=== PATIENT | female | born 1975 | race Caucasian/White ===

== ENCOUNTER 2018-01-10 16:56 | Emergency (ER) | payer OTHER ==
--- NOTE | 2018-01-10 17:38 | ERPHSYRPT ---
- History of Present Illness Time Seen by Provider: 01/10/18 17:31 Historian: patient, family Exam Limitations: no limitations Physician History: The patient is a 43-year-old female planing of right upper quadrant abdominal pain with radiation through to her back and shoulder for 2 days. She also complains of nausea, vomiting, and diarrhea for 2 days. Last night when the pain was severe in her abdomen, it caused her lower central chest to feel like it is being squeezed. When she laid down she would feel short of breath. She drinks alcohol. She drank a beer today to see if it would make the abdominal pain worse. The pain got worse with drinking beer. Her past medical history is significant for anxiety, GERD, cholecystectomy, appendectomy, and tubal ligation. Timing/Duration: day(s) (2), constant, gradual onset, worse Activities at Onset: none Quality: sharpness Abdominal Pain Onset Location: RUQ, epigastric Pain Radiation: shoulder, back Severity of Pain-Max: moderate Severity of Pain-Current: moderate Modifying Factors: Improves With: other (drinking a beer made her pain worse today.) Associated Symptoms: diarrhea, nausea, vomiting Previous symptoms: no prior history Allergies/Adverse Reactions: cyclobenzaprine [From Flexeril] Allergy (Verified 01/10/18 17:23) Home Medications: Clonidine HCl 0.2 mg PO DAILY 01/10/18 [History] Ranitidine HCl [Zantac] 150 mg PO DAILY 01/10/18 [History] - Review of Systems Constitutional: No Fever, No Chills Eyes: No Symptoms Ears, Nose, & Throat: No Symptoms Respiratory: No Cough, No Dyspnea Cardiac: No Chest Pain, No Edema, No Syncope Abdominal/Gastrointestinal: Abdominal Pain, Nausea, Vomiting, Diarrhea Genitourinary Symptoms: No Dysuria Musculoskeletal: No Back Pain, No Neck Pain Skin: No Rash Neurological: No Dizziness, No Focal Weakness, No Sensory Changes Psychological: No Symptoms Endocrine: No Symptoms Hematologic/Lymphatic: No Symptoms Immunological/Allergic: No Symptoms All Other Systems: Reviewed and Negative - Nursing Vital Signs Nursing Vital Signs: Initial Vital Signs Temperature 98.6 F 01/10/18 17:17 Pulse Rate 72 01/10/18 17:17 Respiratory Rate 16 01/10/18 17:17 Blood Pressure 142/95 01/10/18 17:17 O2 Sat by Pulse Oximetry 98 01/10/18 17:17 Pain Scale Pain Intensity 8 - Physical Exam General Appearance: mild distress Eye Exam: PERRL/EOMI, eyes nml inspection Ears, Nose, Throat Exam: normal ENT inspection, pharynx normal, moist mucous membranes Neck Exam: normal inspection, non-tender, supple, full range of motion Respiratory Exam: normal breath sounds, lungs clear, No respiratory distress Cardiovascular Exam: regular rate/rhythm, normal heart sounds Gastrointestinal/Abdomen Exam: normal bowel sounds, tenderness (RUQ, epigastric) Pelvic Exam: not done Rectal Exam: not done Back Exam: normal inspection, normal range of motion, No CVA tenderness, No vertebral tenderness Extremity Exam: normal inspection, normal range of motion, pelvis stable Neurologic Exam: alert, oriented x 3, cooperative, normal mood/affect, nml cerebellar function, sensation nml, No motor deficits Skin Exam: normal color, warm, dry SpO2 Interpretation: normal Oxygen Delivery: Room Air - Course EKG Interpreted by Me: RATE, Sinus Rhythm, NORMAL AXIS, NORMAL INTERVALS, NORMAL QRS, NORMAL ST-T - CT Exams Abdomen/Pelvis CT Interpretation: Negative, Tele-radiologist Report (per Dr Hinkle), No appendicitis (surgically absent), Other (minimal diverticulosis) Ordered Tests: Active Orders 24 hr Category Date Time Status Clean Catch Urine Specimen STAT Care 01/10/18 17:42 Active EKG-ER Only STAT Care 01/10/18 17:42 Active IV Insertion STAT Care 01/10/18 17:42 Active ABDOMEN AND PELVIS W/0 CONTRAS [CT] Stat Exams 01/10/18 17:44 Taken AMYLASE Stat Lab 01/10/18 17:57 Completed CBC W DIFF Stat Lab 01/10/18 17:57 Completed CMP Stat Lab 01/10/18 17:57 Completed HCG QUALITATIVE,SERUM Stat Lab 01/10/18 17:57 Completed LIPASE Stat Lab 01/10/18 17:57 Completed Lactic Acid Stat Lab 01/10/18 17:50 Completed TROPONIN Q3H Lab 01/10/18 17:57 Completed TROPONIN Q3H Lab 01/10/18 20:45 Ordered TROPONIN Q3H Lab 01/10/18 23:45 Ordered TROPONIN Q3H Lab 01/11/18 02:45 Ordered TROPONIN Q3H Lab 01/11/18 05:45 Ordered UA W/RFX UR CULTURE Stat Lab 01/10/18 18:40 Received Urine Triage Profile Stat Lab 01/10/18 18:40 Ordered Medication Summary Discontinued Medications Generic Name Dose Route Start Last Admin Trade Name Norma PRN Reason Stop Dose Admin Sodium Chloride 1,000 mls @ 999 mls/hr 01/10/18 17:42 01/10/18 18:46 Sodium Chloride 0.9% 1000 Ml IV 01/10/18 18:42 999 mls/hr .Q1H1M STA Administration Sodium Chloride Confirm 01/10/18 18:42 Sodium Chloride 0.9% 1000 Ml Administered 01/10/18 18:43 Dose 1,000 mls @ ud .ROUTE .STK-MED ONE Morphine Sulfate 4 mg 01/10/18 17:42 01/10/18 18:46 Morphine Sulfate 4 Mg Inj IV 01/10/18 17:43 4 mg STAT ONE Administration Morphine Sulfate Confirm 01/10/18 18:42 Morphine Sulfate 4 Mg Inj Administered 01/10/18 18:43 Dose 4 mg .ROUTE .STK-MED ONE Ondansetron HCl 4 mg 01/10/18 17:42 01/10/18 18:46 Zofran 4 Mg/2 Ml Vial IV 01/10/18 17:43 4 mg STAT ONE Administration Ondansetron HCl Confirm 01/10/18 18:42 Zofran 4 Mg/2 Ml Vial Administered 01/10/18 18:43 Dose 4 mg .ROUTE .STK-MED ONE Lab/Rad Data: Laboratory Result Diagrams 01/10/18 17:57 01/10/18 17:57 Laboratory Results 01/10/18 01/10/18 01/10/18 Range/Units 17:57 17:57 17:57 WBC (4.0-10.5) K/mm3 RBC (4.1-5.4) M/mm3 Hgb (12.0-16.0) gm/dl Hct (35-47) % MCV (78-100) fl MCH (26-32) pg MCHC (32-36) g/dl RDW (11.5-14.0) % Plt Count (150-450) K/mm3 MPV (6-9.5) fl Gran % (36.0-66.0) % Eos # (Auto) (0-0.5) Absolute Lymphs (auto) (1.0-4.6) Absolute Monos (auto) (0.0-1.3) Lymphocytes % (24.0-44.0) % Monocytes % (0.0-12.0) % Eosinophils % (0.00-5.0) % Basophils % (0.0-0.4) % Absolute Granulocytes (1.4-6.9) Basophils # (0-0.4) Sodium 136 L (137-145) mmol/L Potassium 3.7 (3.5-5.1) mmol/L Chloride 105 (98-107) mmol/L Carbon Dioxide 21 L (22-30) mmol/L Anion Gap 13.5 (5-15) MEQ/L BUN 5 L (7-17) mg/dL Creatinine 0.55 (0.52-1.04) mg/dL Estimated GFR > 60.0 ML/MIN Glucose 102 (74-106) mg/dL Lactic Acid (0.4-2.0) Calcium 9.1 (8.4-10.2) mg/dL Total Bilirubin 0.60 (0.2-1.3) mg/dL AST 19 (14-36) U/L ALT 9 (0-35) U/L Alkaline Phosphatase 85 (38-126) U/L Troponin I < 0.012 (0.000-0.034) ng/mL Serum Total Protein 7.3 (6.3-8.2) g/dL Albumin 4.4 (3.5-5.0) g/dL Amylase 45 (30-110) U/L Lipase 48 (23-300) U/L Serum , Qual NEGATIVE (Negative) 01/10/18 01/10/18 Range/Units 17:57 17:50 WBC 7.9 (4.0-10.5) K/mm3 RBC 4.53 (4.1-5.4) M/mm3 Hgb 15.7 (12.0-16.0) gm/dl Hct 44.2 (35-47) % MCV 97.6 (78-100) fl MCH 34.7 H (26-32) pg MCHC 35.5 (32-36) g/dl RDW 13.5 (11.5-14.0) % Plt Count 265 (150-450) K/mm3 MPV 10.4 H (6-9.5) fl Gran % 63.8 (36.0-66.0) % Eos # (Auto) 0.11 (0-0.5) Absolute Lymphs (auto) 2.14 (1.0-4.6) Absolute Monos (auto) 0.55 (0.0-1.3) Lymphocytes % 27.0 (24.0-44.0) % Monocytes % 6.9 (0.0-12.0) % Eosinophils % 1.4 (0.00-5.0) % Basophils % 0.9 (0.0-0.4) % Absolute Granulocytes 5.06 (1.4-6.9) Basophils # 0.07 (0-0.4) Sodium (137-145) mmol/L Potassium (3.5-5.1) mmol/L Chloride (98-107) mmol/L Carbon Dioxide (22-30) mmol/L Anion Gap (5-15) MEQ/L BUN (7-17) mg/dL Creatinine (0.52-1.04) mg/dL Estimated GFR ML/MIN Glucose (74-106) mg/dL Lactic Acid 1.6 (0.4-2.0) Calcium (8.4-10.2) mg/dL Total Bilirubin (0.2-1.3) mg/dL AST (14-36) U/L ALT (0-35) U/L Alkaline Phosphatase (38-126) U/L Troponin I (0.000-0.034) ng/mL Serum Total Protein (6.3-8.2) g/dL Albumin (3.5-5.0) g/dL Amylase (30-110) U/L Lipase (23-300) U/L Serum , Qual (Negative) - Progress Progress: improved Counseled pt/family regarding: lab results, diagnosis, need for follow-up, rad results - Departure Time of Disposition: 19:07 Departure Disposition: Home Clinical Impression: Gastritis Condition: Stable Critical Care Time: No Referrals: RUMA BUCK PA [Primary Care Provider] - Additional Instructions: All of your laboratory results and her CT scan of the abdomen and pelvis were normal. You do not have pancreatitis. I suspect you have gastritis because when you drink of severe it makes your stomach hurt more. You were given morphine 8 mg, Zofran 4 mg, Protonix 40 mg, and fluids by IV in the ER. Take omeprazole 20 mg daily. Avoid spicy food and alcohol until feeling better. Follow-up with your primary medical doctor later this week. He also may take Tylenol as needed for pain. Avoid ibuprofen until better.
[2018-01-10] MEDS ORDERED: MORPHINE SULFATE 4 MG INJ IV ONE (17:42)
[2018-01-10] MEDS ORDERED: Sodium Chloride 0.9% 1000 ML 1,000 ML IV STA (17:42)
[2018-01-10] MEDS ORDERED: Zofran 4 MG/2 ML VIAL IV ONE (17:42)
[2018-01-10 17:56] LABS: BASOPHIL % 0.9 % (0.0-0.4); Basophil (Absolute #) 0.07 (0-0.4); Eosinophil % 1.4 % (0.00-5.0); Eosinophil (Absolute #) 0.11 (0-0.5); Granulocyte Absolute (ANC) 5.06 (1.4-6.9); Granulocytes % 63.8 % (36.0-66.0); Hematocrit 44.2 % (35-47); Hemoglobin 15.7 gm/dl (12.0-16.0); Lymphocyte (Absolute #) 2.14 (1.0-4.6); Mean Cell Volume 97.6 fl (78-100); Mean Corpuscular Hemoglobin 34.7 pg (26-32); Mean Corpuscular Hgb Concent. 35.5 g/dl (32-36); Mean Platelet Volume 10.4 fl (6-9.5); Monocyte (Absolute #) 0.55 (0.0-1.3); Monocytes % 6.9 % (0.0-12.0); Platelet Count 265 K/mm3 (150-450); Red Blood Count 4.53 M/mm3 (4.1-5.4); Red Cell Distribution Width 13.5 % (11.5-14.0); White Blood Count 7.9 K/mm3 (4.0-10.5)
[2018-01-10 18:12] LABS: ALBUMIN 4.4 g/dL (3.5-5.0); ALKALINE PHOSPHATASE 85 U/L (38-126); AMYLASE 45 U/L (30-110); ANION GAP 13.5 MEQ/L (5-15); BLOOD UREA NITROGEN 5 mg/dL (7-17); CHLORIDE 105 mmol/L (98-107); Calcium 9.1 mg/dL (8.4-10.2); Carbon Dioxide 21 mmol/L (22-30); Creatinine 1 0.55 mg/dL (0.52-1.04); Glucose 102 mg/dL (74-106); LIPASE 48 U/L (23-300); Potassium 3.7 mmol/L (3.5-5.1); SGOT/AST 19 U/L (14-36); SGPT/ALT 9 U/L (0-35); SODIUM 136 mmol/L (137-145); Total Protein 7.3 g/dL (6.3-8.2)
[2018-01-10] MEDS ORDERED: Sodium Chloride 0.9% 1000 ML 1,000 ML ONE (18:42)
[2018-01-10] MEDS ORDERED: Zofran 4 MG/2 ML VIAL ONE (18:42)
[2018-01-10] MEDS ORDERED: MORPHINE SULFATE 4 MG INJ ONE (18:42)
[2018-01-10 19:01] LABS: Appearance CLEAR (CLEAR); Leukocyte Esterase TRACE (NEGATIVE); Nitrite NEGATIVE (NEGATIVE); Protein,Urine Dip NEGATIVE (Negative)
[2018-01-10 19:02] LABS: Bilirubin NEGATIVE (NEGATIVE); Blood TRACE NON-HEM Ery/ul (0-5); Epithelial Cells RARE /HPF (FEW); Glucose NEGATIVE (NEGATIVE); Ketones NEGATIVE (NEGATIVE); RBC 0-2 /HPF (0-2); Urobilinogen NORMAL mg/dL (0-1); WBC 0-2 /HPF (0-5)
[2018-01-10] MEDS ORDERED: PROTONIX 40 MG IV IV ONE ×2 (19:06→19:13)
[2018-01-10 19:12] LABS: Barbiturate,Urine NEGATIVE (NEGATIVE); Benzodiazepine,Urine NEGATIVE (NEGATIVE); Cocaine,Urine NEGATIVE (NEGATIVE); Methadone,Urine NEGATIVE (NEGATIVE); Opiate,Urine NEGATIVE (NEGATIVE); PCP,Urine NEGATIVE (NEGATIVE); THC,Urine NEGATIVE (NEGATIVE)
[2018-01-10 19:20] VITALS: PULSE 60
[2018-01-10 19:27] LABS: Amphetamine,Urine POSITIVE (NEGATIVE)
[2018-01-10 19:52] VITALS: BP 144/80; O2SAT 99
--- NOTE | 2018-01-11 08:43 | XRAY ---
Indication: Abdomen pain. Multiple contiguous axial images obtained through the abdomen and pelvis without contrast as ordered. Comparison: None Lung bases clear. Heart is not enlarged. Noncontrasted stomach and bowel loops appear nonobstructed. Previous appendectomy. Minimal left hemicolon diverticulosis without diverticulitis. No free fluid/air. Previous cholecystectomy. Bilateral tubal ligation rings. Remaining liver, pancreas, spleen, adrenal glands, kidneys, ureters, bladder, uterus, and aorta appear unremarkable for noncontrast exam. Osseous structures intact. No ventral or inguinal hernias. Impression: 1. Colonic diverticulosis without diverticulitis. 2. No acute intra-abdominal/pelvic abnormalities on this noncontrast exam. CT DI 13.76
== END 2018-01-10 19:52 | disposition home or self-care (01) ==
LOC: ED 16:56
DX: K29.70 Gastritis, unspecified, without bleeding (principal); R10.11 Right upper quadrant pain; R11.2 Nausea with vomiting, unspecified; R10.13 Epigastric pain; Z79.899 Other long term (current) drug therapy
CPT/HCPCS: 36000; 36415; 74176; 80053; 80307; 81000; 82150; 83605; 83690; 84484; 84703; 85025; 87086; 93005; 96360; 96374; 96375; 99284; J2270; J2405

== ENCOUNTER 2018-03-16 13:03 | Emergency (ER) | payer OTHER ==
[2018-03-16] MEDS ORDERED: Pepcid 20 MG VIAL IV ONE ×2 (13:25→13:43)
[2018-03-16] MEDS ORDERED: Sodium Chloride 0.9% 1000 ML 1,000 ML IV STA (13:25)
[2018-03-16] MEDS ORDERED: Zofran 4 MG/2 ML VIAL IV ONE (13:25)
[2018-03-16] MEDS ORDERED: MORPHINE SULFATE 4 MG INJ IV ONE (13:25)
--- NOTE | 2018-03-16 13:25 | ERPHSYRPT ---
- History of Present Illness Time Seen by Provider: 03/16/18 13:20 Historian: patient Exam Limitations: no limitations Patient Subjective Stated Complaint: Pt states "I am having chest pain, diarrhea , coughing, vomiting for the past 3 to 4 days. I am always cold, and I am shaking." Triage Nursing Assessment: pt alert and oriented X 3, skin pwd. PT ambulates with an upright steady gait, able to speak in clear full sentences. Pt coughing intermittantly. Pt shaking uncontrollably. Pt in no apparent respiratory distress. Physician History: The patient is a 43-year-old female in planing of nausea, vomiting, and diarrhea for 3 days. She is also lightheaded today while she is walking. She has shakiness and chills. She has some epigastric pain. Every time she eats or drinks for the past 3 days, she vomits. Her last menstrual period was 2 weeks ago. She denies shortness of breath. Her past medical history is significant for anxiety, gerd, appendectomy, cholecystectomy, and tubal ligation. Timing/Duration: day(s) (3), gradual onset, worse Activities at Onset: none Quality: aching Abdominal Pain Onset Location: epigastric Pain Radiation: other (lower mid chest) Severity of Pain-Max: moderate Severity of Pain-Current: moderate Modifying Factors: Improves With: nothing Associated Symptoms: diarrhea, fever/chills, nausea, vomiting Previous symptoms: no prior history Allergies/Adverse Reactions: tramadol Allergy (Severe, Verified 03/16/18 13:15) Hives cyclobenzaprine [From Flexeril] Allergy (Verified 01/10/18 17:23) Home Medications: Clonidine HCl 0.2 mg PO DAILY 01/10/18 [History] Ranitidine HCl [Zantac] 150 mg PO DAILY 01/10/18 [History] Omeprazole 20 mg PO DAILY 03/16/18 [History] Hx Tetanus, Diphtheria Vaccination/Date Given: No Hx Influenza Vaccination/Date Given: No Hx Pneumococcal Vaccination/Date Given: No Immunizations Up to Date: Yes - Review of Systems Constitutional: Chills, Weakness Eyes: No Symptoms Ears, Nose, & Throat: No Symptoms Respiratory: No Cough, No Dyspnea Cardiac: No Chest Pain, No Edema, No Syncope Abdominal/Gastrointestinal: Abdominal Pain, Nausea, Vomiting, Diarrhea Genitourinary Symptoms: No Dysuria Musculoskeletal: No Back Pain, No Neck Pain Skin: No Rash Neurological: No Dizziness, No Focal Weakness, No Sensory Changes Psychological: No Symptoms Endocrine: No Symptoms Hematologic/Lymphatic: No Symptoms Immunological/Allergic: No Symptoms All Other Systems: Reviewed and Negative - Past Medical History Pertinent Past Medical History: Yes GI Medical History: GERD Psycho-Social History: Anxiety - Past Surgical History Past Surgical History: Yes Gastrointestinal: Cholecystectomy Female Surgical History: Tubal Ligation - Social History Smoking Status: Current every day smoker How long have you smoked: 20 years Exposure to second hand smoke: Yes Drug Use: none Patient Lives Alone: No - Female History Hx Last Menstrual Period: 03/03/2018 Hx Now: No - Nursing Vital Signs Nursing Vital Signs: Initial Vital Signs Temperature 98.4 F 03/16/18 13:06 Pulse Rate 110 H 03/16/18 13:06 Respiratory Rate 24 03/16/18 13:06 Blood Pressure 142/114 03/16/18 13:06 O2 Sat by Pulse Oximetry 99 03/16/18 13:06 Pain Scale Pain Intensity 5 - Physical Exam General Appearance: mild distress Eye Exam: PERRL/EOMI, eyes nml inspection Ears, Nose, Throat Exam: normal ENT inspection, pharynx normal, moist mucous membranes Neck Exam: normal inspection, non-tender, supple, full range of motion Respiratory Exam: normal breath sounds, lungs clear, No respiratory distress Cardiovascular Exam: tachycardia Gastrointestinal/Abdomen Exam: tenderness (RLQ, epigastrium) Pelvic Exam: not done Rectal Exam: not done Back Exam: normal inspection, normal range of motion, No CVA tenderness, No vertebral tenderness Extremity Exam: normal inspection, normal range of motion, pelvis stable Neurologic Exam: alert, oriented x 3, cooperative, normal mood/affect, nml cerebellar function, sensation nml, No motor deficits Skin Exam: normal color, warm, dry SpO2 Interpretation: normal SpO2: 99 Oxygen Delivery: Room Air - Course EKG Interpreted by Me: RATE, Sinus Rhythm, NORMAL AXIS, NORMAL INTERVALS, NORMAL QRS, NORMAL ST-T - CT Exams Abdomen/Pelvis CT Interpretation: Tele-radiologist Report (per Dr Hinkle), Other (stable descending colonic diverticulosis without diverticulitis; no new or acute findings.) Ordered Tests: Active Orders 24 hr Category Date Time Status Clean Catch Urine Specimen STAT Care 03/16/18 13:25 Active EKG-ER Only STAT Care 03/16/18 13:25 Active IV Insertion STAT Care 03/16/18 13:25 Active Orthostatic Vital Signs STAT Care 03/16/18 13:27 Active ABDOMEN AND PELVIS W/0 CONTRAS [CT] Stat Exams 03/16/18 13:26 Completed CBC W DIFF Stat Lab 03/16/18 13:25 Completed CMP Stat Lab 03/16/18 13:25 Completed HCG QUALITATIVE,SERUM Stat Lab 03/16/18 13:25 Completed LIPASE Stat Lab 03/16/18 13:25 Completed Lactic Acid Stat Lab 03/16/18 14:00 Completed TROPONIN Q3H Lab 03/16/18 13:25 Completed TROPONIN Q3H Lab 03/16/18 16:30 Ordered TROPONIN Q3H Lab 03/16/18 19:30 Ordered TROPONIN Q3H Lab 03/16/18 22:30 Ordered TROPONIN Q3H Lab 03/17/18 01:30 Ordered UA W/RFX UR CULTURE Stat Lab 03/16/18 Completed Medication Summary Discontinued Medications Generic Name Dose Route Start Last Admin Trade Name Freq PRN Reason Stop Dose Admin Famotidine 20 mg 03/16/18 13:25 03/16/18 13:51 Pepcid 20 Mg Vial IV 03/16/18 13:26 20 mg STAT ONE Administration Famotidine Confirm 03/16/18 13:43 Pepcid 20 Mg Vial Administered 03/16/18 13:44 Dose 20 mg IV .STK-MED ONE Sodium Chloride 1,000 mls @ 999 mls/hr 03/16/18 13:25 03/16/18 13:51 Sodium Chloride 0.9% 1000 Ml IV 03/16/18 14:25 999 mls/hr .Q1H1M STA Administration Sodium Chloride Confirm 03/16/18 13:43 Sodium Chloride 0.9% 1000 Ml Administered 03/16/18 13:44 Dose 1,000 mls @ ud .ROUTE .STK-MED ONE Morphine Sulfate 4 mg 03/16/18 13:25 03/16/18 13:50 Morphine Sulfate 4 Mg Inj IV 03/16/18 13:26 4 mg STAT ONE Administration Morphine Sulfate Confirm 03/16/18 13:43 Morphine Sulfate 4 Mg Inj Administered 03/16/18 13:44 Dose 4 mg .ROUTE .STK-MED ONE Ondansetron HCl 4 mg 03/16/18 13:25 03/16/18 13:51 Zofran 4 Mg/2 Ml Vial IV 03/16/18 13:26 4 mg STAT ONE Administration Ondansetron HCl Confirm 03/16/18 13:43 Zofran 4 Mg/2 Ml Vial Administered 03/16/18 13:44 Dose 4 mg .ROUTE .STK-MED ONE Lab/Rad Data: Laboratory Result Diagrams 03/16/18 13:25 03/16/18 13:25 Laboratory Results 03/16/18 03/16/18 03/16/18 Range/Units Unknown 14:00 13:25 WBC (4.0-10.5) K/mm3 RBC (4.1-5.4) M/mm3 Hgb (12.0-16.0) gm/dl Hct (35-47) % MCV (78-100) fl MCH (26-32) pg MCHC (32-36) g/dl RDW (11.5-14.0) % Plt Count (150-450) K/mm3 MPV (6-9.5) fl Gran % (36.0-66.0) % Eos # (Auto) (0-0.5) Absolute Lymphs (auto) (1.0-4.6) Absolute Monos (auto) (0.0-1.3) Lymphocytes % (24.0-44.0) % Monocytes % (0.0-12.0) % Eosinophils % (0.00-5.0) % Basophils % (0.0-0.4) % Absolute Granulocytes (1.4-6.9) Basophils # (0-0.4) Sodium (137-145) mmol/L Potassium (3.5-5.1) mmol/L Chloride (98-107) mmol/L Carbon Dioxide (22-30) mmol/L Anion Gap (5-15) MEQ/L BUN (7-17) mg/dL Creatinine (0.52-1.04) mg/dL Estimated GFR ML/MIN Glucose (74-106) mg/dL Lactic Acid 1.4 (0.4-2.0) Calcium (8.4-10.2) mg/dL Total Bilirubin (0.2-1.3) mg/dL AST (14-36) U/L ALT (0-35) U/L Alkaline Phosphatase (38-126) U/L Troponin I (0.000-0.034) ng/mL Serum Total Protein (6.3-8.2) g/dL Albumin (3.5-5.0) g/dL Lipase (23-300) U/L Serum , Qual NEGATIVE (Negative) Urine Color YELLOW (YELLOW) Urine Appearance CLEAR (CLEAR) Urine pH 7.0 (5-6) Ur Specific [place] 1.009 (1.005-1.025) Urine Protein NEGATIVE (Negative) Urine Ketones SMALL (NEGATIVE) Urine Blood NEGATIVE (0-5) [place]/ul Urine Nitrite NEGATIVE (NEGATIVE) Urine Bilirubin NEGATIVE (NEGATIVE) Urine Urobilinogen 2 (0-1) mg/dL Ur Leukocyte Esterase NEGATIVE (NEGATIVE) Urine WBC (Auto) 0-2 (0-5) /HPF Urine RBC (Auto) NONE (0-2) /HPF U Hyaline Cast (Auto) 0-2 (0-2) /LPF U Epithel Cells (Auto) NONE (FEW) /HPF Urine Bacteria (Auto) NONE (NEGATIVE) /HPF Urine Culture Reflexed NO (NO) Urine Glucose NEGATIVE (NEGATIVE) mg/dL 03/16/18 03/16/18 03/16/18 Range/Units 13:25 13:25 13:25 WBC 7.2 (4.0-10.5) K/mm3 RBC 5.04 (4.1-5.4) M/mm3 Hgb 17.6 H (12.0-16.0) gm/dl Hct 49.7 H (35-47) % MCV 98.6 (78-100) fl MCH 34.9 H (26-32) pg MCHC 35.4 (32-36) g/dl RDW 14.3 H (11.5-14.0) % Plt Count 148 L (150-450) K/mm3 MPV 10.6 H (6-9.5) fl Gran % 71.3 H (36.0-66.0) % Eos # (Auto) 0.02 (0-0.5) Absolute Lymphs (auto) 1.48 (1.0-4.6) Absolute Monos (auto) 0.53 (0.0-1.3) Lymphocytes % 20.7 L (24.0-44.0) % Monocytes % 7.4 (0.0-12.0) % Eosinophils % 0.3 (0.00-5.0) % Basophils % 0.3 (0.0-0.4) % Absolute Granulocytes 5.11 (1.4-6.9) Basophils # 0.02 (0-0.4) Sodium 135 L (137-145) mmol/L Potassium 3.9 (3.5-5.1) mmol/L Chloride 99 (98-107) mmol/L Carbon Dioxide 20 L (22-30) mmol/L Anion Gap 19.9 H (5-15) MEQ/L BUN 6 L (7-17) mg/dL Creatinine 0.60 (0.52-1.04) mg/dL Estimated GFR > 60.0 ML/MIN Glucose 97 (74-106) mg/dL Lactic Acid (0.4-2.0) Calcium 10.0 (8.4-10.2) mg/dL Total Bilirubin 0.70 (0.2-1.3) mg/dL AST 24 (14-36) U/L ALT 17 (0-35) U/L Alkaline Phosphatase 109 (38-126) U/L Troponin I < 0.012 (0.000-0.034) ng/mL Serum Total Protein 8.2 (6.3-8.2) g/dL Albumin 4.9 (3.5-5.0) g/dL Lipase 128 (23-300) U/L Serum , Qual (Negative) Urine Color (YELLOW) Urine Appearance (CLEAR) Urine pH (5-6) Ur Specific [place] (1.005-1.025) Urine Protein (Negative) Urine Ketones (NEGATIVE) Urine Blood (0-5) Haroldo/ul Urine Nitrite (NEGATIVE) Urine Bilirubin (NEGATIVE) Urine Urobilinogen (0-1) mg/dL Ur Leukocyte Esterase (NEGATIVE) Urine WBC (Auto) (0-5) /HPF Urine RBC (Auto) (0-2) /HPF U Hyaline Cast (Auto) (0-2) /LPF U Epithel Cells (Auto) (FEW) /HPF Urine Bacteria (Auto) (NEGATIVE) /HPF Urine Culture Reflexed (NO) Urine Glucose (NEGATIVE) mg/dL - Progress Progress: improved Progress Note: 03/16/18 14:59 Pt given MSO4 4 mg, zofran 4 mg, pepcid 20 mg, and fluids by IV with mild improvement. 03/16/18 15:02 Counseled pt/family regarding: lab results, diagnosis, need for follow-up, rad results - Departure Time of Disposition: 15:00 Departure Disposition: Home Clinical Impression: Gastroenteritis Condition: Stable Critical Care Time: No Referrals: RUMA BUCK PA [Primary Care Provider] - Additional Instructions: You have gastroenteritis. You were given morphine 4 mg, Zofran 4 mg, famotidine 20 mg, and fluids by IV in the ER. Take Zofran 4 mg ODT every 6 hours as needed. Begin with a all liquid diet and advance slowly as tolerated. Follow-up with your primary medical doctor as needed. Prescriptions: Ondansetron ODT 4 MG [Zofran Odt 4 mg] 1 tab PO Q6H PRN PRN #10 tab.rapdis PRN Reason: Nausea/Vomiting
[2018-03-16] MEDS ORDERED: Zofran 4 MG/2 ML VIAL ONE (13:43)
[2018-03-16] MEDS ORDERED: MORPHINE SULFATE 4 MG INJ ONE (13:43)
[2018-03-16] MEDS ORDERED: Sodium Chloride 0.9% 1000 ML 1,000 ML ONE (13:43)
[2018-03-16 13:44] LABS: BASOPHIL % 0.3 % (0.0-0.4); Basophil (Absolute #) 0.02 (0-0.4); Eosinophil % 0.3 % (0.00-5.0); Eosinophil (Absolute #) 0.02 (0-0.5); Granulocyte Absolute (ANC) 5.11 (1.4-6.9); Granulocytes % 71.3 % (36.0-66.0); Hematocrit 49.7 % (35-47); Hemoglobin 17.6 gm/dl (12.0-16.0); Lymphocyte (Absolute #) 1.48 (1.0-4.6); Lymphocytes % 20.7 % (24.0-44.0); Mean Cell Volume 98.6 fl (78-100); Mean Corpuscular Hemoglobin 34.9 pg (26-32); Mean Corpuscular Hgb Concent. 35.4 g/dl (32-36); Mean Platelet Volume 10.6 fl (6-9.5); Monocyte (Absolute #) 0.53 (0.0-1.3); Monocytes % 7.4 % (0.0-12.0); Platelet Count 148 K/mm3 (150-450); Red Blood Count 5.04 M/mm3 (4.1-5.4); Red Cell Distribution Width 14.3 % (11.5-14.0); White Blood Count 7.2 K/mm3 (4.0-10.5)
[2018-03-16 14:09] LABS: ALBUMIN 4.9 g/dL (3.5-5.0); ALKALINE PHOSPHATASE 109 U/L (38-126); ANION GAP 19.9 MEQ/L (5-15); BLOOD UREA NITROGEN 6 mg/dL (7-17); CHLORIDE 99 mmol/L (98-107); Carbon Dioxide 20 mmol/L (22-30); Glucose 97 mg/dL (74-106); LIPASE 128 U/L (23-300); Potassium 3.9 mmol/L (3.5-5.1); SGOT/AST 24 U/L (14-36); SGPT/ALT 17 U/L (0-35); SODIUM 135 mmol/L (137-145); Total Protein 8.2 g/dL (6.3-8.2)
[2018-03-16 14:32] LABS: Appearance CLEAR (CLEAR); Bilirubin NEGATIVE (NEGATIVE); Blood NEGATIVE Ery/ul (0-5); Glucose NEGATIVE (NEGATIVE); Ketones SMALL (NEGATIVE); Leukocyte Esterase NEGATIVE (NEGATIVE); Nitrite NEGATIVE (NEGATIVE); Protein,Urine Dip NEGATIVE (Negative); Specific Gravity 1.009 (1.005-1.025); Urobilinogen 2 mg/dL (0-1)
--- NOTE | 2018-03-16 14:46 | XRAY ---
Indication: Abdomen/chest pain. Nausea, vomiting, diarrhea. Multiple contiguous axial images obtained through the abdomen and pelvis without contrast as ordered. Comparison: January 10, 2018. Lung bases again clear. Heart is not enlarged. Noncontrasted stomach and bowel loops remain nonobstructed. Again appendectomy, cholecystectomy, and bilateral tubal ligation rings. Stable minimal descending colonic diverticulosis without diverticulitis. No free fluid/air. Stable 4-5 mm posterior right lobe hepatic cyst. Remaining liver, pancreas, spleen, adrenal glands, kidneys, ureters, bladder, and uterus appear unremarkable for noncontrast exam. Again minimal aortic calcifications without AAA. Osseous structures intact. Impression: 1. Stable descending colonic diverticulosis without diverticulitis and tiny hepatic cyst. 2. No new or acute intra-abdominal/pelvic abnormalities on this noncontrast exam. CTDI 11.21
[2018-03-16 15:27] VITALS: BP 156/83; PULSE 70; O2SAT 98
== END 2018-03-16 15:23 | disposition home or self-care (01) ==
LOC: ED 13:03
DX: K52.9 Noninfective gastroenteritis and colitis, unspecified (principal); R11.2 Nausea with vomiting, unspecified; R42 Dizziness and giddiness; R10.13 Epigastric pain; Z79.899 Other long term (current) drug therapy
CPT/HCPCS: 36000; 36415; 74176; 80053; 81001; 81025; 83605; 83690; 84484; 85025; 93005; 96360; 96365; 96374; 96375; 99284; J2270; J2405

== ENCOUNTER 2018-04-01 08:29 | Observation (INO) | payer OTHER ==
[2018-04-01] MEDS ORDERED: Sodium Chloride 0.9% 1000 ML 1,000 ML IV STA (08:51)
[2018-04-01] MEDS ORDERED: Vitamins For Infusion 10 ML INJECTION*** 10 ML, THIAMINE 200 MG/2 ML*** 100 MG, FOLNATE... IV SCH ×4 (09:00)
--- NOTE | 2018-04-01 09:10 | ERPHSYRPT ---
- History of Present Illness Time Seen by Provider: 04/01/18 08:45 Historian: patient Exam Limitations: clinical condition Patient Subjective Stated Complaint: n/v x 2 days.. hx alcohol abuse.. last drink yesterday. Shaky numbness to hands and face. Triage Nursing Assessment: Alert and oriented.. c/o shakiness with n/v x 2 days. states last drink was yesterday of beer. slight abdominal pain but has CP with a 10. pain. Physician History: PATIENT WITH A HISTORY OF ANXIETY, GERD, CHRONIC ALCOHOL ABUSE, WHO INGEST ALCOHOL DAILY FOR 2 YEARS, HAS ONSET OF FREQUENT EMESIS 4-5 TIMES DAILY OVER 3 DAYS AFTER DISCONTINUING ALCOHOL 4 DAYS AGO. HAS ASSOCIATED CRAMPY ABDOMINAL PAIN, INTERMITTENT CHEST TIGHTNESS. DENIES TREMORS, HALLUCINATIONS, FEVER, COUGH OR DIARRHEA. Timing/Duration: day(s) Activities at Onset: none Quality: cramping Abdominal Pain Onset Location: generalized abdomen Pain Radiation: no radiation Severity of Pain-Max: mild Severity of Pain-Current: mild Modifying Factors: Improves With: eating, other (DRINKING ALCOHOL DIALY) Previous symptoms: same symptoms as today Allergies/Adverse Reactions: tramadol Allergy (Severe, Verified 04/01/18 09:03) Hives cyclobenzaprine [From Flexeril] Allergy (Verified 04/01/18 09:03) Home Medications: Clonidine HCl 0.2 mg PO DAILY 01/10/18 [History] Ranitidine HCl [Zantac] 150 mg PO DAILY 01/10/18 [History] Omeprazole 20 mg PO DAILY 03/16/18 [History] Hx Tetanus, Diphtheria Vaccination/Date Given: No Hx Influenza Vaccination/Date Given: No Hx Pneumococcal Vaccination/Date Given: No - Review of Systems Constitutional: No Fever, No Chills Eyes: No Symptoms Ears, Nose, & Throat: No Symptoms Respiratory: No Symptoms, No Cough, No Dyspnea Cardiac: No Symptoms, No Chest Pain, No Edema, No Syncope Abdominal/Gastrointestinal: Abdominal Pain, Nausea, Vomiting, Diarrhea Genitourinary Symptoms: No Symptoms, No Dysuria Musculoskeletal: No Symptoms, No Back Pain, No Neck Pain Skin: No Rash Neurological: No Dizziness, No Focal Weakness, No Sensory Changes Psychological: No Symptoms Endocrine: No Symptoms All Other Systems: Reviewed and Negative - Past Medical History Pertinent Past Medical History: Yes GI Medical History: GERD Psycho-Social History: Anxiety - Past Surgical History Past Surgical History: Yes Gastrointestinal: Cholecystectomy Female Surgical History: Tubal Ligation - Social History Smoking Status: Current every day smoker How long have you smoked: 20 years Exposure to second hand smoke: No Drug Use: none Patient Lives Alone: No - Female History Hx Now: No - Nursing Vital Signs Nursing Vital Signs: Initial Vital Signs Temperature 97.5 F 04/01/18 08:35 Pulse Rate 110 H 04/01/18 08:35 Respiratory Rate 18 04/01/18 08:35 Blood Pressure 153/112 04/01/18 08:35 O2 Sat by Pulse Oximetry 100 04/01/18 08:35 Pain Scale Pain Intensity 8 - Physical Exam General Appearance: no apparent distress, alert Eye Exam: PERRL/EOMI, eyes nml inspection Ears, Nose, Throat Exam: normal ENT inspection, pharynx normal, moist mucous membranes Neck Exam: normal inspection, non-tender, supple, full range of motion Respiratory Exam: normal breath sounds, lungs clear, No respiratory distress Cardiovascular Exam: regular rate/rhythm, normal heart sounds, tachycardia Gastrointestinal/Abdomen Exam: soft, normal bowel sounds, tenderness (MINIMAL PERIUMBILICAL TENDERNESS), No mass Back Exam: normal inspection, normal range of motion, No CVA tenderness, No vertebral tenderness Extremity Exam: normal inspection, normal range of motion, pelvis stable Neurologic Exam: alert, oriented x 3, cooperative, normal mood/affect, nml cerebellar function, sensation nml, other ( GENERALIZED FINE TREMORS NOTED), No motor deficits Skin Exam: normal color, warm, dry SpO2 Interpretation: normal SpO2: 100 Oxygen Delivery: Room Air - Course Nursing assessment & vital signs reviewed: No EKG Interpreted by Me: RATE, Sinus Tach (RATE 90) - Radiology Exams Abdomen X-ray Interpretation: Discussed w/ radiologist (NO BOWEL OBSTRUCTION, FREE AIR OR CHEST INFILTRATES) Ordered Tests: Active Orders 24 hr Category Date Time Status Up Ad Kim ROUTINE Activity 04/01/18 10:52 Ordered Call Admit Doctor for Orders ON ADMISSION Care 04/01/18 10:51 Ordered Code Status Order ROUTINE Care 04/01/18 10:50 Ordered IV Care Q6H Care 04/01/18 10:50 Ordered IV Insertion STAT Care 04/01/18 08:51 Active Neuro Checks Q6H Care 04/01/18 10:[address] in Observation ROUTINE Care 04/01/18 10:50 Ordered Vital Signs Q4H Care 04/01/18 10:50 Ordered Clear Liquid Diet 04/01/18 Dinner Ordered OBSTR/ACUTE ABDOMEN SERIES Stat Exams 04/01/18 08:52 Completed AMYLASE Stat Lab 04/01/18 10:00 Completed CBC W DIFF Stat Lab 04/01/18 10:00 Completed CMP Stat Lab 04/01/18 10:00 Completed CULTURE,URINE Stat Lab 04/01/18 08:52 Received LIPASE Stat Lab 04/01/18 10:00 Completed MAGNESIUM Stat Lab 04/01/18 10:00 Completed TROPONIN Q3H Lab 04/01/18 10:00 Completed TROPONIN Q3H Lab 04/01/18 12:00 Ordered TROPONIN Q3H Lab 04/01/18 15:00 Ordered TROPONIN Q3H Lab 04/01/18 18:00 Ordered TROPONIN Q3H Lab 04/01/18 21:00 Ordered UA W/RFX UR CULTURE Stat Lab 04/01/18 08:52 Completed Urine Triage Profile Stat Lab 04/01/18 09:33 Completed Transfer Order Routine Transfer 04/01/18 Ordered Medication Summary Generic Name Dose Route Start Last Admin Trade Name Freq PRN Reason Stop Dose Admin Multivitamins/Minerals 10 ml/ 1,000 mls @ 100 mls/hr 04/01/18 09:00 04/01/18 09:26 Thiamine HCl 100 mg/ Folic IV 04/01/18 18:59 100 mls/hr Acid 1 mg/ Sodium Chloride .Q10H LENKA Administration Discontinued Medications Generic Name Dose Route Start Last Admin Trade Name Freq PRN Reason Stop Dose Admin Famotidine 20 mg 04/01/18 09:34 04/01/18 09:38 Pepcid 20 Mg Vial IV 04/01/18 09:35 20 mg STAT ONE Administration Famotidine Confirm 04/01/18 09:36 Pepcid 20 Mg Vial Administered 04/01/18 09:37 Dose 20 mg IV .STK-MED ONE Sodium Chloride 1,000 mls @ 999 mls/hr 04/01/18 08:51 04/01/18 09:48 Sodium Chloride 0.9% 1000 Ml IV 04/01/18 09:51 999 mls/hr .Q1H1M STA Administration Sodium Chloride Confirm 04/01/18 09:46 Sodium Chloride 0.9% 1000 Ml Administered 04/01/18 09:47 Dose 1,000 mls @ ud .ROUTE .STK-MED ONE Ketorolac Tromethamine 30 mg 04/01/18 10:06 04/01/18 10:12 Toradol 30 Mg Injection IV 04/01/18 10:07 30 mg STAT ONE Administration Ketorolac Tromethamine Confirm 04/01/18 10:07 Toradol 30 Mg Injection Administered 04/01/18 10:08 Dose 30 mg .ROUTE .STK-MED ONE Lorazepam Confirm 04/01/18 09:34 Ativan 2 Mg/1 Ml Vial Administered 04/01/18 09:35 Dose 2 mg .ROUTE .STK-MED ONE Lorazepam 2 mg 04/01/18 09:37 04/01/18 09:38 Ativan 2 Mg/1 Ml Vial IV 04/01/18 09:38 2 mg STAT ONE Administration Ondansetron HCl 4 mg 04/01/18 10:05 04/01/18 10:12 Zofran 4 Mg/2 Ml Vial IV 04/01/18 10:06 4 mg STAT ONE Administration Ondansetron HCl Confirm 04/01/18 10:07 Zofran 4 Mg/2 Ml Vial Administered 04/01/18 10:08 Dose 4 mg .ROUTE .STK-MED ONE Potassium Bicarbonate Confirm 04/01/18 10:28 K-Lyte 25 Meq Administered 04/01/18 10:29 Dose 50 meq .ROUTE .STK-MED ONE Potassium Bicarbonate 50 meq 04/01/18 10:39 04/01/18 10:40 K-Lyte 25 Meq PO 04/01/18 10:40 50 meq STAT ONE Administration Lab/Rad Data: Laboratory Result Diagrams 04/01/18 10:00 04/01/18 10:00 Laboratory Results 04/01/18 04/01/18 04/01/18 Range/Units 10:00 10:00 10:00 WBC 9.3 (4.0-10.5) K/mm3 RBC 4.58 (4.1-5.4) M/mm3 Hgb 16.0 (12.0-16.0) gm/dl Hct 45.3 (35-47) % MCV 98.9 (78-100) fl MCH 34.9 H (26-32) pg MCHC 35.3 (32-36) g/dl RDW 14.2 H (11.5-14.0) % Plt Count 145 L (150-450) K/mm3 MPV 10.6 H (6-9.5) fl Gran % 90.7 H (36.0-66.0) % Eos # (Auto) 0.01 (0-0.5) Absolute Lymphs (auto) 0.47 L (1.0-4.6) Absolute Monos (auto) 0.35 (0.0-1.3) Lymphocytes % 5.1 L (24.0-44.0) % Monocytes % 3.8 (0.0-12.0) % Eosinophils % 0.1 (0.00-5.0) % Basophils % 0.3 (0.0-0.4) % Absolute Granulocytes 8.41 H (1.4-6.9) Basophils # 0.03 (0-0.4) Sodium 136 L (137-145) mmol/L Potassium 3.0 L (3.5-5.1) mmol/L Chloride 104 (98-107) mmol/L Carbon Dioxide 23 (22-30) mmol/L Anion Gap 11.6 (5-15) MEQ/L BUN 3 L (7-17) mg/dL Creatinine 0.50 L (0.52-1.04) mg/dL Estimated GFR > 60.0 ML/MIN Glucose 106 (74-106) mg/dL Calcium 8.3 L (8.4-10.2) mg/dL Magnesium 1.6 (1.6-2.3) mg/dL Total Bilirubin 0.90 (0.2-1.3) mg/dL AST 32 (14-36) U/L ALT 22 (0-35) U/L Alkaline Phosphatase 124 (38-126) U/L Troponin I 0.017 (0.000-0.034) ng/mL Serum Total Protein 6.6 (6.3-8.2) g/dL Albumin 3.9 (3.5-5.0) g/dL Amylase 73 (30-110) U/L Lipase 125 (23-300) U/L Urine Color (YELLOW) Urine Appearance (CLEAR) Urine pH (5-6) Ur Specific [place] (1.005-1.025) Urine Protein (Negative) Urine Ketones (NEGATIVE) Urine Blood (0-5) Haroldo/ul Urine Nitrite (NEGATIVE) Urine Bilirubin (NEGATIVE) Urine Urobilinogen (0-1) mg/dL Ur Leukocyte Esterase (NEGATIVE) Urine WBC (Auto) (0-5) /HPF Urine RBC (Auto) (0-2) /HPF U Epithel Cells (Auto) (FEW) /HPF Urine Bacteria (Auto) (NEGATIVE) /HPF Amorphous Crystals (NEGATIVE) /HPF Urine Mucus (Auto) (NEGATIVE) /HPF Urine Culture Reflexed (NO) Urine Glucose (NEGATIVE) mg/dL Urine Opiates Level (NEGATIVE) Ur Methadone (NEGATIVE) Urine Barbiturates (NEGATIVE) Ur Phencyclidine (PCP) (NEGATIVE) Urine Amphetamine (NEGATIVE) U Benzodiazepine Level (NEGATIVE) Urine Cocaine (NEGATIVE) Urine Marijuana (THC) (NEGATIVE) Slides for Path Review 04/01/18 04/01/18 Range/Units 09:33 08:52 WBC (4.0-10.5) K/mm3 RBC (4.1-5.4) M/mm3 Hgb (12.0-16.0) gm/dl Hct (35-47) % MCV (78-100) fl MCH (26-32) pg MCHC (32-36) g/dl RDW (11.5-14.0) % Plt Count (150-450) K/mm3 MPV (6-9.5) fl Gran % (36.0-66.0) % Eos # (Auto) (0-0.5) Absolute Lymphs (auto) (1.0-4.6) Absolute Monos (auto) (0.0-1.3) Lymphocytes % (24.0-44.0) % Monocytes % (0.0-12.0) % Eosinophils % (0.00-5.0) % Basophils % (0.0-0.4) % Absolute Granulocytes (1.4-6.9) Basophils # (0-0.4) Sodium (137-145) mmol/L Potassium (3.5-5.1) mmol/L Chloride (98-107) mmol/L Carbon Dioxide (22-30) mmol/L Anion Gap (5-15) MEQ/L BUN (7-17) mg/dL Creatinine (0.52-1.04) mg/dL Estimated GFR ML/MIN Glucose (74-106) mg/dL Calcium (8.4-10.2) mg/dL Magnesium (1.6-2.3) mg/dL Total Bilirubin (0.2-1.3) mg/dL AST (14-36) U/L ALT (0-35) U/L Alkaline Phosphatase (38-126) U/L Troponin I (0.000-0.034) ng/mL Serum Total Protein (6.3-8.2) g/dL Albumin (3.5-5.0) g/dL Amylase (30-110) U/L Lipase (23-300) U/L Urine Color YELLOW (YELLOW) Urine Appearance CLEAR (CLEAR) Urine pH 6.0 (5-6) Ur Specific [place] 1.005 (1.005-1.025) Urine Protein NEGATIVE (Negative) Urine Ketones TRACE (NEGATIVE) Urine Blood SMALL (0-5) [place]/ul Urine Nitrite POSITIVE (NEGATIVE) Urine Bilirubin NEGATIVE (NEGATIVE) Urine Urobilinogen NEGATIVE (0-1) mg/dL Ur Leukocyte Esterase NEGATIVE (NEGATIVE) Urine WBC (Auto) 3-5 (0-5) /HPF Urine RBC (Auto) 0-2 (0-2) /HPF U Epithel Cells (Auto) NONE (FEW) /HPF Urine Bacteria (Auto) MODERATE (NEGATIVE) /HPF Amorphous Crystals FEW (NEGATIVE) /HPF Urine Mucus (Auto) SLIGHT (NEGATIVE) /HPF Urine Culture Reflexed YES (NO) Urine Glucose NEGATIVE (NEGATIVE) mg/dL Urine Opiates Level NEGATIVE (NEGATIVE) Ur Methadone NEGATIVE (NEGATIVE) Urine Barbiturates NEGATIVE (NEGATIVE) Ur Phencyclidine (PCP) NEGATIVE (NEGATIVE) Urine Amphetamine NEGATIVE (NEGATIVE) U Benzodiazepine Level NEGATIVE (NEGATIVE) Urine Cocaine NEGATIVE (NEGATIVE) Urine Marijuana (THC) NEGATIVE (NEGATIVE) Slides for Path Review - Progress Progress Note: 04/01/18 09:12 IV HYDRATION NORMAL SALINE 1 LITER OVER 1 HOUR. VITAMINE INFUSION, MVI, THIAMINE , FOLIC ACID 1 LITER AT 500ML/HR, 04/01/18 09:15 04/01/18 09:43, PATIENT EXHIBITED FINE TREMORS ON EXAM. PATIENT ADMINISTERED ATIVAN 2 MG IV, FOLLOWED BY LIBRIUM 50MG ORALLY 04/01/18 10:[address] Other (DISCUSSED WITH DR MARTIN AT 1045 FOR OBSERVATION) - Departure Time of Disposition: 11:00 Departure Disposition: Observation Clinical Impression: INTRACTABLE EMESIS, ALCOHOL WITHDRAWAL, HYPOKALEMIA Condition: Stable Critical Care Time: No Referrals: RUMA BUCK PA [Primary Care Provider] -
--- NOTE | 2018-04-01 09:22 | XRAY ---
Indication: Pain and vomiting. Comparison: None 2 views of the abdomen demonstrates nonspecific nonobstructed bowel gas pattern with cholecystectomy clips and pelvic phleboliths. Remaining solid organs and osseous structures unremarkable. Single PA chest demonstrates normal heart, lungs, and bony thorax. Impression: Nonacute nonobstructed abdomen. Normal 1 view chest.
[2018-04-01] MEDS ORDERED: Pepcid 20 MG VIAL IV ONE ×2 (09:34→09:36)
[2018-04-01] MEDS ORDERED: Ativan 2 MG/1 ML VIAL ONE (09:34)
[2018-04-01] MEDS ORDERED: Ativan 2 MG/1 ML VIAL IV ONE ×2 (09:37→11:28)
[2018-04-01] MEDS ORDERED: Sodium Chloride 0.9% 1000 ML 1,000 ML ONE (09:46)
[2018-04-01] MEDS ORDERED: Zofran 4 MG/2 ML VIAL IV ONE (10:05)
[2018-04-01] MEDS ORDERED: TORAdol 30 mg Injection IV ONE (10:06)
[2018-04-01] MEDS ORDERED: TORAdol 30 mg Injection ONE (10:07)
[2018-04-01] MEDS ORDERED: Zofran 4 MG/2 ML VIAL ONE (10:07)
[2018-04-01 10:15] LABS: Appearance CLEAR (CLEAR); Bilirubin NEGATIVE (NEGATIVE); Blood SMALL Ery/ul (0-5); Glucose NEGATIVE (NEGATIVE); Ketones TRACE (NEGATIVE); Leukocyte Esterase NEGATIVE (NEGATIVE); Nitrite POSITIVE (NEGATIVE); Protein,Urine Dip NEGATIVE (Negative); Specific Gravity 1.005 (1.005-1.025); Urobilinogen NEGATIVE mg/dL (0-1)
[2018-04-01 10:18] LABS: BASOPHIL % 0.3 % (0.0-0.4); Basophil (Absolute #) 0.03 (0-0.4); Eosinophil % 0.1 % (0.00-5.0); Eosinophil (Absolute #) 0.01 (0-0.5); Granulocyte Absolute (ANC) 8.41 (1.4-6.9); Granulocytes % 90.7 % (36.0-66.0); Hematocrit 45.3 % (35-47); Lymphocyte (Absolute #) 0.47 (1.0-4.6); Lymphocytes % 5.1 % (24.0-44.0); Mean Cell Volume 98.9 fl (78-100); Mean Corpuscular Hemoglobin 34.9 pg (26-32); Mean Corpuscular Hgb Concent. 35.3 g/dl (32-36); Mean Platelet Volume 10.6 fl (6-9.5); Monocyte (Absolute #) 0.35 (0.0-1.3); Monocytes % 3.8 % (0.0-12.0); Platelet Count 145 K/mm3 (150-450); Red Blood Count 4.58 M/mm3 (4.1-5.4); Red Cell Distribution Width 14.2 % (11.5-14.0); White Blood Count 9.3 K/mm3 (4.0-10.5)
[2018-04-01 10:25] LABS: ALBUMIN 3.9 g/dL (3.5-5.0); ALKALINE PHOSPHATASE 124 U/L (38-126); AMYLASE 73 U/L (30-110); ANION GAP 11.6 MEQ/L (5-15); BLOOD UREA NITROGEN 3 mg/dL (7-17); CHLORIDE 104 mmol/L (98-107); Calcium 8.3 mg/dL (8.4-10.2); Carbon Dioxide 23 mmol/L (22-30); Glucose 106 mg/dL (74-106); LIPASE 125 U/L (23-300); SGOT/AST 32 U/L (14-36); SGPT/ALT 22 U/L (0-35); SODIUM 136 mmol/L (137-145); Total Protein 6.6 g/dL (6.3-8.2)
[2018-04-01 10:26] LABS: Barbiturate,Urine NEGATIVE (NEGATIVE); Benzodiazepine,Urine NEGATIVE (NEGATIVE); Cocaine,Urine NEGATIVE (NEGATIVE); Methadone,Urine NEGATIVE (NEGATIVE); PCP,Urine NEGATIVE (NEGATIVE); THC,Urine NEGATIVE (NEGATIVE)
[2018-04-01 10:28] LABS: Amphetamine,Urine NEGATIVE (NEGATIVE); Opiate,Urine NEGATIVE (NEGATIVE)
[2018-04-01] MEDS ORDERED: K-LYTE 25 MEQ ONE (10:28)
[2018-04-01] MEDS ORDERED: K-LYTE 25 MEQ PO ONE (10:39)
[2018-04-01] MEDS ORDERED: TORAdol 30 mg Injection IV PRN (10:50)
[2018-04-01] MEDS ORDERED: TYLENOL 325 MG PO PRN (10:50)
[2018-04-01] MEDS ORDERED: Zofran 4 MG/2 ML VIAL IV PRN (10:50)
[2018-04-01] MEDS ORDERED: Ativan 2 MG/1 ML VIAL IV PRN (10:53)
[2018-04-01] MEDS ORDERED: LIBRIUM 25 MG PO ONE (11:00)
--- NOTE | 2018-04-01 12:51 | HP ---
HISTORY OF PRESENT ILLNESS: This 43 year-old patient of Dr. Zhao Bonilla who presented to the emergency department by ambulance complaining of withdrawing from alcohol and stomach pain. She reports that she drank heavily for the past 12 years and in the past two to three days had been drinking three to four beers and a "fireball". She reports she got sick and decided to stop drinking and then felt like she was going through withdrawal. She reports has history of tremors with alcohol withdrawal. She denies any hallucinations. She states that she was seeing some red dots and blurry vision but that is gone now. She reports headache and reports headache all the time but a little bit worse and some dizziness. She reports numbness to her hands, face and feet for three days. She reports abdominal pain and not eating much and vomiting. REVIEW OF SYSTEMS: No fever. No diarrhea. No constipation. She reports she was urinating okay. She had a cough. No rhinorrhea. No dysuria. No rashes. No lower extremity edema. PAST MEDICAL HISTORY: She reports no known problems but H&P from her primary care physician reports seizure disorder, anxiety, insomnia, depression, abdominal pain, gastroesophageal reflux disease. PAST SURGICAL HISTORY: Cholecystectomy. Tubal ligation. Appendectomy. Tonsillectomy. MEDICATIONS: She reports taking clonidine 0.2 mg p.o. b.i.d. that belonged to her . ALLERGIES: TRAMADOL, CYCLOBENZAPRINE. SOCIAL HISTORY: She denies illicit drug use. She smokes one pack per day. She declined nicotine patch. She lives with her , a friend and two dogs. She reports heavy alcohol abuse. FAMILY HISTORY: Her mother is living and has gastroesophageal reflux disease, diabetes mellitus, coronary artery disease and hyperlipidemia. Her father is and was an alcoholic. PHYSICAL EXAMINATION: VITAL SIGNS: Temperature current 98.3F, temperature max 98.3F, heart rate 94 to 110 currently 94, respiratory rate 14 to 20, blood pressure 141 to 174 over 83 to 112 currently 141/83, weight 55 kg. Oxygen saturation 95 to 100% on room air. GENERAL: The patient is lying in bed in no acute distress. She answers questions appropriately. CVS: She has a regular rate and rhythm. No murmurs, gallops or rubs. CHEST: Clear to auscultation bilaterally. No crackles or wheezes. ABDOMEN: Diffusely tender. No guarding. No rigidity. Normal bowel sounds. EXTREMITIES: No clubbing, cyanosis or edema. SKIN: Warm, dry and intact. NEURO: No tremors are noted at this time but she has had Ativan in the emergency room. LABORATORY DATA AND TESTS: Her PLT count was 145,000, sodium 136, potassium 3.3, magnesium 1.6. UA was positive for nitrites, 2-5 white blood cells and moderate bacteria. Urine culture in lab. Urine tox was negative. Acute abdominal series was negative. ASSESSMENT AND PLAN: 1) ALCOHOL WITHDRAWAL: She was placed on alcohol withdrawal protocol, will restart the clonidine, will ask [facility] to see her. She reports she wants to quit drinking. 2) THROMBOCYTOPENIA: Will recheck CBC in the morning. 3) HYPOKALEMIA: Her potassium was replaced in the emergency room, will recheck her potassium this afternoon. 4) HYPONATREMIA: Most likely due to alcohol use. 5) BACTERIURIA: Will check a urine culture. 6) ABDOMINAL PAIN: She is on IV famotidine as well as IV Protonix, continue with close monitoring. The emergency room doctor has also ordered serial troponins. She had an EKG in the emergency room that was sinus tachycardia with no ST-T wave changes. Abdominal series had normal portable chest one view. 7) HEADACHE: Will continue to rehydrate and use Tylenol as needed. 8) NUMBNESS: Will check a vitamin B12 level and thyroid.
[2018-04-01] MEDS: SODIUM CHLORIDE 0.45% W/ 20 mEq KCL 1,000 ML IV SCH (13:03)
[2018-04-01] MEDS: PROTONIX 40 MG IV IV SCH (13:04)
[2018-04-01] MEDS: LIBRIUM 25 MG PO SCH ×4 (13:05→21:48)
[2018-04-01 15:26] LABS: Folate (Folic Acid) 5.23 ng/mL (2.76 - >20)
[2018-04-01] MEDS: Catapres 0.1 MG PO SCH ×2 (15:34→21:48)
[2018-04-01] MEDS: Nicoderm CQ 21 MG TOP SCH (15:46)
[2018-04-01] MEDS ORDERED: Klor Con 10 MEQ PO ONE (16:05)
[2018-04-01] MEDS: Pepcid 20 MG VIAL IV SCH (21:49)
[2018-04-02 06:15] LABS: BASOPHIL % 0.7 % (0.0-0.4); Basophil (Absolute #) 0.03 (0-0.4); Eosinophil % 4.8 % (0.00-5.0); Eosinophil (Absolute #) 0.21 (0-0.5); Granulocyte Absolute (ANC) 2.27 (1.4-6.9); Granulocytes % 51.8 % (36.0-66.0); Hematocrit 40.3 % (35-47); Hemoglobin 13.4 gm/dl (12.0-16.0); Lymphocyte (Absolute #) 1.67 (1.0-4.6); Lymphocytes % 38.1 % (24.0-44.0); Mean Cell Volume 103.9 fl (78-100); Mean Corpuscular Hemoglobin 34.5 pg (26-32); Mean Corpuscular Hgb Concent. 33.3 g/dl (32-36); Mean Platelet Volume 10.7 fl (6-9.5); Monocytes % 4.6 % (0.0-12.0); Platelet Count 114 K/mm3 (150-450); Red Blood Count 3.88 M/mm3 (4.1-5.4); Red Cell Distribution Width 14.4 % (11.5-14.0); White Blood Count 4.4 K/mm3 (4.0-10.5)
[2018-04-02 06:43] LABS: ANION GAP 6.4 MEQ/L (5-15); BLOOD UREA NITROGEN 6 mg/dL (7-17); CHLORIDE 108 mmol/L (98-107); Calcium 8.3 mg/dL (8.4-10.2); Carbon Dioxide 24 mmol/L (22-30); Glucose 104 mg/dL (74-106); Potassium 3.7 mmol/L (3.5-5.1); SODIUM 135 mmol/L (137-145)
[2018-04-02] MEDS: SODIUM CHLORIDE 0.45% W/ 20 mEq KCL 1,000 ML IV SCH (08:04)
[2018-04-02] MEDS ORDERED: FOLATE 1 MG PO SCH (10:00)
[2018-04-02] MEDS ORDERED: VITAMIN B-1 100 MG PO SCH (10:00)
[2018-04-02] MEDS: Nicoderm CQ 21 MG TOP SCH (10:29)
[2018-04-02] MEDS: LIBRIUM 25 MG PO SCH ×2 (10:29→13:22)
[2018-04-02] MEDS: PROTONIX 40 MG IV IV SCH (10:29)
[2018-04-02] MEDS: Pepcid 20 MG VIAL IV SCH (10:29)
[2018-04-02] MEDS: Catapres 0.1 MG PO SCH (10:29)
[2018-04-02 11:13] VITALS: BP 135/80; PULSE 62; O2SAT 99
--- NOTE | 2018-04-02 12:05 | PCM.DCORD ---
- Discharge Discharge Date: 04/02/18 Disposition: Home, Self-Care Condition: Good Prescriptions: New Chlordiazepoxide HCl 25 mg [Librium 25 mg] 50 mg PO QID #40 capsule Multivitamin [Multiple Vitamins] 1 each PO DAILY #30 tablet Omeprazole 40 mg PO DAILY #30 capsule.dr Continue Clonidine HCl [Catapres] 0.2 mg PO TID PRN #30 tablet PRN Reason: Anxiety Discontinued Ranitidine HCl [Zantac] 150 mg PO DAILY Omeprazole 20 mg PO DAILY Ondansetron ODT 4 MG [Zofran Odt 4 mg] 1 tab PO Q6H PRN PRN #10 tab.rapdis PRN Reason: Nausea/Vomiting Escitalopram Oxalate 10 mg [Lexapro 10 MG] 10 mg PO DAILY Trazodone HCl 100 mg PO HS Phenytoin Sod Extended 100 mg* [Dilantin 100 MG] 100 mg PO TID Follow up with: RODRIGUEZ MARTIN [ACTIVE STAFF] - 1 Week
--- NOTE | 2018-04-04 13:25 | DS ---
DISCHARGE DIAGNOSES: 1) ALCOHOL WITHDRAWAL. 2) ABDOMINAL PAIN. 3) THROMBOCYTOPENIA. 4) HYPOKALEMIA. 5) HYPONATREMIA. 6) BACTERIURIA. DISCHARGE PHYSICAL EXAMINATION: VITALS: Temperature current 97.6F, temperature max 98.4F, heart rate 62 to 84, respiratory rate 14 to 20, blood pressure 92 to 135 over 60 to 80. Oxygen saturation 97 to 99% on room air. GENERAL: The patient is sitting up a pleasant talkative lady in no acute distress. She states she is feeling much better. CVS: She has a regular rate and rhythm. No murmurs, gallops or rubs are appreciated. CHEST: Clear to auscultation bilaterally. ABDOMEN: Soft, nontender, nondistended with normal bowel sounds. EXTREMITIES: No clubbing, cyanosis or edema. SKIN: Warm, dry and intact. HOSPITAL COURSE: 1) ALCOHOL WITHDRAWAL: She was placed alcohol withdrawal protocol. She was doing well this morning and states she would like to go home. She is agreeable to having Librium at home. She was given 50 mg every four hours here. She has seen [facility] and they have recommended outpatient follow up. The patient reports she does not like going to AA meetings and does not plan to do this. The patient reports that she plans not to have any whiskey around as she seems to have trouble when she drinks whiskey. She reports she still plans to continue to drink two beers a day though. 2) ABDOMINALK PAIN: This was significantly improved during her hospital stay. It may be due to underlying gastritis. She will be discharged with omeprazole 40 mg p.o. daily. She had a portable chest x-ray and abdominal series that was normal here in the hospital. She has been eating very well. 3) THROMBOCYTOPENIA: This was stable during her hospitalization. No signs of bleeding. 4) HYPOKALEMIA: This resolved during the hospitalization with potassium replacement. 5) HYPONATREMIA: Most likely due to her alcohol use and asymptomatic. 6) BACTERIURIA: She has a urine culture pending in lab. DISCHARGE MEDICATIONS: Please see the discharge order. FOLLOW UP: She will follow up with myself in approximately a week at [facility] later this month. DISPOSITION: The patient was discharged to home in fair condition.
== END 2018-04-02 13:40 | disposition home or self-care (01) ==
LOC: ED 08:29 → MED SURG 11:20
PROVIDERS: ADMIT Internal Medicine; ATTEND Internal Medicine
DX: F10.239 Alcohol dependence with withdrawal, unspecified (principal); R10.9 Unspecified abdominal pain; D69.6 Thrombocytopenia, unspecified; P74.32 Hypokalemia of newborn; E87.1 Hypo-osmolality and hyponatremia; R82.71 Bacteriuria; R51 Headache; R20.0 Anesthesia of skin; Z72.0 Tobacco use
CPT/HCPCS: 36415; 74022; 80048; 80053; 80307; 81001; 82150; 82607; 82746; 83690; 83735; 84132; 84443; 84484; 85025; 87077; 87086; 90791; 93005; 96374; 96375; 99285; G0378; Q3014; J1885; J2060; J2405; A9270-GY

== ENCOUNTER 2018-04-14 19:25 | Observation (INO) | payer OTHER ==
[2018-04-14] MEDS ORDERED: Zofran 4 MG/2 ML VIAL IV ONE (20:34)
[2018-04-14] MEDS ORDERED: Sodium Chloride 0.9% 1000 ML 1,000 ML IV STA (20:34)
[2018-04-14] MEDS ORDERED: Ativan 2 MG/1 ML VIAL IV ONE (20:34)
--- NOTE | 2018-04-14 20:34 | ERPHSYRPT ---
- History of Present Illness Time Seen by Provider: 04/14/18 20:29 Source: patient, EMS Exam Limitations: intoxication Patient Subjective Stated Complaint: per ems, pts called ems because pt had 3 seizures today. last seizure per was just prior to calling ems. ems reports pt has been awake and alert, asnwers questions approp. no postictal state. pt states she has been drinking for the last 5 days and has had a lot to drink today. pt also c/o abd pain. states she was supposed to have and ultrasound of the liver today for pain Triage Nursing Assessment: pt awake and alert, tearful at times. pt arrive per ambulance and transfers self to stretcher. respirations nonlabored with lungs cta. pupils equal and reactive. bilat upper and lower ext strength equal and wnl. abd soft and nontender to light palpation Physician History: The patient is a 43-year-old female brought in by ambulance from home where her had called for the ambulance because she had "3 seizures" today. She has a known seizure disorder and has not been taking Dilantin. She also is a known alcoholic and has been abusing alcohol extensively for the last 5 days. She has had a lot of "fireball" to drink today. She is tearful and wants to quit drinking. Last week his local doctor placed her on Librium but she has not been taking it. Her past medical history is significant for seizure disorder and alcohol abuse. Timing/Duration: today Severity: severe Character of Deficits: other (seizure) Deficits: no difficulties Current Cognition: alert oriented x 3 Baseline Gait: walks w/o assistance Allergies/Adverse Reactions: tramadol Allergy (Severe, Verified 04/14/18 19:46) Hives cyclobenzaprine [From Flexeril] Allergy (Verified 04/14/18 19:46) Hx Tetanus, Diphtheria Vaccination/Date Given: No Hx Influenza Vaccination/Date Given: No Hx Pneumococcal Vaccination/Date Given: No Immunizations Up to Date: No - Review of Systems Constitutional: No Fever, No Chills Eyes: No Symptoms Ears, Nose, & Throat: No Symptoms Respiratory: No Cough, No Dyspnea Cardiac: No Chest Pain, No Edema, No Syncope Abdominal/Gastrointestinal: No Abdominal Pain, No Nausea, No Vomiting, No Diarrhea Genitourinary Symptoms: No Dysuria Musculoskeletal: No Back Pain, No Neck Pain Skin: No Rash Neurological: Seizure, No Dizziness, No Focal Weakness, No Sensory Changes Psychological: Alcohol Abuse Endocrine: No Symptoms Hematologic/Lymphatic: No Symptoms Immunological/Allergic: No Symptoms All Other Systems: Reviewed and Negative - Past Medical History Pertinent Past Medical History: Yes GI Medical History: GERD Psycho-Social History: Anxiety, Depression - Past Surgical History Past Surgical History: Yes Gastrointestinal: Cholecystectomy Female Surgical History: Tubal Ligation - Social History Smoking Status: Current some day smoker How long have you smoked: 20 Exposure to second hand smoke: Yes Drug Use: none Patient Lives Alone: No - Female History Hx Last Menstrual Period: 2 weeks Hx Now: No - Nursing Vital Signs Nursing Vital Signs: Initial Vital Signs Temperature 98.0 F 04/14/18 19:34 Pulse Rate 106 H 04/14/18 19:34 Respiratory Rate 16 04/14/18 19:34 Blood Pressure 133/86 04/14/18 19:34 O2 Sat by Pulse Oximetry 98 04/14/18 19:34 Pain Scale Pain Intensity 7 - Reuben Coma Scale Best Eye Response (Reuben): (4) open spontaneously Best Verbal Response ([place]): (5) oriented Best Motor Response (Reuben): (6) obeys commands Reuben Total: 15 - Physical Exam General Appearance: mild distress, other (intoxicated) Eye Exam: bilateral eye: PERRL, EOMI Ears, Nose, Throat Exam: normal ENT inspection, moist mucous membranes Neck Exam: normal inspection, non-tender, supple Respiratory: normal breath sounds, lungs clear, airway intact, No respiratory distress Cardiovascular: normal heart sounds, tachycardia, No edema Gastrointestinal: soft, No tenderness, No distention Pelvic Exam: not done Rectal Exam: not done Back Exam: normal inspection Extremity Exam: normal inspection, No pedal edema Mental Status: alert, oriented x 3, 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: 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 Motor/Sensory: no motor deficit Skin Exam: normal color, warm, dry, No rash SpO2 Interpretation: normal SpO2: 98 Oxygen Delivery: Room Air - Course EKG Interpreted by Me: RATE, Sinus Rhythm, NORMAL AXIS, NORMAL INTERVALS, NORMAL QRS, NORMAL ST-T, Other (no change in EKG from 04/01/18.) - CT Exams Head CT Interpretation: Negative, Tele-radiologist Report (per Dr Hinkle), No/ Intracranial Hemorrhag ( ) Ordered Tests: Active Orders 24 hr Category Date Time Status Accucheck STAT Care 12/20/18 20:34 Active Corn Grower STAT Care 04/14/18 20:35 Active Clean Catch Urine Specimen STAT Care 04/14/18 20:34 Active EKG-ER Only STAT Care 04/14/18 20:34 Active IV Insertion STAT Care 04/14/18 20:34 Active HEAD WITHOUT CONTRAST [CT] Stat Exams 04/14/18 21:01 Taken ACETAMINOPHEN Stat Lab 04/14/18 20:55 Completed AMYLASE Stat Lab 04/14/18 20:55 Completed CBC W DIFF Stat Lab 04/14/18 20:55 Completed CMP Stat Lab 04/14/18 20:55 Completed ETHYL ALCOHOL Stat Lab 04/14/18 20:55 Completed LIPASE Stat Lab 04/14/18 20:55 Completed Lactic Acid Stat Lab 04/14/18 21:00 Completed Lactic Acid Stat Lab 04/14/18 23:09 Ordered SALICYLATE Stat Lab 04/14/18 20:55 Completed UA W/RFX UR CULTURE Stat Lab 04/14/18 22:22 Completed Urine Triage Profile Stat Lab 04/14/18 22:22 Completed Medication Summary Discontinued Medications Generic Name Dose Route Start Last Admin Trade Name Freq PRN Reason Stop Dose Admin Sodium Chloride 1,000 mls @ 999 mls/hr 04/14/18 20:34 04/14/18 21:39 Sodium Chloride 0.9% 1000 Ml IV 04/14/18 21:34 999 mls/hr .Q1H1M STA Administration Sodium Chloride Confirm 04/14/18 21:32 Sodium Chloride 0.9% 1000 Ml Administered 04/14/18 21:33 Dose 1,000 mls @ ud .ROUTE .STK-[facility] ONE Lorazepam 2 mg 04/14/18 20:34 04/14/18 21:39 Ativan 2 Mg/1 Ml Vial IV 04/14/18 20:35 2 mg STAT ONE Administration Lorazepam Confirm 04/14/18 21:32 Ativan 2 Mg/1 Ml Vial Administered 04/14/18 21:33 Dose 2 mg .ROUTE .STK-MED ONE Ondansetron HCl 4 mg 04/14/18 20:34 04/14/18 21:39 Zofran 4 Mg/2 Ml Vial IV 04/14/18 20:35 4 mg STAT ONE Administration Ondansetron HCl Confirm 04/14/18 21:32 Zofran 4 Mg/2 Ml Vial Administered 04/14/18 21:33 Dose 4 mg .ROUTE .[facility] Phenytoin Sodium 100 mg 04/14/18 20:36 04/14/18 21:39 Dilantin 100 Mg/2 Ml IV 04/14/18 20:37 100 mg ONCE STA Administration Phenytoin Sodium Confirm 04/14/18 21:32 Dilantin Iv 250 Mg/5 Ml Administered 04/14/18 21:33 Dose 250 mg .ROUTE .[facility] Lab/Rad Data: Laboratory Result Diagrams 04/14/18 20:55 04/14/18 20:55 Laboratory Results 04/14/18 04/14/18 04/14/18 Range/Units 22:22 22:22 21:00 WBC (4.0-10.5) K/mm3 RBC (4.1-5.4) M/mm3 Hgb (12.0-16.0) gm/dl Hct (35-47) % MCV (78-100) fl MCH (26-32) pg MCHC (32-36) g/dl RDW (11.5-14.0) % Plt Count (150-450) K/mm3 MPV (6-9.5) fl Gran % (36.0-66.0) % Eos # (Auto) (0-0.5) Absolute Lymphs (auto) (1.0-4.6) Absolute Monos (auto) (0.0-1.3) Lymphocytes % (24.0-44.0) % Monocytes % (0.0-12.0) % Eosinophils % (0.00-5.0) % Basophils % (0.0-0.4) % Absolute Granulocytes (1.4-6.9) Basophils # (0-0.4) Sodium (137-145) mmol/L Potassium (3.5-5.1) mmol/L Chloride (98-107) mmol/L Carbon Dioxide (22-30) mmol/L Anion Gap (5-15) MEQ/L BUN (7-17) mg/dL Creatinine (0.52-1.04) mg/dL Estimated GFR ML/MIN Glucose (74-106) mg/dL Lactic Acid 1.9 (0.4-2.0) Calcium (8.4-10.2) mg/dL Total Bilirubin (0.2-1.3) mg/dL AST (14-36) U/L ALT (0-35) U/L Alkaline Phosphatase (38-126) U/L Serum Total Protein (6.3-8.2) g/dL Albumin (3.5-5.0) g/dL Amylase (30-110) U/L Lipase (23-300) U/L Urine Color YELLOW (YELLOW) Urine Appearance CLEAR (CLEAR) Urine pH 5.0 (5-6) Ur Specific [place] 1.014 (1.005-1.025) Urine Protein NEGATIVE (Negative) Urine Ketones NEGATIVE (NEGATIVE) Urine Blood NEGATIVE (0-5) Haroldo/ul Urine Nitrite NEGATIVE (NEGATIVE) Urine Bilirubin NEGATIVE (NEGATIVE) Urine Urobilinogen 2 (0-1) mg/dL Ur Leukocyte Esterase NEGATIVE (NEGATIVE) Urine WBC (Auto) 0-2 (0-5) /HPF Urine RBC (Auto) NONE (0-2) /HPF U Epithel Cells (Auto) RARE (FEW) /HPF Urine Bacteria (Auto) RARE (NEGATIVE) /HPF Urine Mucus (Auto) SLIGHT (NEGATIVE) /HPF Urine Culture Reflexed NO (NO) Urine Glucose NEGATIVE (NEGATIVE) mg/dL Salicylates (2-20) mg/dL Urine Opiates Level NEGATIVE (NEGATIVE) Ur Methadone NEGATIVE (NEGATIVE) Acetaminophen (10-30) ug/ml Urine Barbiturates NEGATIVE (NEGATIVE) Ur Phencyclidine (PCP) NEGATIVE (NEGATIVE) Urine Amphetamine NEGATIVE (NEGATIVE) U Benzodiazepine Level POSITIVE (NEGATIVE) Urine Cocaine NEGATIVE (NEGATIVE) Urine Marijuana (THC) NEGATIVE (NEGATIVE) Ethyl Alcohol (0-10) mg/dL 04/14/18 04/14/18 04/14/18 Range/Units 20:55 20:55 20:55 WBC 4.6 (4.0-10.5) K/mm3 RBC 4.40 (4.1-5.4) M/mm3 Hgb 15.5 (12.0-16.0) gm/dl Hct 45.7 (35-47) % MCV 103.9 H (78-100) fl MCH 35.2 H (26-32) pg MCHC 33.9 (32-36) g/dl RDW 15.3 H (11.5-14.0) % Plt Count 237 (150-450) K/mm3 MPV 10.0 H (6-9.5) fl Gran % 36.9 (36.0-66.0) % Eos # (Auto) 0.24 (0-0.5) Absolute Lymphs (auto) 2.29 (1.0-4.6) Absolute Monos (auto) 0.32 (0.0-1.3) Lymphocytes % 49.8 H (24.0-44.0) % Monocytes % 7.0 (0.0-12.0) % Eosinophils % 5.2 H (0.00-5.0) % Basophils % 1.1 (0.0-0.4) % Absolute Granulocytes 1.70 (1.4-6.9) Basophils # 0.05 (0-0.4) Sodium 145 (137-145) mmol/L Potassium 4.1 (3.5-5.1) mmol/L Chloride 113 H (98-107) mmol/L Carbon Dioxide 27 (22-30) mmol/L Anion Gap 9.5 (5-15) MEQ/L BUN 5 L (7-17) mg/dL Creatinine 0.52 (0.52-1.04) mg/dL Estimated GFR > 60.0 ML/MIN Glucose 88 (74-106) mg/dL Lactic Acid (0.4-2.0) Calcium 8.2 L (8.4-10.2) mg/dL Total Bilirubin 0.40 (0.2-1.3) mg/dL AST 34 (14-36) U/L ALT 37 H (0-35) U/L Alkaline Phosphatase 76 (38-126) U/L Serum Total Protein 6.4 (6.3-8.2) g/dL Albumin 3.5 (3.5-5.0) g/dL Amylase 48 (30-110) U/L Lipase 277 (23-300) U/L Urine Color (YELLOW) Urine Appearance (CLEAR) Urine pH (5-6) Ur Specific [place] (1.005-1.025) Urine Protein (Negative) Urine Ketones (NEGATIVE) Urine Blood (0-5) Haroldo/ul Urine Nitrite (NEGATIVE) Urine Bilirubin (NEGATIVE) Urine Urobilinogen (0-1) mg/dL Ur Leukocyte Esterase (NEGATIVE) Urine WBC (Auto) (0-5) /HPF Urine RBC (Auto) (0-2) /HPF U Epithel Cells (Auto) (FEW) /HPF Urine Bacteria (Auto) (NEGATIVE) /HPF Urine Mucus (Auto) (NEGATIVE) /HPF Urine Culture Reflexed (NO) Urine Glucose (NEGATIVE) mg/dL Salicylates < 1.0 L (2-20) mg/dL Urine Opiates Level (NEGATIVE) Ur Methadone (NEGATIVE) Acetaminophen < 10 L (10-30) ug/ml Urine Barbiturates (NEGATIVE) Ur Phencyclidine (PCP) (NEGATIVE) Urine Amphetamine (NEGATIVE) U Benzodiazepine Level (NEGATIVE) Urine Cocaine (NEGATIVE) Urine Marijuana (THC) (NEGATIVE) Ethyl Alcohol 266 H (0-10) mg/dL - Progress Progress: improved Discussed with : Wilfredo Will see patient in: hospital (observation) Counseled pt/family regarding: lab results, diagnosis, rad results - Departure Time of Disposition: 23:13 Departure Disposition: Observation (per Dr Villalobos) Clinical Impression: Alcohol abuse Condition: Stable Critical Care Time: No Referrals: RUMA BUCK PA [Primary Care Provider] -
[2018-04-14] MEDS ORDERED: Dilantin 100 MG/2 ML IV STA (20:36)
[2018-04-14 21:01] LABS: BASOPHIL % 1.1 % (0.0-0.4); Basophil (Absolute #) 0.05 (0-0.4); Eosinophil % 5.2 % (0.00-5.0); Eosinophil (Absolute #) 0.24 (0-0.5); Granulocytes % 36.9 % (36.0-66.0); Hematocrit 45.7 % (35-47); Hemoglobin 15.5 gm/dl (12.0-16.0); Lymphocyte (Absolute #) 2.29 (1.0-4.6); Lymphocytes % 49.8 % (24.0-44.0); Mean Cell Volume 103.9 fl (78-100); Mean Corpuscular Hemoglobin 35.2 pg (26-32); Mean Corpuscular Hgb Concent. 33.9 g/dl (32-36); Monocyte (Absolute #) 0.32 (0.0-1.3); Platelet Count 237 K/mm3 (150-450); Red Cell Distribution Width 15.3 % (11.5-14.0); White Blood Count 4.6 K/mm3 (4.0-10.5)
[2018-04-14 21:09] LABS: Lactic Acid 1.9 (0.4-2.0)
[2018-04-14 21:19] LABS: AMYLASE 48 U/L (30-110); LIPASE 277 U/L (23-300)
[2018-04-14 21:25] LABS: ALBUMIN 3.5 g/dL (3.5-5.0); ALKALINE PHOSPHATASE 76 U/L (38-126); ANION GAP 9.5 MEQ/L (5-15); BLOOD UREA NITROGEN 5 mg/dL (7-17); CHLORIDE 113 mmol/L (98-107); Calcium 8.2 mg/dL (8.4-10.2); Carbon Dioxide 27 mmol/L (22-30); Creatinine 1 0.52 mg/dL (0.52-1.04); ETHYL ALCOHOL 266 mg/dL (0-10); Glucose 88 mg/dL (74-106); Potassium 4.1 mmol/L (3.5-5.1); SGOT/AST 34 U/L (14-36); SGPT/ALT 37 U/L (0-35); SODIUM 145 mmol/L (137-145); Total Protein 6.4 g/dL (6.3-8.2)
[2018-04-14 21:27] LABS: ACETAMINOPHEN < 10 ug/ml (10-30); SALICYLATE < 1.0 mg/dL (2-20)
[2018-04-14] MEDS ORDERED: Zofran 4 MG/2 ML VIAL ONE (21:32)
[2018-04-14] MEDS ORDERED: DILANTIN IV 250 MG/5 ML ONE (21:32)
[2018-04-14] MEDS ORDERED: Sodium Chloride 0.9% 1000 ML 1,000 ML ONE (21:32)
[2018-04-14] MEDS ORDERED: Ativan 2 MG/1 ML VIAL ONE (21:32)
[2018-04-14 22:32] LABS: Appearance CLEAR (CLEAR); Bilirubin NEGATIVE (NEGATIVE); Blood NEGATIVE Ery/ul (0-5); Glucose NEGATIVE (NEGATIVE); Ketones NEGATIVE (NEGATIVE); Leukocyte Esterase NEGATIVE (NEGATIVE); Nitrite NEGATIVE (NEGATIVE); Protein,Urine Dip NEGATIVE (Negative); Specific Gravity 1.014 (1.005-1.025); Urobilinogen 2 mg/dL (0-1)
[2018-04-14 22:43] LABS: Amphetamine,Urine NEGATIVE (NEGATIVE); Barbiturate,Urine NEGATIVE (NEGATIVE); Benzodiazepine,Urine POSITIVE (NEGATIVE); Cocaine,Urine NEGATIVE (NEGATIVE); Methadone,Urine NEGATIVE (NEGATIVE); Opiate,Urine NEGATIVE (NEGATIVE); PCP,Urine NEGATIVE (NEGATIVE); THC,Urine NEGATIVE (NEGATIVE)
[2018-04-14] MEDS ORDERED: TORAdol 30 mg Injection IV PRN (23:55)
[2018-04-15] MEDS: Sodium Chloride 0.9% 1000 ML 1,000 ML IV SCH ×3 (00:17→20:36)
[2018-04-15 04:49] LABS: BASOPHIL % 1.5 % (0.0-0.4); Basophil (Absolute #) 0.07 (0-0.4); Eosinophil % 5.6 % (0.00-5.0); Eosinophil (Absolute #) 0.26 (0-0.5); Granulocyte Absolute (ANC) 1.97 (1.4-6.9); Granulocytes % 42.7 % (36.0-66.0); Hematocrit 41.3 % (35-47); Hemoglobin 13.6 gm/dl (12.0-16.0); Lymphocyte (Absolute #) 2.02 (1.0-4.6); Lymphocytes % 43.7 % (24.0-44.0); Mean Cell Volume 105.6 fl (78-100); Mean Corpuscular Hgb Concent. 32.9 g/dl (32-36); Mean Platelet Volume 11.7 fl (6-9.5); Monocytes % 6.5 % (0.0-12.0); Platelet Count 160 K/mm3 (150-450); Red Blood Count 3.91 M/mm3 (4.1-5.4); Red Cell Distribution Width 15.3 % (11.5-14.0); White Blood Count 4.6 K/mm3 (4.0-10.5)
[2018-04-15 04:59] LABS: Mean Corpuscular Hemoglobin 34.7 pg (26-32)
[2018-04-15 05:07] LABS: ANION GAP 9.1 MEQ/L (5-15); BLOOD UREA NITROGEN 4 mg/dL (7-17); CHLORIDE 110 mmol/L (98-107); Calcium 7.6 mg/dL (8.4-10.2); Carbon Dioxide 23 mmol/L (22-30); Creatinine 1 0.58 mg/dL (0.52-1.04); Glucose 81 mg/dL (74-106); Potassium 3.1 mmol/L (3.5-5.1); SODIUM 139 mmol/L (137-145)
[2018-04-15] MEDS: Zofran 4 MG/2 ML VIAL IV PRN ×2 (08:17→20:37)
--- NOTE | 2018-04-15 08:56 | PCM.HP ---
History of Present Illness - Chief Complaint Chief Complaint: alcohol abuse History of Present Illness: is a 43 year old female pt of Dr. Bonilla in [place], known alcoholic wiht seizure disorder, who came to ER last night with complaint of intoxication and seizures x 3. She states her first seizure happened 8d after she stopped drinking. She does not have a neurologist. She has been on dilantin but has not taken it for about 6 months, "I hate taking pills." She generally drinks about 3 beers and a "good amount" of whisky daily. she drank much more than usual last night because of the upcoming holidays, but denies suicidal ideation. She would like to stop drinking. - Review of Systems Ears, Nose, & Throat: Throat Pain (and tenderness; states she has a new tumor but hasn't been to ENT yet) Cardiac: Chest Pain (gets chest pressure at times due to her reflux, 12/03, not related to activity) Psychological: Anxiety, Depression, No Suicidal Ideations All Other Systems: Reviewed and Negative Medications & Allergies Home Medications: Home Medication List Multivitamin [Multiple Vitamins] 1 each PO DAILY #30 tablet 04/02/18 [Rx Confirmed 04/15/18] Clonidine HCl [Catapres] 0.2 mg PO BID 04/15/18 [History Confirmed 04/15/18] Diphenhydramine HCl 25 mg [Benadryl 25 mg Capsule] 25 mg PO QHS 04/15/18 [ History Confirmed 04/15/18] Omeprazole 40 mg PO BID 04/15/18 [History Confirmed 04/15/18] Sulfamethoxazole/Trimethoprim [Sulfamethoxazole-Tmp Ds Tablet] 1 each PO BID [History Confirmed 04/15/18] Allergies/Adverse Reactions: Allergies Allergy/AdvReac Type Severity Reaction Status Date / Time tramadol Allergy Severe Hives Verified 04/14/18 19:46 cyclobenzaprine Allergy Verified 04/14/18 19:46 [From Flexeril] - Past Medical History Past Medical History: Yes Neurological History: No Pertinent History ENT History: No Pertinent History Cardiac History: No Pertinent History Respiratory History: No Pertinent History Endocrine Medical History: No Pertinent History Musculoskelatal History: No Pertinent History GI Medical History: GERD History: No Pertinent History Pyscho-Social History: Anxiety, Depression Reproductive Disorders: No Pertinent History - Female History Hx Last Menstrual Period: 2 weeks Are you now?: No - Past Surgical History Past Surgical History: Yes Neuro Surgical History: No Pertinent History Cardiac History: No Pertinent History Respiratory Surgery: No Pertinent History GI Surgical History: Appendectomy, Cholecystectomy Genitourinary Surgical Hx: No Pertinent History Musculskeletal Surgical Hx: No Pertinent History Female Surgical History: Tubal Ligation - Social History Smoking Status: Current every day smoker How long have you smoked: 20+ years Exposure to second hand smoke: Yes Alcohol: Heavy Drug Use: none - Physical Exam Vital Signs: Vital Signs - 24 hr Temp Pulse Resp BP Pulse Ox 04/15/18 07:40 99.5 F 112 H 26 H 117/77 93 L 04/15/18 04:52 98.6 F 126 H 20 115/74 93 L 04/15/18 02:20 98.1 F 120 H 18 109/71 97 04/15/18 01:15 97.9 F 97 H 16 128/81 97 04/15/18 00:45 98.1 F 98 H 18 119/68 96 04/15/18 00:15 98.0 F 95 H 16 121/70 97 04/15/18 00:00 98.0 F 95 H 16 112/70 97 04/14/18 23:17 98 04/14/18 22:50 101 H 23 119/83 98 04/14/18 22:40 104 H 27 H 123/93 100 04/14/18 21:50 99 H 20 138/103 96 04/14/18 19:34 98.0 F 106 H 16 133/86 98 General Appearance: no apparent distress, alert Neurologic Exam: oriented x 3, cooperative, other (movements are somewhat sluggish) Eye Exam: eyes nml inspection Ears, Nose, Throat Exam: moist mucous membranes Neck Exam: normal inspection, No non-tender (mild ttp anterior cervical area bilat), No lymphadenopathy Respiratory Exam: normal breath sounds, lungs clear, No crackles/rales, No rhonchi, No wheezing Cardiovascular Exam: regular rate/rhythm, normal heart sounds, No murmur Gastrointestinal/Abdomen Exam: soft, normal bowel sounds, No tenderness, No distention, No mass, No guarding, No rebound Back Exam: normal inspection, No rash Extremity Exam: normal inspection, No pedal edema, No swelling Skin Exam: normal color, warm, dry, No rash Results - Labs Lab/Micro Results: Lab Results-Last 24 Hours 04/14/18 04/14/18 04/14/18 Range/Units 20:55 20:55 20:55 WBC 4.6 (4.0-10.5) K/mm3 RBC 4.40 (4.1-5.4) M/mm3 Hgb 15.5 (12.0-16.0) gm/dl Hct 45.7 (35-47) % MCV 103.9 H (78-100) fl MCH 35.2 H (26-32) pg MCHC 33.9 (32-36) g/dl RDW 15.3 H (11.5-14.0) % Plt Count 237 (150-450) K/mm3 MPV 10.0 H (6-9.5) fl Gran % 36.9 (36.0-66.0) % Eos # (Auto) 0.24 (0-0.5) Absolute Lymphs (auto) 2.29 (1.0-4.6) Absolute Monos (auto) 0.32 (0.0-1.3) Lymphocytes % 49.8 H (24.0-44.0) % Monocytes % 7.0 (0.0-12.0) % Eosinophils % 5.2 H (0.00-5.0) % Basophils % 1.1 (0.0-0.4) % Absolute Granulocytes 1.70 (1.4-6.9) Basophils # 0.05 (0-0.4) Sodium 145 (137-145) mmol/L Potassium 4.1 (3.5-5.1) mmol/L Chloride 113 H (98-107) mmol/L Carbon Dioxide 27 (22-30) mmol/L Anion Gap 9.5 (5-15) MEQ/L BUN 5 L (7-17) mg/dL Creatinine 0.52 (0.52-1.04) mg/dL Estimated GFR > 60.0 ML/MIN Glucose 88 (74-106) mg/dL Lactic Acid (0.4-2.0) Calcium 8.2 L (8.4-10.2) mg/dL Total Bilirubin 0.40 (0.2-1.3) mg/dL AST 34 (14-36) U/L ALT 37 H (0-35) U/L Alkaline Phosphatase 76 (38-126) U/L Serum Total Protein 6.4 (6.3-8.2) g/dL Albumin 3.5 (3.5-5.0) g/dL Amylase 48 (30-110) U/L Lipase 277 (23-300) U/L Urine Color (YELLOW) Urine Appearance (CLEAR) Urine pH (5-6) Ur Specific [place] (1.005-1.025) Urine Protein (Negative) Urine Ketones (NEGATIVE) Urine Blood (0-5) Haroldo/ul Urine Nitrite (NEGATIVE) Urine Bilirubin (NEGATIVE) Urine Urobilinogen (0-1) mg/dL Ur Leukocyte Esterase (NEGATIVE) Urine WBC (Auto) (0-5) /HPF Urine RBC (Auto) (0-2) /HPF U Epithel Cells (Auto) (FEW) /HPF Urine Bacteria (Auto) (NEGATIVE) /HPF Urine Mucus (Auto) (NEGATIVE) /HPF Urine Culture Reflexed (NO) Urine Glucose (NEGATIVE) mg/dL Salicylates < 1.0 L (2-20) mg/dL Urine Opiates Level (NEGATIVE) Ur Methadone (NEGATIVE) Acetaminophen < 10 L (10-30) ug/ml Urine Barbiturates (NEGATIVE) Ur Phencyclidine (PCP) (NEGATIVE) Urine Amphetamine (NEGATIVE) U Benzodiazepine Level (NEGATIVE) Urine Cocaine (NEGATIVE) Urine Marijuana (THC) (NEGATIVE) Ethyl Alcohol 266 H (0-10) mg/dL 04/14/18 04/14/18 04/14/18 Range/Units 21:00 22:22 22:22 WBC (4.0-10.5) K/mm3 RBC (4.1-5.4) M/mm3 Hgb (12.0-16.0) gm/dl Hct (35-47) % MCV (78-100) fl MCH (26-32) pg MCHC (32-36) g/dl RDW (11.5-14.0) % Plt Count (150-450) K/mm3 MPV (6-9.5) fl Gran % (36.0-66.0) % Eos # (Auto) (0-0.5) Absolute Lymphs (auto) (1.0-4.6) Absolute Monos (auto) (0.0-1.3) Lymphocytes % (24.0-44.0) % Monocytes % (0.0-12.0) % Eosinophils % (0.00-5.0) % Basophils % (0.0-0.4) % Absolute Granulocytes (1.4-6.9) Basophils # (0-0.4) Sodium (137-145) mmol/L Potassium (3.5-5.1) mmol/L Chloride (98-107) mmol/L Carbon Dioxide (22-30) mmol/L Anion Gap (5-15) MEQ/L BUN (7-17) mg/dL Creatinine (0.52-1.04) mg/dL Estimated GFR ML/MIN Glucose (74-106) mg/dL Lactic Acid 1.9 (0.4-2.0) Calcium (8.4-10.2) mg/dL Total Bilirubin (0.2-1.3) mg/dL AST (14-36) U/L ALT (0-35) U/L Alkaline Phosphatase (38-126) U/L Serum Total Protein (6.3-8.2) g/dL Albumin (3.5-5.0) g/dL Amylase (30-110) U/L Lipase (23-300) U/L Urine Color YELLOW (YELLOW) Urine Appearance CLEAR (CLEAR) Urine pH 5.0 (5-6) Ur Specific [place] 1.014 (1.005-1.025) Urine Protein NEGATIVE (Negative) Urine Ketones NEGATIVE (NEGATIVE) Urine Blood NEGATIVE (0-5) Haroldo/ul Urine Nitrite NEGATIVE (NEGATIVE) Urine Bilirubin NEGATIVE (NEGATIVE) Urine Urobilinogen 2 (0-1) mg/dL Ur Leukocyte Esterase NEGATIVE (NEGATIVE) Urine WBC (Auto) 0-2 (0-5) /HPF Urine RBC (Auto) NONE (0-2) /HPF U Epithel Cells (Auto) RARE (FEW) /HPF Urine Bacteria (Auto) RARE (NEGATIVE) /HPF Urine Mucus (Auto) SLIGHT (NEGATIVE) /HPF Urine Culture Reflexed NO (NO) Urine Glucose NEGATIVE (NEGATIVE) mg/dL Salicylates (2-20) mg/dL Urine Opiates Level NEGATIVE (NEGATIVE) Ur Methadone NEGATIVE (NEGATIVE) Acetaminophen (10-30) ug/ml Urine Barbiturates NEGATIVE (NEGATIVE) Ur Phencyclidine (PCP) NEGATIVE (NEGATIVE) Urine Amphetamine NEGATIVE (NEGATIVE) U Benzodiazepine Level POSITIVE (NEGATIVE) Urine Cocaine NEGATIVE (NEGATIVE) Urine Marijuana (THC) NEGATIVE (NEGATIVE) Ethyl Alcohol (0-10) mg/dL 04/15/18 04/15/18 Range/Units 04:43 04:43 WBC 4.6 (4.0-10.5) K/mm3 RBC 3.91 L (4.1-5.4) M/mm3 Hgb 13.6 (12.0-16.0) gm/dl Hct 41.3 (35-47) % MCV 105.6 H (78-100) fl MCH 34.7 H (26-32) pg MCHC 32.9 (32-36) g/dl RDW 15.3 H (11.5-14.0) % Plt Count 160 (150-450) K/mm3 MPV 11.7 H (6-9.5) fl Gran % 42.7 (36.0-66.0) % Eos # (Auto) 0.26 (0-0.5) Absolute Lymphs (auto) 2.02 (1.0-4.6) Absolute Monos (auto) 0.30 (0.0-1.3) Lymphocytes % 43.7 (24.0-44.0) % Monocytes % 6.5 (0.0-12.0) % Eosinophils % 5.6 H (0.00-5.0) % Basophils % 1.5 (0.0-0.4) % Absolute Granulocytes 1.97 (1.4-6.9) Basophils # 0.07 (0-0.4) Sodium 139 (137-145) mmol/L Potassium 3.1 L D (3.5-5.1) mmol/L Chloride 110 H (98-107) mmol/L Carbon Dioxide 23 (22-30) mmol/L Anion Gap 9.1 (5-15) MEQ/L BUN 4 L (7-17) mg/dL Creatinine 0.58 (0.52-1.04) mg/dL Estimated GFR > 60.0 ML/MIN Glucose 81 (74-106) mg/dL Lactic Acid (0.4-2.0) Calcium 7.6 L (8.4-10.2) mg/dL Total Bilirubin (0.2-1.3) mg/dL AST (14-36) U/L ALT (0-35) U/L Alkaline Phosphatase (38-126) U/L Serum Total Protein (6.3-8.2) g/dL Albumin (3.5-5.0) g/dL Amylase (30-110) U/L Lipase (23-300) U/L Urine Color (YELLOW) Urine Appearance (CLEAR) Urine pH (5-6) Ur Specific [place] (1.005-1.025) Urine Protein (Negative) Urine Ketones (NEGATIVE) Urine Blood (0-5) Haroldo/ul Urine Nitrite (NEGATIVE) Urine Bilirubin (NEGATIVE) Urine Urobilinogen (0-1) mg/dL Ur Leukocyte Esterase (NEGATIVE) Urine WBC (Auto) (0-5) /HPF Urine RBC (Auto) (0-2) /HPF U Epithel Cells (Auto) (FEW) /HPF Urine Bacteria (Auto) (NEGATIVE) /HPF Urine Mucus (Auto) (NEGATIVE) /HPF Urine Culture Reflexed (NO) Urine Glucose (NEGATIVE) mg/dL Salicylates (2-20) mg/dL Urine Opiates Level (NEGATIVE) Ur Methadone (NEGATIVE) Acetaminophen (10-30) ug/ml Urine Barbiturates (NEGATIVE) Ur Phencyclidine (PCP) (NEGATIVE) Urine Amphetamine (NEGATIVE) U Benzodiazepine Level (NEGATIVE) Urine Cocaine (NEGATIVE) Urine Marijuana (THC) (NEGATIVE) Ethyl Alcohol (0-10) mg/dL - Radiology Impressions Radiology Exams & Impressions: Radiology Procedures Category Date Time Status HEAD WITHOUT CONTRAST [CT] Stat Exams 04/14/18 21:01 Taken - Other Procedures and Tests Respiratory Therapy 04/15/18 08:00 Smoking Cessation Education ONCE Assessment/Plan (1) Seizure disorder Current Visit: Yes Status: Acute Assessment & Plan: Restart dilantin at home dose - will have nurse check with pharmacy. Code(s): G40.909 - EPILEPSY, UNSP, NOT INTRACTABLE, WITHOUT STATUS EPILEPTICUS (2) Alcohol abuse Current Visit: Yes Status: Acute Onset Date: ~04/14/18 Assessment & Plan: She would like to detox, so she will probably need to stay until she is stable. On ativan prn. Last alcohol within 24 hours. [facility] consult. 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 Code(s): D49.89 - NEOPLASM OF UNSPECIFIED BEHAVIOR OF OTHER SPECIFIED SITES
--- NOTE | 2018-04-15 09:21 | XRAY ---
Indication: Seizure. Multiple contiguous axial images obtained through the head without contrast. Comparison: None Normal appearing brain parenchyma, ventricles, and bony calvarium. Visualized paranasal sinuses and mastoid air cells are clear. Impression: Normal CT head without contrast exam. CT DI 68.98
[2018-04-15] MEDS: Dilantin 100 MG PO SCH ×3 (10:11→22:32)
[2018-04-15] MEDS: TYLENOL 325 MG PO PRN ×2 (11:19→20:36)
[2018-04-15] MEDS ORDERED: Catapres 0.1 MG PO PRN (13:40)
[2018-04-15] MEDS ORDERED: Protonix 40MG Tablet PO SCH (13:45)
[2018-04-15] MEDS: Ativan 2 MG/1 ML VIAL IV PRN ×3 (14:09→22:32)
[2018-04-15] MEDS: THERAGRAN MULTIVITAMIN PO SCH (14:29)
[2018-04-15] MEDS: Protonix 40MG Tablet PO SCH (14:29)
[2018-04-15] MEDS ORDERED: CLONIDINE HCL 0.2 MG PO SCH (22:00)
[2018-04-15] MEDS ORDERED: NON-FORMULARY ITEM (Omeprazole [Omeprazole] 40 MG) PO SCH (22:00)
[2018-04-16] MEDS: Ativan 2 MG/1 ML VIAL IV PRN (02:37)
[2018-04-16 06:17] LABS: BASOPHIL % 0.6 % (0.0-0.4); Basophil (Absolute #) 0.03 (0-0.4); Eosinophil % 7.2 % (0.00-5.0); Eosinophil (Absolute #) 0.37 (0-0.5); Granulocyte Absolute (ANC) 2.71 (1.4-6.9); Granulocytes % 52.7 % (36.0-66.0); Hemoglobin 14.6 gm/dl (12.0-16.0); Lymphocyte (Absolute #) 1.77 (1.0-4.6); Lymphocytes % 34.4 % (24.0-44.0); Mean Cell Volume 102.1 fl (78-100); Mean Corpuscular Hemoglobin 34.7 pg (26-32); Monocyte (Absolute #) 0.26 (0.0-1.3); Monocytes % 5.1 % (0.0-12.0); Platelet Count 197 K/mm3 (150-450); Red Blood Count 4.21 M/mm3 (4.1-5.4); Red Cell Distribution Width 14.4 % (11.5-14.0); White Blood Count 5.1 K/mm3 (4.0-10.5)
[2018-04-16] MEDS: Sodium Chloride 0.9% 1000 ML 1,000 ML IV SCH (06:22)
[2018-04-16 06:38] LABS: ALBUMIN 3.3 g/dL (3.5-5.0); ALKALINE PHOSPHATASE 73 U/L (38-126); ANION GAP 11.1 MEQ/L (5-15); CHLORIDE 106 mmol/L (98-107); Calcium 8.2 mg/dL (8.4-10.2); Carbon Dioxide 22 mmol/L (22-30); Creatinine 1 0.45 mg/dL (0.52-1.04); Glucose 88 mg/dL (74-106); Potassium 3.2 mmol/L (3.5-5.1); SGOT/AST 27 U/L (14-36); SGPT/ALT 30 U/L (0-35); SODIUM 136 mmol/L (137-145)
[2018-04-16 06:44] LABS: BLOOD UREA NITROGEN 2 mg/dL (7-17); ETHYL ALCOHOL < 10 mg/dL (0-10)
--- NOTE | 2018-04-16 09:54 | PCM.DS ---
Discharge Summary Date of Admission: 04/14/18 23:40 Date of Discharge: 04/16/18 Admitting Physician: ZACKARY VAZ Consults: Consults on Case 04/15/18 08:57 Consult Tele-Health [Tele-Health Consult] ROUTINE Primary Care Provider: BERNARDINO LOUISE Allergies Allergies tramadol Allergy (Severe, Verified 04/14/18 19:46) Hives cyclobenzaprine [From Flexeril] Allergy (Verified 04/14/18 19:46) Hospital Summary - Hospital Course Hospital Course: she was being treated outpatient for alcohol with [facility] history of seizures and had seizure at home. She came to ed and was treated with ativan. no futher seizure activity. She used ativan 2 times overnight and this am was requesting to discharge she has had alcohol withdrawal several times since she was 24 y/o and started drinking heavily. She says she feels well right now and has librium, clonidine at home to continue the treatment for the withdrawal. She wasn't taking her dilantin when she had the seizure and will take it now. She understands the risk of continued withdrawal and seizure and would like to discharge home anyway. She agrees to not continue drinking. Her however does drink and plans to continue sand she understands this is a very difficulty environment to get sober in. She does hav scheduled outpatient follow up with the [facility] next week and agrees to go to this. - Vitals & Intake/Output Vital Signs: Vital Signs Temperature 97.3 F 04/16/18 07:42 Pulse Rate 68 04/16/18 07:42 Respiratory Rate 16 04/16/18 07:42 Blood Pressure 138/86 04/16/18 07:42 O2 Sat by Pulse Oximetry 98 04/16/18 07:42 Intake & Output: Intake & Output 04/13/18 04/14/18 04/15/18 04/16/18 11:59 11:59 11:59 11:59 Intake Total 774 4431 Output Total 4300 Balance 774 131 Weight 54.431 kg - Lab Result Diagrams: 04/16/18 05:30 04/16/18 05:30 Lab Results-Last 24 Hrs: Lab Results-Last 24 Hours 04/16/18 04/16/18 Range/Units 05:30 05:30 WBC 5.1 (4.0-10.5) K/mm3 RBC 4.21 (4.1-5.4) M/mm3 Hgb 14.6 (12.0-16.0) gm/dl Hct 43.0 (35-47) % MCV 102.1 H (78-100) fl MCH 34.7 H (26-32) pg MCHC 34.0 (32-36) g/dl RDW 14.4 H (11.5-14.0) % Plt Count 197 (150-450) K/mm3 MPV 10.0 H (6-9.5) fl Gran % 52.7 (36.0-66.0) % Eos # (Auto) 0.37 (0-0.5) Absolute Lymphs (auto) 1.77 (1.0-4.6) Absolute Monos (auto) 0.26 (0.0-1.3) Lymphocytes % 34.4 (24.0-44.0) % Monocytes % 5.1 (0.0-12.0) % Eosinophils % 7.2 H (0.00-5.0) % Basophils % 0.6 (0.0-0.4) % Absolute Granulocytes 2.71 (1.4-6.9) Basophils # 0.03 (0-0.4) Sodium 136 L (137-145) mmol/L Potassium 3.2 L (3.5-5.1) mmol/L Chloride 106 (98-107) mmol/L Carbon Dioxide 22 (22-30) mmol/L Anion Gap 11.1 (5-15) MEQ/L BUN 2 L (7-17) mg/dL Creatinine 0.45 L (0.52-1.04) mg/dL Estimated GFR > 60.0 ML/MIN Glucose 88 (74-106) mg/dL Calcium 8.2 L (8.4-10.2) mg/dL Total Bilirubin 0.90 (0.2-1.3) mg/dL AST 27 (14-36) U/L ALT 30 (0-35) U/L Alkaline Phosphatase 73 (38-126) U/L Serum Total Protein 6.0 L (6.3-8.2) g/dL Albumin 3.3 L (3.5-5.0) g/dL Ethyl Alcohol < 10 (0-10) mg/dL - Radiology Exams Ordered Rad Exams-Entire Visit: Radiology Procedures Category Date Time Status HEAD WITHOUT CONTRAST [CT] Stat Exams 04/14/18 21:01 Completed - Procedures and Test Procedures and Tests throughout Hospitalization: Therapy Orders & Screens 04/15/18 08:00 Smoking Cessation Education ONCE Comment: Diagnosis: alcohol abuse Smoking Status: Current every day smoker How long have you smoked: 20+ years Have you smoked in the past 12 months: Yes Approximately how many cigarettes per day: 1 PPD Do you dip or chew tobacco: No Discharge Exam General Appearance: no apparent distress, alert Neurologic Exam: alert, oriented x 3, cooperative, normal mood/affect, nml cerebellar function, sensation nml, No motor deficits Skin Exam: normal color, warm, dry Eye Exam: PERRL, EOMI, eyes nml inspection Ears, Nose, Throat Exam: normal ENT inspection, pharynx normal, moist mucous membranes Neck Exam: normal inspection, non-tender, supple, full range of motion Respiratory Exam: normal breath sounds, lungs clear, No respiratory distress Cardiovascular Exam: regular rate/rhythm, normal heart sounds Gastrointestinal/Abdomen Exam: soft, No tenderness, No mass Extremity Exam: normal inspection, normal range of motion Back Exam: normal inspection, normal range of motion, No CVA tenderness, No vertebral tenderness Pelvic Exam: deferred Rectal Exam: deferred Final Diagnosis/Problem List - Final Discharge Diagnosis/Problem (1) Alcohol withdrawal Status: Acute (2) Alcohol abuse Status: Acute Onset Date: ~04/14/18 (3) Seizure disorder Status: Acute - Discharge Disposition: Home, Self-Care Condition: Stable Prescriptions: New Phenytoin Sod Extended 100 mg* [Dilantin 100 MG] 100 mg PO TID #90 capsule Continue Multivitamin [Multiple Vitamins] 1 each PO DAILY #30 tablet Sulfamethoxazole/Trimethoprim [Sulfamethoxazole-Tmp Ds Tablet] 1 each PO BID Diphenhydramine HCl 25 mg [Benadryl 25 mg Capsule] 25 mg PO QHS Omeprazole 40 mg PO BID Clonidine HCl [Catapres] 0.2 mg PO BID Chlordiazepoxide HCl 25 mg [Librium 25 mg] 50 mg PO QID Instructions: Alcohol Abuse and Alcoholism (DC) Follow up with: RUMA BUCK PA [Primary Care Provider] - Call for Appointment
[2018-04-16] MEDS ORDERED: NON-FORMULARY ITEM (Multivitamin [Multiple Vitamins] 1 EACH) PO SCH (10:00)
[2018-04-16] MEDS: THERAGRAN MULTIVITAMIN PO SCH (11:16)
[2018-04-16] MEDS: Dilantin 100 MG PO SCH (11:16)
[2018-04-16] MEDS: Protonix 40MG Tablet PO SCH (11:16)
[2018-04-16 11:45] VITALS: BP 143/81; PULSE 78; O2SAT 99
== END 2018-04-16 11:45 | disposition home or self-care (01) ==
LOC: ED 19:25 → MED SURG 23:40
PROVIDERS: ADMIT Family Medicine; ATTEND Family Medicine
DX: F10.239 Alcohol dependence with withdrawal, unspecified (principal); G40.909 Epilepsy, unspecified, not intractable, without status epilepticus; D49.89 Neoplasm of unspecified behavior of other specified sites; Z79.899 Other long term (current) drug therapy; F41.9 Anxiety disorder, unspecified; F32.9 Major depressive disorder, single episode, unspecified; K21.9 Gastro-esophageal reflux disease without esophagitis; Z72.0 Tobacco use
CPT/HCPCS: 36000; 36415; 70450; 80048; 80053; 80307; 81001; 82150; 83605; 83690; 85025; 93005; 93041; 93268; 94760; 96360; 96374; 96375; 99285; G0378; G0480; G0481; J1165; J1885; J2060; J2405; A9270-GY

== ENCOUNTER 2018-04-28 21:26 | Observation (INO) | payer MEDICAID, OTHER ==
[2018-04-28] MEDS ORDERED: Sodium Chloride 0.9% 1000 ML 1,000 ML IV STA (21:56)
[2018-04-28] MEDS ORDERED: THIAMINE 200 MG/2 ML IV ONE (21:56)
[2018-04-28 22:15] LABS: BASOPHIL % 1.6 % (0.0-0.4); Basophil (Absolute #) 0.09 (0-0.4); Eosinophil % 8.1 % (0.00-5.0); Eosinophil (Absolute #) 0.46 (0-0.5); Granulocytes % 40.1 % (36.0-66.0); Hematocrit 45.4 % (35-47); Hemoglobin 15.4 gm/dl (12.0-16.0); Lymphocyte (Absolute #) 2.59 (1.0-4.6); Lymphocytes % 45.6 % (24.0-44.0); Mean Cell Volume 102.7 fl (78-100); Mean Corpuscular Hemoglobin 34.8 pg (26-32); Mean Corpuscular Hgb Concent. 33.9 g/dl (32-36); Mean Platelet Volume 10.1 fl (6-9.5); Monocyte (Absolute #) 0.26 (0.0-1.3); Monocytes % 4.6 % (0.0-12.0); Platelet Count 240 K/mm3 (150-450); Red Blood Count 4.42 M/mm3 (4.1-5.4); Red Cell Distribution Width 15.5 % (11.5-14.0); White Blood Count 5.7 K/mm3 (4.0-10.5)
[2018-04-28 22:27] LABS: ALBUMIN 4.1 g/dL (3.5-5.0); ALKALINE PHOSPHATASE 86 U/L (38-126); AMYLASE 65 U/L (30-110); ANION GAP 17.2 MEQ/L (5-15); BLOOD UREA NITROGEN 4 mg/dL (7-17); CHLORIDE 106 mmol/L (98-107); Calcium 8.5 mg/dL (8.4-10.2); Carbon Dioxide 23 mmol/L (22-30); Creatinine 1 0.47 mg/dL (0.52-1.04); Glucose 96 mg/dL (74-106); Potassium 3.8 mmol/L (3.5-5.1); SGOT/AST 89 U/L (14-36); SGPT/ALT 49 U/L (0-35); SODIUM 142 mmol/L (137-145); Total Protein 7.1 g/dL (6.3-8.2)
[2018-04-28 22:32] LABS: ACETAMINOPHEN < 10 ug/ml (10-30); SALICYLATE < 1.0 mg/dL (2-20)
[2018-04-28 23:01] LABS: Appearance CLEAR (CLEAR); Bacteria RARE /HPF (NEGATIVE); Bilirubin NEGATIVE (NEGATIVE); Blood NEGATIVE Ery/ul (0-5); Glucose NEGATIVE (NEGATIVE); Ketones NEGATIVE (NEGATIVE); Leukocyte Esterase NEGATIVE (NEGATIVE); Nitrite NEGATIVE (NEGATIVE); Protein,Urine Dip NEGATIVE (Negative); Specific Gravity 1.002 (1.005-1.025); Urobilinogen NEGATIVE mg/dL (0-1)
[2018-04-28 23:03] LABS: Amphetamine,Urine NEGATIVE (NEGATIVE); Barbiturate,Urine NEGATIVE (NEGATIVE); Benzodiazepine,Urine POSITIVE (NEGATIVE); Cocaine,Urine NEGATIVE (NEGATIVE); Methadone,Urine NEGATIVE (NEGATIVE); Opiate,Urine NEGATIVE (NEGATIVE); PCP,Urine NEGATIVE (NEGATIVE); THC,Urine NEGATIVE (NEGATIVE)
[2018-04-28] MEDS ORDERED: THIAMINE 200 MG/2 ML ONE ×2 (23:12→23:24)
[2018-04-28] MEDS ORDERED: Sodium Chloride 0.9% 1000 ML 1,000 ML ONE ×2 (23:12→23:24)
--- NOTE | 2018-04-28 23:38 | ERPHSYRPT ---
- History of Present Illness Time Seen by Provider: 04/28/18 21:58 Source: patient, EMS Exam Limitations: no limitations Patient Subjective Stated Complaint: pt states she had 3 seizures yesterday and 4 today. pt states she has been perscribed dilantin for this but cant afford to Triage Nursing Assessment: slurred speech, nsr. pt states she took her sleeping medication before coming in and that she is an alcoholic and has been drinking today. pupils equal and reactive. 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 no seizure activity noted at this time Physician History: 43-year-old white female with history of GERD, anxiety, depression, chronic alcohol use. Patient arrives with complaint that she hasn't had 3 seizures yesterday 2 seizures today. She states that she is unable to afford her Dilantin. Patient does state that she had 2 alcoholic beverages today. Patient describes her seizures as absence seizures Past medical history includes GERD, anxiety, depression, seizures Past surgical history includes tonsillectomy and adenoidectomy, tubal ligation Social history includes chronic heavy alcohol use, tobacco use, patient denies illicit drug use. Timing/Duration: yesterday Severity: moderate Modifying Factors: Improves With: other (patient not taking her Dilantin, patient drinking alcohol) Associated Symptoms: No nausea, No vomiting, No abdominal pain Allergies/Adverse Reactions: tramadol Allergy (Severe, Verified 04/14/18 19:46) Hives cyclobenzaprine [From Flexeril] Allergy (Verified 04/14/18 19:46) latex Allergy (Verified 04/28/18 21:47) Home Medications: Clonidine HCl [Catapres] 0.2 mg PO BID 04/15/18 [History] Diphenhydramine HCl 25 mg [Benadryl 25 mg Capsule] 25 mg PO QHS 04/15/18 [ History] Omeprazole 40 mg PO BID 04/15/18 [History] Sulfamethoxazole/Trimethoprim [Sulfamethoxazole-Tmp Ds Tablet] 1 each PO BID [History] Chlordiazepoxide HCl 25 mg [Librium 25 mg] 50 mg PO QID 04/16/18 [History] Hx Tetanus, Diphtheria Vaccination/Date Given: No Hx Influenza Vaccination/Date Given: No Hx Pneumococcal Vaccination/Date Given: No Immunizations Up to Date: No - Review of Systems Constitutional: No Fever, No Chills Eyes: No Symptoms Ears, Nose, & Throat: No Symptoms Respiratory: No Cough, No Dyspnea Cardiac: No Chest Pain, No Edema, No Syncope Abdominal/Gastrointestinal: No Abdominal Pain, No Nausea, No Vomiting, No Diarrhea Genitourinary Symptoms: No Dysuria Musculoskeletal: No Back Pain, No Neck Pain Skin: No Rash Neurological: Seizure Psychological: Alcohol Abuse Endocrine: No Symptoms All Other Systems: Reviewed and Negative - Past Medical History Pertinent Past Medical History: Yes Neurological History: No Pertinent History ENT History: No Pertinent History Cardiac History: No Pertinent History Respiratory History: No Pertinent History Endocrine Medical History: No Pertinent History Musculoskeletal History: No Pertinent History GI Medical History: GERD History: No Pertinent History Psycho-Social History: Anxiety, Depression Female Reproductive Disorders: No Pertinent History - Past Surgical History Past Surgical History: Yes Neuro Surgical History: No Pertinent History Cardiac: No Pertinent History Respiratory: No Pertinent History Gastrointestinal: Appendectomy, Cholecystectomy Genitourinary: No Pertinent History Musculoskeletal: No Pertinent History Female Surgical History: Tubal Ligation - Social History Smoking Status: Heavy tobacco smoker How long have you smoked: 25 Exposure to second hand smoke: Yes Drug Use: none Patient Lives Alone: No - Female History Hx Last Menstrual Period: 3 weeks ago Hx Now: No - Nursing Vital Signs Nursing Vital Signs: Initial Vital Signs Temperature 97.6 F 04/28/18 21:28 Pulse Rate 87 04/28/18 21:28 Respiratory Rate 18 04/28/18 21:28 Blood Pressure 109/70 04/28/18 21:28 O2 Sat by Pulse Oximetry 99 04/28/18 21:28 Pain Scale Pain Intensity 8 - Physical Exam General Appearance: no apparent distress, alert Eye Exam: PERRL/EOMI, eyes nml inspection Ears, Nose, Throat Exam: normal ENT inspection, TMs normal, pharynx normal, moist mucous membranes Neck Exam: normal inspection, non-tender, supple, full range of motion Respiratory Exam: normal breath sounds, lungs clear, No respiratory distress Cardiovascular Exam: regular rate/rhythm, normal heart sounds, normal peripheral pulses, capillary refill <2 sec Gastrointestinal/Abdomen Exam: soft, normal bowel sounds, No tenderness, No mass Back Exam: normal inspection, normal range of motion, No CVA tenderness, No vertebral tenderness Extremity Exam: normal inspection, normal range of motion, pelvis stable Neurologic Exam: alert, oriented x 3, 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 Normal EKG) Ordered Tests: Active Orders 24 hr Category Date Time Status Accucheck STAT Care 04/28/18 21:56 Active EKG-ER Only STAT Care 04/28/18 21:56 Active IV Insertion STAT Care 04/28/18 21:56 Active ACETAMINOPHEN Stat Lab 04/28/18 21:45 Completed AMYLASE Stat Lab 04/28/18 21:45 Completed CBC W DIFF Stat Lab 04/28/18 21:45 Completed CMP Stat Lab 04/28/18 21:45 Completed ETHYL ALCOHOL Stat Lab 04/28/18 21:45 Completed SALICYLATE Stat Lab 04/28/18 21:45 Completed UA W/RFX UR CULTURE Stat Lab 04/28/18 22:30 Completed Urine Triage Profile Stat Lab 04/28/18 22:30 Completed Medication Summary Discontinued Medications Generic Name Dose Route Start Last Admin Trade Name Freq PRN Reason Stop Dose Admin Sodium Chloride 1,000 mls @ 999 mls/hr 04/28/18 21:56 04/28/18 23:26 Sodium Chloride 0.9% 1000 Ml IV 04/28/18 22:56 999 mls/hr .Q1H1M STA Administration Sodium Chloride Confirm 04/28/18 23:12 Sodium Chloride 0.9% 1000 Ml Administered 04/28/18 23:13 Dose 1,000 mls @ ud .ROUTE .STK-MED ONE Sodium Chloride Confirm 04/28/18 23:24 Sodium Chloride 0.9% 1000 Ml Administered 04/28/18 23:25 Dose 1,000 mls @ ud .ROUTE .STK-MED ONE Thiamine HCl 100 mg 04/28/18 21:56 04/28/18 23:27 Thiamine 200 Mg/2 Ml IV 04/28/18 21:57 100 mg STAT ONE Administration Thiamine HCl Confirm 04/28/18 23:12 Thiamine 200 Mg/2 Ml Administered 04/28/18 23:13 Dose 200 mg .ROUTE .STK-MED ONE Thiamine HCl Confirm 04/28/18 23:24 Thiamine 200 Mg/2 Ml Administered 04/28/18 23:25 Dose 200 mg .ROUTE .STK-MED ONE Lab/Rad Data: Laboratory Result Diagrams 04/28/18 21:45 04/28/18 21:45 Laboratory Results 04/28/18 04/28/18 04/28/18 Range/Units 22:30 22:30 21:45 WBC (4.0-10.5) K/mm3 RBC (4.1-5.4) M/mm3 Hgb (12.0-16.0) gm/dl Hct (35-47) % MCV (78-100) fl MCH (26-32) pg MCHC (32-36) g/dl RDW (11.5-14.0) % Plt Count (150-450) K/mm3 MPV (6-9.5) fl Gran % (36.0-66.0) % Eos # (Auto) (0-0.5) Absolute Lymphs (auto) (1.0-4.6) Absolute Monos (auto) (0.0-1.3) Lymphocytes % (24.0-44.0) % Monocytes % (0.0-12.0) % Eosinophils % (0.00-5.0) % Basophils % (0.0-0.4) % Absolute Granulocytes (1.4-6.9) Basophils # (0-0.4) Sodium (137-145) mmol/L Potassium (3.5-5.1) mmol/L Chloride (98-107) mmol/L Carbon Dioxide (22-30) mmol/L Anion Gap (5-15) MEQ/L BUN (7-17) mg/dL Creatinine (0.52-1.04) mg/dL Estimated GFR ML/MIN Glucose (74-106) mg/dL Calcium (8.4-10.2) mg/dL Total Bilirubin (0.2-1.3) mg/dL AST (14-36) U/L ALT (0-35) U/L Alkaline Phosphatase (38-126) U/L Serum Total Protein (6.3-8.2) g/dL Albumin (3.5-5.0) g/dL Amylase (30-110) U/L Urine Color STRAW (YELLOW) Urine Appearance CLEAR (CLEAR) Urine pH 6.0 (5-6) Ur Specific [place] 1.002 (1.005-1.025) Urine Protein NEGATIVE (Negative) Urine Ketones NEGATIVE (NEGATIVE) Urine Blood NEGATIVE (0-5) Haroldo/ul Urine Nitrite NEGATIVE (NEGATIVE) Urine Bilirubin NEGATIVE (NEGATIVE) Urine Urobilinogen NEGATIVE (0-1) mg/dL Ur Leukocyte Esterase NEGATIVE (NEGATIVE) Urine WBC (Auto) NONE (0-5) /HPF Urine RBC (Auto) NONE (0-2) /HPF U Epithel Cells (Auto) NONE (FEW) /HPF Urine Bacteria (Auto) RARE (NEGATIVE) /HPF Urine Culture Reflexed NO (NO) Urine Glucose NEGATIVE (NEGATIVE) mg/dL Salicylates (2-20) mg/dL Urine Opiates Level NEGATIVE (NEGATIVE) Ur Methadone NEGATIVE (NEGATIVE) Acetaminophen (10-30) ug/ml Urine Barbiturates NEGATIVE (NEGATIVE) Phenytoin < 3.0 L (10-20) ug/mL Ur Phencyclidine (PCP) NEGATIVE (NEGATIVE) Urine Amphetamine NEGATIVE (NEGATIVE) U Benzodiazepine Level POSITIVE (NEGATIVE) Urine Cocaine NEGATIVE (NEGATIVE) Urine Marijuana (THC) NEGATIVE (NEGATIVE) Ethyl Alcohol (0-10) mg/dL 04/28/18 04/28/18 04/28/18 Range/Units 21:45 21:45 21:45 WBC 5.7 (4.0-10.5) K/mm3 RBC 4.42 (4.1-5.4) M/mm3 Hgb 15.4 (12.0-16.0) gm/dl Hct 45.4 (35-47) % MCV 102.7 H (78-100) fl MCH 34.8 H (26-32) pg MCHC 33.9 (32-36) g/dl RDW 15.5 H (11.5-14.0) % Plt Count 240 (150-450) K/mm3 MPV 10.1 H (6-9.5) fl Gran % 40.1 (36.0-66.0) % Eos # (Auto) 0.46 (0-0.5) Absolute Lymphs (auto) 2.59 (1.0-4.6) Absolute Monos (auto) 0.26 (0.0-1.3) Lymphocytes % 45.6 H (24.0-44.0) % Monocytes % 4.6 (0.0-12.0) % Eosinophils % 8.1 H (0.00-5.0) % Basophils % 1.6 (0.0-0.4) % Absolute Granulocytes 2.28 (1.4-6.9) Basophils # 0.09 (0-0.4) Sodium 142 (137-145) mmol/L Potassium 3.8 (3.5-5.1) mmol/L Chloride 106 (98-107) mmol/L Carbon Dioxide 23 (22-30) mmol/L Anion Gap 17.2 H (5-15) MEQ/L BUN 4 L (7-17) mg/dL Creatinine 0.47 L (0.52-1.04) mg/dL Estimated GFR > 60.0 ML/MIN Glucose 96 (74-106) mg/dL Calcium 8.5 (8.4-10.2) mg/dL Total Bilirubin 0.20 (0.2-1.3) mg/dL AST 89 H (14-36) U/L ALT 49 H (0-35) U/L Alkaline Phosphatase 86 (38-126) U/L Serum Total Protein 7.1 (6.3-8.2) g/dL Albumin 4.1 (3.5-5.0) g/dL Amylase 65 (30-110) U/L Urine Color (YELLOW) Urine Appearance (CLEAR) Urine pH (5-6) Ur Specific [place] (1.005-1.025) Urine Protein (Negative) Urine Ketones (NEGATIVE) Urine Blood (0-5) Haroldo/ul Urine Nitrite (NEGATIVE) Urine Bilirubin (NEGATIVE) Urine Urobilinogen (0-1) mg/dL Ur Leukocyte Esterase (NEGATIVE) Urine WBC (Auto) (0-5) /HPF Urine RBC (Auto) (0-2) /HPF U Epithel Cells (Auto) (FEW) /HPF Urine Bacteria (Auto) (NEGATIVE) /HPF Urine Culture Reflexed (NO) Urine Glucose (NEGATIVE) mg/dL Salicylates < 1.0 L (2-20) mg/dL Urine Opiates Level (NEGATIVE) Ur Methadone (NEGATIVE) Acetaminophen < 10 L (10-30) ug/ml Urine Barbiturates (NEGATIVE) Phenytoin (10-20) ug/mL Ur Phencyclidine (PCP) (NEGATIVE) Urine Amphetamine (NEGATIVE) U Benzodiazepine Level (NEGATIVE) Urine Cocaine (NEGATIVE) Urine Marijuana (THC) (NEGATIVE) Ethyl Alcohol 272 H (0-10) mg/dL - Progress Progress: improved Progress Note: 04/28/18 23:35 43-year-old white female who states she has a history of seizures states she is she has had seizures 3 yesterday 2 times today states these are abscence seizures, states that she is supposed to be on Dilantin but has not been filling this. She apparently has admits to drinking 2 alcoholic beverages today. On physical examination patient is alert oriented 3 vitals are stable Cranial nerves II through XII are intact. Patient with normal EKG 81 bpm sinus rhythm no acute ST or T wave changes. Patient's chemistry remarkable for CBC white blood cell 5.7 hemoglobin 15.4 hematocrit 45.4 platelets 240 sodium 142 potassium 3.8 chloride 106 bicarbonate 23 BUN 4 creatinine 0.47 glucose 96 urinalysis is unremarkable Salicylate less than 1.0 acetaminophen level less than 10 Dilantin level less than 3 Blood alcohol level 272 I've discussed the patient's case with Dr. Bray. Will go ahead and place patient on observation. Patient was given thiamine 100 mg IV as well as look well as normal saline 1 L. Will provide Ativan as needed for withdrawal symptoms. Reluctant to give patient Dilantin at this time secondary to high alcohol level. - Departure Time of Disposition: 23:38 Departure Disposition: Observation Clinical Impression: Seizure disorder, history of chronic alcohol use Alcohol intoxication Qualifiers: Complication of substance-induced condition: with unspecified complication Qualified Code(s): F10.929 - Alcohol use, unspecified with intoxication, unspecified Condition: Fair Critical Care Time: No Referrals: RUMA BUCK PA [Primary Care Provider] -
[2018-04-29] MEDS ORDERED: Sodium Chloride 0.9% 1000 ML 1,000 ML IV SCH (00:33)
[2018-04-29] MEDS: Ativan 2 MG/1 ML VIAL IV PRN ×2 (01:43→10:37)
[2018-04-29 06:21] LABS: ALBUMIN 3.1 g/dL (3.5-5.0); ALKALINE PHOSPHATASE 67 U/L (38-126); BLOOD UREA NITROGEN 5 mg/dL (7-17); CHLORIDE 109 mmol/L (98-107); Calcium 7.6 mg/dL (8.4-10.2); Carbon Dioxide 21 mmol/L (22-30); Creatinine 1 0.49 mg/dL (0.52-1.04); ETHYL ALCOHOL 37 mg/dL (0-10); Glucose 76 mg/dL (74-106); Potassium 3.4 mmol/L (3.5-5.1); SGOT/AST 46 U/L (14-36); SGPT/ALT 35 U/L (0-35); SODIUM 138 mmol/L (137-145); Total Protein 5.8 g/dL (6.3-8.2)
[2018-04-29 06:22] LABS: BASOPHIL % 1.6 % (0.0-0.4); Basophil (Absolute #) 0.07 (0-0.4); Eosinophil % 8.2 % (0.00-5.0); Eosinophil (Absolute #) 0.36 (0-0.5); Granulocytes % 28.1 % (36.0-66.0); Hematocrit 39.5 % (35-47); Hemoglobin 13.4 gm/dl (12.0-16.0); Lymphocyte (Absolute #) 2.38 (1.0-4.6); Lymphocytes % 54.5 % (24.0-44.0); Mean Cell Volume 103.4 fl (78-100); Mean Corpuscular Hgb Concent. 33.9 g/dl (32-36); Mean Platelet Volume 10.2 fl (6-9.5); Monocyte (Absolute #) 0.33 (0.0-1.3); Monocytes % 7.6 % (0.0-12.0); Platelet Count 198 K/mm3 (150-450); Red Blood Count 3.82 M/mm3 (4.1-5.4); Red Cell Distribution Width 15.4 % (11.5-14.0); White Blood Count 4.4 K/mm3 (4.0-10.5)
[2018-04-29] MEDS ORDERED: MOTRIN 400 MG PO PRN (08:51)
--- NOTE | 2018-04-29 09:45 | SSS ---
DISCHARGE DIAGNOSES: 1) ALCOHOL INTOXICATION. 2) SEIZURE DISORDER. 3) DEPRESSION. HISTORY: The patient is a 43 year-old white female who had been drinking heavily and wishes to stop. She reports she had three seizures yesterday. She presented to the emergency room inebriated. The patient was held on observation for seizures and to detoxify from alcohol. The patient reports that she has Librium at home from her most recent admission two weeks ago. Apparently this is her third admission in a month for the same problem. HOME MEDICATIONS: Clonidine 0.2 mg b.i.d., Benadryl 25 mg at night, omeprazole 40 mg b.i.d. She is apparently also taking Bactrim DS b.i.d. and Librium 25 mg four times a day on PRN basis. ALLERGIES: TRAMADOL, CYCLOBENZAPRINE, LATEX. PHYSICAL EXAMINATION: The patient's vital signs in the emergency room showed temperature 97.6F, pulse 87, respiratory rate 18 and blood pressure 109/70. O2 saturation 99% on room air. HEENT: Normocephalic, atraumatic. Pupils equal round reactive to light. Extraocular movements intact. Oropharynx is pink and moist. NECK: Supple without lymphadenopathy, thyromegaly or JVD. CHEST: Clear to auscultation with good air movement bilaterally. HEART: Regular rate and rhythm without murmurs, rubs or gallops. ABDOMEN: Soft with no palpable masses. EXTREMITIES: Without clubbing, cyanosis or edema. NEUROLOGIC: The patient is alert and oriented x3 with no focal deficits noted. LAB DATA AND TESTS: In the emergency room showed CBC with white blood cell count of 5,700, hemoglobin 15.4, PLT count 240,000. Her ETOH level was 272 on admission to the emergency room. Her metabolic panel showed a glucose of 96, BUN 4, creatinine 0.47. Her AST was elevated at 89, ALT 49. Acetaminophen and salicylates were essentially negative. Amylase was 17.2. Urine drug screen was positive for benzodiazepines. UA was otherwise normal. HOSPITAL COURSE: The [facility] was [facility]. The patient had no further episodes of seizure. She was awake, alert and oriented x3 when I saw her the next morning. We arranged for an EEG to be done. If the patient is still having seizure I will load her up with Cerebyx before discharging her home. 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 She does have a physician in [place] that she sees. She has an appointment pending to see [facility] as an outpatient for her alcohol and depression problems. If the patient continues to be stable throughout the morning and afternoon after the EEG, we will discharge her home with instructions to follow up with her regular family doctor within the next week or two.
[2018-04-29] MEDS ORDERED: NON-FORMULARY ITEM (Omeprazole [Omeprazole] 40 MG) PO SCH (10:00)
[2018-04-29] MEDS ORDERED: THERAGRAN MULTIVITAMIN PO SCH (10:00)
[2018-04-29] MEDS ORDERED: CLONIDINE HCL 0.2 MG PO SCH (10:00)
[2018-04-29] MEDS ORDERED: VITAMIN B-1 100 MG PO SCH (10:00)
[2018-04-29] MEDS ORDERED: Dilantin 100 MG PO SCH (10:00)
[2018-04-29] MEDS ORDERED: NON-FORMULARY ITEM (Multivitamin [Multiple Vitamins] 1 EACH) PO SCH (10:00)
[2018-04-29] MEDS ORDERED: Catapres 0.1 MG PO SCH (10:00)
[2018-04-29] MEDS ORDERED: BACTRIM DS TABLET PO SCH (10:00)
[2018-04-29] MEDS ORDERED: Protonix 40MG Tablet PO SCH (10:00)
[2018-04-29 12:29] VITALS: BP 125/72; PULSE 83; O2SAT 97
[2018-04-29] MEDS ORDERED: BENADRYL 25 MG CAPSULE PO SCH (22:00)
== END 2018-04-29 14:25 | disposition home or self-care (01) ==
LOC: ED 21:26 → MED SURG 04-29 00:25
PROVIDERS: ADMIT Family Medicine; ATTEND Family Medicine
DX: F10.129 Alcohol abuse with intoxication, unspecified (principal); G40.909 Epilepsy, unspecified, not intractable, without status epilepticus; F32.9 Major depressive disorder, single episode, unspecified; Z79.899 Other long term (current) drug therapy
CPT/HCPCS: 36000; 36415; 80053; 80185; 80307; 81001; 82150; 82962; 85025; 93005; 93268; 94762; 95812; 96360; 96374; 99285; G0378; G0481; J2060; A9270-GY; G0480

== ENCOUNTER 2018-09-19 13:14 | Emergency (ER) | payer OTHER, SELFPAY ==
[2018-09-19 13:28] VITALS: BP 127/78; PULSE 95; O2SAT 97
--- NOTE | 2018-09-19 14:04 | ERPHSYRPT ---
- History of Present Illness Source: patient Exam Limitations: no limitations Patient Subjective Stated Complaint: abscess on left side of outer vagina Triage Nursing Assessment: Pt c/o of a hard lump on the outer part of her left side of her vagina for the past 5 days, rates pain as a 9/10, vitals wnl, denies any other issues at this time Physician History: Pt is a 43 y/o female with a h/o a couple of days of pain and swelling on the L labia majora. Pt denies F/C/S. No vaginal discharge. The pain is extremely severe and pt had to come today, secondary to it. Timing/Duration: day(s) Activites at Onset: none Quality: aching, throbbing Onset Location: vaginal (L labia majora) Severity of Pain-Max: moderate Severity of Pain-Current: moderate Prior abdominal problems: none Modifying Factors: Improves With: nothing Associated Symptoms: denies symptoms Allergies/Adverse Reactions: tramadol Allergy (Severe, Verified 09/19/18 13:28) Hives cyclobenzaprine [From Flexeril] Allergy (Verified 09/19/18 13:28) latex Allergy (Verified 09/19/18 13:28) Home Medications: Diphenhydramine HCl 25 mg [Benadryl 25 mg Capsule] 25 mg PO QHS 04/15/18 [ History] Omeprazole 40 mg PO DAILY 04/15/18 [History] Hx Tetanus, Diphtheria Vaccination/Date Given: No Hx Influenza Vaccination/Date Given: No Hx Pneumococcal Vaccination/Date Given: No - Review of Systems Constitutional: No Fever, No Chills Abdominal/Gastrointestinal: No Abdominal Pain, No Nausea, No Vomiting, No Diarrhea Genitourinary Symptoms: Other (Pain and swelling around the L labia majora.) - Past Medical History Pertinent Past Medical History: Yes Neurological History: Seizures ENT History: No Pertinent History Cardiac History: No Pertinent History Respiratory History: No Pertinent History Endocrine Medical History: No Pertinent History Musculoskeletal History: No Pertinent History GI Medical History: GERD History: No Pertinent History Psycho-Social History: Anxiety, Depression Female Reproductive Disorders: No Pertinent History - Past Surgical History Past Surgical History: Yes Neuro Surgical History: No Pertinent History Cardiac: No Pertinent History Respiratory: No Pertinent History Gastrointestinal: Appendectomy, Cholecystectomy Genitourinary: No Pertinent History Musculoskeletal: No Pertinent History Female Surgical History: Tubal Ligation Other Surgical History: Tumor removed from left side "years ago" - Social History Smoking Status: Current some day smoker How long have you smoked: 25 yrs Exposure to second hand smoke: Yes Drug Use: none Patient Lives Alone: No - Female History Hx Now: No (tubal) - Nursing Vital Signs Nursing Vital Signs: Initial Vital Signs Temperature 98.4 F 09/19/18 13:18 Pulse Rate 95 H 09/19/18 13:18 Blood Pressure 127/78 09/19/18 13:18 O2 Sat by Pulse Oximetry 97 09/19/18 13:18 Pain Scale Pain Intensity 9 - Physical Exam General Appearance: no apparent distress, alert Gastrointestinal/Abdomen Exam: soft, No tenderness, No mass Pelvic Exam: other (extensive hardening and pain of the L labia majora) SpO2: 97 - Course Nursing assessment & vital signs reviewed: Yes Ordered Tests: Active Orders 24 hr Category Date Time Status CBC W DIFF Stat Lab 09/19/18 13:38 Ordered CMP Stat Lab 09/19/18 13:38 Ordered UA W/RFX UR CULTURE Stat Lab 09/19/18 13:38 Uncollected - Progress Progress: unchanged Air Movement: good Progress Note: 09/19/18 14:01 Pt was seen and examined. Extreme tenderness with palpation of the L labia majora, with swelling and hardness. Dr Yanes for surgery was contacted, and he advised to [facility] Dr Cormier was contacted and pt was accepted. Pt will drive herself to the ER to avoid ambulance cost. Blood Culture(s) Obtained: No Antibiotics given: No Discussed with : Marizol Will see patient in: other (Pt to be transfered to [facility] ER.) - Departure Departure Disposition: Transfer Clinical Impression: Bartholinitis Condition: Stable Critical Care Time: No Referrals: RUMA BUCK PA [Primary Care Provider] - Additional Instructions: Pt [facility] be [facility]fered [facility]. Dr Cormier is accepting.
[2018-09-19 14:18] LABS: Appearance CLEAR (CLEAR); Bilirubin NEGATIVE (NEGATIVE); Blood NEGATIVE Ery/ul (0-5); Glucose NEGATIVE (NEGATIVE); Ketones NEGATIVE (NEGATIVE); Leukocyte Esterase NEGATIVE (NEGATIVE); Nitrite NEGATIVE (NEGATIVE); Protein,Urine Dip NEGATIVE (Negative); Specific Gravity 1.004 (1.005-1.025); Urobilinogen NEGATIVE mg/dL (0-1)
== END 2018-09-19 14:15 | disposition short-term general hospital (02) ==
LOC: ED 13:14
DX: N75.8 Other diseases of Bartholin's gland (principal); G40.909 Epilepsy, unspecified, not intractable, without status epilepticus; K21.9 Gastro-esophageal reflux disease without esophagitis; F41.8 Other specified anxiety disorders
CPT/HCPCS: 81001; 99284

== ENCOUNTER 2018-10-22 10:15 | Emergency (ER) | payer OTHER ==
[2018-10-22] MEDS ORDERED: Sodium Chloride 0.9% 1000 ML 1,000 ML IV STA (10:39)
[2018-10-22] MEDS ORDERED: TORAdol 30 mg Injection IV ONE (10:39)
--- NOTE | 2018-10-22 10:44 | ERPHSYRPT ---
- History of Present Illness Time Seen by Provider: 10/22/18 10:34 Historian: patient Exam Limitations: no limitations Patient Subjective Stated Complaint: Abdominal pain Triage Nursing Assessment: Patient ambulated back to ED and transferred self to bed. Patient A+O X 3. Patient's skin pink, warm and dry. Patient complains of right sided abdominal pain that radiates to her right shoulder and right side of back 8/10 sharp stabbing pain. Patient states pain started a few weeks ago and has gotten worse the past few days. Patient denies vomiting and diarrhea. Patient has been nausea. Patient's abdomen soft and round with BS X 4. Physician History: 43-year-old white female with history of seizures, GERD, anxiety, depression Patient arrives with complaints of pain in her left upper quadrant radiating to her right flank and radiating to her right shoulder symptoms described as sharp going on for several weeks. Patient denies nausea vomiting diarrhea shortness of breath fevers. Past medical history includes GERD, anxiety, depression. Past surgical history includes tubal ligation, appendectomy, cholecystectomy, tumor removed from her right side Social history positive tobacco use denies alcohol or illicit drug use. Timing/Duration: week(s) (patient states for sever) Activities at Onset: none Quality: sharpness Abdominal Pain Onset Location: RUQ, flank (right flank) Pain Radiation: shoulder (right shoulder) Severity of Pain-Max: moderate Severity of Pain-Current: mild Associated Symptoms: back, No chest pain, No diaphoresis, No diarrhea, No fever/ chills, No fatigue, No headache, No heartburn, No loss of appetite, No nausea, No neck pain, No rash, No shortness of breath, No syncope, No vomiting, No weakness Previous symptoms: no prior history Allergies/Adverse Reactions: tramadol Allergy (Severe, Verified 10/22/18 10:22) Hives cyclobenzaprine [From Flexeril] Allergy (Verified 10/22/18 10:22) latex Allergy (Verified 10/22/18 10:22) Home Medications: Omeprazole 40 mg PO BID 04/15/18 [History] Phenytoin Sod Extended 100 mg* [Dilantin 100 MG] 100 mg PO BID 10/22/18 [ History] Hx Tetanus, Diphtheria Vaccination/Date Given: No Hx Influenza Vaccination/Date Given: No Hx Pneumococcal Vaccination/Date Given: No Immunizations Up to Date: Yes - Review of Systems Constitutional: No Fever, No Chills Eyes: No Symptoms Ears, Nose, & Throat: No Symptoms Respiratory: No Cough, No Dyspnea Cardiac: No Chest Pain, No Edema, No Syncope Abdominal/Gastrointestinal: Abdominal Pain (rright upper quadrant pain radiating to right flank and right shoulder) Genitourinary Symptoms: No Dysuria, No Hematuria Musculoskeletal: Back Pain (right flank pain), No Neck Pain, No Deformity, No Fall, No Injury, No Joint Redness, No Joint Pain, No Joint Swelling, No Myalgias , No Other Skin: No Rash Neurological: No Dizziness, No Focal Weakness, No Sensory Changes Psychological: No Symptoms Endocrine: No Symptoms All Other Systems: Reviewed and Negative - Past Medical History Pertinent Past Medical History: Yes Neurological History: Seizures ENT History: No Pertinent History Cardiac History: No Pertinent History Respiratory History: No Pertinent History Endocrine Medical History: No Pertinent History Musculoskeletal History: No Pertinent History GI Medical History: GERD History: No Pertinent History Psycho-Social History: Anxiety, Depression Female Reproductive Disorders: No Pertinent History - Past Surgical History Past Surgical History: Yes Neuro Surgical History: No Pertinent History Cardiac: No Pertinent History Respiratory: No Pertinent History Gastrointestinal: Appendectomy, Cholecystectomy Genitourinary: No Pertinent History Musculoskeletal: No Pertinent History Female Surgical History: Tubal Ligation Other Surgical History: Tumor removed from left side "years ago" - Social History Smoking Status: Current every day smoker How long have you smoked: years Exposure to second hand smoke: Yes Drug Use: none Patient Lives Alone: No - Female History Hx Last Menstrual Period: Last month Hx Now: No - Nursing Vital Signs Nursing Vital Signs: Initial Vital Signs Temperature 99.7 F 10/22/18 10:24 Pulse Rate 101 H 10/22/18 10:24 Respiratory Rate 18 10/22/18 10:24 Blood Pressure 146/91 10/22/18 10:24 O2 Sat by Pulse Oximetry 96 10/22/18 10:24 Pain Scale Pain Intensity 3 - Physical Exam General Appearance: no apparent distress, alert Eye Exam: PERRL/EOMI, eyes nml inspection Ears, Nose, Throat Exam: normal ENT inspection, pharynx normal, moist mucous membranes Neck Exam: normal inspection, non-tender, supple, full range of motion Respiratory Exam: normal breath sounds, lungs clear, No respiratory distress Cardiovascular Exam: regular rate/rhythm, normal heart sounds, capillary refill <2 sec Gastrointestinal/Abdomen Exam: soft, No tenderness, No mass Back Exam: normal inspection, normal range of motion, No CVA tenderness, No vertebral tenderness Extremity Exam: normal inspection, normal range of motion, pelvis stable Neurologic Exam: alert, oriented x 3, cooperative, engraver automatic II-XII nml as tested, normal mood/affect, nml cerebellar function, sensation nml, No motor deficits Skin Exam: normal color, warm, dry SpO2 Interpretation: normal (96%) SpO2: 96 - Course Nursing assessment & vital signs reviewed: Yes - Radiology Exams Chest X-ray Interpretation: Interpreted by me (no acute disease process noted) - CT Exams Abdomen/Pelvis CT Interpretation: Tele-radiologist Report (CT and pelvis: Impression: 1. Stable cholecystectomy. 2. Mildly dilated right renal collecting system with no obvious ureteral stone or bladder stone. Suggesting patient may have recently passed a kidney stone) Ordered Tests: Active Orders 24 hr Category Date Time Status IV Insertion STAT Care 10/22/18 10:39 Active ABDOMEN AND PELVIS W/0 CONTRAS [CT] Stat Exams 10/22/18 10:39 Taken CHEST 1 VIEW (PORTABLE) Stat Exams 10/22/18 10:39 Taken AMYLASE Stat Lab 10/22/18 10:53 Completed CBC W DIFF Stat Lab 10/22/18 10:53 Completed CMP Stat Lab 10/22/18 10:53 Completed HCG QUALITATIVE,SERUM Stat Lab 10/22/18 10:53 Completed LIPASE Stat Lab 10/22/18 10:53 Completed UA W/RFX UR CULTURE Stat Lab 10/22/18 10:54 Completed Urine Triage Profile Stat Lab 10/22/18 10:54 Completed Medication Summary Discontinued Medications Generic Name Dose Route Start Last Admin Trade Name Freq PRN Reason Stop Dose Admin Sodium Chloride 1,000 mls @ 999 mls/hr 10/22/18 10:39 10/22/18 12:18 Sodium Chloride 0.9% 1000 Ml IV 10/22/18 11:39 Infused .Q1H1M STA Infusion Sodium Chloride Confirm 10/22/18 11:09 Sodium Chloride 0.9% 1000 Ml Administered 10/22/18 11:10 Dose 1,000 mls @ ud .ROUTE .STK-MED ONE Ketorolac Tromethamine 30 mg 10/22/18 10:39 10/22/18 11:10 Toradol 30 Mg Injection IV 10/22/18 10:40 30 mg STAT ONE Administration Ketorolac Tromethamine Confirm 10/22/18 11:09 Toradol 30 Mg Injection Administered 10/22/18 11:10 Dose 30 mg .ROUTE .STK-MED ONE Lab/Rad Data: Laboratory Result Diagrams 10/22/18 10:53 10/22/18 10:53 Laboratory Results 10/22/18 10/22/18 10/22/18 Range/Units 10:54 10:54 10:53 WBC (4.0-10.5) K/mm3 RBC (4.1-5.4) M/mm3 Hgb (12.0-16.0) gm/dl Hct (35-47) % MCV (78-100) fl MCH (26-32) pg MCHC (32-36) g/dl RDW (11.5-14.0) % Plt Count (150-450) K/mm3 MPV (6-9.5) fl Gran % (36.0-66.0) % Eos # (Auto) (0-0.5) Absolute Lymphs (auto) (1.0-4.6) Absolute Monos (auto) (0.0-1.3) Lymphocytes % (24.0-44.0) % Monocytes % (0.0-12.0) % Eosinophils % (0.00-5.0) % Basophils % (0.0-0.4) % Absolute Granulocytes (1.4-6.9) Basophils # (0-0.4) Sodium (137-145) mmol/L Potassium (3.5-5.1) mmol/L Chloride (98-107) mmol/L Carbon Dioxide (22-30) mmol/L Anion Gap (5-15) MEQ/L BUN (7-17) mg/dL Creatinine (0.52-1.04) mg/dL Estimated GFR ML/MIN Glucose (74-106) mg/dL Calcium (8.4-10.2) mg/dL Total Bilirubin (0.2-1.3) mg/dL AST (14-36) U/L ALT (0-35) U/L Alkaline Phosphatase (38-126) U/L Serum Total Protein (6.3-8.2) g/dL Albumin (3.5-5.0) g/dL Amylase (30-110) U/L Lipase (23-300) U/L Serum , Qual NEGATIVE (Negative) Urine Color YELLOW (YELLOW) Urine Appearance CLEAR (CLEAR) Urine pH 5.0 (5-6) Ur Specific Purdum 1.013 (1.005-1.025) Urine Protein NEGATIVE (Negative) Urine Ketones NEGATIVE (NEGATIVE) Urine Blood NEGATIVE (0-5) Harlodo/ul Urine Nitrite NEGATIVE (NEGATIVE) Urine Bilirubin NEGATIVE (NEGATIVE) Urine Urobilinogen NEGATIVE (0-1) mg/dL Ur Leukocyte Esterase NEGATIVE (NEGATIVE) Urine WBC (Auto) NONE (0-5) /HPF Urine RBC (Auto) 0-2 (0-2) /HPF U Epithel Cells (Auto) NONE (FEW) /HPF Urine Bacteria (Auto) NONE (NEGATIVE) /HPF Urine Culture Reflexed NO (NO) Urine Glucose NEGATIVE (NEGATIVE) mg/dL Urine Opiates Level NEGATIVE (NEGATIVE) Ur Methadone NEGATIVE (NEGATIVE) Urine Barbiturates NEGATIVE (NEGATIVE) Ur Phencyclidine (PCP) NEGATIVE (NEGATIVE) Urine Amphetamine NEGATIVE (NEGATIVE) U Benzodiazepine Level NEGATIVE (NEGATIVE) Urine Cocaine NEGATIVE (NEGATIVE) Urine Marijuana (THC) NEGATIVE (NEGATIVE) 10/22/18 10/22/18 Range/Units 10:53 10:53 WBC 7.7 (4.0-10.5) K/mm3 RBC 4.11 (4.1-5.4) M/mm3 Hgb 14.2 (12.0-16.0) gm/dl Hct 39.7 (35-47) % MCV 96.6 (78-100) fl MCH 34.5 H (26-32) pg MCHC 35.8 (32-36) g/dl RDW 13.4 (11.5-14.0) % Plt Count 208 (150-450) K/mm3 MPV 10.4 H (6-9.5) fl Gran % 56.5 (36.0-66.0) % Eos # (Auto) 0.22 (0-0.5) Absolute Lymphs (auto) 2.65 (1.0-4.6) Absolute Monos (auto) 0.43 (0.0-1.3) Lymphocytes % 34.4 (24.0-44.0) % Monocytes % 5.6 (0.0-12.0) % Eosinophils % 2.9 (0.00-5.0) % Basophils % 0.6 (0.0-0.4) % Absolute Granulocytes 4.35 (1.4-6.9) Basophils # 0.05 (0-0.4) Sodium 137 (137-145) mmol/L Potassium 3.8 (3.5-5.1) mmol/L Chloride 107 (98-107) mmol/L Carbon Dioxide 20 L (22-30) mmol/L Anion Gap 14.1 (5-15) MEQ/L BUN 13 (7-17) mg/dL Creatinine 0.69 (0.52-1.04) mg/dL Estimated GFR > 60.0 ML/MIN Glucose 88 (74-106) mg/dL Calcium 9.1 (8.4-10.2) mg/dL Total Bilirubin 0.30 (0.2-1.3) mg/dL AST 13 L (14-36) U/L ALT 10 (0-35) U/L Alkaline Phosphatase 69 (38-126) U/L Serum Total Protein 7.4 (6.3-8.2) g/dL Albumin 4.2 (3.5-5.0) g/dL Amylase 87 (30-110) U/L Lipase 146 (23-300) U/L Serum , Qual (Negative) Urine Color (YELLOW) Urine Appearance (CLEAR) Urine pH (5-6) Ur Specific Purdum (1.005-1.025) Urine Protein (Negative) Urine Ketones (NEGATIVE) Urine Blood (0-5) Haroldo/ul Urine Nitrite (NEGATIVE) Urine Bilirubin (NEGATIVE) Urine Urobilinogen (0-1) mg/dL Ur Leukocyte Esterase (NEGATIVE) Urine WBC (Auto) (0-5) /HPF Urine RBC (Auto) (0-2) /HPF U Epithel Cells (Auto) (FEW) /HPF Urine Bacteria (Auto) (NEGATIVE) /HPF Urine Culture Reflexed (NO) Urine Glucose (NEGATIVE) mg/dL Urine Opiates Level (NEGATIVE) Ur Methadone (NEGATIVE) Urine Barbiturates (NEGATIVE) Ur Phencyclidine (PCP) (NEGATIVE) Urine Amphetamine (NEGATIVE) U Benzodiazepine Level (NEGATIVE) Urine Cocaine (NEGATIVE) Urine Marijuana (THC) (NEGATIVE) - Progress Progress: improved Progress Note: 10/22/18 12:19 Patient has been complaining of right lateral abdominal pain radiating to her left flank and left shoulder symptoms for 2-3 weeks. Patient with mildly dilated right renal collecting system with no obvious ureteral stone or bladder stone on CT stable cholecystectomy on CT. Chest x-ray unremarkable. CBC CMP amylase lipase UA all normal. Patient given Toradol 30 mg IV 1 L of normal saline improved but still some pain. Will discharge patient diagnoses right abdominal pain right flank pain. Ureteral colic. Will discharge patient patient strain urine plenty of fluids will write for a small amount of Herscher for pain control. - Departure Departure Disposition: Home Clinical Impression: Right flank pain, Ureteral colic Abdominal pain Qualifiers: Abdominal location: right upper quadrant Qualified Code(s): R10.11 - Right upper quadrant pain Condition: Fair Critical Care Time: No Referrals: RUMA BUCK PA [Primary Care Provider] - Additional Instructions: Return home. Plenty of fluids clear fluids only 24-48 hours if abdominal pain. Herscher as prescribed. Followup with your family Strain all urine. Return for acute distress or for severe symptoms. Continue ibuprofen. Prescriptions: Hydrocodone/APAP 5-325 Tab^^^ [Herscher 5-325 Tablet^^^] 1 tab PO Q6HPRN PRN #10 tablet MDD 6 PRN Reason: right flank and abdomen pain
[2018-10-22 10:58] LABS: BASOPHIL % 0.6 % (0.0-0.4); Basophil (Absolute #) 0.05 (0-0.4); Eosinophil % 2.9 % (0.00-5.0); Eosinophil (Absolute #) 0.22 (0-0.5); Granulocyte Absolute (ANC) 4.35 (1.4-6.9); Granulocytes % 56.5 % (36.0-66.0); Hematocrit 39.7 % (35-47); Hemoglobin 14.2 gm/dl (12.0-16.0); Lymphocyte (Absolute #) 2.65 (1.0-4.6); Lymphocytes % 34.4 % (24.0-44.0); Mean Cell Volume 96.6 fl (78-100); Mean Corpuscular Hemoglobin 34.5 pg (26-32); Mean Corpuscular Hgb Concent. 35.8 g/dl (32-36); Mean Platelet Volume 10.4 fl (6-9.5); Monocyte (Absolute #) 0.43 (0.0-1.3); Monocytes % 5.6 % (0.0-12.0); Platelet Count 208 K/mm3 (150-450); Red Blood Count 4.11 M/mm3 (4.1-5.4); Red Cell Distribution Width 13.4 % (11.5-14.0); White Blood Count 7.7 K/mm3 (4.0-10.5)
[2018-10-22 11:01] LABS: Appearance CLEAR (CLEAR); Bilirubin NEGATIVE (NEGATIVE); Blood NEGATIVE Ery/ul (0-5); Glucose NEGATIVE (NEGATIVE); Ketones NEGATIVE (NEGATIVE); Leukocyte Esterase NEGATIVE (NEGATIVE); Nitrite NEGATIVE (NEGATIVE); Protein,Urine Dip NEGATIVE (Negative); RBC 0-2 /HPF (0-2); Specific Gravity 1.013 (1.005-1.025); Urobilinogen NEGATIVE mg/dL (0-1)
[2018-10-22 11:07] LABS: ALBUMIN 4.2 g/dL (3.5-5.0); ALKALINE PHOSPHATASE 69 U/L (38-126); AMYLASE 87 U/L (30-110); ANION GAP 14.1 MEQ/L (5-15); BLOOD UREA NITROGEN 13 mg/dL (7-17); CHLORIDE 107 mmol/L (98-107); Calcium 9.1 mg/dL (8.4-10.2); Carbon Dioxide 20 mmol/L (22-30); Creatinine 1 0.69 mg/dL (0.52-1.04); Glucose 88 mg/dL (74-106); Potassium 3.8 mmol/L (3.5-5.1); SGOT/AST 13 U/L (14-36); SGPT/ALT 10 U/L (0-35); SODIUM 137 mmol/L (137-145); Total Protein 7.4 g/dL (6.3-8.2)
[2018-10-22] MEDS ORDERED: TORAdol 30 mg Injection ONE (11:09)
[2018-10-22] MEDS ORDERED: Sodium Chloride 0.9% 1000 ML 1,000 ML ONE (11:09)
[2018-10-22 11:19] LABS: Amphetamine,Urine NEGATIVE (NEGATIVE); Barbiturate,Urine NEGATIVE (NEGATIVE); Benzodiazepine,Urine NEGATIVE (NEGATIVE); Cocaine,Urine NEGATIVE (NEGATIVE); Methadone,Urine NEGATIVE (NEGATIVE); Opiate,Urine NEGATIVE (NEGATIVE); PCP,Urine NEGATIVE (NEGATIVE); THC,Urine NEGATIVE (NEGATIVE)
[2018-10-22 12:05] VITALS: BP 118/81; PULSE 78
[2018-10-22 12:15] VITALS: O2SAT 96
--- NOTE | 2018-10-22 20:20 | XRAY ---
Indication: Right upper quadrant pain. Multiple contiguous axial images obtained through the abdomen and pelvis without contrast as ordered. Comparison: March 16, 2018. Lung bases are grossly clear. Heart is not enlarged. Noncontrasted stomach and bowel loops appear nonobstructed. Again appendectomy, cholecystectomy, and bilateral tubal ligation rings. There is now mild diffuse scattered colonic fecal debris throughout including rectum. No free fluid/air. Stable tiny hepatic cyst. Remaining liver, pancreas, spleen, adrenal glands, kidneys, ureters, bladder, and uterus appear unremarkable for noncontrast exam. Again minimal aortic calcifications without AAA. Osseous structures intact. Impression: 1. New diffuse fecal stasis without obstruction. 2. Stable tiny hepatic cyst. 3. Remaining CT abdomen/pelvis without contrast exam is negative. Comment: Preliminary interpretation was made by [facility]. No critical discrepancy. CTDI 9.31
--- NOTE | 2018-10-22 20:27 | XRAY ---
Indication: Right upper quadrant pain. Comparison: None Portable chest demonstrates normal heart and lungs. Bony thorax intact with incidental left humeral shaft enchondroma.
== END 2018-10-22 12:35 | disposition home or self-care (01) ==
LOC: ED 10:15
DX: N23 Unspecified renal colic (principal); R10.11 Right upper quadrant pain; G40.909 Epilepsy, unspecified, not intractable, without status epilepticus; F41.9 Anxiety disorder, unspecified; K21.9 Gastro-esophageal reflux disease without esophagitis; F32.9 Major depressive disorder, single episode, unspecified
CPT/HCPCS: 36000; 36415; 71045; 74176; 80053; 80307; 81001; 81025; 82150; 83690; 85025; 96360; 96374; 99284; J1885

== ENCOUNTER 2019-02-02 11:50 | Emergency (ER) | payer OTHER ==
--- NOTE | 2019-02-02 11:53 | ERPHSYRPT ---
- History of Present Illness Time Seen by Provider: 02/02/19 11:52 Source: patient, family, old records Exam Limitations: no limitations Physician History: PT IS A 44 Y/O FEMALE C/O "I DONT KNOW IF ITS MY DISC OR WHAT." PT REPORTS FALL ON BUTTOX 3 WEEKS AGO AND SINCE THEN PROGRESSIVE RLBP THAT RADIATES TO THE RIGHT BUTTOX AND STOPS AT THE RIGHT ANKLE AND IS SHARP IN NATRURE 12/03, WORSE WITH MOVEMENT RELIEVED WITH REST. NO RELIEF WITH MOTRIN 800 MG. NO CP/SOB/N/V/ FEVER/CHILLS/ABD PAIN/INCONTINENCE/PARESTHESIAS/SACRAL ANESTHESIA. NO DYSURIA/ HEMATURIA/VAGINAL BLEEDING OR DC. 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 PMHX SEIZURE DISORDER--LAST 8 MOS AGO ON DILANTIN, ANXIETY [facility] DENIES MEDS REVIEWED ALL LIST REVIEWED +TOB + 4 BEERS DAILY DENIES ILLICITS NO IVDU FHX NEG [employer] EMPLOYED Allergies/Adverse Reactions: tramadol Allergy (Severe, Verified 10/22/18 10:22) Hives cyclobenzaprine [From Flexeril] Allergy (Verified 10/22/18 10:22) latex Allergy (Verified 10/22/18 10:22) Home Medications: Omeprazole 40 mg PO BID 04/15/18 [History] Phenytoin Sod Extended 100 mg* [Dilantin 100 MG] 100 mg PO BID 10/22/18 [ History] Hx Tetanus, Diphtheria Vaccination/Date Given: No Hx Influenza Vaccination/Date Given: No Hx Pneumococcal Vaccination/Date Given: No - Review of Systems Constitutional: No Symptoms, No Fever, No Chills, No Fatigue, No Lethargy, No Malaise, No Night Sweats, No Weakness, No Weight Loss Eyes: No Symptoms, No Discharge, No Eye Pain, No Eye Redness, No Itchy, No Photophobia, No Tearing, No Vision Changes, No Double Vision, No Foreign Body Sensation Ears, Nose, & Throat: No Symptoms, No Ear Pain, No Ear Discharge, No Hearing Changes, No Tinnitus, No Nose Congestion, No Nose Discharge, No Epistaxis, No Mouth Pain, No Mouth Swelling, No Throat Pain, No Throat Swelling, No Hoarse, No Painful Swallowing, No Stridor Respiratory: No Symptoms, No Cough, No Cyanosis, No Dyspnea, No Dyspnea on Exertion (GILBERT), No Stridor, No Wheezing Cardiac: No Symptoms, No Chest Pain, No Edema, No Palpitations, No Syncope, No Orthopnea Abdominal/Gastrointestinal: No Symptoms, No Abdominal Pain, No Nausea, No Vomiting, No Diarrhea, No Constipation, No Hematemesis, No Hematochezia, No Melena, No Dysphagia, No Appetite Changes Genitourinary Symptoms: No Symptoms, No Dysuria, No Frequency, No Hematuria, No Hesitancy, No Incontinence, No Urgency, No Urinary Retention, No Flank Pain, No Menorrhagia, No , No Vaginal Bleeding, No Vaginal Discharge Musculoskeletal: No Symptoms, Back Pain, No Arthralgias, No Neck Pain, No Deformity, No Fall, No Injury, No Joint Redness, No Joint Pain, No Joint Swelling, No Myalgias Skin: No Symptoms, No Cellulitis, No Decubiti, No Induration, No Pruritis, No Rash, No Skin Lesions, No Dryness Neurological: No Symptoms, No Dizziness, No Focal Weakness, No Gait Changes, No Headache, No Irritability, No Lethargy, No Paralysis, No Parasthesia, No Seizure , No Sensory Changes, No Speech Changes, No Tics, No Tremors, No Vertigo Psychological: No Symptoms, No Alcohol Abuse, No Drug Abuse, No Anxiety, No Depression, No Suicidal Ideations, No Homicidal Ideations, No Emotional Lability , No Hallucinations, No Memory Loss, No Mood Changes Endocrine: No Symptoms, No Polyuria, No Polydipsia, No Hair Changes, No Cold Intolerance, No Excessive Sweating, No Goiter Hematologic/Lymphatic: No Symptoms, No Anemia, No Blood Clots, No Easy Bleeding , No Gum Bleeding, No Easy Bruising, No Adenopathy Immunological/Allergic: No Symptoms All Other Systems: Reviewed and Negative - Past Medical History Pertinent Past Medical History: Yes Neurological History: Seizures ENT History: No Pertinent History Cardiac History: No Pertinent History Respiratory History: No Pertinent History Endocrine Medical History: No Pertinent History Musculoskeletal History: No Pertinent History GI Medical History: GERD History: No Pertinent History Psycho-Social History: Anxiety, Depression Female Reproductive Disorders: No Pertinent History - Past Surgical History Past Surgical History: Yes Neuro Surgical History: No Pertinent History Cardiac: No Pertinent History Respiratory: No Pertinent History Gastrointestinal: Appendectomy, Cholecystectomy Genitourinary: No Pertinent History Musculoskeletal: No Pertinent History Female Surgical History: Tubal Ligation Other Surgical History: Tumor removed from left side "years ago" - Social History Smoking Status: Current every day smoker How long have you smoked: years Exposure to second hand smoke: Yes Drug Use: none Patient Lives Alone: No - Nursing Vital Signs Nursing Vital Signs: Initial Vital Signs Pulse Rate 75 02/02/19 11:55 Respiratory Rate 20 02/02/19 11:55 Blood Pressure 154/93 02/02/19 11:55 O2 Sat by Pulse Oximetry 99 02/02/19 11:55 Pain Scale Pain Intensity 10 - Physical Exam General Appearance: no apparent distress, mild distress, alert Eye Exam: PERRL/EOMI, eyes nml inspection, other (fundi normal nichelle), No scleral icterus, No pale conjunctivae, No photophobia, No EOM palsy/anisocoria Ears, Nose, Throat Exam: normal ENT inspection, TMs normal, pharynx normal, TM abnormal (L), other (uvula midline, floor of mouth soft), No moist mucous membranes, No dry mucous membranes, No TM abnormal (R), No pharyngeal erythema, No tonsillar exudate Neck Exam: normal inspection, non-tender, supple, full range of motion, No meningismus, No mass, No Brudzinski, No Kernig's, No carotid bruit, No JVD, No limited range of motion, No lymphadenopathy, No midline tenderness, No thyromegaly Respiratory Exam: normal breath sounds, lungs clear, airway intact, No chest tenderness, No respiratory distress, No diminished breath sounds, No accessory muscle use, No prolonged expirations, No crackles/rales, No rhonchi, No wheezing , No stridor, No pleural rub Cardiovascular Exam: regular rate/rhythm, normal heart sounds, normal peripheral pulses, capillary refill <2 sec, No murmur, No friction rub, No gallop, No tachycardia, No bradycardia, No irregular, No capillary refill 2-3 sec, No capillary refill >3 sec, No edema, No pulse deficit Gastrointestinal/Abdomen Exam: soft, normal bowel sounds, No tenderness, No distention, No mass, No guarding, No ecchymosis, No pulsatile mass, No rebound, No hernia, No hepatomegaly, No organomegaly, No splenomegaly, No bruit Pelvic Exam: normal external exam Rectal Exam: deferred Back Exam: normal inspection, normal range of motion, other (neg slr nichelle, no sacral anesthesia, dtr 2/4 nichelle patella), No CVA tenderness, No vertebral tenderness, No rash, No decreased range of motion, No muscle spasm, No point tenderness Extremity Exam: normal inspection, pelvis stable, limited range of motion, other (DTR 2/4 NICHELLE AT PATELLA, NO SACRAL ANESTHESIA SLR + RIGHT @45), No amputations, No contusions, No calf tenderness, No deformities, No lacerations, No parasthesia, No paralysis, No inflammation, No joint swelling, No pedal edema , No swelling, No tenderness Neurologic Exam: alert, oriented x 3, cooperative, 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, normal mood/affect, nml cerebellar function, nml station & gait, sensation nml, No motor deficits, No sensory deficit, No disoriented, No confusion, No agitation, No uncooperative, No intoxicated appearance, No depressed mood/affect , No motor weakness, No facial droop, No slurred speech, No aphasia, No dysarthria, No abnormal gait, No abnormal cerebellar tests, No abnormal timber packer II- XII, No EOM palsy Skin Exam: normal color, warm, dry, No rash, No petechiae, No jaundice, No abrasion, No cyanosis, No diaphoresis, No decubitus, No embolic lesions, No ecchymosis, No jaundice, No laceration, No mottled, No pale Lymphatic Exam: No adenopathy SpO2 Interpretation: normal O2 Delivery: Room Air - Course Nursing assessment & vital signs reviewed: Yes Ordered Tests: Active Orders 24 hr Category Date Time Status LUMBAR COMPLETE (MIN 4 VIEWS) Stat Exams 02/02/19 12:00 Completed HCG,QUALITATIVE URINE Stat Lab 02/02/19 12:06 Completed UA W/RFX UR CULTURE Stat Lab 02/02/19 12:06 Completed Medication Summary Discontinued Medications Generic Name Dose Route Start Last Admin Trade Name Freq PRN Reason Stop Dose Admin Hydrocodone Bitart/Acetaminophen 1 tab 02/02/19 12:00 02/02/19 12:19 [place] 5/325 Mg PO 02/02/19 12:01 1 tab STAT ONE Administration Hydrocodone Bitart/Acetaminophen Confirm 02/02/19 12:12 [place] 5/325 Mg Administered 02/02/19 12:13 Dose 1 tab .ROUTE .STK-MED ONE Dexamethasone Sodium Phosphate 10 mg 02/02/19 12:00 02/02/19 12:20 Decadron 10mg Inj. IM 02/02/19 12:01 10 mg STAT ONE Administration Dexamethasone Sodium Phosphate Confirm 02/02/19 12:11 Decadron 10mg Inj. Administered 02/02/19 12:12 Dose 10 mg .ROUTE .STK-MED ONE Ketorolac Tromethamine 30 mg 02/02/19 12:00 02/02/19 12:20 Toradol 30 Mg Injection IM 02/02/19 12:01 30 mg STAT ONE Administration Ketorolac Tromethamine Confirm 02/02/19 12:12 Toradol 30 Mg Injection Administered 02/02/19 12:13 Dose 30 mg .ROUTE .STK-MED ONE Lidocaine 1 patch 02/02/19 12:15 02/02/19 12:21 Lidoderm Patch 5% TOP 02/02/19 12:16 1 patch NOW ONE Administration Orphenadrine Citrate 60 mg 02/02/19 12:00 02/02/19 12:20 Norflex 60 Mg/2 Ml IM 02/02/19 12:01 60 mg STAT ONE Administration Orphenadrine Citrate Confirm 02/02/19 12:11 Norflex 60 Mg/2 Ml Administered 02/02/19 12:12 Dose 60 mg .ROUTE .STK-MED ONE Lab/Rad Data: Laboratory Results 02/02/19 02/02/19 Range/Units 12:06 12:06 Urine Color YELLOW (YELLOW) Urine Appearance CLEAR (CLEAR) Urine pH 6.0 (5-6) Ur Specific [place] 1.010 (1.005-1.025) Urine Protein NEGATIVE (Negative) Urine Ketones TRACE (NEGATIVE) Urine Blood SMALL (0-5) Haroldo/ul Urine Nitrite NEGATIVE (NEGATIVE) Urine Bilirubin NEGATIVE (NEGATIVE) Urine Urobilinogen NEGATIVE (0-1) mg/dL Ur Leukocyte Esterase NEGATIVE (NEGATIVE) Urine WBC (Auto) NONE (0-5) /HPF Urine RBC (Auto) 0-2 (0-2) /HPF U Epithel Cells (Auto) RARE (FEW) /HPF Urine Bacteria (Auto) RARE (NEGATIVE) /HPF Urine Mucus (Auto) SLIGHT (NEGATIVE) /HPF Urine Culture Reflexed NO (NO) Urine Glucose NEGATIVE (NEGATIVE) mg/dL Urine HCG, Qual NEGATIVE (Negative) - Progress Progress: improved Progress Note: 02/02/19 13:10 PT FEELS IMPROVED WITH INTERVENTIONS LSP XR PER RAD IS NAD FINDINGS REVIEWED WITH PT. NO RED FLAG SYMTOMS WILL DC WITH FUP TOB CESSATION ALL QUESITONS ANSWERED TO PT SATISFACTION Counseled pt/family regarding: drug and/or alcohol abuse, lab results, diagnosis , need for follow-up, rad results, smoking cessation - Departure Departure Disposition: Home Clinical Impression: Sciatica Condition: Stable Critical Care Time: No Referrals: RUMA BUCK PA [Primary Care Provider] - Instructions: Low Back Pain (DC), Sciatica (DC) Additional Instructions: TO ER IF INCONTINENCE OF BOWEL OR BLADDER, FEVER OVER 102, DRAGGING FOOT BEHIND YOU, CANNOT WALK, ABDOMINAL PAIN TAKE MEDICINES DIRECTED DO NOT DRINK ALCOHOL DRIVE OR OPERATE HEAVY MACHINERY WHILE USING NORFLEX SINCE THIS WILL MAKE YOU TIRED TAKE PLENTY OF FLUIDS ICE BACK NO HEAVY LIFTING OVER 10 LBS FOR 72 HOURS PLEASE FOLLOW UP WITH YOUR DOCTOR IN 2-3 DAYS FOR RE-EVALUATION AND DEFINITIVE CARE Prescriptions: Lidocaine HCl 5% Patch [Lidoderm Patch 5%] 1 patch TOP DAILY #5 patch Methylprednisolone Packet [Medrol Dosepack] 4 mg PO DAILY 21 Days #1 packet Naproxen 500 mg [Naprosyn 500 MG] 500 mg PO BIDPRN PRN #10 tablet PRN Reason: Pain Orphenadrine Citrate 100 mg [Norflex 100 MG Tablet] 100 mg PO BID #10 tab
[2019-02-02] MEDS ORDERED: Norflex 60 MG/2 ML IM ONE (12:00)
[2019-02-02] MEDS ORDERED: TORAdol 30 mg Injection IM ONE (12:00)
[2019-02-02] MEDS ORDERED: DECADRON 10MG INJ. IM ONE (12:00)
[2019-02-02] MEDS ORDERED: NORCO 5/325 MG PO ONE (12:00)
[2019-02-02] MEDS ORDERED: Norflex 60 MG/2 ML ONE (12:11)
[2019-02-02] MEDS ORDERED: DECADRON 10MG INJ. ONE (12:11)
[2019-02-02] MEDS ORDERED: TORAdol 30 mg Injection ONE (12:12)
[2019-02-02] MEDS ORDERED: NORCO 5/325 MG ONE (12:12)
[2019-02-02] MEDS ORDERED: Lidoderm Patch 5% TOP ONE (12:15)
[2019-02-02 12:57] LABS: Appearance CLEAR (CLEAR); Bacteria RARE /HPF (NEGATIVE); Bilirubin NEGATIVE (NEGATIVE); Blood SMALL Ery/ul (0-5); Epithelial Cells RARE /HPF (FEW); Glucose NEGATIVE (NEGATIVE); Ketones TRACE (NEGATIVE); Leukocyte Esterase NEGATIVE (NEGATIVE); Mucus SLIGHT /HPF (NEGATIVE); Nitrite NEGATIVE (NEGATIVE); Protein,Urine Dip NEGATIVE (Negative); RBC 0-2 /HPF (0-2); Urobilinogen NEGATIVE mg/dL (0-1)
--- NOTE | 2019-02-02 13:06 | XRAY ---
Indication: Low back pain 3 weeks. Comparison: None 5 views of the lumbar spine demonstrates 5 lumbar vertebral segments in normal alignment with vertebral body heights/disc spaces maintained, cholecystectomy clips, and bilateral tubal ligation clips. No other bony, articular, or soft tissue abnormalities.
[2019-02-02 13:28] VITALS: BP 148/88; PULSE 80; O2SAT 99
== END 2019-02-02 13:26 | disposition home or self-care (01) ==
LOC: ED 11:50
DX: M54.30 Sciatica, unspecified side (principal); W19.XXXA Unspecified fall, initial encounter; Y93.9 Activity, unspecified; Y92.9 Unspecified place or not applicable
CPT/HCPCS: 72110; 81001; 84703; 96372; 99284; J1100; J1885; J2360; A9270-GY

== ENCOUNTER 2019-02-14 19:19 | Observation (INO) | payer OTHER ==
--- NOTE | 2019-02-14 19:30 | ERPHSYRPT ---
- History of Present Illness Time Seen by Provider: 02/14/19 19:25 Source: patient, EMS Exam Limitations: clinical condition, intoxication Physician History: 44 y/o white female admits to drinking several beers throughout the day today. additionally, she drank a few shots of hard liquor later in the day. pt states she was not attempting suicide, however, she states this is how she deals with frustration and depression. Timing/Duration: today Severity of Symptoms-Max: moderate Severity of Symptoms-Current: moderate Context related to: other (general frustration and depression) Suicidal thoughts: other (denies) Associated Symptoms: depressed, frustrated Previous symptoms: other (unkonwn) Allergies/Adverse Reactions: tramadol Allergy (Severe, Verified 02/14/19 19:44) Hives cyclobenzaprine [From Flexeril] Allergy (Verified 02/14/19 19:44) latex Allergy (Verified 02/14/19 19:44) Home Medications: Omeprazole 40 mg PO BID 04/15/18 [History] Phenytoin Sod Extended 100 mg* [Dilantin 100 MG] 100 mg PO BID 10/22/18 [ History] Hx Tetanus, Diphtheria Vaccination/Date Given: No Hx Influenza Vaccination/Date Given: No Hx Pneumococcal Vaccination/Date Given: No - Past Medical History Pertinent Past Medical History: Yes Neurological History: Seizures ENT History: No Pertinent History Cardiac History: No Pertinent History Respiratory History: No Pertinent History Endocrine Medical History: No Pertinent History Musculoskeletal History: No Pertinent History GI Medical History: GERD History: No Pertinent History Psycho-Social History: Anxiety, Depression Female Reproductive Disorders: No Pertinent History - Past Surgical History Past Surgical History: Yes Neuro Surgical History: No Pertinent History Cardiac: No Pertinent History Respiratory: No Pertinent History Gastrointestinal: Appendectomy, Cholecystectomy Genitourinary: No Pertinent History Musculoskeletal: No Pertinent History Female Surgical History: Tubal Ligation Other Surgical History: Tumor removed from left side "years ago" - Social History Smoking Status: Current every day smoker How long have you smoked: years Exposure to second hand smoke: Yes Drug Use: none Patient Lives Alone: No - Review of Systems Constitutional: No Symptoms Eyes: No Symptoms Ears, Nose, & Throat: No Symptoms Respiratory: No Symptoms Cardiac: No Symptoms Abdominal/Gastrointestinal: Vomiting (en route here) Genitourinary Symptoms: No Symptoms Musculoskeletal: No Symptoms Skin: No Symptoms Psychological: Depression Endocrine: No Symptoms Hematologic/Lymphatic: No Symptoms Immunological/Allergic: No Symptoms All Other Systems: Reviewed and Negative - Nursing Vital Signs Nursing Vital Signs: Initial Vital Signs Pulse Rate 66 02/14/19 19:22 Respiratory Rate 16 02/14/19 19:22 Blood Pressure 92/56 02/14/19 19:22 O2 Sat by Pulse Oximetry 98 02/14/19 19:22 Pain Scale Pain Intensity 0 - Physical Exam General Appearance: lethargy (mild but rousable) Eyes, Ears, Nose, Throat Exam: normal ENT inspection, dry mucous membranes Neck Exam: normal inspection, non-tender, supple, full range of motion Respiratory Exam: normal breath sounds, lungs clear, airway intact, No chest tenderness, No respiratory distress Cardiovascular Exam: regular rate/rhythm, normal heart sounds, normal peripheral pulses Gastrointestinal/Abdominal Exam: soft, normal bowel sounds, No tenderness Extremities Exam: normal inspection, normal range of motion, No evidence of injury Current Suicidality: denies suicide plan Neurological Exam: 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, depressed affect Appearance: impaired insight Behavior/Eye Contact/Speech: cooperative, intoxicated appearance Thoughts/Hallucinations: no apparent hallucination, No auditory hallucinations Skin Exam: normal color, warm, dry SpO2 Interpretation: normal - Course Nursing assessment & vital signs reviewed: Yes EKG Interpreted by Me: RATE (67 changes ), Sinus Rhythm, NORMAL AXIS, NORMAL INTERVALS, NORMAL QRS, Other (no changes comparison ekg dated 04/28/18) Ordered Tests: Active Orders 24 hr Category Date Time Status Ug Designer STAT Care 02/14/19 19:32 Active Clean Catch Urine Specimen STAT Care 02/14/19 19:31 Active EKG-ER Only STAT Care 02/14/19 19:31 Active Pulse Oximetry (ED) STAT Care 02/14/19 19:31 Active Tele-Health Consult ROUTINE Cons 02/14/19 19:31 Active ACETAMINOPHEN Stat Lab 02/14/19 20:00 Completed CBC W DIFF Stat Lab 02/14/19 20:00 Completed CMP Stat Lab 02/14/19 20:00 Completed ETHYL ALCOHOL Stat Lab 02/14/19 20:00 Completed HCG,QUALITATIVE URINE Stat Lab 02/14/19 19:57 Completed SALICYLATE Stat Lab 02/14/19 20:00 Completed UA W/RFX UR CULTURE Stat Lab 02/14/19 19:57 Completed Urine Triage Profile Stat Lab 02/14/19 19:57 Completed Transfer Order Routine Transfer 02/14/19 Ordered Medication Summary Generic Name Dose Route Start Last Admin Trade Name Norma PRN Reason Stop Dose Admin Sodium Chloride 1,000 mls @ 999 mls/hr 02/14/19 20:35 02/14/19 20:39 Sodium Chloride 0.9% 1000 Ml IV 02/14/19 21:35 999 mls/hr .Q1H1M STA Administration Discontinued Medications Generic Name Dose Route Start Last Admin Trade Name Norma PRN Reason Stop Dose Admin Sodium Chloride 1,000 mls @ 999 mls/hr 02/14/19 19:31 02/14/19 19:49 Sodium Chloride 0.9% 1000 Ml IV 02/14/19 20:31 999 mls/hr .Q1H1M STA Administration Ondansetron HCl 4 mg 02/14/19 19:31 02/14/19 19:49 Zofran 4 Mg/2 Ml Vial IV 02/14/19 19:32 4 mg STAT ONE Administration Lab/Rad Data: Laboratory Result Diagrams 02/14/19 20:00 02/14/19 20:00 Laboratory Results 02/14/19 02/14/19 02/14/19 Range/Units 20:00 20:00 19:57 WBC 5.2 (4.0-10.5) K/mm3 RBC 3.76 L (4.1-5.4) M/mm3 Hgb 13.1 (12.0-16.0) gm/dl Hct 38.4 (35-47) % MCV 102.1 H (78-100) fl MCH 34.8 H (26-32) pg MCHC 34.1 (32-36) g/dl RDW 13.2 (11.5-14.0) % Plt Count 142 L (150-450) K/mm3 MPV 9.9 H (6-9.5) fl Gran % 40.4 (36.0-66.0) % Eos # (Auto) 0.24 (0-0.5) Absolute Lymphs (auto) 2.46 (1.0-4.6) Absolute Monos (auto) 0.37 (0.0-1.3) Lymphocytes % 46.9 H (24.0-44.0) % Monocytes % 7.1 (0.0-12.0) % Eosinophils % 4.6 (0.00-5.0) % Basophils % 1.0 (0.0-0.4) % Absolute Granulocytes 2.12 (1.4-6.9) Basophils # 0.05 (0-0.4) Sodium 143 (137-145) mmol/L Potassium 3.2 L (3.5-5.1) mmol/L Chloride 114 H (98-107) mmol/L Carbon Dioxide 21 L (22-30) mmol/L Anion Gap 11.2 (5-15) MEQ/L BUN 5 L (7-17) mg/dL Creatinine 0.35 L (0.52-1.04) mg/dL Estimated GFR > 60.0 ML/MIN Glucose 98 (74-106) mg/dL Calcium 6.8 L (8.4-10.2) mg/dL Total Bilirubin < 0.10 L (0.2-1.3) mg/dL AST 38 H (14-36) U/L ALT 12 (0-35) U/L Alkaline Phosphatase 49 (38-126) U/L Serum Total Protein 5.6 L (6.3-8.2) g/dL Albumin 2.9 L (3.5-5.0) g/dL Urine Color (YELLOW) Urine Appearance (CLEAR) Urine pH (5-6) Ur Specific [place] (1.005-1.025) Urine Protein (Negative) Urine Ketones (NEGATIVE) Urine Blood (0-5) Haroldo/ul Urine Nitrite (NEGATIVE) Urine Bilirubin (NEGATIVE) Urine Urobilinogen (0-1) mg/dL Ur Leukocyte Esterase (NEGATIVE) Urine WBC (Auto) (0-5) /HPF Urine RBC (Auto) (0-2) /HPF U Epithel Cells (Auto) (FEW) /HPF Urine Bacteria (Auto) (NEGATIVE) /HPF Urine Mucus (Auto) (NEGATIVE) /HPF Urine Culture Reflexed (NO) Urine Glucose (NEGATIVE) mg/dL Urine HCG, Qual (Negative) Salicylates < 1.0 L (2-20) mg/dL Urine Opiates Level NEGATIVE (NEGATIVE) Ur Methadone NEGATIVE (NEGATIVE) Acetaminophen < 10 L (10-30) ug/ml Urine Barbiturates NEGATIVE (NEGATIVE) Ur Phencyclidine (PCP) NEGATIVE (NEGATIVE) Urine Amphetamine NEGATIVE (NEGATIVE) U Benzodiazepine Level NEGATIVE (NEGATIVE) Urine Cocaine NEGATIVE (NEGATIVE) Urine Marijuana (THC) NEGATIVE (NEGATIVE) Ethyl Alcohol 242 H (0-10) mg/dL 02/14/19 02/14/19 Range/Units 19:57 19:57 WBC (4.0-10.5) K/mm3 RBC (4.1-5.4) M/mm3 Hgb (12.0-16.0) gm/dl Hct (35-47) % MCV (78-100) fl MCH (26-32) pg MCHC (32-36) g/dl RDW (11.5-14.0) % Plt Count (150-450) K/mm3 MPV (6-9.5) fl Gran % (36.0-66.0) % Eos # (Auto) (0-0.5) Absolute Lymphs (auto) (1.0-4.6) Absolute Monos (auto) (0.0-1.3) Lymphocytes % (24.0-44.0) % Monocytes % (0.0-12.0) % Eosinophils % (0.00-5.0) % Basophils % (0.0-0.4) % Absolute Granulocytes (1.4-6.9) Basophils # (0-0.4) Sodium (137-145) mmol/L Potassium (3.5-5.1) mmol/L Chloride (98-107) mmol/L Carbon Dioxide (22-30) mmol/L Anion Gap (5-15) MEQ/L BUN (7-17) mg/dL Creatinine (0.52-1.04) mg/dL Estimated GFR ML/MIN Glucose (74-106) mg/dL Calcium (8.4-10.2) mg/dL Total Bilirubin (0.2-1.3) mg/dL AST (14-36) U/L ALT (0-35) U/L Alkaline Phosphatase (38-126) U/L Serum Total Protein (6.3-8.2) g/dL Albumin (3.5-5.0) g/dL Urine Color STRAW (YELLOW) Urine Appearance CLEAR (CLEAR) Urine pH 7.0 (5-6) Ur Specific [place] 1.002 (1.005-1.025) Urine Protein NEGATIVE (Negative) Urine Ketones NEGATIVE (NEGATIVE) Urine Blood SMALL (0-5) Haroldo/ul Urine Nitrite NEGATIVE (NEGATIVE) Urine Bilirubin NEGATIVE (NEGATIVE) Urine Urobilinogen NEGATIVE (0-1) mg/dL Ur Leukocyte Esterase NEGATIVE (NEGATIVE) Urine WBC (Auto) NONE (0-5) /HPF Urine RBC (Auto) NONE (0-2) /HPF U Epithel Cells (Auto) NONE (FEW) /HPF Urine Bacteria (Auto) NONE (NEGATIVE) /HPF Urine Mucus (Auto) SLIGHT (NEGATIVE) /HPF Urine Culture Reflexed NO (NO) Urine Glucose NEGATIVE (NEGATIVE) mg/dL Urine HCG, Qual NEGATIVE (Negative) Salicylates (2-20) mg/dL Urine Opiates Level (NEGATIVE) Ur Methadone (NEGATIVE) Acetaminophen (10-30) ug/ml Urine Barbiturates (NEGATIVE) Ur Phencyclidine (PCP) (NEGATIVE) Urine Amphetamine (NEGATIVE) U Benzodiazepine Level (NEGATIVE) Urine Cocaine (NEGATIVE) Urine Marijuana (THC) (NEGATIVE) Ethyl Alcohol (0-10) mg/dL - Progress Progress: unchanged, re-examined Progress Note: 02/14/19 20:28 spoke with poison control center at 1925. symptomatic and supportive care. norepi for bp not responding to ivf, atropine for hr that drops. observe for minimum of 12 hours. 02/14/19 21:[address] arriola. i reviewed pt hx, condition, lab and ekg results. i gave her poison control center recommendations. she accepts for observation telemetry Counseled pt/family regarding: lab results, diagnosis - Departure Departure Disposition: Observation Clinical Impression: Clonidine overdose, Alcohol intoxication Condition: Fair Critical Care Time: Yes Critical Care Time(excluding separately billable procedures): Critical 30-74 mins Referrals: RUMA BUCK PA [Primary Care Provider] -
[2019-02-14] MEDS ORDERED: Zofran 4 MG/2 ML VIAL IV ONE (19:31)
[2019-02-14] MEDS ORDERED: Sodium Chloride 0.9% 1000 ML 1,000 ML IV STA ×2 (19:31→20:35)
[2019-02-14 20:06] LABS: Absolute Neutrophil Ct (ANC) 2.12 (1.4-6.9); Basophil (Absolute #) 0.05 (0-0.4); Eosinophil % 4.6 % (0.00-5.0); Eosinophil (Absolute #) 0.24 (0-0.5); Hematocrit 38.4 % (35-47); Hemoglobin 13.1 gm/dl (12.0-16.0); Lymphocyte (Absolute #) 2.46 (1.0-4.6); Lymphocytes % 46.9 % (24.0-44.0); Mean Cell Volume 102.1 fl (78-100); Mean Corpuscular Hemoglobin 34.8 pg (26-32); Mean Corpuscular Hgb Concent. 34.1 g/dl (32-36); Mean Platelet Volume 9.9 fl (6-9.5); Monocyte (Absolute #) 0.37 (0.0-1.3); Monocytes % 7.1 % (0.0-12.0); Neutrophil % 40.4 % (36.0-66.0); Platelet Count 142 K/mm3 (150-450); Red Blood Count 3.76 M/mm3 (4.1-5.4); Red Cell Distribution Width 13.2 % (11.5-14.0); White Blood Count 5.2 K/mm3 (4.0-10.5)
[2019-02-14 20:15] LABS: Appearance CLEAR (CLEAR); Bilirubin NEGATIVE (NEGATIVE); Blood SMALL Ery/ul (0-5); Glucose NEGATIVE (NEGATIVE); Ketones NEGATIVE (NEGATIVE); Leukocyte Esterase NEGATIVE (NEGATIVE); Mucus SLIGHT /HPF (NEGATIVE); Nitrite NEGATIVE (NEGATIVE); Protein,Urine Dip NEGATIVE (Negative); Specific Gravity 1.002 (1.005-1.025); Urobilinogen NEGATIVE mg/dL (0-1)
[2019-02-14 20:21] LABS: ALBUMIN 2.9 g/dL (3.5-5.0); ALKALINE PHOSPHATASE 49 U/L (38-126); ANION GAP 11.2 MEQ/L (5-15); BILIRUBIN,TOTAL < 0.10 mg/dL (0.2-1.3); BLOOD UREA NITROGEN 5 mg/dL (7-17); CHLORIDE 114 mmol/L (98-107); Calcium 6.8 mg/dL (8.4-10.2); Carbon Dioxide 21 mmol/L (22-30); Creatinine 1 0.35 mg/dL (0.52-1.04); ETHYL ALCOHOL 242 mg/dL (0-10); Glucose 98 mg/dL (74-106); Potassium 3.2 mmol/L (3.5-5.1); SGOT/AST 38 U/L (14-36); SGPT/ALT 12 U/L (0-35); SODIUM 143 mmol/L (137-145); Total Protein 5.6 g/dL (6.3-8.2)
[2019-02-14 20:22] LABS: ACETAMINOPHEN < 10 ug/ml (10-30); SALICYLATE < 1.0 mg/dL (2-20)
[2019-02-14 20:28] LABS: Amphetamine,Urine NEGATIVE (NEGATIVE); Barbiturate,Urine NEGATIVE (NEGATIVE); Benzodiazepine,Urine NEGATIVE (NEGATIVE); Cocaine,Urine NEGATIVE (NEGATIVE); Methadone,Urine NEGATIVE (NEGATIVE); Opiate,Urine NEGATIVE (NEGATIVE); PCP,Urine NEGATIVE (NEGATIVE); THC,Urine NEGATIVE (NEGATIVE)
[2019-02-14] MEDS ORDERED: Klor Con 10 MEQ PO ONE (21:53)
[2019-02-14] MEDS ORDERED: Sodium Chloride 0.9% 1000 ML 1,000 ML IV SCH (22:30)
[2019-02-15] MEDS ORDERED: Zofran 4 MG/2 ML VIAL IV PRN (01:59)
[2019-02-15] MEDS ORDERED: TYLENOL 325 MG PO PRN (01:59)
[2019-02-15 04:37] LABS: Absolute Neutrophil Ct (ANC) 3.11 (1.4-6.9); BASOPHIL % 1.1 % (0.0-0.4); Basophil (Absolute #) 0.07 (0-0.4); Eosinophil % 3.4 % (0.00-5.0); Eosinophil (Absolute #) 0.22 (0-0.5); Hematocrit 39.2 % (35-47); Hemoglobin 13.5 gm/dl (12.0-16.0); Lymphocyte (Absolute #) 2.57 (1.0-4.6); Lymphocytes % 40.3 % (24.0-44.0); Mean Cell Volume 103.4 fl (78-100); Mean Corpuscular Hemoglobin 35.6 pg (26-32); Mean Corpuscular Hgb Concent. 34.4 g/dl (32-36); Mean Platelet Volume 11.4 fl (6-9.5); Monocyte (Absolute #) 0.41 (0.0-1.3); Monocytes % 6.4 % (0.0-12.0); Neutrophil % 48.8 % (36.0-66.0); Platelet Count 109 K/mm3 (150-450); Red Blood Count 3.79 M/mm3 (4.1-5.4); Red Cell Distribution Width 13.6 % (11.5-14.0); White Blood Count 6.4 K/mm3 (4.0-10.5)
[2019-02-15] MEDS: Sodium Chloride 0.9% 1000 ML 1,000 ML IV SCH ×2 (05:03→11:36)
[2019-02-15 05:17] LABS: ANION GAP 10.5 MEQ/L (5-15); BLOOD UREA NITROGEN 4 mg/dL (7-17); CHLORIDE 117 mmol/L (98-107); Carbon Dioxide 17 mmol/L (22-30); Creatinine 1 0.34 mg/dL (0.52-1.04); Glucose 71 mg/dL (74-106); Potassium 4.2 mmol/L (3.5-5.1); SODIUM 141 mmol/L (137-145)
--- NOTE | 2019-02-15 08:57 | PCM.SSS ---
History of Present Illness - Chief Complaint Chief Complaint: clonidine overdose/alcohol intox. History of Present Illness: is a 44 year old female pt of Dr. Bonilla in with PMHx depression and seizure disorder who came to ER after drinking and overdosing on clonidine. She drank several beers, then drank several shots of vodka, then got some bad news and started feeling depressed. She states she was not trying to kill herself, she just wanted to sleep, but she took 21 clonidine tablets. She is feeling fine this morning, just hungry. Her blood pressure was fairly low at baseline, and was in the 80s systolic last night while she was sleeping, but she has remained stable. She will get a [facility] consult today. Pt has been a drinker, daily, for a long time. She had low platelets and a mildly elevated AST so will get a liver ultrasound today. On ROS pt complains of some chest tightness. She has an extensive FHx CAD in her mother, maternal grandmother, and maternal aunt so I instructed her to follow up with her PCP for outpatient stress test. - Review of Systems Respiratory: Cough (x 2 weeks) Cardiac: Other (chest tightness) Abdominal/Gastrointestinal: Diarrhea (after taking steroids for back pain) Musculoskeletal: Back Pain (went to ER for eval) Neurological: Dizziness (occasionally), Seizure (last sz 1 yr ago) Psychological: Anxiety, Depression, No Suicidal Ideations All Other Systems: Reviewed and Negative Medications & Allergies Home Medications: Home Medication List Omeprazole 40 mg PO BID 04/15/18 [History Confirmed 02/15/19] Phenytoin Sod Extended 100 mg* [Dilantin 100 MG] 100 mg PO BID 10/22/18 [ History Confirmed 02/15/19] Clonidine HCl 0.1 mg [Catapres 0.1 MG] 0.1 mg PO TID 02/15/19 [History Confirmed 02/15/19] Diphenhydramine HCl 25 mg [Benadryl 25 mg Capsule] 25 mg PO HS 02/15/19 [ History Confirmed 02/15/19] Allergies/Adverse Reactions: Allergies Allergy/AdvReac Type Severity Reaction Status Date / Time tramadol Allergy Severe Hives Verified 02/14/19 19:44 cyclobenzaprine Allergy Verified 02/14/19 19:44 [From Flexeri] latex Allergy Verified 02/14/19 19:44 - Past Medical History Past Medical History: Yes Neurological History: Seizures ENT History: No Pertinent History Cardiac History: No Pertinent History Respiratory History: No Pertinent History Endocrine Medical History: No Pertinent History Musculoskelatal History: No Pertinent History GI Medical History: GERD History: No Pertinent History Pyscho-Social History: Anxiety, Depression Reproductive Disorders: No Pertinent History - Female History Hx Last Menstrual Period: unknown Are you now?: No - Past Surgical History Past Surgical History: Yes Neuro Surgical History: No Pertinent History Cardiac History: No Pertinent History Respiratory Surgery: No Pertinent History GI Surgical History: Appendectomy, Cholecystectomy Genitourinary Surgical Hx: No Pertinent History Musculskeletal Surgical Hx: No Pertinent History Female Surgical History: Tubal Ligation Other Surgical History: Tumor removed from left side "years ago" - Social History Smoking Status: Current every day smoker How long have you smoked: 20 years Exposure to second hand smoke: Yes Alcohol: Daily Drug Use: none - Physical Exam Vital Signs: Vital Signs - 24 hr Temp Pulse Resp BP Pulse Ox 02/15/19 08:00 72 02/15/19 07:36 97.4 F 72 24 106/57 96 02/15/19 04:00 98.5 F 69 21 104/67 96 02/15/19 02:24 98.0 F 67 17 90/61 94 L 02/15/19 01:22 63 20 99/66 95 02/15/19 00:40 60 20 103/63 95 02/14/19 23:50 62 21 90/64 95 02/14/19 23:24 65 18 103/63 95 02/14/19 22:40 66 96/62 95 02/14/19 21:50 55 L 18 85/55 94 L 02/14/19 21:38 57 L 18 93/63 96 02/14/19 20:52 58 L 16 100/65 95 02/14/19 20:05 62 16 105/68 98 02/14/19 19:31 98 02/14/19 19:22 66 16 92/56 98 General Appearance: no apparent distress, alert Neurologic Exam: oriented x 3, cooperative Eye Exam: eyes nml inspection Ears, Nose, Throat Exam: moist mucous membranes Neck Exam: normal inspection, non-tender, No lymphadenopathy Respiratory Exam: normal breath sounds, lungs clear, No crackles/rales, No rhonchi, No wheezing Cardiovascular Exam: regular rate/rhythm, normal heart sounds, No murmur Gastrointestinal/Abdomen Exam: soft, normal bowel sounds, tenderness (LUQ), No distention, No mass, No guarding, No rebound, No hepatomegaly, No splenomegaly Back Exam: normal inspection, No CVA tenderness, No rash Extremity Exam: normal inspection, No pedal edema, No swelling Skin Exam: normal color, warm, dry, No rash Results - Labs Lab/Micro Results: Lab Results-Last 24 Hours 02/14/19 02/14/19 02/14/19 Range/Units 19:57 19:57 19:57 WBC (4.0-10.5) K/mm3 RBC (4.1-5.4) M/mm3 Hgb (12.0-16.0) gm/dl Hct (35-47) % MCV (78-100) fl MCH (26-32) pg MCHC (32-36) g/dl RDW (11.5-14.0) % Plt Count (150-450) K/mm3 MPV (6-9.5) fl Gran % (36.0-66.0) % Eos # (Auto) (0-0.5) Absolute Lymphs (auto) (1.0-4.6) Absolute Monos (auto) (0.0-1.3) Lymphocytes % (24.0-44.0) % Monocytes % (0.0-12.0) % Eosinophils % (0.00-5.0) % Basophils % (0.0-0.4) % Absolute Granulocytes (1.4-6.9) Basophils # (0-0.4) Sodium (137-145) mmol/L Potassium (3.5-5.1) mmol/L Chloride (98-107) mmol/L Carbon Dioxide (22-30) mmol/L Anion Gap (5-15) MEQ/L BUN (7-17) mg/dL Creatinine (0.52-1.04) mg/dL Estimated GFR ML/MIN Glucose (74-106) mg/dL Calcium (8.4-10.2) mg/dL Total Bilirubin (0.2-1.3) mg/dL AST (14-36) U/L ALT (0-35) U/L Alkaline Phosphatase (38-126) U/L Serum Total Protein (6.3-8.2) g/dL Albumin (3.5-5.0) g/dL Urine Color STRAW (YELLOW) Urine Appearance CLEAR (CLEAR) Urine pH 7.0 (5-6) Ur Specific Irons 1.002 (1.005-1.025) Urine Protein NEGATIVE (Negative) Urine Ketones NEGATIVE (NEGATIVE) Urine Blood SMALL (0-5) Haroldo/ul Urine Nitrite NEGATIVE (NEGATIVE) Urine Bilirubin NEGATIVE (NEGATIVE) Urine Urobilinogen NEGATIVE (0-1) mg/dL Ur Leukocyte Esterase NEGATIVE (NEGATIVE) Urine WBC (Auto) NONE (0-5) /HPF Urine RBC (Auto) NONE (0-2) /HPF U Epithel Cells (Auto) NONE (FEW) /HPF Urine Bacteria (Auto) NONE (NEGATIVE) /HPF Urine Mucus (Auto) SLIGHT (NEGATIVE) /HPF Urine Culture Reflexed NO (NO) Urine Glucose NEGATIVE (NEGATIVE) mg/dL Urine HCG, Qual NEGATIVE (Negative) Salicylates (2-20) mg/dL Urine Opiates Level NEGATIVE (NEGATIVE) Ur Methadone NEGATIVE (NEGATIVE) Acetaminophen (10-30) ug/ml Urine Barbiturates NEGATIVE (NEGATIVE) Phenytoin (10-20) ug/mL Ur Phencyclidine (PCP) NEGATIVE (NEGATIVE) Urine Amphetamine NEGATIVE (NEGATIVE) U Benzodiazepine Level NEGATIVE (NEGATIVE) Urine Cocaine NEGATIVE (NEGATIVE) Urine Marijuana (THC) NEGATIVE (NEGATIVE) Ethyl Alcohol (0-10) mg/dL 02/14/19 02/14/19 02/14/19 Range/Units 20:00 20:00 Unknown WBC 5.2 (4.0-10.5) K/mm3 RBC 3.76 L (4.1-5.4) M/mm3 Hgb 13.1 (12.0-16.0) gm/dl Hct 38.4 (35-47) % MCV 102.1 H (78-100) fl MCH 34.8 H (26-32) pg MCHC 34.1 (32-36) g/dl RDW 13.2 (11.5-14.0) % Plt Count 142 L (150-450) K/mm3 MPV 9.9 H (6-9.5) fl Gran % 40.4 (36.0-66.0) % Eos # (Auto) 0.24 (0-0.5) Absolute Lymphs (auto) 2.46 (1.0-4.6) Absolute Monos (auto) 0.37 (0.0-1.3) Lymphocytes % 46.9 H (24.0-44.0) % Monocytes % 7.1 (0.0-12.0) % Eosinophils % 4.6 (0.00-5.0) % Basophils % 1.0 (0.0-0.4) % Absolute Granulocytes 2.12 (1.4-6.9) Basophils # 0.05 (0-0.4) Sodium 143 (137-145) mmol/L Potassium 3.2 L (3.5-5.1) mmol/L Chloride 114 H (98-107) mmol/L Carbon Dioxide 21 L (22-30) mmol/L Anion Gap 11.2 (5-15) MEQ/L BUN 5 L (7-17) mg/dL Creatinine 0.35 L (0.52-1.04) mg/dL Estimated GFR > 60.0 ML/MIN Glucose 98 (74-106) mg/dL Calcium 6.8 L (8.4-10.2) mg/dL Total Bilirubin < 0.10 L (0.2-1.3) mg/dL AST 38 H (14-36) U/L ALT 12 (0-35) U/L Alkaline Phosphatase 49 (38-126) U/L Serum Total Protein 5.6 L (6.3-8.2) g/dL Albumin 2.9 L (3.5-5.0) g/dL Urine Color (YELLOW) Urine Appearance (CLEAR) Urine pH (5-6) Ur Specific Irons (1.005-1.025) Urine Protein (Negative) Urine Ketones (NEGATIVE) Urine Blood (0-5) Haroldo/ul Urine Nitrite (NEGATIVE) Urine Bilirubin (NEGATIVE) Urine Urobilinogen (0-1) mg/dL Ur Leukocyte Esterase (NEGATIVE) Urine WBC (Auto) (0-5) /HPF Urine RBC (Auto) (0-2) /HPF U Epithel Cells (Auto) (FEW) /HPF Urine Bacteria (Auto) (NEGATIVE) /HPF Urine Mucus (Auto) (NEGATIVE) /HPF Urine Culture Reflexed (NO) Urine Glucose (NEGATIVE) mg/dL Urine HCG, Qual (Negative) Salicylates < 1.0 L (2-20) mg/dL Urine Opiates Level (NEGATIVE) Ur Methadone (NEGATIVE) Acetaminophen < 10 L (10-30) ug/ml Urine Barbiturates (NEGATIVE) Phenytoin 4.0 L (10-20) ug/mL Ur Phencyclidine (PCP) (NEGATIVE) Urine Amphetamine (NEGATIVE) U Benzodiazepine Level (NEGATIVE) Urine Cocaine (NEGATIVE) Urine Marijuana (THC) (NEGATIVE) Ethyl Alcohol 242 H (0-10) mg/dL 02/15/19 02/15/19 Range/Units 04:15 04:15 WBC 6.4 (4.0-10.5) K/mm3 RBC 3.79 L (4.1-5.4) M/mm3 Hgb 13.5 (12.0-16.0) gm/dl Hct 39.2 (35-47) % MCV 103.4 H (78-100) fl MCH 35.6 H (26-32) pg MCHC 34.4 (32-36) g/dl RDW 13.6 (11.5-14.0) % Plt Count 109 L (150-450) K/mm3 MPV 11.4 H (6-9.5) fl Gran % 48.8 (36.0-66.0) % Eos # (Auto) 0.22 (0-0.5) Absolute Lymphs (auto) 2.57 (1.0-4.6) Absolute Monos (auto) 0.41 (0.0-1.3) Lymphocytes % 40.3 (24.0-44.0) % Monocytes % 6.4 (0.0-12.0) % Eosinophils % 3.4 (0.00-5.0) % Basophils % 1.1 (0.0-0.4) % Absolute Granulocytes 3.11 (1.4-6.9) Basophils # 0.07 (0-0.4) Sodium 141 (137-145) mmol/L Potassium 4.2 D (3.5-5.1) mmol/L Chloride 117 H (98-107) mmol/L Carbon Dioxide 17 L (22-30) mmol/L Anion Gap 10.5 (5-15) MEQ/L BUN 4 L (7-17) mg/dL Creatinine 0.34 L (0.52-1.04) mg/dL Estimated GFR > 60.0 ML/MIN Glucose 71 L (74-106) mg/dL Calcium 7.0 L (8.4-10.2) mg/dL Total Bilirubin (0.2-1.3) mg/dL AST (14-36) U/L ALT (0-35) U/L Alkaline Phosphatase (38-126) U/L Serum Total Protein (6.3-8.2) g/dL Albumin (3.5-5.0) g/dL Urine Color (YELLOW) Urine Appearance (CLEAR) Urine pH (5-6) Ur Specific Irons (1.005-1.025) Urine Protein (Negative) Urine Ketones (NEGATIVE) Urine Blood (0-5) Haroldo/ul Urine Nitrite (NEGATIVE) Urine Bilirubin (NEGATIVE) Urine Urobilinogen (0-1) mg/dL Ur Leukocyte Esterase (NEGATIVE) Urine WBC (Auto) (0-5) /HPF Urine RBC (Auto) (0-2) /HPF U Epithel Cells (Auto) (FEW) /HPF Urine Bacteria (Auto) (NEGATIVE) /HPF Urine Mucus (Auto) (NEGATIVE) /HPF Urine Culture Reflexed (NO) Urine Glucose (NEGATIVE) mg/dL Urine HCG, Qual (Negative) Salicylates (2-20) mg/dL Urine Opiates Level (NEGATIVE) Ur Methadone (NEGATIVE) Acetaminophen (10-30) ug/ml Urine Barbiturates (NEGATIVE) Phenytoin (10-20) ug/mL Ur Phencyclidine (PCP) (NEGATIVE) Urine Amphetamine (NEGATIVE) U Benzodiazepine Level (NEGATIVE) Urine Cocaine (NEGATIVE) Urine Marijuana (THC) (NEGATIVE) Ethyl Alcohol (0-10) mg/dL - Other Procedures and Tests Respiratory Therapy 02/15/19 01:59 Oxygen Nasal Cannula 2 lpm Assessment/Plan (1) Alcohol intoxication Current Visit: Yes Status: Resolved Qualifiers: Complication of substance-induced condition: uncomplicated Qualified Code(s ): F10.920 - Alcohol use, unspecified with intoxication, uncomplicated Assessment & Plan: Advised pt with her low platelets as sign of liver dysfunction she must stop drinking alcohol altogether. (2) Clonidine overdose Current Visit: Yes Status: Acute Qualifiers: Encounter type: initial encounter Injury intent: undetermined intent Qualified Code(s): T46.5X4A - Poisoning by other antihypertensive drugs, undetermined, initial encounter Assessment & Plan: states she was NOT suicidal. Per poison control we have watched her over 12h, so she should be out of danger from effects of the overdose. Code(s): T46.5X1A - POISONING BY OTH ANTIHYPERTN DRUGS, ACCIDENTAL, INIT (3) Chest tightness Current Visit: Yes Status: Chronic Assessment & Plan: Needs to f/u outpatient with pcp regarding stress testing. Code(s): R07.89 - OTHER CHEST PAIN (4) Abdominal pain Current Visit: No Status: Chronic Qualifiers: Abdominal location: right upper quadrant Qualified Code(s): R10.11 - Right upper quadrant pain Code(s): R10.9 - UNSPECIFIED ABDOMINAL PAIN (5) Seizure disorder Current Visit: No Status: Acute Assessment & Plan: Her dilantin level is low; she has been taking her dilantin BID instead of TID. Last sz 1 yr ago. We did discuss the low level. Code(s): G40.909 - EPILEPSY, UNSP, NOT INTRACTABLE, WITHOUT STATUS EPILEPTICUS (6) Thrombocytopenia Current Visit: Yes Status: Acute Assessment & Plan: likely chronic but I have no previous labs. (7) Elevated liver enzymes Current Visit: Yes Status: Acute Assessment & Plan: check liver u/s and hepatitis panel. she has been immunized against Hep A as she works at [employer] in [place]. Code(s): R74.8 - ABNORMAL LEVELS OF OTHER SERUM ENZYMES Hospital Summary - Hospital Course Hospital Course: is a 44 year old female pt of Dr. Bonilla in with PMHx depression and seizure disorder who came to ER after drinking and overdosing on clonidine. She drank several beers, then drank several shots of vodka, then got some bad news and started feeling depressed. She states she was not trying to kill herself, she just wanted to sleep, but she took 21 clonidine tablets. She is feeling fine this morning, just hungry. Her blood pressure was fairly low at baseline, and was in the 80s systolic last night while she was sleeping, but she has remained stable. She will get a [facility] consult today. Pt has been a drinker, daily, for a long time. She had low platelets and a mildly elevated AST so will get a liver ultrasound and hepatitis panel today. On ROS pt complains of some chest tightness. She has an extensive FHx CAD in her mother, maternal grandmother, and maternal aunt so I instructed her to follow up with her PCP for outpatient stress test. - Vitals & Intake/Output Vital Signs: Vital Signs Temperature 97.4 F 02/15/19 07:36 Pulse Rate 72 02/15/19 08:00 Respiratory Rate 24 02/15/19 07:36 Blood Pressure 106/57 02/15/19 07:36 O2 Sat by Pulse Oximetry 96 02/15/19 07:36 Intake & Output: Intake & Output 02/12/19 02/13/19 02/14/19 02/15/19 11:59 11:59 11:59 11:59 Intake Total 502 Output Total 1300 Balance -798 Weight 52.7 kg - Lab Result Diagrams: 02/15/19 04:15 02/15/19 04:15 Lab Results-Last 24 Hrs: Lab Results-Last 24 Hours 02/14/19 02/14/19 02/14/19 Range/Units 19:57 19:57 19:57 WBC (4.0-10.5) K/mm3 RBC (4.1-5.4) M/mm3 Hgb (12.0-16.0) gm/dl Hct (35-47) % MCV (78-100) fl MCH (26-32) pg MCHC (32-36) g/dl RDW (11.5-14.0) % Plt Count (150-450) K/mm3 MPV (6-9.5) fl Gran % (36.0-66.0) % Eos # (Auto) (0-0.5) Absolute Lymphs (auto) (1.0-4.6) Absolute Monos (auto) (0.0-1.3) Lymphocytes % (24.0-44.0) % Monocytes % (0.0-12.0) % Eosinophils % (0.00-5.0) % Basophils % (0.0-0.4) % Absolute Granulocytes (1.4-6.9) Basophils # (0-0.4) Sodium (137-145) mmol/L Potassium (3.5-5.1) mmol/L Chloride (98-107) mmol/L Carbon Dioxide (22-30) mmol/L Anion Gap (5-15) MEQ/L BUN (7-17) mg/dL Creatinine (0.52-1.04) mg/dL Estimated GFR ML/MIN Glucose (74-106) mg/dL Calcium (8.4-10.2) mg/dL Total Bilirubin (0.2-1.3) mg/dL AST (14-36) U/L ALT (0-35) U/L Alkaline Phosphatase (38-126) U/L Serum Total Protein (6.3-8.2) g/dL Albumin (3.5-5.0) g/dL Urine Color STRAW (YELLOW) Urine Appearance CLEAR (CLEAR) Urine pH 7.0 (5-6) Ur Specific Irons 1.002 (1.005-1.025) Urine Protein NEGATIVE (Negative) Urine Ketones NEGATIVE (NEGATIVE) Urine Blood SMALL (0-5) Haroldo/ul Urine Nitrite NEGATIVE (NEGATIVE) Urine Bilirubin NEGATIVE (NEGATIVE) Urine Urobilinogen NEGATIVE (0-1) mg/dL Ur Leukocyte Esterase NEGATIVE (NEGATIVE) Urine WBC (Auto) NONE (0-5) /HPF Urine RBC (Auto) NONE (0-2) /HPF U Epithel Cells (Auto) NONE (FEW) /HPF Urine Bacteria (Auto) NONE (NEGATIVE) /HPF Urine Mucus (Auto) SLIGHT (NEGATIVE) /HPF Urine Culture Reflexed NO (NO) Urine Glucose NEGATIVE (NEGATIVE) mg/dL Urine HCG, Qual NEGATIVE (Negative) Salicylates (2-20) mg/dL Urine Opiates Level NEGATIVE (NEGATIVE) Ur Methadone NEGATIVE (NEGATIVE) Acetaminophen (10-30) ug/ml Urine Barbiturates NEGATIVE (NEGATIVE) Phenytoin (10-20) ug/mL Ur Phencyclidine (PCP) NEGATIVE (NEGATIVE) Urine Amphetamine NEGATIVE (NEGATIVE) U Benzodiazepine Level NEGATIVE (NEGATIVE) Urine Cocaine NEGATIVE (NEGATIVE) Urine Marijuana (THC) NEGATIVE (NEGATIVE) Ethyl Alcohol (0-10) mg/dL 02/14/19 02/14/19 02/14/19 Range/Units 20:00 20:00 Unknown WBC 5.2 (4.0-10.5) K/mm3 RBC 3.76 L (4.1-5.4) M/mm3 Hgb 13.1 (12.0-16.0) gm/dl Hct 38.4 (35-47) % MCV 102.1 H (78-100) fl MCH 34.8 H (26-32) pg MCHC 34.1 (32-36) g/dl RDW 13.2 (11.5-14.0) % Plt Count 142 L (150-450) K/mm3 MPV 9.9 H (6-9.5) fl Gran % 40.4 (36.0-66.0) % Eos # (Auto) 0.24 (0-0.5) Absolute Lymphs (auto) 2.46 (1.0-4.6) Absolute Monos (auto) 0.37 (0.0-1.3) Lymphocytes % 46.9 H (24.0-44.0) % Monocytes % 7.1 (0.0-12.0) % Eosinophils % 4.6 (0.00-5.0) % Basophils % 1.0 (0.0-0.4) % Absolute Granulocytes 2.12 (1.4-6.9) Basophils # 0.05 (0-0.4) Sodium 143 (137-145) mmol/L Potassium 3.2 L (3.5-5.1) mmol/L Chloride 114 H (98-107) mmol/L Carbon Dioxide 21 L (22-30) mmol/L Anion Gap 11.2 (5-15) MEQ/L BUN 5 L (7-17) mg/dL Creatinine 0.35 L (0.52-1.04) mg/dL Estimated GFR > 60.0 ML/MIN Glucose 98 (74-106) mg/dL Calcium 6.8 L (8.4-10.2) mg/dL Total Bilirubin < 0.10 L (0.2-1.3) mg/dL AST 38 H (14-36) U/L ALT 12 (0-35) U/L Alkaline Phosphatase 49 (38-126) U/L Serum Total Protein 5.6 L (6.3-8.2) g/dL Albumin 2.9 L (3.5-5.0) g/dL Urine Color (YELLOW) Urine Appearance (CLEAR) Urine pH (5-6) Ur Specific Irons (1.005-1.025) Urine Protein (Negative) Urine Ketones (NEGATIVE) Urine Blood (0-5) Haroldo/ul Urine Nitrite (NEGATIVE) Urine Bilirubin (NEGATIVE) Urine Urobilinogen (0-1) mg/dL Ur Leukocyte Esterase (NEGATIVE) Urine WBC (Auto) (0-5) /HPF Urine RBC (Auto) (0-2) /HPF U Epithel Cells (Auto) (FEW) /HPF Urine Bacteria (Auto) (NEGATIVE) /HPF Urine Mucus (Auto) (NEGATIVE) /HPF Urine Culture Reflexed (NO) Urine Glucose (NEGATIVE) mg/dL Urine HCG, Qual (Negative) Salicylates < 1.0 L (2-20) mg/dL Urine Opiates Level (NEGATIVE) Ur Methadone (NEGATIVE) Acetaminophen < 10 L (10-30) ug/ml Urine Barbiturates (NEGATIVE) Phenytoin 4.0 L (10-20) ug/mL Ur Phencyclidine (PCP) (NEGATIVE) Urine Amphetamine (NEGATIVE) U Benzodiazepine Level (NEGATIVE) Urine Cocaine (NEGATIVE) Urine Marijuana (THC) (NEGATIVE) Ethyl Alcohol 242 H (0-10) mg/dL 02/15/19 02/15/19 Range/Units 04:15 04:15 WBC 6.4 (4.0-10.5) K/mm3 RBC 3.79 L (4.1-5.4) M/mm3 Hgb 13.5 (12.0-16.0) gm/dl Hct 39.2 (35-47) % MCV 103.4 H (78-100) fl MCH 35.6 H (26-32) pg MCHC 34.4 (32-36) g/dl RDW 13.6 (11.5-14.0) % Plt Count 109 L (150-450) K/mm3 MPV 11.4 H (6-9.5) fl Gran % 48.8 (36.0-66.0) % Eos # (Auto) 0.22 (0-0.5) Absolute Lymphs (auto) 2.57 (1.0-4.6) Absolute Monos (auto) 0.41 (0.0-1.3) Lymphocytes % 40.3 (24.0-44.0) % Monocytes % 6.4 (0.0-12.0) % Eosinophils % 3.4 (0.00-5.0) % Basophils % 1.1 (0.0-0.4) % Absolute Granulocytes 3.11 (1.4-6.9) Basophils # 0.07 (0-0.4) Sodium 141 (137-145) mmol/L Potassium 4.2 D (3.5-5.1) mmol/L Chloride 117 H (98-107) mmol/L Carbon Dioxide 17 L (22-30) mmol/L Anion Gap 10.5 (5-15) MEQ/L BUN 4 L (7-17) mg/dL Creatinine 0.34 L (0.52-1.04) mg/dL Estimated GFR > 60.0 ML/MIN Glucose 71 L (74-106) mg/dL Calcium 7.0 L (8.4-10.2) mg/dL Total Bilirubin (0.2-1.3) mg/dL AST (14-36) U/L ALT (0-35) U/L Alkaline Phosphatase (38-126) U/L Serum Total Protein (6.3-8.2) g/dL Albumin (3.5-5.0) g/dL Urine Color (YELLOW) Urine Appearance (CLEAR) Urine pH (5-6) Ur Specific Irons (1.005-1.025) Urine Protein (Negative) Urine Ketones (NEGATIVE) Urine Blood (0-5) Haroldo/ul Urine Nitrite (NEGATIVE) Urine Bilirubin (NEGATIVE) Urine Urobilinogen (0-1) mg/dL Ur Leukocyte Esterase (NEGATIVE) Urine WBC (Auto) (0-5) /HPF Urine RBC (Auto) (0-2) /HPF U Epithel Cells (Auto) (FEW) /HPF Urine Bacteria (Auto) (NEGATIVE) /HPF Urine Mucus (Auto) (NEGATIVE) /HPF Urine Culture Reflexed (NO) Urine Glucose (NEGATIVE) mg/dL Urine HCG, Qual (Negative) Salicylates (2-20) mg/dL Urine Opiates Level (NEGATIVE) Ur Methadone (NEGATIVE) Acetaminophen (10-30) ug/ml Urine Barbiturates (NEGATIVE) Phenytoin (10-20) ug/mL Ur Phencyclidine (PCP) (NEGATIVE) Urine Amphetamine (NEGATIVE) U Benzodiazepine Level (NEGATIVE) Urine Cocaine (NEGATIVE) Urine Marijuana (THC) (NEGATIVE) Ethyl Alcohol (0-10) mg/dL - Procedures and Test Procedures and Tests throughout Hospitalization: Therapy Orders & Screens 02/15/19 01:59 Oxygen Nasal Cannula 2 lpm Comment: - Discharge Disposition: Home, Self-Care Condition: Fair Prescriptions: No Action Omeprazole 40 mg PO BID Phenytoin Sod Extended 100 mg* [Dilantin 100 MG] 100 mg PO BID Clonidine HCl 0.1 mg [Catapres 0.1 MG] 0.1 mg PO TID Diphenhydramine HCl 25 mg [Benadryl 25 mg Capsule] 25 mg PO HS Follow up with: RUMA BONILLA PA [Primary Care Provider] - 1 Week
[2019-02-15] MEDS ORDERED: Pepcid 20 MG VIAL IV SCH (10:00)
[2019-02-15 10:12] LABS: INR 1.03 (0.8-3.0); PROTIME 11.6 SECONDS (9.95-12.35)
[2019-02-15 10:14] LABS: PTT 29.6 SECONDS (25.3-37.0)
[2019-02-15] MEDS: Dilantin 100 MG PO SCH ×2 (11:20→14:54)
[2019-02-15] MEDS ORDERED: Protonix 40MG Tablet PO SCH (12:00)
--- NOTE | 2019-02-15 13:24 | XRAY ---
Indication: Elevated liver function testing. Cholecystectomy. Two-dimensional right upper quadrant abdominal sonogram performed. Comparison: None Gallbladder surgically absent. Common bile duct measures 5.6 mm. No intrahepatic biliary distention. Visualized portions of the liver, pancreas, and right kidney appear sonographically normal. Right kidney measures 9.4 cm in length. No ascites. Impression: Negative right upper quadrant sonogram.
[2019-02-15 16:01] VITALS: BP 152/92; O2SAT 99
[2019-02-15 16:17] VITALS: PULSE 65
[2019-02-16 05:27] LABS: HEPATITIS A IGM Non Reactive (Non Reactive); HEPATITIS B VIRUS CORE TOT AB Non Reactive (Non Reactive); HEPATITIS C VIRUS ANTIBODY Non Reactive (Non Reactive); Hepatitis B Surface Ab.Quant. 94.47 mIU/mL (0.00-8.49); Hepatitis B Surface Antigen Non Reactive (Non Reactive)
== END 2019-02-15 17:25 | disposition home or self-care (01) ==
LOC: ED 19:19 → ICU 02-15 01:45
PROVIDERS: ADMIT Family Medicine; ATTEND Family Medicine
DX: F10.920 Alcohol use, unspecified with intoxication, uncomplicated (principal); T46.5X4A Poisoning by other antihypertensive drugs, undetermined, initial encounter; R07.89 Other chest pain; R10.11 Right upper quadrant pain; G40.909 Epilepsy, unspecified, not intractable, without status epilepticus; D69.6 Thrombocytopenia, unspecified; R74.8 Abnormal levels of other serum enzymes; R42 Dizziness and giddiness; M54.9 Dorsalgia, unspecified; F41.8 Other specified anxiety disorders; R19.7 Diarrhea, unspecified
CPT/HCPCS: 36415; 51702; 76705; 80048; 80053; 80074; 80185; 80307; 81001; 84703; 85025; 85610; 85730; 90791; 93005; 93041; 94760; 96374; 99285; 99291; G0378; G0480; G0481; J2405; A9270-GY

== ENCOUNTER → 2019-03-07 | Emergency (ER) | payer OTHER ==
[2019-03-07 19:41] VITALS: BP 136/95; PULSE 83; O2SAT 96
--- NOTE | 2019-03-07 19:50 | ERPHSYRPT ---
- History of Present Illness Time Seen by Provider: 03/07/19 19:15 Source: patient, EMS Exam Limitations: no limitations Patient Subjective Stated Complaint: states she was drinking and has seizures and now has abdominal pain. rates pain at 10/03 Triage Nursing Assessment: pt alert and oriented now states that she wants to leave ama. bp elevated. 136/95 Timing/Duration: today, resolved prior to arrival, sudden Severity: mild Character of Deficits: none Deficits: no difficulties Baseline/Normal Cognition: alert oriented x 3 Current Cognition: alert oriented x 3 Baseline Gait: walks w/o assistance Associated Symptoms: No confusion, No fatigue, No fever, No chills, No loss of consciousness, No nausea, No vomiting, No weakness, No muscle spasms, No numbness/tingling in legs/feet, No paresthesia, No ringing in ears, No seizures , No slurred speech, No trouble walking, No vision changes, No chest pain, No headache Allergies/Adverse Reactions: tramadol Allergy (Severe, Verified 03/07/19 19:41) Hives cyclobenzaprine [From Flexeril] Allergy (Verified 03/07/19 19:41) latex Allergy (Verified 03/07/19 19:41) Home Medications: Phenytoin Sod Extended 100 mg* [Dilantin 100 MG] 100 mg PO TID 10/22/18 [ History] Clonidine HCl 0.1 mg [Catapres 0.1 MG] 0.1 mg PO TID 02/15/19 [History] Diphenhydramine HCl 25 mg [Benadryl 25 mg Capsule] 25 mg PO HS 02/15/19 [ History] Lansoprazole 30 mg PO DAILY 02/15/19 [History] Hx Tetanus, Diphtheria Vaccination/Date Given: No Hx Influenza Vaccination/Date Given: No Hx Pneumococcal Vaccination/Date Given: No - Review of Systems Constitutional: No Fever, No Chills Eyes: No Symptoms, No Eye Pain, No Vision Changes Ears, Nose, & Throat: No Symptoms, No Mouth Swelling, No Painful Swallowing Respiratory: No Cough, No Dyspnea Cardiac: No Chest Pain, No Edema, No Syncope Abdominal/Gastrointestinal: Abdominal Pain (none currently), No Nausea, No Vomiting, No Diarrhea Genitourinary Symptoms: No Dysuria, No Frequency, No Hematuria, No Flank Pain Musculoskeletal: No Back Pain, No Neck Pain Skin: No Rash Neurological: No Dizziness, No Focal Weakness, No Sensory Changes Psychological: No Symptoms, No Anxiety, No Suicidal Ideations, No Homicidal Ideations Endocrine: No Symptoms, No Excessive Sweating Hematologic/Lymphatic: No Easy Bleeding, No Easy Bruising All Other Systems: Reviewed and Negative - Past Medical History Pertinent Past Medical History: Yes Neurological History: Seizures ENT History: No Pertinent History Cardiac History: No Pertinent History Respiratory History: No Pertinent History Endocrine Medical History: No Pertinent History Musculoskeletal History: No Pertinent History GI Medical History: GERD History: No Pertinent History Psycho-Social History: Anxiety, Depression Female Reproductive Disorders: No Pertinent History - Past Surgical History Past Surgical History: Yes Neuro Surgical History: No Pertinent History Cardiac: No Pertinent History Respiratory: No Pertinent History Gastrointestinal: Appendectomy, Cholecystectomy Genitourinary: No Pertinent History Musculoskeletal: No Pertinent History Female Surgical History: Tubal Ligation Other Surgical History: Tumor removed from left side "years ago" - Social History Smoking Status: Current every day smoker How long have you smoked: 20 years Exposure to second hand smoke: Yes Drug Use: none Patient Lives Alone: No - Female History Hx Now: No - Nursing Vital Signs Nursing Vital Signs: Initial Vital Signs Temperature 97.9 F 03/07/19 19:17 Pulse Rate 83 03/07/19 19:17 Respiratory Rate 18 03/07/19 19:17 Blood Pressure 136/95 03/07/19 19:17 O2 Sat by Pulse Oximetry 96 03/07/19 19:17 Pain Scale Pain Intensity 8 - Reuben Coma Scale Best Eye Response ([place]): (4) open spontaneously Best Verbal Response ([place]): (5) oriented Best Motor Response ([place]): (6) obeys commands Reuben Total: 15 - Physical Exam General Appearance: no apparent distress, alert Eye Exam: bilateral eye: normal inspection, PERRL, EOMI Ears, Nose, Throat Exam: normal ENT inspection, TMs normal, pharynx normal, moist mucous membranes, No TM abnormal (R), No TM abnormal (L), No pharyngeal erythema Neck Exam: normal inspection, non-tender, supple, full range of motion, No meningismus, No mass, No lymphadenopathy Respiratory: normal breath sounds, lungs clear, airway intact, No respiratory distress, No diminished breath sounds, No accessory muscle use, No crackles/ rales Cardiovascular: regular rate/rhythm, normal heart sounds, capillary refill <2 sec, No edema Gastrointestinal: soft, No tenderness, No distention, No guarding Back Exam: normal inspection, normal range of motion, No CVA tenderness, No vertebral tenderness, No rash Extremity Exam: normal inspection, normal range of motion, pelvis stable, No calf tenderness, No dipak's sign, No pedal edema, No swelling Peripheral Pulses: dorsalis-pedis (R): 2+, dorsalis-pedis (L): 2+ Mental Status: alert, 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 Patient was of sound mind when she made the decision. Patient states that she has a known seizure disorder and has chronic abdominal pain, and does not want any further evaluation for her issues. Patient had the opportunity to ask questions and all questions are answered for the patient. Patient was by herself and no one was present to ask questions besides the patient. The patient understands she may return back to the emergency room at any time for further evaluation and management of any condition that she chooses. Patient understands the benefits of further evaluation such as finding a potential other secondary cause of her seizures and her abdominal pain as well the risks such as having continued intractable seizures or worsening abdominal pain that may lead to bad outcome such as . Counseled pt/family regarding: diagnosis, need for follow-up - Departure Departure Disposition: Home Clinical Impression: Breakthrough seizure, Elevated blood pressure reading without diagnosis of hypertension Abdominal pain Qualifiers: Abdominal location: unspecified location Qualified Code(s): R10.9 - Unspecified abdominal pain Condition: Good Critical Care Time: No Referrals: RUMA BUCK PA [Primary Care Provider] - 03/08/19 Instructions: Acute Abdomen (Belly Pain), DASH Diet, Seizures, Adult (DC) Additional Instructions: Discharge/Care Plan ROGE LENZ was seen on 03/07/19 in the Emergency Room. The patient was counseled regarding Diagnosis,Lab results, Imaging studies, need for follow up and when to return to the Emergency Room. Prescriptions given: None Discharge Note I have spoken with the patient. I have explained the patient's condition, diagnosis and treatment plan based on the information available to me at this time. I have answered the patient's questions and addressed any concerns. The patient has a good understanding of the patient's diagnosis, condition and treatment plan as can be expected at this point. The vital signs have been stable. The patient's condition is stable as patient left AMA from the emergency department. The patient will pursue further outpatient evaluation with the primary care physician or other designated or consulting physician as outlined in the discharge instructions. The patient is agreeable to this plan of care and follow -up instructions have been explained in detail. The patient and/or caregivers have received these instruction. The patient is aware that any significant change in condition or worsening of symptoms should prompt an immediate return to this or the closest emergency department or call 911. ABDOMINAL PAIN 1. There are several different causes for abdominal pain, some of which may not be able to be identified on initial examination. 2. The important thing to remember is that bodily functions can change in a short period of time. If you notice any of the following symptoms, return to the emergency department or consult your doctor immediately: A. Worsening pain or no improvement in the next 12 hours. B. Increasing, severe abdominal pain C. Blood in stool D. Black stools E. Persistent vomiting F. Fever or chills or other symptoms
== END | disposition left against medical advice (07) ==
LOC: ED 19:15
DX: G40.909 Epilepsy, unspecified, not intractable, without status epilepticus (principal); R03.0 Elevated blood-pressure reading, without diagnosis of hypertension; F41.9 Anxiety disorder, unspecified; R10.9 Unspecified abdominal pain
CPT/HCPCS: 99283

== ENCOUNTER 2019-05-12 08:22 | Emergency (ER) | payer OTHER ==
[2019-05-12 08:47] VITALS: O2SAT 98
--- NOTE | 2019-05-12 08:54 | ERPHSYRPT ---
- History of Present Illness Time Seen by Provider: 05/12/19 08:40 Source: patient Exam Limitations: no limitations Patient Subjective Stated Complaint: states has had body aches, headache, fever for three days Triage Nursing Assessment: ambulated to room per self. skin w/d, color normal, resp nonlabored. occasional dry cough noted. Physician History: Dry cough, fever, body aches x 16 hrs Timing/Duration: hour(s) (16) Cough Quality/Degree: dry cough Possible Cause: occasional episodes Modifying Factors: Improves With: coughing Associated Symptoms: fever, cough, headache Allergies/Adverse Reactions: tramadol Allergy (Severe, Verified 03/07/19 19:41) Hives cyclobenzaprine [From Flexeril] Allergy (Verified 03/07/19 19:41) latex Allergy (Verified 03/07/19 19:41) Home Medications: Phenytoin Sod Extended 100 mg* [Dilantin 100 MG] 100 mg PO TID 10/22/18 [ History] Clonidine HCl 0.1 mg [Catapres 0.1 MG] 0.1 mg PO TID 02/15/19 [History] Diphenhydramine HCl 25 mg [Benadryl 25 mg Capsule] 25 mg PO HS 02/15/19 [ History] Lansoprazole 30 mg PO DAILY 02/15/19 [History] Hx Tetanus, Diphtheria Vaccination/Date Given: No Hx Influenza Vaccination/Date Given: No Hx Pneumococcal Vaccination/Date Given: No - Review of Systems Constitutional: Fever, Chills, Malaise Eyes: Eye Pain Ears, Nose, & Throat: Nose Congestion Respiratory: Cough Cardiac: No Symptoms Abdominal/Gastrointestinal: No Symptoms Genitourinary Symptoms: No Symptoms Musculoskeletal: Arthralgias, Myalgias Skin: No Symptoms Neurological: No Symptoms Psychological: No Symptoms Endocrine: No Symptoms Hematologic/Lymphatic: No Symptoms Immunological/Allergic: No Symptoms - Past Medical History Pertinent Past Medical History: Yes Neurological History: Seizures ENT History: No Pertinent History Cardiac History: No Pertinent History Respiratory History: No Pertinent History Endocrine Medical History: No Pertinent History Musculoskeletal History: No Pertinent History GI Medical History: GERD History: No Pertinent History Psycho-Social History: Anxiety, Depression Female Reproductive Disorders: No Pertinent History - Past Surgical History Past Surgical History: Yes Neuro Surgical History: No Pertinent History Cardiac: No Pertinent History Respiratory: No Pertinent History Gastrointestinal: Appendectomy, Cholecystectomy Genitourinary: No Pertinent History Musculoskeletal: No Pertinent History Female Surgical History: Tubal Ligation Other Surgical History: Tumor removed from left side "years ago" - Social History Smoking Status: Current every day smoker How long have you smoked: 25 Exposure to second hand smoke: Yes Drug Use: none Patient Lives Alone: No - Female History Hx Last Menstrual Period: two weeks ago Hx Now: No (BTL) - Nursing Vital Signs Nursing Vital Signs: Initial Vital Signs Temperature 97.4 F 05/12/19 08:28 Pulse Rate 79 05/12/19 08:28 Respiratory Rate 18 05/12/19 08:28 Blood Pressure 106/85 05/12/19 08:28 O2 Sat by Pulse Oximetry 98 05/12/19 08:28 Pain Scale Pain Intensity 4 - Physical Exam General Appearance: moderate distress, alert Eye Exam: PERRL/EOMI, eyes nml inspection Ears, Nose, Throat Exam: normal ENT inspection, TMs normal, pharynx normal, moist mucous membranes Neck Exam: normal inspection, non-tender, supple, full range of motion Respiratory Exam: normal breath sounds, lungs clear, No respiratory distress Cardiovascular Exam: regular rate/rhythm, normal heart sounds Gastrointestinal/Abdomen Exam: soft, No tenderness Back Exam: normal inspection, No CVA tenderness, No vertebral tenderness Extremity Exam: normal inspection, normal range of motion Neurologic Exam: alert, oriented x 3, cooperative, normal mood/affect, sensation nml, No motor deficits Skin Exam: normal color, warm, dry, No rash Lymphatic Exam: No adenopathy SpO2: 98 - Course Nursing assessment & vital signs reviewed: Yes - Progress Progress: unchanged Air Movement: good Blood Culture(s) Obtained: No Antibiotics given: No - Departure Departure Disposition: Home Clinical Impression: Influenza A Condition: Stable Critical Care Time: No Referrals: RUMA BUCK PA [Primary Care Provider] - Prescriptions: Oseltamivir 75 mg [Tamiflu 75MG Capsule] 75 mg PO BID #10 cap
[2019-05-12 09:18] VITALS: BP 109/73; PULSE 69
[2019-05-12 09:28] LABS: INFLUENZA B NEGATIVE (NEGATIVE); RESPIRATORY SYNCTIAL VIRUS NEGATIVE (Negative)
[2019-05-12 09:29] LABS: INFLUENZA A POSITIVE (NEGATIVE)
== END 2019-05-12 09:39 | disposition home or self-care (01) ==
LOC: ED 08:22
DX: J09.X2 Influenza due to identified novel influenza A virus with other respiratory manifestations (principal)
CPT/HCPCS: 87631; 99283

== ENCOUNTER 2019-07-22 19:35 | Observation (INO) | payer OTHER ==
--- NOTE | 2019-07-22 20:01 | ERPHSYRPT ---
- History of Present Illness Time Seen by Provider: 07/22/19 19:49 Source: patient Exam Limitations: no limitations Patient Subjective Stated Complaint: pts spouse called ems as she was weak due to drinking today and took more pills than she's supposed to Triage Nursing Assessment: pt brought to ER via EMS, pt's spouse called ambulance as pt had been drinking and also took more medications than she should have. Pt admits to being an alcoholic. Pt denies any intent to commit suicide, states, "I'm stressed and depressed with all the coronavirus that's going on as I'm not able to work much at this time". Pt alert and oreinted x3, cooperative. Lungs clear, heart tones reg/tyler. Physician History: For the past 5 weeks pt has had a non-productive cough; for the past 3 weeks chest tightness; for the past 2 weeks shortness of air and abdominal cramps; for the past 4 days diarrhea without blood and nausea. Pt states she was stressed today and took (5) 0.2mg clonidine and (5) 10mg hydroxyzine as well as drinking alcoholic beverages. Allergies/Adverse Reactions: tramadol Allergy (Severe, Verified 07/22/19 19:49) Hives cyclobenzaprine [From Flexeril] Allergy (Verified 07/22/19 19:49) latex Allergy (Verified 07/22/19 19:49) Home Medications: Phenytoin Sod Extended 100 mg* [Dilantin 100 MG] 100 mg PO TID 10/22/18 [ History] Clonidine HCl 0.1 mg [Catapres 0.1 MG] 0.2 mg PO TIDPRN PRN 02/15/19 [ History] Lansoprazole 30 mg PO DAILY 02/15/19 [History] Chlordiazepoxide HCl [Librium] 5 mg PO TIDPRN PRN 07/22/19 [History] hydrOXYzine HCL [Hydroxyzine HCl] 10 mg PO TID PRN PRN 07/22/19 [History] Hx Tetanus, Diphtheria Vaccination/Date Given: Yes Hx Influenza Vaccination/Date Given: No Hx Pneumococcal Vaccination/Date Given: No Immunizations Up to Date: Yes Travel Risk - International Travel Have you traveled outside of the country in past 3 weeks: No Have you or anyone close to you been diagnosed with or: No Do your reside in a community with a known COVID-19 case?: Yes If Yes where:: [place] - Coronavirus Screening Has patient experienced Coronavirus symptoms: Yes Symptoms experienced: respiratory symptoms (i.e.Cought,shortness of breath) Date of respiratory symptoms onset:: 06/17/19 - Past Medical History Pertinent Past Medical History: Yes Neurological History: Seizures ENT History: No Pertinent History Cardiac History: No Pertinent History Respiratory History: No Pertinent History Endocrine Medical History: No Pertinent History Musculoskeletal History: No Pertinent History GI Medical History: GERD History: No Pertinent History Psycho-Social History: Anxiety, Depression Female Reproductive Disorders: No Pertinent History - Past Surgical History Past Surgical History: Yes Neuro Surgical History: No Pertinent History Cardiac: No Pertinent History Respiratory: No Pertinent History Gastrointestinal: Appendectomy, Cholecystectomy Genitourinary: No Pertinent History Musculoskeletal: No Pertinent History Female Surgical History: Tubal Ligation Other Surgical History: 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" - Social History Smoking Status: Current every day smoker How long have you smoked: 20 yrs Exposure to second hand smoke: Yes Drug Use: none Patient Lives Alone: No - Female History Hx Now: No - Review of Systems Constitutional: No Fever, No Chills Ears, Nose, & Throat: No Throat Pain Respiratory: Cough, Dyspnea Cardiac: Chest Pain (chest tightness) Abdominal/Gastrointestinal: Abdominal Pain (cramps), Nausea, Diarrhea, No Vomiting Skin: No Rash Neurological: No Headache Psychological: Alcohol Abuse All Other Systems: Reviewed and Negative - Nursing Vital Signs Nursing Vital Signs: Initial Vital Signs Temperature 98.2 F 07/22/19 19:37 Pulse Rate 56 L 07/22/19 19:37 Respiratory Rate 13 07/22/19 19:37 Blood Pressure 155/100 07/22/19 19:37 O2 Sat by Pulse Oximetry 100 07/22/19 19:37 Pain Scale Pain Intensity 0 - Physical Exam General Appearance: alert Eyes, Ears, Nose, Throat Exam: TMs normal, pharyngeal erythema (mild) Neck Exam: normal inspection Respiratory Exam: lungs clear Cardiovascular Exam: bradycardia Gastrointestinal/Abdominal Exam: soft, normal bowel sounds Extremities Exam: No edema Peripheral Pulses: dorsalis-pedis (R): 2+, dorsalis-pedis (L): 2+ Current Suicidality: denies suicide plan Neurological Exam: alert, depressed affect Behavior/Eye Contact/Speech: alert & cooperative Thoughts/Hallucinations: No auditory hallucinations, No visual hallucinations Skin Exam: warm, dry SpO2 Interpretation: normal SpO2: 100 O2 Delivery: Room Air - Course Nursing assessment & vital signs reviewed: Yes EKG Interpreted by Me: RATE (46), Sinus Tyler, NORMAL AXIS, Other ([id number]) - Radiology Exams Chest X-ray Interpretation: Interpreted by me (NAD) Ordered Tests: Active Orders 24 hr Category Date Time Status EKG-ER Only STAT Care 07/22/19 21:26 Active EKG-ER Only STAT Care 07/23/19 01:08 Active Oxygen-ED Only Nasal Cannula 2 lpm Care 07/23/19 02:18 Active Psychiatric Consult STAT Cons 07/22/19 20:01 Active CHEST 2 VIEWS (PA AND LAT) Stat Exams 07/22/19 20:03 Taken ACETAMINOPHEN Stat Lab 07/22/19 20:50 Completed AMYLASE Stat Lab 07/22/19 20:50 Completed Alcohol [ETHYL ALCOHOL] Stat Lab 07/22/19 23:57 Completed CBC W DIFF Stat Lab 07/22/19 20:50 Completed CMP Stat Lab 07/22/19 20:50 Completed D-DIMER QUANTITATIVE Stat Lab 07/22/19 20:50 Completed ETHYL ALCOHOL Stat Lab 07/22/19 20:50 Completed HCG QUALITATIVE,SERUM Stat Lab 07/22/19 20:50 Completed LIPASE Stat Lab 07/22/19 20:50 Completed MAGNESIUM Stat Lab 07/22/19 20:50 Completed Wolfe Screen Stat Lab 07/22/19 20:50 Completed NT PRO BNP Stat Lab 07/22/19 20:50 Completed SALICYLATE Stat Lab 07/22/19 20:50 Completed TROPONIN Q3H Lab 07/22/19 20:50 Completed TROPONIN Q3H Lab 07/22/19 23:57 Completed TROPONIN Q3H Lab 07/23/19 02:15 Ordered TROPONIN Q3H Lab 07/23/19 05:15 Ordered TROPONIN Q3H Lab 07/23/19 08:15 Ordered UA W/RFX UR CULTURE Stat Lab 07/22/19 23:00 Completed Urine Triage Profile Stat Lab 07/22/19 23:00 Completed Medication Summary Discontinued Medications Generic Name Dose Route Start Last Admin Trade Name Freq PRN Reason Stop Dose Admin Acetaminophen 650 mg 07/22/19 21:24 07/22/19 21:32 Tylenol 325 Mg PO 07/22/19 21:25 650 mg STAT ONE Administration Acetaminophen Confirm 07/22/19 21:31 Tylenol 325 Mg Administered 07/22/19 21:32 Dose 650 mg .ROUTE .STK-MED ONE Ondansetron HCl 4 mg 07/22/19 21:24 07/22/19 21:32 Zofran Odt 4 Mg PO 07/22/19 21:25 4 mg STAT ONE Administration Ondansetron HCl Confirm 07/22/19 21:31 Zofran Odt 4 Mg Administered 07/22/19 21:32 Dose 4 mg .ROUTE .STK-MED ONE Potassium Bicarbonate 25 meq 07/22/19 21:28 07/22/19 21:34 K-Lyte 25 Meq PO 07/22/19 21:29 25 meq STAT ONE Administration Potassium Bicarbonate Confirm 07/22/19 21:32 K-Lyte 25 Meq Administered 07/22/19 21:33 Dose 25 meq .ROUTE .STK-MED ONE Lab/Rad Data: Laboratory Result Diagrams 07/22/19 20:50 07/22/19 20:50 Laboratory Results 07/22/19 07/22/19 07/22/19 Range/Units 23:57 23:57 23:00 WBC (4.0-10.5) K/mm3 RBC (4.1-5.4) M/mm3 Hgb (12.0-16.0) gm/dl Hct (35-47) % MCV (78-100) fl MCH (26-32) pg MCHC (32-36) g/dl RDW (11.5-14.0) % Plt Count (150-450) K/mm3 MPV (7.5-11.0) fl Gran % (36.0-66.0) % Eos # (Auto) (0-0.5) Absolute Lymphs (auto) (1.0-4.6) Absolute Monos (auto) (0.0-1.3) Lymphocytes % (24.0-44.0) % Monocytes % (0.0-12.0) % Eosinophils % (0.00-5.0) % Basophils % (0.0-0.4) % Absolute Granulocytes (1.4-6.9) Basophils # (0-0.4) D-Dimer (215-500) ng/mL Sodium (137-145) mmol/L Potassium (3.5-5.1) mmol/L Chloride (98-107) mmol/L Carbon Dioxide (22-30) mmol/L Anion Gap (5-15) MEQ/L BUN (7-17) mg/dL Creatinine (0.52-1.04) mg/dL Estimated GFR ML/MIN Glucose (74-106) mg/dL Calcium (8.4-10.2) mg/dL Magnesium (1.6-2.3) mg/dL Total Bilirubin (0.2-1.3) mg/dL AST (14-36) U/L ALT (0-35) U/L Alkaline Phosphatase (38-126) U/L Troponin I 0.031 (0.000-0.034) ng/mL NT-Pro-B Natriuret Pep (0-450) pg/mL Serum Total Protein (6.3-8.2) g/dL Albumin (3.5-5.0) g/dL Amylase (30-110) U/L Lipase (23-300) U/L Serum , Qual (Negative) Urine Color (YELLOW) Urine Appearance (CLEAR) Urine pH (5-6) Ur Specific [place] (1.005-1.025) Urine Protein (Negative) Urine Ketones (NEGATIVE) Urine Blood (0-5) Haroldo/ul Urine Nitrite (NEGATIVE) Urine Bilirubin (NEGATIVE) Urine Urobilinogen (0-1) mg/dL Ur Leukocyte Esterase (NEGATIVE) Urine WBC (Auto) (0-5) /HPF Urine RBC (Auto) (0-2) /HPF U Epithel Cells (Auto) (FEW) /HPF Urine Bacteria (Auto) (NEGATIVE) /HPF Urine Mucus (Auto) (NEGATIVE) /HPF Urine Culture Reflexed (NO) Urine Glucose (NEGATIVE) mg/dL Salicylates (2-20) mg/dL Urine Opiates Level NEGATIVE (NEGATIVE) Ur Methadone NEGATIVE (NEGATIVE) Acetaminophen (10-30) ug/ml Urine Barbiturates NEGATIVE (NEGATIVE) Ur Phencyclidine (PCP) NEGATIVE (NEGATIVE) Urine Amphetamine NEGATIVE (NEGATIVE) U Benzodiazepine Level NEGATIVE (NEGATIVE) Urine Cocaine NEGATIVE (NEGATIVE) Urine Marijuana (THC) NEGATIVE (NEGATIVE) Ethyl Alcohol 87 H (0-10) mg/dL Monoscreen (Negative) Influenza Type A Ag (NEGATIVE) Influenza Type B Ag (NEGATIVE) RSV (PCR) (Negative) Group A Strep Antibody (NEGATIVE) 07/22/19 07/22/19 07/22/19 Range/Units 23:00 20:50 20:50 WBC (4.0-10.5) K/mm3 RBC (4.1-5.4) M/mm3 Hgb (12.0-16.0) gm/dl Hct (35-47) % MCV (78-100) fl MCH (26-32) pg MCHC (32-36) g/dl RDW (11.5-14.0) % Plt Count (150-450) K/mm3 MPV (7.5-11.0) fl Gran % (36.0-66.0) % Eos # (Auto) (0-0.5) Absolute Lymphs (auto) (1.0-4.6) Absolute Monos (auto) (0.0-1.3) Lymphocytes % (24.0-44.0) % Monocytes % (0.0-12.0) % Eosinophils % (0.00-5.0) % Basophils % (0.0-0.4) % Absolute Granulocytes (1.4-6.9) Basophils # (0-0.4) D-Dimer (215-500) ng/mL Sodium (137-145) mmol/L Potassium (3.5-5.1) mmol/L Chloride (98-107) mmol/L Carbon Dioxide (22-30) mmol/L Anion Gap (5-15) MEQ/L BUN (7-17) mg/dL Creatinine (0.52-1.04) mg/dL Estimated GFR ML/MIN Glucose (74-106) mg/dL Calcium (8.4-10.2) mg/dL Magnesium (1.6-2.3) mg/dL Total Bilirubin (0.2-1.3) mg/dL AST (14-36) U/L ALT (0-35) U/L Alkaline Phosphatase (38-126) U/L Troponin I (0.000-0.034) ng/mL NT-Pro-B Natriuret Pep (0-450) pg/mL Serum Total Protein (6.3-8.2) g/dL Albumin (3.5-5.0) g/dL Amylase (30-110) U/L Lipase (23-300) U/L Serum , Qual (Negative) Urine Color YELLOW (YELLOW) Urine Appearance CLOUDY (CLEAR) Urine pH 7.0 (5-6) Ur Specific [place] 1.010 (1.005-1.025) Urine Protein NEGATIVE (Negative) Urine Ketones NEGATIVE (NEGATIVE) Urine Blood SMALL (0-5) Haroldo/ul Urine Nitrite NEGATIVE (NEGATIVE) Urine Bilirubin NEGATIVE (NEGATIVE) Urine Urobilinogen NEGATIVE (0-1) mg/dL Ur Leukocyte Esterase NEGATIVE (NEGATIVE) Urine WBC (Auto) 3-5 (0-5) /HPF Urine RBC (Auto) 6-10 (0-2) /HPF U Epithel Cells (Auto) MANY (FEW) /HPF Urine Bacteria (Auto) FEW (NEGATIVE) /HPF Urine Mucus (Auto) SLIGHT (NEGATIVE) /HPF Urine Culture Reflexed NO (NO) Urine Glucose NEGATIVE (NEGATIVE) mg/dL Salicylates (2-20) mg/dL Urine Opiates Level (NEGATIVE) Ur Methadone (NEGATIVE) Acetaminophen (10-30) ug/ml Urine Barbiturates (NEGATIVE) Ur Phencyclidine (PCP) (NEGATIVE) Urine Amphetamine (NEGATIVE) U Benzodiazepine Level (NEGATIVE) Urine Cocaine (NEGATIVE) Urine Marijuana (THC) (NEGATIVE) Ethyl Alcohol (0-10) mg/dL Monoscreen NEGATIVE (Negative) Influenza Type A Ag NEGATIVE (NEGATIVE) Influenza Type B Ag NEGATIVE (NEGATIVE) RSV (PCR) NEGATIVE (Negative) Group A Strep Antibody NOT DETECTED (NEGATIVE) 07/22/19 07/22/19 07/22/19 Range/Units 20:50 20:50 20:50 WBC (4.0-10.5) K/mm3 RBC (4.1-5.4) M/mm3 Hgb (12.0-16.0) gm/dl Hct (35-47) % MCV (78-100) fl MCH (26-32) pg MCHC (32-36) g/dl RDW (11.5-14.0) % Plt Count (150-450) K/mm3 MPV (7.5-11.0) fl Gran % (36.0-66.0) % Eos # (Auto) (0-0.5) Absolute Lymphs (auto) (1.0-4.6) Absolute Monos (auto) (0.0-1.3) Lymphocytes % (24.0-44.0) % Monocytes % (0.0-12.0) % Eosinophils % (0.00-5.0) % Basophils % (0.0-0.4) % Absolute Granulocytes (1.4-6.9) Basophils # (0-0.4) D-Dimer 236 (215-500) ng/mL Sodium (137-145) mmol/L Potassium (3.5-5.1) mmol/L Chloride (98-107) mmol/L Carbon Dioxide (22-30) mmol/L Anion Gap (5-15) MEQ/L BUN (7-17) mg/dL Creatinine (0.52-1.04) mg/dL Estimated GFR ML/MIN Glucose (74-106) mg/dL Calcium (8.4-10.2) mg/dL Magnesium 2.1 (1.6-2.3) mg/dL Total Bilirubin (0.2-1.3) mg/dL AST (14-36) U/L ALT (0-35) U/L Alkaline Phosphatase (38-126) U/L Troponin I < 0.012 (0.000-0.034) ng/mL NT-Pro-B Natriuret Pep 212 (0-450) pg/mL Serum Total Protein (6.3-8.2) g/dL Albumin (3.5-5.0) g/dL Amylase (30-110) U/L Lipase (23-300) U/L Serum , Qual (Negative) Urine Color (YELLOW) Urine Appearance (CLEAR) Urine pH (5-6) Ur Specific [place] (1.005-1.025) Urine Protein (Negative) Urine Ketones (NEGATIVE) Urine Blood (0-5) Haroldo/ul Urine Nitrite (NEGATIVE) Urine Bilirubin (NEGATIVE) Urine Urobilinogen (0-1) mg/dL Ur Leukocyte Esterase (NEGATIVE) Urine WBC (Auto) (0-5) /HPF Urine RBC (Auto) (0-2) /HPF U Epithel Cells (Auto) (FEW) /HPF Urine Bacteria (Auto) (NEGATIVE) /HPF Urine Mucus (Auto) (NEGATIVE) /HPF Urine Culture Reflexed (NO) Urine Glucose (NEGATIVE) mg/dL Salicylates (2-20) mg/dL Urine Opiates Level (NEGATIVE) Ur Methadone (NEGATIVE) Acetaminophen (10-30) ug/ml Urine Barbiturates (NEGATIVE) Ur Phencyclidine (PCP) (NEGATIVE) Urine Amphetamine (NEGATIVE) U Benzodiazepine Level (NEGATIVE) Urine Cocaine (NEGATIVE) Urine Marijuana (THC) (NEGATIVE) Ethyl Alcohol (0-10) mg/dL Monoscreen (Negative) Influenza Type A Ag (NEGATIVE) Influenza Type B Ag (NEGATIVE) RSV (PCR) (Negative) Group A Strep Antibody (NEGATIVE) 07/22/19 07/22/19 07/22/19 Range/Units 20:50 20:50 20:50 WBC (4.0-10.5) K/mm3 RBC (4.1-5.4) M/mm3 Hgb (12.0-16.0) gm/dl Hct (35-47) % MCV (78-100) fl MCH (26-32) pg MCHC (32-36) g/dl RDW (11.5-14.0) % Plt Count (150-450) K/mm3 MPV (7.5-11.0) fl Gran % (36.0-66.0) % Eos # (Auto) (0-0.5) Absolute Lymphs (auto) (1.0-4.6) Absolute Monos (auto) (0.0-1.3) Lymphocytes % (24.0-44.0) % Monocytes % (0.0-12.0) % Eosinophils % (0.00-5.0) % Basophils % (0.0-0.4) % Absolute Granulocytes (1.4-6.9) Basophils # (0-0.4) D-Dimer (215-500) ng/mL Sodium 142 (137-145) mmol/L Potassium 3.4 L (3.5-5.1) mmol/L Chloride 107 (98-107) mmol/L Carbon Dioxide 25 (22-30) mmol/L Anion Gap 12.8 (5-15) MEQ/L BUN 5 L (7-17) mg/dL Creatinine 0.42 L (0.52-1.04) mg/dL Estimated GFR > 60.0 ML/MIN Glucose 155 H (74-106) mg/dL Calcium 8.5 (8.4-10.2) mg/dL Magnesium (1.6-2.3) mg/dL Total Bilirubin 0.40 (0.2-1.3) mg/dL AST 19 (14-36) U/L ALT 8 (0-35) U/L Alkaline Phosphatase 86 (38-126) U/L Troponin I (0.000-0.034) ng/mL NT-Pro-B Natriuret Pep (0-450) pg/mL Serum Total Protein 7.0 (6.3-8.2) g/dL Albumin 3.9 (3.5-5.0) g/dL Amylase 47 (30-110) U/L Lipase 109 (23-300) U/L Serum , Qual NEGATIVE (Negative) Urine Color (YELLOW) Urine Appearance (CLEAR) Urine pH (5-6) Ur Specific [place] (1.005-1.025) Urine Protein (Negative) Urine Ketones (NEGATIVE) Urine Blood (0-5) Haroldo/ul Urine Nitrite (NEGATIVE) Urine Bilirubin (NEGATIVE) Urine Urobilinogen (0-1) mg/dL Ur Leukocyte Esterase (NEGATIVE) Urine WBC (Auto) (0-5) /HPF Urine RBC (Auto) (0-2) /HPF U Epithel Cells (Auto) (FEW) /HPF Urine Bacteria (Auto) (NEGATIVE) /HPF Urine Mucus (Auto) (NEGATIVE) /HPF Urine Culture Reflexed (NO) Urine Glucose (NEGATIVE) mg/dL Salicylates < 1.0 L (2-20) mg/dL Urine Opiates Level (NEGATIVE) Ur Methadone (NEGATIVE) Acetaminophen < 10 L (10-30) ug/ml Urine Barbiturates (NEGATIVE) Ur Phencyclidine (PCP) (NEGATIVE) Urine Amphetamine (NEGATIVE) U Benzodiazepine Level (NEGATIVE) Urine Cocaine (NEGATIVE) Urine Marijuana (THC) (NEGATIVE) Ethyl Alcohol 133 H (0-10) mg/dL Monoscreen (Negative) Influenza Type A Ag (NEGATIVE) Influenza Type B Ag (NEGATIVE) RSV (PCR) (Negative) Group A Strep Antibody (NEGATIVE) 07/22/19 Range/Units 20:50 WBC 6.6 (4.0-10.5) K/mm3 RBC 4.14 (4.1-5.4) M/mm3 Hgb 14.5 (12.0-16.0) gm/dl Hct 40.7 (35-47) % MCV 98.3 (78-100) fl MCH 35.0 H (26-32) pg MCHC 35.6 (32-36) g/dl RDW 15.1 H (11.5-14.0) % Plt Count 203 (150-450) K/mm3 MPV 9.6 (7.5-11.0) fl Gran % 44.5 (36.0-66.0) % Eos # (Auto) 0.10 (0-0.5) Absolute Lymphs (auto) 2.98 (1.0-4.6) Absolute Monos (auto) 0.53 (0.0-1.3) Lymphocytes % 45.4 H (24.0-44.0) % Monocytes % 8.1 (0.0-12.0) % Eosinophils % 1.5 (0.00-5.0) % Basophils % 0.5 (0.0-0.4) % Absolute Granulocytes 2.92 (1.4-6.9) Basophils # 0.03 (0-0.4) D-Dimer (215-500) ng/mL Sodium (137-145) mmol/L Potassium (3.5-5.1) mmol/L Chloride (98-107) mmol/L Carbon Dioxide (22-30) mmol/L Anion Gap (5-15) MEQ/L BUN (7-17) mg/dL Creatinine (0.52-1.04) mg/dL Estimated GFR ML/MIN Glucose (74-106) mg/dL Calcium (8.4-10.2) mg/dL Magnesium (1.6-2.3) mg/dL Total Bilirubin (0.2-1.3) mg/dL AST (14-36) U/L ALT (0-35) U/L Alkaline Phosphatase (38-126) U/L Troponin I (0.000-0.034) ng/mL NT-Pro-B Natriuret Pep (0-450) pg/mL Serum Total Protein (6.3-8.2) g/dL Albumin (3.5-5.0) g/dL Amylase (30-110) U/L Lipase (23-300) U/L Serum , Qual (Negative) Urine Color (YELLOW) Urine Appearance (CLEAR) Urine pH (5-6) Ur Specific [place] (1.005-1.025) Urine Protein (Negative) Urine Ketones (NEGATIVE) Urine Blood (0-5) Haroldo/ul Urine Nitrite (NEGATIVE) Urine Bilirubin (NEGATIVE) Urine Urobilinogen (0-1) mg/dL Ur Leukocyte Esterase (NEGATIVE) Urine WBC (Auto) (0-5) /HPF Urine RBC (Auto) (0-2) /HPF U Epithel Cells (Auto) (FEW) /HPF Urine Bacteria (Auto) (NEGATIVE) /HPF Urine Mucus (Auto) (NEGATIVE) /HPF Urine Culture Reflexed (NO) Urine Glucose (NEGATIVE) mg/dL Salicylates (2-20) mg/dL Urine Opiates Level (NEGATIVE) Ur Methadone (NEGATIVE) Acetaminophen (10-30) ug/ml Urine Barbiturates (NEGATIVE) Ur Phencyclidine (PCP) (NEGATIVE) Urine Amphetamine (NEGATIVE) U Benzodiazepine Level (NEGATIVE) Urine Cocaine (NEGATIVE) Urine Marijuana (THC) (NEGATIVE) Ethyl Alcohol (0-10) mg/dL Monoscreen (Negative) Influenza Type A Ag (NEGATIVE) Influenza Type B Ag (NEGATIVE) RSV (PCR) (Negative) Group A Strep Antibody (NEGATIVE) - Progress Progress: unchanged Progress Note: 07/23/19 01:54 repeat ekg @ 0147: sinus bradycardia @ 43, unchanged from ekg @ 2204 except rate has decreased. Discussed with : Henry (icu - obs) Will see patient in: hospital (observation) (icu) Counseled pt/family regarding: lab results, rad results - Departure Departure Disposition: Observation (icu) Clinical Impression: Clonidine overdose, Bradycardia, elevating troponin, Alcohol intoxication, GERD (gastroesophageal reflux disease), Anxiety, Depression, Chest tightness, Dyspnea, Diarrhea Condition: Fair Critical Care Time: Yes Critical Care Time(excluding separately billable procedures): Critical 30-74 mins Referrals: RUMA BUCK PA [Primary Care Provider] -
[2019-07-22 21:06] LABS: Absolute Neutrophil Ct (ANC) 2.92 (1.4-6.9); BASOPHIL % 0.5 % (0.0-0.4); Basophil (Absolute #) 0.03 (0-0.4); Eosinophil % 1.5 % (0.00-5.0); Hematocrit 40.7 % (35-47); Hemoglobin 14.5 gm/dl (12.0-16.0); Lymphocyte (Absolute #) 2.98 (1.0-4.6); Lymphocytes % 45.4 % (24.0-44.0); Mean Cell Volume 98.3 fl (78-100); Mean Corpuscular Hgb Concent. 35.6 g/dl (32-36); Mean Platelet Volume 9.6 fl (7.5-11.0); Monocyte (Absolute #) 0.53 (0.0-1.3); Monocytes % 8.1 % (0.0-12.0); Neutrophil % 44.5 % (36.0-66.0); Platelet Count 203 K/mm3 (150-450); Red Blood Count 4.14 M/mm3 (4.1-5.4); Red Cell Distribution Width 15.1 % (11.5-14.0); White Blood Count 6.6 K/mm3 (4.0-10.5)
[2019-07-22 21:20] LABS: AMYLASE 47 U/L (30-110); LIPASE 109 U/L (23-300)
[2019-07-22 21:23] LABS: ALBUMIN 3.9 g/dL (3.5-5.0); ALKALINE PHOSPHATASE 86 U/L (38-126); ANION GAP 12.8 MEQ/L (5-15); BLOOD UREA NITROGEN 5 mg/dL (7-17); CHLORIDE 107 mmol/L (98-107); Calcium 8.5 mg/dL (8.4-10.2); Carbon Dioxide 25 mmol/L (22-30); Creatinine 1 0.42 mg/dL (0.52-1.04); ETHYL ALCOHOL 133 mg/dL (0-10); Glucose 155 mg/dL (74-106); Potassium 3.4 mmol/L (3.5-5.1); SGOT/AST 19 U/L (14-36); SGPT/ALT 8 U/L (0-35); SODIUM 142 mmol/L (137-145)
[2019-07-22 21:24] LABS: ACETAMINOPHEN < 10 ug/ml (10-30); SALICYLATE < 1.0 mg/dL (2-20)
[2019-07-22] MEDS ORDERED: TYLENOL 325 MG PO ONE (21:24)
[2019-07-22] MEDS ORDERED: ZOFRAN ODT 4 MG PO ONE (21:24)
[2019-07-22] MEDS ORDERED: K-LYTE 25 MEQ PO ONE (21:28)
[2019-07-22] MEDS ORDERED: ZOFRAN ODT 4 MG ONE (21:31)
[2019-07-22] MEDS ORDERED: TYLENOL 325 MG ONE (21:31)
[2019-07-22] MEDS ORDERED: K-LYTE 25 MEQ ONE (21:32)
[2019-07-22 21:48] LABS: INFLUENZA A NEGATIVE (NEGATIVE); INFLUENZA B NEGATIVE (NEGATIVE); RESPIRATORY SYNCTIAL VIRUS NEGATIVE (Negative)
[2019-07-22 21:54] LABS: MAGNESIUM 2.1 mg/dL (1.6-2.3)
[2019-07-22 23:48] LABS: Appearance CLOUDY (CLEAR); Bacteria FEW /HPF (NEGATIVE); Bilirubin NEGATIVE (NEGATIVE); Blood SMALL Ery/ul (0-5); Epithelial Cells MANY /HPF (FEW); Glucose NEGATIVE (NEGATIVE); Ketones NEGATIVE (NEGATIVE); Leukocyte Esterase NEGATIVE (NEGATIVE); Mucus SLIGHT /HPF (NEGATIVE); Nitrite NEGATIVE (NEGATIVE); Protein,Urine Dip NEGATIVE (Negative); Urobilinogen NEGATIVE mg/dL (0-1)
[2019-07-23 00:33] LABS: Amphetamine,Urine NEGATIVE (NEGATIVE); Barbiturate,Urine NEGATIVE (NEGATIVE); Benzodiazepine,Urine NEGATIVE (NEGATIVE); Cocaine,Urine NEGATIVE (NEGATIVE); Methadone,Urine NEGATIVE (NEGATIVE); Opiate,Urine NEGATIVE (NEGATIVE); PCP,Urine NEGATIVE (NEGATIVE); THC,Urine NEGATIVE (NEGATIVE)
[2019-07-23] MEDS ORDERED: Zofran 4 MG/2 ML VIAL IV PRN (02:21)
[2019-07-23] MEDS: Sodium Chloride 0.9% 1000 ML 1,000 ML IV SCH ×2 (03:30→12:32)
[2019-07-23 06:23] LABS: Absolute Neutrophil Ct (ANC) 1.77 (1.4-6.9); BASOPHIL % 0.6 % (0.0-0.4); Basophil (Absolute #) 0.03 (0-0.4); Eosinophil % 2.8 % (0.00-5.0); Eosinophil (Absolute #) 0.15 (0-0.5); Hemoglobin 13.9 gm/dl (12.0-16.0); Lymphocyte (Absolute #) 3.02 (1.0-4.6); Lymphocytes % 56.6 % (24.0-44.0); Mean Cell Volume 99.3 fl (78-100); Mean Corpuscular Hemoglobin 34.5 pg (26-32); Mean Corpuscular Hgb Concent. 34.8 g/dl (32-36); Monocyte (Absolute #) 0.37 (0.0-1.3); Monocytes % 6.9 % (0.0-12.0); Neutrophil % 33.1 % (36.0-66.0); Platelet Count 176 K/mm3 (150-450); Red Blood Count 4.03 M/mm3 (4.1-5.4); Red Cell Distribution Width 15.1 % (11.5-14.0); White Blood Count 5.3 K/mm3 (4.0-10.5)
[2019-07-23 06:49] LABS: ALBUMIN 3.4 g/dL (3.5-5.0); ALKALINE PHOSPHATASE 75 U/L (38-126); ANION GAP 11.4 MEQ/L (5-15); BLOOD UREA NITROGEN 7 mg/dL (7-17); CHLORIDE 104 mmol/L (98-107); Calcium 8.3 mg/dL (8.4-10.2); Carbon Dioxide 25 mmol/L (22-30); Creatinine 1 0.36 mg/dL (0.52-1.04); Glucose 112 mg/dL (74-106); Potassium 4.3 mmol/L (3.5-5.1); SGOT/AST 14 U/L (14-36); SGPT/ALT 7 U/L (0-35); SODIUM 136 mmol/L (137-145); Total Protein 6.2 g/dL (6.3-8.2)
--- NOTE | 2019-07-23 07:58 | XRAY ---
Indication: Cough and chest tightness. Comparison: May 17, 2019. PA/lateral chest again demonstrates normal heart and lungs. Bony thorax intact. No new/acute findings.
[2019-07-23] MEDS ORDERED: Protonix 40MG Tablet PO SCH (12:00)
[2019-07-23] MEDS: Dilantin 100 MG PO SCH ×2 (12:29→16:10)
--- NOTE | 2019-07-23 12:52 | PCM.SSS ---
History of Present Illness - Chief Complaint Chief Complaint: Clonidine overdose, Bradycardia, ETOH intox, elevated troponin , Depression. History of Present Illness: is a 44 year old female pt of DR. Walsh (sees BERNARDINO Chew) with PMHx alcoholism, depression with suicide attempts, GERD, anxiety, depression who was admitted through ER with alcohol intoxication and drug overdose. Her spouse apparently called EMS because she was weak due to increased EtOH intake. Per pt she drank 3 shots of vodka and one "4 [place]," took her pills as usual, then took 5 extra clonidine 0.2mg and 5 extra hydroxyzine 10mg. She denies suicidal ideation, says she just wanted to sleep for about two weeks. States there are stresses at home and due to coronavirus outbreak. Pt was bradycardic down to HR of 43 when she was in the ER (EKG showed sinus bradycardia). Flu, mono, and group A strep tests were negative. AST, ALT, and Alk phos were nl. CXR nl. WBC 5.3, hgb 13.9. Plt 176. She has been drinking more over the past 1 mo; prior to that she was sober x 2 mo. She would like to be sober again, and is interested in trying Antabuse. Pt is feeling tired this morning, which she states is chronic for her. She does complain of some LUQ pain, states it is 9/10, but thinks it is gas pain (just started this a.m.). [facility] consult was done; they recommended outpatient followup. Pt is very agreeable to seeing a counselor outpatient. Pt will get a dilantin level and an abd film then be discharged to home. - Review of Systems Respiratory: Cough (since she had flu months ago), Short Of Breath (with lying down - for the past 6 mo) Cardiac: Chest Pain (x 6 mo, with lying down - pt states is supposed to get a sleep study) Abdominal/Gastrointestinal: Diarrhea (recently, 3-4x/d. No BM yet today) Neurological: Seizure (last sz 10d ago, she thinks related to her drinking) Psychological: Anxiety, No Suicidal Ideations All Other Systems: Reviewed and Negative Medications & Allergies Home Medications: Home Medication List Phenytoin Sod Extended 100 mg* [Dilantin 100 MG] 100 mg PO TID 10/22/18 [ History Confirmed 07/22/19] Clonidine HCl 0.1 mg [Catapres 0.1 MG] 0.2 mg PO TIDPRN PRN 02/15/19 [ History Confirmed 07/22/19] Lansoprazole 30 mg PO DAILY 02/15/19 [History Confirmed 07/22/19] hydrOXYzine HCL [Hydroxyzine HCl] 10 mg PO TID PRN PRN 07/22/19 [History Confirmed 07/22/19] Disulfiram [Antabuse] 500 mg PO DAILY #7 tablet 07/23/19 [Rx] Allergies/Adverse Reactions: Allergies Allergy/AdvReac Type Severity Reaction Status Date / Time tramadol Allergy Severe Hives Verified 07/22/19 19:49 cyclobenzaprine Allergy Verified 07/22/19 19:49 [From Flexeril] latex Allergy Verified 07/22/19 19:49 - Past Medical History Past Medical History: Yes Neurological History: Seizures ENT History: No Pertinent History Cardiac History: No Pertinent History Respiratory History: No Pertinent History Endocrine Medical History: No Pertinent History Musculoskelatal History: No Pertinent History GI Medical History: GERD History: No Pertinent History Pyscho-Social History: Anxiety, Depression Reproductive Disorders: No Pertinent History - Female History Are you now?: No - Past Surgical History Past Surgical History: Yes Neuro Surgical History: No Pertinent History Cardiac History: No Pertinent History Respiratory Surgery: No Pertinent History GI Surgical History: Appendectomy, Cholecystectomy Genitourinary Surgical Hx: No Pertinent History Musculskeletal Surgical Hx: No Pertinent History Female Surgical History: Tubal Ligation Other Surgical History: 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" - Social History Smoking Status: Current every day smoker How long have you smoked: 20 yrs Exposure to second hand smoke: Yes Alcohol: Daily Drug Use: none - Physical Exam Vital Signs: Vital Signs - 24 hr Temp Pulse Resp BP Pulse Ox 07/23/19 08:00 97.7 F 58 L 19 102/70 96 07/23/19 04:00 98.1 F 52 L 20 118/72 100 07/23/19 02:56 97.5 F 52 L 24 128/81 07/23/19 02:26 100 07/23/19 02:20 100 07/23/19 02:14 68 14 138/66 98 07/23/19 01:25 58 L 14 125/82 99 07/22/19 23:44 50 L 16 129/83 98 07/22/19 22:40 48 L 15 129/83 98 07/22/19 21:50 51 L 14 149/90 99 07/22/19 21:17 56 L 14 133/95 99 07/22/19 19:37 98.2 F 56 L 13 155/100 100 Oxygen-Last 24 hours Oxygen Flowrate (L/min)-RT 2 General Appearance: no apparent distress, alert Neurologic Exam: oriented x 3, cooperative Eye Exam: eyes nml inspection Ears, Nose, Throat Exam: moist mucous membranes Neck Exam: normal inspection, non-tender, No lymphadenopathy Respiratory Exam: normal breath sounds, lungs clear, No crackles/rales, No rhonchi, No wheezing Cardiovascular Exam: regular rate/rhythm, normal heart sounds, No murmur Gastrointestinal/Abdomen Exam: soft, normal bowel sounds, tenderness (LUQ, mild) , No distention, No mass, No guarding, No rebound Back Exam: normal inspection, CVA tenderness (mild on L) Extremity Exam: normal inspection, No pedal edema, No swelling Skin Exam: normal color, warm, dry, No rash Results - Labs Lab/Micro Results: Lab Results-Last 24 Hours 07/22/19 07/22/19 07/22/19 Range/Units 20:50 20:50 20:50 WBC 6.6 (4.0-10.5) K/mm3 RBC 4.14 (4.1-5.4) M/mm3 Hgb 14.5 (12.0-16.0) gm/dl Hct 40.7 (35-47) % MCV 98.3 (78-100) fl MCH 35.0 H (26-32) pg MCHC 35.6 (32-36) g/dl RDW 15.1 H (11.5-14.0) % Plt Count 203 (150-450) K/mm3 MPV 9.6 (7.5-11.0) fl Gran % 44.5 (36.0-66.0) % Eos # (Auto) 0.10 (0-0.5) Absolute Lymphs (auto) 2.98 (1.0-4.6) Absolute Monos (auto) 0.53 (0.0-1.3) Lymphocytes % 45.4 H (24.0-44.0) % Monocytes % 8.1 (0.0-12.0) % Eosinophils % 1.5 (0.00-5.0) % Basophils % 0.5 (0.0-0.4) % Absolute Granulocytes 2.92 (1.4-6.9) Basophils # 0.03 (0-0.4) D-Dimer (215-500) ng/mL Sodium 142 (137-145) mmol/L Potassium 3.4 L (3.5-5.1) mmol/L Chloride 107 (98-107) mmol/L Carbon Dioxide 25 (22-30) mmol/L Anion Gap 12.8 (5-15) MEQ/L BUN 5 L (7-17) mg/dL Creatinine 0.42 L (0.52-1.04) mg/dL Estimated GFR > 60.0 ML/MIN Glucose 155 H (74-106) mg/dL Calcium 8.5 (8.4-10.2) mg/dL Magnesium (1.6-2.3) mg/dL Total Bilirubin 0.40 (0.2-1.3) mg/dL AST 19 (14-36) U/L ALT 8 (0-35) U/L Alkaline Phosphatase 86 (38-126) U/L Troponin I (0.000-0.034) ng/mL NT-Pro-B Natriuret Pep (0-450) pg/mL Serum Total Protein 7.0 (6.3-8.2) g/dL Albumin 3.9 (3.5-5.0) g/dL Amylase 47 (30-110) U/L Lipase 109 (23-300) U/L Serum , Qual (Negative) Urine Color (YELLOW) Urine Appearance (CLEAR) Urine pH (5-6) Ur Specific [place] (1.005-1.025) Urine Protein (Negative) Urine Ketones (NEGATIVE) Urine Blood (0-5) [place]/ul Urine Nitrite (NEGATIVE) Urine Bilirubin (NEGATIVE) Urine Urobilinogen (0-1) mg/dL Ur Leukocyte Esterase (NEGATIVE) Urine WBC (Auto) (0-5) /HPF Urine RBC (Auto) (0-2) /HPF U Epithel Cells (Auto) (FEW) /HPF Urine Bacteria (Auto) (NEGATIVE) /HPF Urine Mucus (Auto) (NEGATIVE) /HPF Urine Culture Reflexed (NO) Urine Glucose (NEGATIVE) mg/dL Salicylates < 1.0 L (2-20) mg/dL Urine Opiates Level (NEGATIVE) Ur Methadone (NEGATIVE) Acetaminophen < 10 L (10-30) ug/ml Urine Barbiturates (NEGATIVE) Ur Phencyclidine (PCP) (NEGATIVE) Urine Amphetamine (NEGATIVE) U Benzodiazepine Level (NEGATIVE) Urine Cocaine (NEGATIVE) Urine Marijuana (THC) (NEGATIVE) Ethyl Alcohol 133 H (0-10) mg/dL Monoscreen (Negative) Influenza Type A Ag (NEGATIVE) Influenza Type B Ag (NEGATIVE) RSV (PCR) (Negative) Group A Strep Antibody (NEGATIVE) 07/22/19 07/22/19 07/22/19 Range/Units 20:50 20:50 20:50 WBC (4.0-10.5) K/mm3 RBC (4.1-5.4) M/mm3 Hgb (12.0-16.0) gm/dl Hct (35-47) % MCV (78-100) fl MCH (26-32) pg MCHC (32-36) g/dl RDW (11.5-14.0) % Plt Count (150-450) K/mm3 MPV (7.5-11.0) fl Gran % (36.0-66.0) % Eos # (Auto) (0-0.5) Absolute Lymphs (auto) (1.0-4.6) Absolute Monos (auto) (0.0-1.3) Lymphocytes % (24.0-44.0) % Monocytes % (0.0-12.0) % Eosinophils % (0.00-5.0) % Basophils % (0.0-0.4) % Absolute Granulocytes (1.4-6.9) Basophils # (0-0.4) D-Dimer 236 (215-500) ng/mL Sodium (137-145) mmol/L Potassium (3.5-5.1) mmol/L Chloride (98-107) mmol/L Carbon Dioxide (22-30) mmol/L Anion Gap (5-15) MEQ/L BUN (7-17) mg/dL Creatinine (0.52-1.04) mg/dL Estimated GFR ML/MIN Glucose (74-106) mg/dL Calcium (8.4-10.2) mg/dL Magnesium 2.1 (1.6-2.3) mg/dL Total Bilirubin (0.2-1.3) mg/dL AST (14-36) U/L ALT (0-35) U/L Alkaline Phosphatase (38-126) U/L Troponin I (0.000-0.034) ng/mL NT-Pro-B Natriuret Pep 212 (0-450) pg/mL Serum Total Protein (6.3-8.2) g/dL Albumin (3.5-5.0) g/dL Amylase (30-110) U/L Lipase (23-300) U/L Serum , Qual NEGATIVE (Negative) Urine Color (YELLOW) Urine Appearance (CLEAR) Urine pH (5-6) Ur Specific [place] (1.005-1.025) Urine Protein (Negative) Urine Ketones (NEGATIVE) Urine Blood (0-5) [place]/ul Urine Nitrite (NEGATIVE) Urine Bilirubin (NEGATIVE) Urine Urobilinogen (0-1) mg/dL Ur Leukocyte Esterase (NEGATIVE) Urine WBC (Auto) (0-5) /HPF Urine RBC (Auto) (0-2) /HPF U Epithel Cells (Auto) (FEW) /HPF Urine Bacteria (Auto) (NEGATIVE) /HPF Urine Mucus (Auto) (NEGATIVE) /HPF Urine Culture Reflexed (NO) Urine Glucose (NEGATIVE) mg/dL Salicylates (2-20) mg/dL Urine Opiates Level (NEGATIVE) Ur Methadone (NEGATIVE) Acetaminophen (10-30) ug/ml Urine Barbiturates (NEGATIVE) Ur Phencyclidine (PCP) (NEGATIVE) Urine Amphetamine (NEGATIVE) U Benzodiazepine Level (NEGATIVE) Urine Cocaine (NEGATIVE) Urine Marijuana (THC) (NEGATIVE) Ethyl Alcohol (0-10) mg/dL Monoscreen (Negative) Influenza Type A Ag (NEGATIVE) Influenza Type B Ag (NEGATIVE) RSV (PCR) (Negative) Group A Strep Antibody (NEGATIVE) 07/22/19 07/22/19 07/22/19 Range/Units 20:50 20:50 20:50 WBC (4.0-10.5) K/mm3 RBC (4.1-5.4) M/mm3 Hgb (12.0-16.0) gm/dl Hct (35-47) % MCV (78-100) fl MCH (26-32) pg MCHC (32-36) g/dl RDW (11.5-14.0) % Plt Count (150-450) K/mm3 MPV (7.5-11.0) fl Gran % (36.0-66.0) % Eos # (Auto) (0-0.5) Absolute Lymphs (auto) (1.0-4.6) Absolute Monos (auto) (0.0-1.3) Lymphocytes % (24.0-44.0) % Monocytes % (0.0-12.0) % Eosinophils % (0.00-5.0) % Basophils % (0.0-0.4) % Absolute Granulocytes (1.4-6.9) Basophils # (0-0.4) D-Dimer (215-500) ng/mL Sodium (137-145) mmol/L Potassium (3.5-5.1) mmol/L Chloride (98-107) mmol/L Carbon Dioxide (22-30) mmol/L Anion Gap (5-15) MEQ/L BUN (7-17) mg/dL Creatinine (0.52-1.04) mg/dL Estimated GFR ML/MIN Glucose (74-106) mg/dL Calcium (8.4-10.2) mg/dL Magnesium (1.6-2.3) mg/dL Total Bilirubin (0.2-1.3) mg/dL AST (14-36) U/L ALT (0-35) U/L Alkaline Phosphatase (38-126) U/L Troponin I < 0.012 (0.000-0.034) ng/mL NT-Pro-B Natriuret Pep (0-450) pg/mL Serum Total Protein (6.3-8.2) g/dL Albumin (3.5-5.0) g/dL Amylase (30-110) U/L Lipase (23-300) U/L Serum , Qual (Negative) Urine Color (YELLOW) Urine Appearance (CLEAR) Urine pH (5-6) Ur Specific [place] (1.005-1.025) Urine Protein (Negative) Urine Ketones (NEGATIVE) Urine Blood (0-5) [place]/ul Urine Nitrite (NEGATIVE) Urine Bilirubin (NEGATIVE) Urine Urobilinogen (0-1) mg/dL Ur Leukocyte Esterase (NEGATIVE) Urine WBC (Auto) (0-5) /HPF Urine RBC (Auto) (0-2) /HPF U Epithel Cells (Auto) (FEW) /HPF Urine Bacteria (Auto) (NEGATIVE) /HPF Urine Mucus (Auto) (NEGATIVE) /HPF Urine Culture Reflexed (NO) Urine Glucose (NEGATIVE) mg/dL Salicylates (2-20) mg/dL Urine Opiates Level (NEGATIVE) Ur Methadone (NEGATIVE) Acetaminophen (10-30) ug/ml Urine Barbiturates (NEGATIVE) Ur Phencyclidine (PCP) (NEGATIVE) Urine Amphetamine (NEGATIVE) U Benzodiazepine Level (NEGATIVE) Urine Cocaine (NEGATIVE) Urine Marijuana (THC) (NEGATIVE) Ethyl Alcohol (0-10) mg/dL Monoscreen NEGATIVE (Negative) Influenza Type A Ag NEGATIVE (NEGATIVE) Influenza Type B Ag NEGATIVE (NEGATIVE) RSV (PCR) NEGATIVE (Negative) Group A Strep Antibody NOT DETECTED (NEGATIVE) 07/22/19 07/22/19 07/22/19 Range/Units 23:00 23:00 23:57 WBC (4.0-10.5) K/mm3 RBC (4.1-5.4) M/mm3 Hgb (12.0-16.0) gm/dl Hct (35-47) % MCV (78-100) fl MCH (26-32) pg MCHC (32-36) g/dl RDW (11.5-14.0) % Plt Count (150-450) K/mm3 MPV (7.5-11.0) fl Gran % (36.0-66.0) % Eos # (Auto) (0-0.5) Absolute Lymphs (auto) (1.0-4.6) Absolute Monos (auto) (0.0-1.3) Lymphocytes % (24.0-44.0) % Monocytes % (0.0-12.0) % Eosinophils % (0.00-5.0) % Basophils % (0.0-0.4) % Absolute Granulocytes (1.4-6.9) Basophils # (0-0.4) D-Dimer (215-500) ng/mL Sodium (137-145) mmol/L Potassium (3.5-5.1) mmol/L Chloride (98-107) mmol/L Carbon Dioxide (22-30) mmol/L Anion Gap (5-15) MEQ/L BUN (7-17) mg/dL Creatinine (0.52-1.04) mg/dL Estimated GFR ML/MIN Glucose (74-106) mg/dL Calcium (8.4-10.2) mg/dL Magnesium (1.6-2.3) mg/dL Total Bilirubin (0.2-1.3) mg/dL AST (14-36) U/L ALT (0-35) U/L Alkaline Phosphatase (38-126) U/L Troponin I 0.031 (0.000-0.034) ng/mL NT-Pro-B Natriuret Pep (0-450) pg/mL Serum Total Protein (6.3-8.2) g/dL Albumin (3.5-5.0) g/dL Amylase (30-110) U/L Lipase (23-300) U/L Serum , Qual (Negative) Urine Color YELLOW (YELLOW) Urine Appearance CLOUDY (CLEAR) Urine pH 7.0 (5-6) Ur Specific [place] 1.010 (1.005-1.025) Urine Protein NEGATIVE (Negative) Urine Ketones NEGATIVE (NEGATIVE) Urine Blood SMALL (0-5) [place]/ul Urine Nitrite NEGATIVE (NEGATIVE) Urine Bilirubin NEGATIVE (NEGATIVE) Urine Urobilinogen NEGATIVE (0-1) mg/dL Ur Leukocyte Esterase NEGATIVE (NEGATIVE) Urine WBC (Auto) 3-5 (0-5) /HPF Urine RBC (Auto) 6-10 (0-2) /HPF U Epithel Cells (Auto) MANY (FEW) /HPF Urine Bacteria (Auto) FEW (NEGATIVE) /HPF Urine Mucus (Auto) SLIGHT (NEGATIVE) /HPF Urine Culture Reflexed NO (NO) Urine Glucose NEGATIVE (NEGATIVE) mg/dL Salicylates (2-20) mg/dL Urine Opiates Level NEGATIVE (NEGATIVE) Ur Methadone NEGATIVE (NEGATIVE) Acetaminophen (10-30) ug/ml Urine Barbiturates NEGATIVE (NEGATIVE) Ur Phencyclidine (PCP) NEGATIVE (NEGATIVE) Urine Amphetamine NEGATIVE (NEGATIVE) U Benzodiazepine Level NEGATIVE (NEGATIVE) Urine Cocaine NEGATIVE (NEGATIVE) Urine Marijuana (THC) NEGATIVE (NEGATIVE) Ethyl Alcohol (0-10) mg/dL Monoscreen (Negative) Influenza Type A Ag (NEGATIVE) Influenza Type B Ag (NEGATIVE) RSV (PCR) (Negative) Group A Strep Antibody (NEGATIVE) 07/22/19 07/23/19 07/23/19 Range/Units 23:57 03:17 05:15 WBC (4.0-10.5) K/mm3 RBC (4.1-5.4) M/mm3 Hgb (12.0-16.0) gm/dl Hct (35-47) % MCV (78-100) fl MCH (26-32) pg MCHC (32-36) g/dl RDW (11.5-14.0) % Plt Count (150-450) K/mm3 MPV (7.5-11.0) fl Gran % (36.0-66.0) % Eos # (Auto) (0-0.5) Absolute Lymphs (auto) (1.0-4.6) Absolute Monos (auto) (0.0-1.3) Lymphocytes % (24.0-44.0) % Monocytes % (0.0-12.0) % Eosinophils % (0.00-5.0) % Basophils % (0.0-0.4) % Absolute Granulocytes (1.4-6.9) Basophils # (0-0.4) D-Dimer (215-500) ng/mL Sodium (137-145) mmol/L Potassium (3.5-5.1) mmol/L Chloride (98-107) mmol/L Carbon Dioxide (22-30) mmol/L Anion Gap (5-15) MEQ/L BUN (7-17) mg/dL Creatinine (0.52-1.04) mg/dL Estimated GFR ML/MIN Glucose (74-106) mg/dL Calcium (8.4-10.2) mg/dL Magnesium (1.6-2.3) mg/dL Total Bilirubin (0.2-1.3) mg/dL AST (14-36) U/L ALT (0-35) U/L Alkaline Phosphatase (38-126) U/L Troponin I 0.017 < 0.012 (0.000-0.034) ng/mL NT-Pro-B Natriuret Pep (0-450) pg/mL Serum Total Protein (6.3-8.2) g/dL Albumin (3.5-5.0) g/dL Amylase (30-110) U/L Lipase (23-300) U/L Serum , Qual (Negative) Urine Color (YELLOW) Urine Appearance (CLEAR) Urine pH (5-6) Ur Specific [place] (1.005-1.025) Urine Protein (Negative) Urine Ketones (NEGATIVE) Urine Blood (0-5) [place]/ul Urine Nitrite (NEGATIVE) Urine Bilirubin (NEGATIVE) Urine Urobilinogen (0-1) mg/dL Ur Leukocyte Esterase (NEGATIVE) Urine WBC (Auto) (0-5) /HPF Urine RBC (Auto) (0-2) /HPF U Epithel Cells (Auto) (FEW) /HPF Urine Bacteria (Auto) (NEGATIVE) /HPF Urine Mucus (Auto) (NEGATIVE) /HPF Urine Culture Reflexed (NO) Urine Glucose (NEGATIVE) mg/dL Salicylates (2-20) mg/dL Urine Opiates Level (NEGATIVE) Ur Methadone (NEGATIVE) Acetaminophen (10-30) ug/ml Urine Barbiturates (NEGATIVE) Ur Phencyclidine (PCP) (NEGATIVE) Urine Amphetamine (NEGATIVE) U Benzodiazepine Level (NEGATIVE) Urine Cocaine (NEGATIVE) Urine Marijuana (THC) (NEGATIVE) Ethyl Alcohol 87 H (0-10) mg/dL Monoscreen (Negative) Influenza Type A Ag (NEGATIVE) Influenza Type B Ag (NEGATIVE) RSV (PCR) (Negative) Group A Strep Antibody (NEGATIVE) 07/23/19 07/23/19 07/23/19 Range/Units 05:15 05:15 05:15 WBC 5.3 (4.0-10.5) K/mm3 RBC 4.03 L (4.1-5.4) M/mm3 Hgb 13.9 (12.0-16.0) gm/dl Hct 40.0 (35-47) % MCV 99.3 (78-100) fl MCH 34.5 H (26-32) pg MCHC 34.8 (32-36) g/dl RDW 15.1 H (11.5-14.0) % Plt Count 176 (150-450) K/mm3 MPV 10.0 (7.5-11.0) fl Gran % 33.1 L (36.0-66.0) % Eos # (Auto) 0.15 (0-0.5) Absolute Lymphs (auto) 3.02 (1.0-4.6) Absolute Monos (auto) 0.37 (0.0-1.3) Lymphocytes % 56.6 H (24.0-44.0) % Monocytes % 6.9 (0.0-12.0) % Eosinophils % 2.8 (0.00-5.0) % Basophils % 0.6 (0.0-0.4) % Absolute Granulocytes 1.77 (1.4-6.9) Basophils # 0.03 (0-0.4) D-Dimer (215-500) ng/mL Sodium 136 L (137-145) mmol/L Potassium 4.3 D (3.5-5.1) mmol/L Chloride 104 (98-107) mmol/L Carbon Dioxide 25 (22-30) mmol/L Anion Gap 11.4 (5-15) MEQ/L BUN 7 (7-17) mg/dL Creatinine 0.36 L (0.52-1.04) mg/dL Estimated GFR > 60.0 ML/MIN Glucose 112 H (74-106) mg/dL Calcium 8.3 L (8.4-10.2) mg/dL Magnesium (1.6-2.3) mg/dL Total Bilirubin 0.30 (0.2-1.3) mg/dL AST 14 (14-36) U/L ALT 7 (0-35) U/L Alkaline Phosphatase 75 (38-126) U/L Troponin I (0.000-0.034) ng/mL NT-Pro-B Natriuret Pep (0-450) pg/mL Serum Total Protein 6.2 L (6.3-8.2) g/dL Albumin 3.4 L (3.5-5.0) g/dL Amylase (30-110) U/L Lipase (23-300) U/L Serum , Qual (Negative) Urine Color (YELLOW) Urine Appearance (CLEAR) Urine pH (5-6) Ur Specific [place] (1.005-1.025) Urine Protein (Negative) Urine Ketones (NEGATIVE) Urine Blood (0-5) [place]/ul Urine Nitrite (NEGATIVE) Urine Bilirubin (NEGATIVE) Urine Urobilinogen (0-1) mg/dL Ur Leukocyte Esterase (NEGATIVE) Urine WBC (Auto) (0-5) /HPF Urine RBC (Auto) (0-2) /HPF U Epithel Cells (Auto) (FEW) /HPF Urine Bacteria (Auto) (NEGATIVE) /HPF Urine Mucus (Auto) (NEGATIVE) /HPF Urine Culture Reflexed (NO) Urine Glucose (NEGATIVE) mg/dL Salicylates (2-20) mg/dL Urine Opiates Level (NEGATIVE) Ur Methadone (NEGATIVE) Acetaminophen (10-30) ug/ml Urine Barbiturates (NEGATIVE) Ur Phencyclidine (PCP) (NEGATIVE) Urine Amphetamine (NEGATIVE) U Benzodiazepine Level (NEGATIVE) Urine Cocaine (NEGATIVE) Urine Marijuana (THC) (NEGATIVE) Ethyl Alcohol < 10 (0-10) mg/dL Monoscreen (Negative) Influenza Type A Ag (NEGATIVE) Influenza Type B Ag (NEGATIVE) RSV (PCR) (Negative) Group A Strep Antibody (NEGATIVE) 07/23/19 Range/Units 08:35 WBC (4.0-10.5) K/mm3 RBC (4.1-5.4) M/mm3 Hgb (12.0-16.0) gm/dl Hct (35-47) % MCV (78-100) fl MCH (26-32) pg MCHC (32-36) g/dl RDW (11.5-14.0) % Plt Count (150-450) K/mm3 MPV (7.5-11.0) fl Gran % (36.0-66.0) % Eos # (Auto) (0-0.5) Absolute Lymphs (auto) (1.0-4.6) Absolute Monos (auto) (0.0-1.3) Lymphocytes % (24.0-44.0) % Monocytes % (0.0-12.0) % Eosinophils % (0.00-5.0) % Basophils % (0.0-0.4) % Absolute Granulocytes (1.4-6.9) Basophils # (0-0.4) D-Dimer (215-500) ng/mL Sodium (137-145) mmol/L Potassium (3.5-5.1) mmol/L Chloride (98-107) mmol/L Carbon Dioxide (22-30) mmol/L Anion Gap (5-15) MEQ/L BUN (7-17) mg/dL Creatinine (0.52-1.04) mg/dL Estimated GFR ML/MIN Glucose (74-106) mg/dL Calcium (8.4-10.2) mg/dL Magnesium (1.6-2.3) mg/dL Total Bilirubin (0.2-1.3) mg/dL AST (14-36) U/L ALT (0-35) U/L Alkaline Phosphatase (38-126) U/L Troponin I < 0.012 (0.000-0.034) ng/mL NT-Pro-B Natriuret Pep (0-450) pg/mL Serum Total Protein (6.3-8.2) g/dL Albumin (3.5-5.0) g/dL Amylase (30-110) U/L Lipase (23-300) U/L Serum , Qual (Negative) Urine Color (YELLOW) Urine Appearance (CLEAR) Urine pH (5-6) Ur Specific [place] (1.005-1.025) Urine Protein (Negative) Urine Ketones (NEGATIVE) Urine Blood (0-5) [place]/ul Urine Nitrite (NEGATIVE) Urine Bilirubin (NEGATIVE) Urine Urobilinogen (0-1) mg/dL Ur Leukocyte Esterase (NEGATIVE) Urine WBC (Auto) (0-5) /HPF Urine RBC (Auto) (0-2) /HPF U Epithel Cells (Auto) (FEW) /HPF Urine Bacteria (Auto) (NEGATIVE) /HPF Urine Mucus (Auto) (NEGATIVE) /HPF Urine Culture Reflexed (NO) Urine Glucose (NEGATIVE) mg/dL Salicylates (2-20) mg/dL Urine Opiates Level (NEGATIVE) Ur Methadone (NEGATIVE) Acetaminophen (10-30) ug/ml Urine Barbiturates (NEGATIVE) Ur Phencyclidine (PCP) (NEGATIVE) Urine Amphetamine (NEGATIVE) U Benzodiazepine Level (NEGATIVE) Urine Cocaine (NEGATIVE) Urine Marijuana (THC) (NEGATIVE) Ethyl Alcohol (0-10) mg/dL Monoscreen (Negative) Influenza Type A Ag (NEGATIVE) Influenza Type B Ag (NEGATIVE) RSV (PCR) (Negative) Group A Strep Antibody (NEGATIVE) - Radiology Impressions Radiology Exams & Impressions: Radiology Procedures Category Date Time Status ABDOMEN 2 VIEW Routine Exams 07/23/19 Ordered CHEST 2 VIEWS (PA AND LAT) Stat Exams 07/22/19 20:03 Completed - Other Procedures and Tests Respiratory Therapy 07/23/19 02:21 EKG [id number] Oxygen Nasal Cannula 2 lpm Assessment/Plan (1) Alcohol intoxication Current Visit: Yes Status: Resolved Qualifiers: Complication of substance-induced condition: uncomplicated Qualified Code(s ): F10.920 - Alcohol use, unspecified with intoxication, uncomplicated Assessment & Plan: Pt to f/u outpatient with support group and counselor. WIll send home on 1 week 's supply of antabuse; f/u with PCP, or can f/u in our office if needed. (2) Clonidine overdose Current Visit: Yes Status: Acute Qualifiers: Encounter type: initial encounter Injury intent: undetermined intent Qualified Code(s): T46.5X4A - Poisoning by other antihypertensive drugs, undetermined, initial encounter Assessment & Plan: Per poison control, will await return to baseline HR then can d/c to home. Code(s): T46.5X1A - POISONING BY OTH ANTIHYPERTN DRUGS, ACCIDENTAL, INIT (3) Microscopic hematuria Current Visit: Yes Status: Acute Assessment & Plan: May be spurious, but she does have some LUQ pain and some mild L CVA tenderness , so would warn pt it's possible she has an early kidney stone and to be watchful for symptoms. Code(s): R31.29 - OTHER MICROSCOPIC HEMATURIA (4) Bradycardia Current Visit: Yes Status: Acute Assessment & Plan: HR from 59-70s currently. Code(s): R00.1 - BRADYCARDIA, UNSPECIFIED (5) Anxiety Current Visit: Yes Status: Chronic Assessment & Plan: Will need to f/u with PCP about further management. Code(s): F41.9 - ANXIETY DISORDER, UNSPECIFIED (6) Diarrhea Current Visit: Yes Status: Resolved Qualifiers: Diarrhea type: unspecified type Qualified Code(s): R19.7 - Diarrhea, unspecified Code(s): R19.7 - DIARRHEA, UNSPECIFIED (7) Seizure disorder Current Visit: No Status: Chronic Code(s): G40.909 - EPILEPSY, UNSP, NOT INTRACTABLE, WITHOUT STATUS EPILEPTICUS (8) Abdominal pain Current Visit: No Status: Acute Qualifiers: Abdominal location: left upper quadrant Qualified Code(s): R10.12 - Left upper quadrant pain Code(s): R10.9 - UNSPECIFIED ABDOMINAL PAIN Hospital Summary - Hospital Course Hospital Course: is a 44 year old female pt of DR. Walsh (sees BERNARDINO Chew) with PMHx alcoholism, depression with suicide attempts, GERD, anxiety, depression who was admitted through ER with alcohol intoxication and drug overdose. Her spouse apparently called EMS because she was weak due to increased EtOH intake. Per pt she drank 3 shots of vodka and one "4 [place]," took her pills as usual, then took 5 extra clonidine 0.2mg and 5 extra hydroxyzine 10mg. She denies suicidal ideation, says she just wanted to sleep for about two weeks. States there are stresses at home and due to coronavirus outbreak. Pt was bradycardic down to HR of 43 when she was in the ER (EKG showed sinus bradycardia). Flu, mono, and group A strep tests were negative. AST, ALT, and Alk phos were nl. CXR nl. WBC 5.3, hgb 13.9. Plt 176. She has been drinking more over the past 1 mo; prior to that she was sober x 2 mo. She would like to be sober again, and is interested in trying Antabuse. Pt is feeling tired this morning, which she states is chronic for her. She does complain of some LUQ pain, states it is 9/10, but thinks it is gas pain (just started this a.m.). [facility] consult was done; they recommended outpatient followup. Pt is very agreeable to seeing a counselor outpatient. Pt will get a dilantin level and an abd film then when her HR is consistently at baseline (which, per her previous admissions is from 60-80bpm) be discharged to home. - Vitals & Intake/Output Vital Signs: Vital Signs Temperature 97.7 F 07/23/19 08:00 Pulse Rate 58 L 07/23/19 08:00 Respiratory Rate 19 07/23/19 08:00 Blood Pressure 102/70 07/23/19 08:00 O2 Sat by Pulse Oximetry 96 07/23/19 08:00 Intake & Output: Intake & Output 07/21/19 07/22/19 07/23/19 07/24/19 11:59 11:59 11:59 11:59 Intake Total 140 Balance 140 Weight 49.2 kg - Lab Result Diagrams: 07/23/19 05:15 07/23/19 05:15 Lab Results-Last 24 Hrs: Lab Results-Last 24 Hours 07/22/19 07/22/19 07/22/19 Range/Units 20:50 20:50 20:50 WBC 6.6 (4.0-10.5) K/mm3 RBC 4.14 (4.1-5.4) M/mm3 Hgb 14.5 (12.0-16.0) gm/dl Hct 40.7 (35-47) % MCV 98.3 (78-100) fl MCH 35.0 H (26-32) pg MCHC 35.6 (32-36) g/dl RDW 15.1 H (11.5-14.0) % Plt Count 203 (150-450) K/mm3 MPV 9.6 (7.5-11.0) fl Gran % 44.5 (36.0-66.0) % Eos # (Auto) 0.10 (0-0.5) Absolute Lymphs (auto) 2.98 (1.0-4.6) Absolute Monos (auto) 0.53 (0.0-1.3) Lymphocytes % 45.4 H (24.0-44.0) % Monocytes % 8.1 (0.0-12.0) % Eosinophils % 1.5 (0.00-5.0) % Basophils % 0.5 (0.0-0.4) % Absolute Granulocytes 2.92 (1.4-6.9) Basophils # 0.03 (0-0.4) D-Dimer (215-500) ng/mL Sodium 142 (137-145) mmol/L Potassium 3.4 L (3.5-5.1) mmol/L Chloride 107 (98-107) mmol/L Carbon Dioxide 25 (22-30) mmol/L Anion Gap 12.8 (5-15) MEQ/L BUN 5 L (7-17) mg/dL Creatinine 0.42 L (0.52-1.04) mg/dL Estimated GFR > 60.0 ML/MIN Glucose 155 H (74-106) mg/dL Calcium 8.5 (8.4-10.2) mg/dL Magnesium (1.6-2.3) mg/dL Total Bilirubin 0.40 (0.2-1.3) mg/dL AST 19 (14-36) U/L ALT 8 (0-35) U/L Alkaline Phosphatase 86 (38-126) U/L Troponin I (0.000-0.034) ng/mL NT-Pro-B Natriuret Pep (0-450) pg/mL Serum Total Protein 7.0 (6.3-8.2) g/dL Albumin 3.9 (3.5-5.0) g/dL Amylase 47 (30-110) U/L Lipase 109 (23-300) U/L Serum , Qual (Negative) Urine Color (YELLOW) Urine Appearance (CLEAR) Urine pH (5-6) Ur Specific [place] (1.005-1.025) Urine Protein (Negative) Urine Ketones (NEGATIVE) Urine Blood (0-5) Haroldo/ul Urine Nitrite (NEGATIVE) Urine Bilirubin (NEGATIVE) Urine Urobilinogen (0-1) mg/dL Ur Leukocyte Esterase (NEGATIVE) Urine WBC (Auto) (0-5) /HPF Urine RBC (Auto) (0-2) /HPF U Epithel Cells (Auto) (FEW) /HPF Urine Bacteria (Auto) (NEGATIVE) /HPF Urine Mucus (Auto) (NEGATIVE) /HPF Urine Culture Reflexed (NO) Urine Glucose (NEGATIVE) mg/dL Salicylates < 1.0 L (2-20) mg/dL Urine Opiates Level (NEGATIVE) Ur Methadone (NEGATIVE) Acetaminophen < 10 L (10-30) ug/ml Urine Barbiturates (NEGATIVE) Ur Phencyclidine (PCP) (NEGATIVE) Urine Amphetamine (NEGATIVE) U Benzodiazepine Level (NEGATIVE) Urine Cocaine (NEGATIVE) Urine Marijuana (THC) (NEGATIVE) Ethyl Alcohol 133 H (0-10) mg/dL Monoscreen (Negative) Influenza Type A Ag (NEGATIVE) Influenza Type B Ag (NEGATIVE) RSV (PCR) (Negative) Group A Strep Antibody (NEGATIVE) 07/22/19 07/22/19 07/22/19 Range/Units 20:50 20:50 20:50 WBC (4.0-10.5) K/mm3 RBC (4.1-5.4) M/mm3 Hgb (12.0-16.0) gm/dl Hct (35-47) % MCV (78-100) fl MCH (26-32) pg MCHC (32-36) g/dl RDW (11.5-14.0) % Plt Count (150-450) K/mm3 MPV (7.5-11.0) fl Gran % (36.0-66.0) % Eos # (Auto) (0-0.5) Absolute Lymphs (auto) (1.0-4.6) Absolute Monos (auto) (0.0-1.3) Lymphocytes % (24.0-44.0) % Monocytes % (0.0-12.0) % Eosinophils % (0.00-5.0) % Basophils % (0.0-0.4) % Absolute Granulocytes (1.4-6.9) Basophils # (0-0.4) D-Dimer 236 (215-500) ng/mL Sodium (137-145) mmol/L Potassium (3.5-5.1) mmol/L Chloride (98-107) mmol/L Carbon Dioxide (22-30) mmol/L Anion Gap (5-15) MEQ/L BUN (7-17) mg/dL Creatinine (0.52-1.04) mg/dL Estimated GFR ML/MIN Glucose (74-106) mg/dL Calcium (8.4-10.2) mg/dL Magnesium 2.1 (1.6-2.3) mg/dL Total Bilirubin (0.2-1.3) mg/dL AST (14-36) U/L ALT (0-35) U/L Alkaline Phosphatase (38-126) U/L Troponin I (0.000-0.034) ng/mL NT-Pro-B Natriuret Pep 212 (0-450) pg/mL Serum Total Protein (6.3-8.2) g/dL Albumin (3.5-5.0) g/dL Amylase (30-110) U/L Lipase (23-300) U/L Serum , Qual NEGATIVE (Negative) Urine Color (YELLOW) Urine Appearance (CLEAR) Urine pH (5-6) Ur Specific [place] (1.005-1.025) Urine Protein (Negative) Urine Ketones (NEGATIVE) Urine Blood (0-5) Haroldo/ul Urine Nitrite (NEGATIVE) Urine Bilirubin (NEGATIVE) Urine Urobilinogen (0-1) mg/dL Ur Leukocyte Esterase (NEGATIVE) Urine WBC (Auto) (0-5) /HPF Urine RBC (Auto) (0-2) /HPF U Epithel Cells (Auto) (FEW) /HPF Urine Bacteria (Auto) (NEGATIVE) /HPF Urine Mucus (Auto) (NEGATIVE) /HPF Urine Culture Reflexed (NO) Urine Glucose (NEGATIVE) mg/dL Salicylates (2-20) mg/dL Urine Opiates Level (NEGATIVE) Ur Methadone (NEGATIVE) Acetaminophen (10-30) ug/ml Urine Barbiturates (NEGATIVE) Ur Phencyclidine (PCP) (NEGATIVE) Urine Amphetamine (NEGATIVE) U Benzodiazepine Level (NEGATIVE) Urine Cocaine (NEGATIVE) Urine Marijuana (THC) (NEGATIVE) Ethyl Alcohol (0-10) mg/dL Monoscreen (Negative) Influenza Type A Ag (NEGATIVE) Influenza Type B Ag (NEGATIVE) RSV (PCR) (Negative) Group A Strep Antibody (NEGATIVE) 07/22/19 07/22/19 07/22/19 Range/Units 20:50 20:50 20:50 WBC (4.0-10.5) K/mm3 RBC (4.1-5.4) M/mm3 Hgb (12.0-16.0) gm/dl Hct (35-47) % MCV (78-100) fl MCH (26-32) pg MCHC (32-36) g/dl RDW (11.5-14.0) % Plt Count (150-450) K/mm3 MPV (7.5-11.0) fl Gran % (36.0-66.0) % Eos # (Auto) (0-0.5) Absolute Lymphs (auto) (1.0-4.6) Absolute Monos (auto) (0.0-1.3) Lymphocytes % (24.0-44.0) % Monocytes % (0.0-12.0) % Eosinophils % (0.00-5.0) % Basophils % (0.0-0.4) % Absolute Granulocytes (1.4-6.9) Basophils # (0-0.4) D-Dimer (215-500) ng/mL Sodium (137-145) mmol/L Potassium (3.5-5.1) mmol/L Chloride (98-107) mmol/L Carbon Dioxide (22-30) mmol/L Anion Gap (5-15) MEQ/L BUN (7-17) mg/dL Creatinine (0.52-1.04) mg/dL Estimated GFR ML/MIN Glucose (74-106) mg/dL Calcium (8.4-10.2) mg/dL Magnesium (1.6-2.3) mg/dL Total Bilirubin (0.2-1.3) mg/dL AST (14-36) U/L ALT (0-35) U/L Alkaline Phosphatase (38-126) U/L Troponin I < 0.012 (0.000-0.034) ng/mL NT-Pro-B Natriuret Pep (0-450) pg/mL Serum Total Protein (6.3-8.2) g/dL Albumin (3.5-5.0) g/dL Amylase (30-110) U/L Lipase (23-300) U/L Serum , Qual (Negative) Urine Color (YELLOW) Urine Appearance (CLEAR) Urine pH (5-6) Ur Specific [place] (1.005-1.025) Urine Protein (Negative) Urine Ketones (NEGATIVE) Urine Blood (0-5) Haroldo/ul Urine Nitrite (NEGATIVE) Urine Bilirubin (NEGATIVE) Urine Urobilinogen (0-1) mg/dL Ur Leukocyte Esterase (NEGATIVE) Urine WBC (Auto) (0-5) /HPF Urine RBC (Auto) (0-2) /HPF U Epithel Cells (Auto) (FEW) /HPF Urine Bacteria (Auto) (NEGATIVE) /HPF Urine Mucus (Auto) (NEGATIVE) /HPF Urine Culture Reflexed (NO) Urine Glucose (NEGATIVE) mg/dL Salicylates (2-20) mg/dL Urine Opiates Level (NEGATIVE) Ur Methadone (NEGATIVE) Acetaminophen (10-30) ug/ml Urine Barbiturates (NEGATIVE) Ur Phencyclidine (PCP) (NEGATIVE) Urine Amphetamine (NEGATIVE) U Benzodiazepine Level (NEGATIVE) Urine Cocaine (NEGATIVE) Urine Marijuana (THC) (NEGATIVE) Ethyl Alcohol (0-10) mg/dL Monoscreen NEGATIVE (Negative) Influenza Type A Ag NEGATIVE (NEGATIVE) Influenza Type B Ag NEGATIVE (NEGATIVE) RSV (PCR) NEGATIVE (Negative) Group A Strep Antibody NOT DETECTED (NEGATIVE) 07/22/19 07/22/19 07/22/19 Range/Units 23:00 23:00 23:57 WBC (4.0-10.5) K/mm3 RBC (4.1-5.4) M/mm3 Hgb (12.0-16.0) gm/dl Hct (35-47) % MCV (78-100) fl MCH (26-32) pg MCHC (32-36) g/dl RDW (11.5-14.0) % Plt Count (150-450) K/mm3 MPV (7.5-11.0) fl Gran % (36.0-66.0) % Eos # (Auto) (0-0.5) Absolute Lymphs (auto) (1.0-4.6) Absolute Monos (auto) (0.0-1.3) Lymphocytes % (24.0-44.0) % Monocytes % (0.0-12.0) % Eosinophils % (0.00-5.0) % Basophils % (0.0-0.4) % Absolute Granulocytes (1.4-6.9) Basophils # (0-0.4) D-Dimer (215-500) ng/mL Sodium (137-145) mmol/L Potassium (3.5-5.1) mmol/L Chloride (98-107) mmol/L Carbon Dioxide (22-30) mmol/L Anion Gap (5-15) MEQ/L BUN (7-17) mg/dL Creatinine (0.52-1.04) mg/dL Estimated GFR ML/MIN Glucose (74-106) mg/dL Calcium (8.4-10.2) mg/dL Magnesium (1.6-2.3) mg/dL Total Bilirubin (0.2-1.3) mg/dL AST (14-36) U/L ALT (0-35) U/L Alkaline Phosphatase (38-126) U/L Troponin I 0.031 (0.000-0.034) ng/mL NT-Pro-B Natriuret Pep (0-450) pg/mL Serum Total Protein (6.3-8.2) g/dL Albumin (3.5-5.0) g/dL Amylase (30-110) U/L Lipase (23-300) U/L Serum , Qual (Negative) Urine Color YELLOW (YELLOW) Urine Appearance CLOUDY (CLEAR) Urine pH 7.0 (5-6) Ur Specific [place] 1.010 (1.005-1.025) Urine Protein NEGATIVE (Negative) Urine Ketones NEGATIVE (NEGATIVE) Urine Blood SMALL (0-5) [place]/ul Urine Nitrite NEGATIVE (NEGATIVE) Urine Bilirubin NEGATIVE (NEGATIVE) Urine Urobilinogen NEGATIVE (0-1) mg/dL Ur Leukocyte Esterase NEGATIVE (NEGATIVE) Urine WBC (Auto) 3-5 (0-5) /HPF Urine RBC (Auto) 6-10 (0-2) /HPF U Epithel Cells (Auto) MANY (FEW) /HPF Urine Bacteria (Auto) FEW (NEGATIVE) /HPF Urine Mucus (Auto) SLIGHT (NEGATIVE) /HPF Urine Culture Reflexed NO (NO) Urine Glucose NEGATIVE (NEGATIVE) mg/dL Salicylates (2-20) mg/dL Urine Opiates Level NEGATIVE (NEGATIVE) Ur Methadone NEGATIVE (NEGATIVE) Acetaminophen (10-30) ug/ml Urine Barbiturates NEGATIVE (NEGATIVE) Ur Phencyclidine (PCP) NEGATIVE (NEGATIVE) Urine Amphetamine NEGATIVE (NEGATIVE) U Benzodiazepine Level NEGATIVE (NEGATIVE) Urine Cocaine NEGATIVE (NEGATIVE) Urine Marijuana (THC) NEGATIVE (NEGATIVE) Ethyl Alcohol (0-10) mg/dL Monoscreen (Negative) Influenza Type A Ag (NEGATIVE) Influenza Type B Ag (NEGATIVE) RSV (PCR) (Negative) Group A Strep Antibody (NEGATIVE) 07/22/19 07/23/19 07/23/19 Range/Units 23:57 03:17 05:15 WBC (4.0-10.5) K/mm3 RBC (4.1-5.4) M/mm3 Hgb (12.0-16.0) gm/dl Hct (35-47) % MCV (78-100) fl MCH (26-32) pg MCHC (32-36) g/dl RDW (11.5-14.0) % Plt Count (150-450) K/mm3 MPV (7.5-11.0) fl Gran % (36.0-66.0) % Eos # (Auto) (0-0.5) Absolute Lymphs (auto) (1.0-4.6) Absolute Monos (auto) (0.0-1.3) Lymphocytes % (24.0-44.0) % Monocytes % (0.0-12.0) % Eosinophils % (0.00-5.0) % Basophils % (0.0-0.4) % Absolute Granulocytes (1.4-6.9) Basophils # (0-0.4) D-Dimer (215-500) ng/mL Sodium (137-145) mmol/L Potassium (3.5-5.1) mmol/L Chloride (98-107) mmol/L Carbon Dioxide (22-30) mmol/L Anion Gap (5-15) MEQ/L BUN (7-17) mg/dL Creatinine (0.52-1.04) mg/dL Estimated GFR ML/MIN Glucose (74-106) mg/dL Calcium (8.4-10.2) mg/dL Magnesium (1.6-2.3) mg/dL Total Bilirubin (0.2-1.3) mg/dL AST (14-36) U/L ALT (0-35) U/L Alkaline Phosphatase (38-126) U/L Troponin I 0.017 < 0.012 (0.000-0.034) ng/mL NT-Pro-B Natriuret Pep (0-450) pg/mL Serum Total Protein (6.3-8.2) g/dL Albumin (3.5-5.0) g/dL Amylase (30-110) U/L Lipase (23-300) U/L Serum , Qual (Negative) Urine Color (YELLOW) Urine Appearance (CLEAR) Urine pH (5-6) Ur Specific [place] (1.005-1.025) Urine Protein (Negative) Urine Ketones (NEGATIVE) Urine Blood (0-5) Haroldo/ul Urine Nitrite (NEGATIVE) Urine Bilirubin (NEGATIVE) Urine Urobilinogen (0-1) mg/dL Ur Leukocyte Esterase (NEGATIVE) Urine WBC (Auto) (0-5) /HPF Urine RBC (Auto) (0-2) /HPF U Epithel Cells (Auto) (FEW) /HPF Urine Bacteria (Auto) (NEGATIVE) /HPF Urine Mucus (Auto) (NEGATIVE) /HPF Urine Culture Reflexed (NO) Urine Glucose (NEGATIVE) mg/dL Salicylates (2-20) mg/dL Urine Opiates Level (NEGATIVE) Ur Methadone (NEGATIVE) Acetaminophen (10-30) ug/ml Urine Barbiturates (NEGATIVE) Ur Phencyclidine (PCP) (NEGATIVE) Urine Amphetamine (NEGATIVE) U Benzodiazepine Level (NEGATIVE) Urine Cocaine (NEGATIVE) Urine Marijuana (THC) (NEGATIVE) Ethyl Alcohol 87 H (0-10) mg/dL Monoscreen (Negative) Influenza Type A Ag (NEGATIVE) Influenza Type B Ag (NEGATIVE) RSV (PCR) (Negative) Group A Strep Antibody (NEGATIVE) 07/23/19 07/23/19 07/23/19 Range/Units 05:15 05:15 05:15 WBC 5.3 (4.0-10.5) K/mm3 RBC 4.03 L (4.1-5.4) M/mm3 Hgb 13.9 (12.0-16.0) gm/dl Hct 40.0 (35-47) % MCV 99.3 (78-100) fl MCH 34.5 H (26-32) pg MCHC 34.8 (32-36) g/dl RDW 15.1 H (11.5-14.0) % Plt Count 176 (150-450) K/mm3 MPV 10.0 (7.5-11.0) fl Gran % 33.1 L (36.0-66.0) % Eos # (Auto) 0.15 (0-0.5) Absolute Lymphs (auto) 3.02 (1.0-4.6) Absolute Monos (auto) 0.37 (0.0-1.3) Lymphocytes % 56.6 H (24.0-44.0) % Monocytes % 6.9 (0.0-12.0) % Eosinophils % 2.8 (0.00-5.0) % Basophils % 0.6 (0.0-0.4) % Absolute Granulocytes 1.77 (1.4-6.9) Basophils # 0.03 (0-0.4) D-Dimer (215-500) ng/mL Sodium 136 L (137-145) mmol/L Potassium 4.3 D (3.5-5.1) mmol/L Chloride 104 (98-107) mmol/L Carbon Dioxide 25 (22-30) mmol/L Anion Gap 11.4 (5-15) MEQ/L BUN 7 (7-17) mg/dL Creatinine 0.36 L (0.52-1.04) mg/dL Estimated GFR > 60.0 ML/MIN Glucose 112 H (74-106) mg/dL Calcium 8.3 L (8.4-10.2) mg/dL Magnesium (1.6-2.3) mg/dL Total Bilirubin 0.30 (0.2-1.3) mg/dL AST 14 (14-36) U/L ALT 7 (0-35) U/L Alkaline Phosphatase 75 (38-126) U/L Troponin I (0.000-0.034) ng/mL NT-Pro-B Natriuret Pep (0-450) pg/mL Serum Total Protein 6.2 L (6.3-8.2) g/dL Albumin 3.4 L (3.5-5.0) g/dL Amylase (30-110) U/L Lipase (23-300) U/L Serum , Qual (Negative) Urine Color (YELLOW) Urine Appearance (CLEAR) Urine pH (5-6) Ur Specific [place] (1.005-1.025) Urine Protein (Negative) Urine Ketones (NEGATIVE) Urine Blood (0-5) [place]/ul Urine Nitrite (NEGATIVE) Urine Bilirubin (NEGATIVE) Urine Urobilinogen (0-1) mg/dL Ur Leukocyte Esterase (NEGATIVE) Urine WBC (Auto) (0-5) /HPF Urine RBC (Auto) (0-2) /HPF U Epithel Cells (Auto) (FEW) /HPF Urine Bacteria (Auto) (NEGATIVE) /HPF Urine Mucus (Auto) (NEGATIVE) /HPF Urine Culture Reflexed (NO) Urine Glucose (NEGATIVE) mg/dL Salicylates (2-20) mg/dL Urine Opiates Level (NEGATIVE) Ur Methadone (NEGATIVE) Acetaminophen (10-30) ug/ml Urine Barbiturates (NEGATIVE) Ur Phencyclidine (PCP) (NEGATIVE) Urine Amphetamine (NEGATIVE) U Benzodiazepine Level (NEGATIVE) Urine Cocaine (NEGATIVE) Urine Marijuana (THC) (NEGATIVE) Ethyl Alcohol < 10 (0-10) mg/dL Monoscreen (Negative) Influenza Type A Ag (NEGATIVE) Influenza Type B Ag (NEGATIVE) RSV (PCR) (Negative) Group A Strep Antibody (NEGATIVE) 07/23/19 Range/Units 08:35 WBC (4.0-10.5) K/mm3 RBC (4.1-5.4) M/mm3 Hgb (12.0-16.0) gm/dl Hct (35-47) % MCV (78-100) fl MCH (26-32) pg MCHC (32-36) g/dl RDW (11.5-14.0) % Plt Count (150-450) K/mm3 MPV (7.5-11.0) fl Gran % (36.0-66.0) % Eos # (Auto) (0-0.5) Absolute Lymphs (auto) (1.0-4.6) Absolute Monos (auto) (0.0-1.3) Lymphocytes % (24.0-44.0) % Monocytes % (0.0-12.0) % Eosinophils % (0.00-5.0) % Basophils % (0.0-0.4) % Absolute Granulocytes (1.4-6.9) Basophils # (0-0.4) D-Dimer (215-500) ng/mL Sodium (137-145) mmol/L Potassium (3.5-5.1) mmol/L Chloride (98-107) mmol/L Carbon Dioxide (22-30) mmol/L Anion Gap (5-15) MEQ/L BUN (7-17) mg/dL Creatinine (0.52-1.04) mg/dL Estimated GFR ML/MIN Glucose (74-106) mg/dL Calcium (8.4-10.2) mg/dL Magnesium (1.6-2.3) mg/dL Total Bilirubin (0.2-1.3) mg/dL AST (14-36) U/L ALT (0-35) U/L Alkaline Phosphatase (38-126) U/L Troponin I < 0.012 (0.000-0.034) ng/mL NT-Pro-B Natriuret Pep (0-450) pg/mL Serum Total Protein (6.3-8.2) g/dL Albumin (3.5-5.0) g/dL Amylase (30-110) U/L Lipase (23-300) U/L Serum , Qual (Negative) Urine Color (YELLOW) Urine Appearance (CLEAR) Urine pH (5-6) Ur Specific [place] (1.005-1.025) Urine Protein (Negative) Urine Ketones (NEGATIVE) Urine Blood (0-5) Haroldo/ul Urine Nitrite (NEGATIVE) Urine Bilirubin (NEGATIVE) Urine Urobilinogen (0-1) mg/dL Ur Leukocyte Esterase (NEGATIVE) Urine WBC (Auto) (0-5) /HPF Urine RBC (Auto) (0-2) /HPF U Epithel Cells (Auto) (FEW) /HPF Urine Bacteria (Auto) (NEGATIVE) /HPF Urine Mucus (Auto) (NEGATIVE) /HPF Urine Culture Reflexed (NO) Urine Glucose (NEGATIVE) mg/dL Salicylates (2-20) mg/dL Urine Opiates Level (NEGATIVE) Ur Methadone (NEGATIVE) Acetaminophen (10-30) ug/ml Urine Barbiturates (NEGATIVE) Ur Phencyclidine (PCP) (NEGATIVE) Urine Amphetamine (NEGATIVE) U Benzodiazepine Level (NEGATIVE) Urine Cocaine (NEGATIVE) Urine Marijuana (THC) (NEGATIVE) Ethyl Alcohol (0-10) mg/dL Monoscreen (Negative) Influenza Type A Ag (NEGATIVE) Influenza Type B Ag (NEGATIVE) RSV (PCR) (Negative) Group A Strep Antibody (NEGATIVE) - Radiology Exams Ordered Rad Exams-Entire Visit: Radiology Procedures Category Date Time Status ABDOMEN 2 VIEW Routine Exams 07/23/19 Ordered CHEST 2 VIEWS (PA AND LAT) Stat Exams 07/22/19 20:03 Completed - Procedures and Test Procedures and Tests throughout Hospitalization: Therapy Orders & Screens 07/23/19 02:21 EKG [id number] Comment: Oxygen Nasal Cannula 2 lpm Comment: 07/23/19 09:45 EKG ROUTINE Comment: Diagnosis: Clonidine overdose, Bradycardia, ETOH intox, elevated troponin, Depression. - Discharge Disposition: Home, Self-Care Condition: Stable Prescriptions: New Disulfiram [Antabuse] 500 mg PO DAILY #7 tablet Continue Phenytoin Sod Extended 100 mg* [Dilantin 100 MG] 100 mg PO TID Clonidine HCl 0.1 mg [Catapres 0.1 MG] 0.2 mg PO TIDPRN PRN PRN Reason: Anxiety Lansoprazole 30 mg PO DAILY hydrOXYzine HCL [Hydroxyzine HCl] 10 mg PO TID PRN PRN PRN Reason: Anxiety Discontinued Chlordiazepoxide HCl [Librium] 5 mg PO TIDPRN PRN PRN Reason: Anxiety Additional Instructions: Pt MUST get dilantin level rechecked again on Wednesday (in 3d) due to possible interaction between Antabuse and dilantin, which can raise the dilantin to dangerous levels. Follow up with: RUMA BUCK PA [Primary Care Provider] - 1 Week
[2019-07-23] MEDS ORDERED: NORCO 5/325 MG PO PRN (13:21)
[2019-07-23 16:34] VITALS: BP 105/69; PULSE 58; O2SAT 96
--- NOTE | 2019-07-23 18:57 | XRAY ---
Indication: Abdomen pain/distention. Recent large ingestion of alcohol. Comparison: None 2 views of the abdomen demonstrates mild air distended colon with synchronous fluid leveling, ileus versus colitis. No free air. Solid organs, osseous structures, and lung bases unremarkable. Comment: Preliminary interpretation was made by [facility]. No critical discrepancy.
--- NOTE | 2019-07-23 19:00 | XRAY ---
Indication: Bloating. Recent large ingestion of alcohol. Multiple contiguous axial images obtained through the abdomen and pelvis using 80 cc of [id number] contrast only. Comparison: October 22, 2018. Lung bases demonstrates minimal bilateral dependent atelectasis. No infiltrate or effusion. Heart is not enlarged. Noncontrasted stomach and bowel loops appear nonobstructed. Colon now demonstrates mild fluid distention throughout with fluid leveling and wall enhancement, colitis versus ileus. No free fluid/air. Stable tiny right lobe hepatic cyst. Again appendectomy, cholecystectomy, and bilateral tubal ligation rings. Remaining liver, pancreas, spleen, adrenal glands, kidneys, ureters, bladder, and uterus appear unremarkable. Stable minimal aortic calcifications. No AAA or pathologic retroperitoneal lymphadenopathy. Osseous structures intact. Impression: 1. New fluid distended colon with fluid leveling and wall enhancement, colitis versus ileus. 2. Stable tiny hepatic cyst. 3. Remaining CT abdomen/pelvis with contrast exam is negative. Comment: Preliminary interpretation was made by [facility]. No critical discrepancy.
== END 2019-07-23 18:15 | disposition home or self-care (01) ==
LOC: ED 19:35 → ICU 07-23 02:34
PROVIDERS: ADMIT Family Medicine; ATTEND Family Medicine
DX: F10.920 Alcohol use, unspecified with intoxication, uncomplicated (principal); T46.5X1A Poisoning by other antihypertensive drugs, accidental (unintentional), initial encounter; R00.1 Bradycardia, unspecified; F32.9 Major depressive disorder, single episode, unspecified; R10.12 Left upper quadrant pain; R07.9 Chest pain, unspecified; R31.29 Other microscopic hematuria; F41.9 Anxiety disorder, unspecified; R19.7 Diarrhea, unspecified; G40.909 Epilepsy, unspecified, not intractable, without status epilepticus
CPT/HCPCS: 36000; 36415; 71046; 74021; 74177; 80053; 80185; 80307; 81001; 81025; 82150; 83690; 83735; 83880; 84484; 85025; 85379; 86308; 87631; 87651; 90791; 93005; 99285; 99291; G0378; G0480; G0481; Q3014; Q0162; A9270-GY

== ENCOUNTER 2019-10-02 08:31 | Emergency (ER) | payer OTHER ==
[2019-10-02] MEDS ORDERED: Sodium Chloride 0.9% 1000 ML 1,000 ML IV STA (09:21)
[2019-10-02] MEDS ORDERED: VITAMIN B-1 100 MG PO ONE (09:21)
[2019-10-02] MEDS ORDERED: FOLATE 1 MG PO ONE (09:21)
--- NOTE | 2019-10-02 09:33 | ERPHSYRPT ---
- History of Present Illness Time Seen by Provider: 10/02/19 09:16 Source: patient Exam Limitations: no limitations Patient Subjective Stated Complaint: Pt states that she wants to stop drinking and her last drink was yesterday around 1600 and now her chest is hurting, pt drinks 4-5 shots of vodka daily and has started drinking 4Loco ( a mixed fruity drink) Triage Nursing Assessment: Pt's brought her to the ER, pt states that she has to stop drinking, rates chest pain 9/10, hypertensive, pulses normal, lungs clear, heart sounds normal, skin n/w/d Physician History: 44 yo wf alcoholic states that she is having mid-sternal chest pain w radiation to her back for 2 days. Pt states that pain is 9 out of 10/like someone sitting on chest/w dsyspnea,nausea,vomiting wo diaphoresis. She is an alcoholic w her last drink being yesterday and states that she is withdrawaling. Pt denies HTN/ DM/Hyperlipidemia but does smoke 1ppd/mother w CAD, age of presentation unknown. Timing/Duration: other (2 days) Activities at Onset: rest Quality: pressure Location: substernal Chest Pain Radiation: back Severity of Pain-Max: severe Severity of Pain-Current: severe Modifying Factors: Improves With: nothing Nitro Today/Relief: no nitro taken today Aspirin Treatment Today: no aspirin today Associated Symptoms: nausea, vomiting, shortness of breath Prior Chest Pain/Cardiac Workup: no prior chest pain Allergies/Adverse Reactions: tramadol Allergy (Severe, Verified 10/02/19 09:04) Hives cyclobenzaprine [From Flexeril] Allergy (Verified 10/02/19 09:04) latex Allergy (Verified 10/02/19 09:04) Home Medications: Phenytoin Sod Extended 100 mg* [Dilantin 100 MG] 100 mg PO TID 10/22/18 [ History] Lansoprazole 30 mg PO DAILY 02/15/19 [History] Hx Tetanus, Diphtheria Vaccination/Date Given: Yes Hx Influenza Vaccination/Date Given: No Hx Pneumococcal Vaccination/Date Given: No Travel Risk - International Travel Have you traveled outside of the country in past 3 weeks: No Have you or anyone close to you been diagnosed with or: No Do your reside in a community with a known COVID-19 case?: Yes If Yes where:: [place] - Coronavirus Screening Has patient experienced Coronavirus symptoms: No - Review of Systems Constitutional: No Symptoms Eyes: No Symptoms Ears, Nose, & Throat: No Symptoms Respiratory: Dyspnea Cardiac: Chest Pain Abdominal/Gastrointestinal: Nausea, Vomiting, Diarrhea Genitourinary Symptoms: No Symptoms Musculoskeletal: No Symptoms Skin: No Symptoms Neurological: No Symptoms Psychological: Alcohol Abuse Endocrine: No Symptoms Hematologic/Lymphatic: No Symptoms Immunological/Allergic: No Symptoms - Past Medical History Pertinent Past Medical History: Yes Neurological History: Seizures ENT History: No Pertinent History Cardiac History: No Pertinent History Respiratory History: Asthma Endocrine Medical History: No Pertinent History Musculoskeletal History: No Pertinent History GI Medical History: GERD History: No Pertinent History Psycho-Social History: Anxiety, Depression Female Reproductive Disorders: No Pertinent History - Past Surgical History Past Surgical History: Yes Neuro Surgical History: No Pertinent History Cardiac: No Pertinent History Respiratory: No Pertinent History Gastrointestinal: Appendectomy, Cholecystectomy Genitourinary: No Pertinent History Musculoskeletal: No Pertinent History Female Surgical History: Tubal Ligation Other Surgical History: 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" - Social History Smoking Status: Current every day smoker How long have you smoked: 20 yrs Exposure to second hand smoke: Yes Drug Use: none Patient Lives Alone: No Significant Family History: other (Mother w CAD/Age of presentation unknown) - Female History Hx Now: No (tubal) - Nursing Vital Signs Nursing Vital Signs: Initial Vital Signs Pulse Rate 103 H 10/02/19 08:54 Blood Pressure 163/116 10/02/19 08:54 O2 Sat by Pulse Oximetry 99 10/02/19 08:54 Pain Scale Pain Intensity 5 - Physical Exam General Appearance: anxiety Eye Exam: PERRL/EOMI, eyes nml inspection, No scleral icterus Ears, Nose, Throat Exam: normal ENT inspection, TMs normal, pharynx normal, moist mucous membranes Neck Exam: normal inspection, non-tender, supple Respiratory Exam: normal breath sounds, chest tenderness Cardiovascular Exam: regular rate/rhythm, No murmur Gastrointestinal/Abdomen Exam: soft, normal bowel sounds, No tenderness, No distention Back Exam: normal inspection, normal range of motion, No CVA tenderness, No vertebral tenderness Extremity Exam: normal inspection, normal range of motion Neurologic Exam: alert, oriented x 3, cooperative, 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, normal mood/affect Skin Exam: normal color, warm, dry Lymphatic Exam: No adenopathy SpO2 Interpretation: normal SpO2: 99 - Course EKG Interpreted by Me: Sinus Rhythm, NORMAL INTERVALS, NORMAL QRS Ordered Tests: Active Orders 24 hr Category Date Time Status IV Insertion STAT Care 10/02/19 10:10 Active CHEST 1 VIEW (PORTABLE) Stat Exams 10/02/19 09:17 Completed AMYLASE Stat Lab 10/02/19 09:00 Completed CBC W DIFF Stat Lab 10/02/19 09:00 Completed CMP Stat Lab 10/02/19 09:00 Completed CULTURE,URINE Stat Lab 10/02/19 09:38 Received ETHYL ALCOHOL Stat Lab 10/02/19 09:00 Completed LIPASE Stat Lab 10/02/19 09:00 Completed TROPONIN Q3H Lab 10/02/19 09:30 Completed TROPONIN Q3H Lab 10/02/19 12:30 Ordered TROPONIN Q3H Lab 10/02/19 15:30 Ordered TROPONIN Q3H Lab 10/02/19 18:30 Ordered TROPONIN Q3H Lab 10/02/19 21:30 Ordered UA W/RFX UR CULTURE Stat Lab 10/02/19 09:38 Completed Urine Triage Profile Stat Lab 10/02/19 09:38 Completed Medication Summary Generic Name Dose Route Start Last Admin Trade Name Freq PRN Reason Stop Dose Admin Clonidine HCl 0.2 mg 10/02/19 11:45 10/02/19 11:50 Catapres Tts-2 Patch TOP 11/01/19 11:44 0.2 mg Q7D LENKA Administration Thiamine HCl 100 mg/ 1,011.2 mls @ 100 mls/hr 10/02/19 09:45 10/02/19 10:15 Multivitamins/Minerals 10 ml/ IV 10/02/19 19:51 100 mls/hr Folic Acid 1 mg/ Sodium .Q10H7M LENKA Administration Chloride Discontinued Medications Generic Name Dose Route Start Last Admin Trade Name Freq PRN Reason Stop Dose Admin Folic Acid 1 mg 10/02/19 09:21 10/02/19 10:21 Folate 1 Mg PO 10/02/19 09:22 Not Given STAT ONE Sodium Chloride 1,000 mls @ 999 mls/hr 10/02/19 09:21 10/02/19 10:22 Sodium Chloride 0.9% 1000 Ml IV 10/02/19 10:21 Not Given .Q1H1M STA Ketorolac Tromethamine 15 mg 10/02/19 10:33 10/02/19 10:51 Toradol 30 Mg Injection IV 10/02/19 10:34 15 mg STAT ONE Administration Ketorolac Tromethamine Confirm 10/02/19 10:47 Toradol 30 Mg Injection Administered 10/02/19 10:48 Dose 30 mg .ROUTE .STK-MED ONE Lorazepam 1 mg 10/02/19 10:33 10/02/19 10:51 Ativan 2 Mg/1 Ml Vial IV 10/02/19 10:34 1 mg STAT ONE Administration Lorazepam Confirm 10/02/19 10:48 Ativan 2 Mg/1 Ml Vial Administered 10/02/19 10:49 Dose 2 mg .ROUTE .STK-MED ONE Thiamine HCl 100 mg 10/02/19 09:21 10/02/19 10:22 Vitamin B-1 100 Mg PO 10/02/19 09:22 Not Given STAT ONE Lab/Rad Data: Laboratory Result Diagrams 10/02/19 09:00 10/02/19 09:00 Laboratory Results 10/02/19 10/02/19 10/02/19 Range/Units 09:38 09:38 09:30 WBC (4.0-10.5) K/mm3 RBC (4.1-5.4) M/mm3 Hgb (12.0-16.0) gm/dl Hct (35-47) % MCV (78-100) fl MCH (26-32) pg MCHC (32-36) g/dl RDW (11.5-14.0) % Plt Count (150-450) K/mm3 MPV (7.5-11.0) fl Gran % (36.0-66.0) % Eos # (Auto) (0-0.5) Absolute Lymphs (auto) (1.0-4.6) Absolute Monos (auto) (0.0-1.3) Lymphocytes % (24.0-44.0) % Monocytes % (0.0-12.0) % Eosinophils % (0.00-5.0) % Basophils % (0.0-0.4) % Absolute Granulocytes (1.4-6.9) Basophils # (0-0.4) Sodium (137-145) mmol/L Potassium (3.5-5.1) mmol/L Chloride (98-107) mmol/L Carbon Dioxide (22-30) mmol/L Anion Gap (5-15) MEQ/L BUN (7-17) mg/dL Creatinine (0.52-1.04) mg/dL Estimated GFR ML/MIN Glucose (74-106) mg/dL Calcium (8.4-10.2) mg/dL Total Bilirubin (0.2-1.3) mg/dL AST (14-36) U/L ALT (0-35) U/L Alkaline Phosphatase (38-126) U/L Troponin I < 0.012 (0.000-0.034) ng/mL Serum Total Protein (6.3-8.2) g/dL Albumin (3.5-5.0) g/dL Amylase (30-110) U/L Lipase (23-300) U/L Urine Color YELLOW (YELLOW) Urine Appearance CLEAR (CLEAR) Urine pH 6.0 (5-6) Ur Specific Gifford 1.004 (1.005-1.025) Urine Protein NEGATIVE (Negative) Urine Ketones SMALL (NEGATIVE) Urine Blood MODERATE (0-5) Haroldo/ul Urine Nitrite NEGATIVE (NEGATIVE) Urine Bilirubin NEGATIVE (NEGATIVE) Urine Urobilinogen NEGATIVE (0-1) mg/dL Ur Leukocyte Esterase SMALL (NEGATIVE) Urine WBC (Auto) 16-25 (0-5) /HPF Urine RBC (Auto) NONE (0-2) /HPF U Epithel Cells (Auto) NONE (FEW) /HPF Urine Bacteria (Auto) FEW (NEGATIVE) /HPF Urine Mucus (Auto) SLIGHT (NEGATIVE) /HPF Urine Culture Reflexed YES (NO) Urine Glucose NEGATIVE (NEGATIVE) mg/dL Urine Opiates Level NEGATIVE (NEGATIVE) Ur Methadone NEGATIVE (NEGATIVE) Urine Barbiturates NEGATIVE (NEGATIVE) Ur Phencyclidine (PCP) NEGATIVE (NEGATIVE) Urine Amphetamine NEGATIVE (NEGATIVE) U Benzodiazepine Level NEGATIVE (NEGATIVE) Urine Cocaine NEGATIVE (NEGATIVE) Urine Marijuana (THC) NEGATIVE (NEGATIVE) Ethyl Alcohol (0-10) mg/dL 10/02/19 10/02/19 Range/Units 09:00 09:00 WBC 5.7 (4.0-10.5) K/mm3 RBC 4.75 (4.1-5.4) M/mm3 Hgb 17.1 H (12.0-16.0) gm/dl Hct 48.3 H (35-47) % MCV 101.7 H (78-100) fl MCH 36.0 H (26-32) pg MCHC 35.4 (32-36) g/dl RDW 13.9 (11.5-14.0) % Plt Count 119 L (150-450) K/mm3 MPV 10.8 (7.5-11.0) fl Gran % 69.4 H (36.0-66.0) % Eos # (Auto) 0.04 (0-0.5) Absolute Lymphs (auto) 1.32 (1.0-4.6) Absolute Monos (auto) 0.34 (0.0-1.3) Lymphocytes % 23.4 L (24.0-44.0) % Monocytes % 6.0 (0.0-12.0) % Eosinophils % 0.7 (0.00-5.0) % Basophils % 0.5 (0.0-0.4) % Absolute Granulocytes 3.92 (1.4-6.9) Basophils # 0.03 (0-0.4) Sodium 134 L (137-145) mmol/L Potassium 3.8 (3.5-5.1) mmol/L Chloride 101 (98-107) mmol/L Carbon Dioxide 20 L (22-30) mmol/L Anion Gap 17.5 H (5-15) MEQ/L BUN 8 (7-17) mg/dL Creatinine 0.46 L (0.52-1.04) mg/dL Estimated GFR > 60.0 ML/MIN Glucose 98 (74-106) mg/dL Calcium 8.8 (8.4-10.2) mg/dL Total Bilirubin 1.00 (0.2-1.3) mg/dL AST 32 (14-36) U/L ALT 17 (0-35) U/L Alkaline Phosphatase 116 (38-126) U/L Troponin I (0.000-0.034) ng/mL Serum Total Protein 7.9 (6.3-8.2) g/dL Albumin 4.4 (3.5-5.0) g/dL Amylase 60 (30-110) U/L Lipase 91 (23-300) U/L Urine Color (YELLOW) Urine Appearance (CLEAR) Urine pH (5-6) Ur Specific Gifford (1.005-1.025) Urine Protein (Negative) Urine Ketones (NEGATIVE) Urine Blood (0-5) Haroldo/ul Urine Nitrite (NEGATIVE) Urine Bilirubin (NEGATIVE) Urine Urobilinogen (0-1) mg/dL Ur Leukocyte Esterase (NEGATIVE) Urine WBC (Auto) (0-5) /HPF Urine RBC (Auto) (0-2) /HPF U Epithel Cells (Auto) (FEW) /HPF Urine Bacteria (Auto) (NEGATIVE) /HPF Urine Mucus (Auto) (NEGATIVE) /HPF Urine Culture Reflexed (NO) Urine Glucose (NEGATIVE) mg/dL Urine Opiates Level (NEGATIVE) Ur Methadone (NEGATIVE) Urine Barbiturates (NEGATIVE) Ur Phencyclidine (PCP) (NEGATIVE) Urine Amphetamine (NEGATIVE) U Benzodiazepine Level (NEGATIVE) Urine Cocaine (NEGATIVE) Urine Marijuana (THC) (NEGATIVE) Ethyl Alcohol < 10 (0-10) mg/dL - Progress Progress: improved Progress Note: 10/02/19 12:01 Pt given 1L banana bag bolus and clonidine patch placed. Pt felt better and was discharged in stable condition. Inspect w [id number] 07/13. Counseled pt/family regarding: drug and/or alcohol abuse, lab results, diagnosis , need for follow-up - Departure Departure Disposition: Home Clinical Impression: Alcohol withdrawal, Urinary tract infection, Chest pain Condition: Stable Critical Care Time: No Referrals: RUMA BUCK PA [Primary Care Provider] - Instructions: Urinary Tract Infection, Adult (DC), Alcohol Withdrawal (DC) Additional Instructions: Follow up with your family MD in 1-2 days Please seek help with AA or another service Return to ER as needed Avoid alcohol Keep clonidine path on for 1 week Prescriptions: Chlordiazepoxide HCl [Librium] 25 mg PO Q6H PRN PRN #7 capsule PRN Reason: Agitation Sulfamethoxazole/Trimethoprim [Bactrim Ds Tablet] 1 each PO BID 3 Days #6 tablet
--- NOTE | 2019-10-02 09:42 | XRAY ---
Indication: Chest pain 2 days. Comparison: July 22, 2019. Portable chest again hyperinflated and clear. Heart is not enlarged. Bony thorax intact. No new/acute findings.
[2019-10-02] MEDS ORDERED: THIAMINE 200 MG/2 ML*** 100 MG, Vitamins For Infusion 10 ML INJECTION*** 10 ML, FOLNATE... IV SCH ×4 (09:45)
[2019-10-02 09:55] LABS: Appearance CLEAR (CLEAR); Bacteria FEW /HPF (NEGATIVE); Bilirubin NEGATIVE (NEGATIVE); Blood MODERATE Ery/ul (0-5); Glucose NEGATIVE (NEGATIVE); Ketones SMALL (NEGATIVE); Leukocyte Esterase SMALL (NEGATIVE); Mucus SLIGHT /HPF (NEGATIVE); Nitrite NEGATIVE (NEGATIVE); Protein,Urine Dip NEGATIVE (Negative); Specific Gravity 1.004 (1.005-1.025); Urobilinogen NEGATIVE mg/dL (0-1)
[2019-10-02 09:59] LABS: Absolute Neutrophil Ct (ANC) 3.92 (1.4-6.9); BASOPHIL % 0.5 % (0.0-0.4); Basophil (Absolute #) 0.03 (0-0.4); Eosinophil % 0.7 % (0.00-5.0); Eosinophil (Absolute #) 0.04 (0-0.5); Hematocrit 48.3 % (35-47); Hemoglobin 17.1 gm/dl (12.0-16.0); Lymphocyte (Absolute #) 1.32 (1.0-4.6); Lymphocytes % 23.4 % (24.0-44.0); Mean Cell Volume 101.7 fl (78-100); Mean Corpuscular Hgb Concent. 35.4 g/dl (32-36); Mean Platelet Volume 10.8 fl (7.5-11.0); Monocyte (Absolute #) 0.34 (0.0-1.3); Neutrophil % 69.4 % (36.0-66.0); Platelet Count 119 K/mm3 (150-450); Red Blood Count 4.75 M/mm3 (4.1-5.4); Red Cell Distribution Width 13.9 % (11.5-14.0); White Blood Count 5.7 K/mm3 (4.0-10.5)
[2019-10-02 10:08] LABS: ALBUMIN 4.4 g/dL (3.5-5.0); ALKALINE PHOSPHATASE 116 U/L (38-126); AMYLASE 60 U/L (30-110); ANION GAP 17.5 MEQ/L (5-15); BLOOD UREA NITROGEN 8 mg/dL (7-17); CHLORIDE 101 mmol/L (98-107); Calcium 8.8 mg/dL (8.4-10.2); Carbon Dioxide 20 mmol/L (22-30); Creatinine 1 0.46 mg/dL (0.52-1.04); Glucose 98 mg/dL (74-106); LIPASE 91 U/L (23-300); Potassium 3.8 mmol/L (3.5-5.1); SGOT/AST 32 U/L (14-36); SGPT/ALT 17 U/L (0-35); SODIUM 134 mmol/L (137-145); Total Protein 7.9 g/dL (6.3-8.2)
[2019-10-02 10:08] LABS: Amphetamine,Urine NEGATIVE (NEGATIVE); Barbiturate,Urine NEGATIVE (NEGATIVE); Benzodiazepine,Urine NEGATIVE (NEGATIVE); Cocaine,Urine NEGATIVE (NEGATIVE); Methadone,Urine NEGATIVE (NEGATIVE); Opiate,Urine NEGATIVE (NEGATIVE); PCP,Urine NEGATIVE (NEGATIVE); THC,Urine NEGATIVE (NEGATIVE)
[2019-10-02 10:11] LABS: ETHYL ALCOHOL < 10 mg/dL (0-10)
[2019-10-02] MEDS ORDERED: TORAdol 30 mg Injection IV ONE (10:33)
[2019-10-02] MEDS ORDERED: Ativan 2 MG/1 ML VIAL IV ONE (10:33)
[2019-10-02] MEDS ORDERED: TORAdol 30 mg Injection ONE (10:47)
[2019-10-02] MEDS ORDERED: Ativan 2 MG/1 ML VIAL ONE (10:48)
[2019-10-02] MEDS ORDERED: Catapres TTS-2 PATCH TOP SCH (11:45)
[2019-10-02 12:21] VITALS: BP 153/95; PULSE 85; O2SAT 100
== END 2019-10-02 12:19 | disposition home or self-care (01) ==
LOC: ED 08:31
DX: F10.239 Alcohol dependence with withdrawal, unspecified (principal); N39.0 Urinary tract infection, site not specified; R07.9 Chest pain, unspecified; Z72.0 Tobacco use; Z72.89 Other problems related to lifestyle
CPT/HCPCS: 36000; 36415; 71045; 80053; 80307; 81001; 82150; 83690; 84484; 85025; 87086; 96365; 96366; 96374; 96375; 99284; G0480; J1885; J2060; A9270-GY

== ENCOUNTER 2019-10-30 19:08 | Emergency (ER) | payer OTHER ==
[2019-10-30] MEDS ORDERED: LIQUI-CHAR 50 GM ONE (19:13)
[2019-10-30] MEDS ORDERED: Zofran 4 MG/2 ML VIAL IV ONE (19:25)
[2019-10-30] MEDS ORDERED: Sodium Chloride 0.9% 1000 ML 1,000 ML IV STA ×2 (19:25→20:39)
[2019-10-30] MEDS ORDERED: Zofran 4 MG/2 ML VIAL ONE (19:35)
[2019-10-30] MEDS ORDERED: Sodium Chloride 0.9% 1000 ML 1,000 ML ONE ×2 (19:35→20:42)
--- NOTE | 2019-10-30 19:36 | ERPHSYRPT ---
- History of Present Illness Time Seen by Provider: 10/30/19 19:11 Source: patient, EMS Exam Limitations: intoxication Physician History: 44 years old female alcoholic with anxiety depression, GERD is brought in the ER with chief complaint of altered mental status/Benadryl overdose. Patient has taken 15 to 20 pills of [id number] 25 mg Benadryl along with 4-6 shots of vodka and 2 beers almost half an hour prior to arrival. She is sleepy on presentation but answering all questions. Patient reports she wanted to get help for her alcoholism, was at [facility] today, was told that she does not meet criteria for admission. She came back home and does not seem things are going in her favor and is not seeking any help to get out of this addiction. She started drinking again and took pills to kill herself. She does not see any hope in the near future. She has ideas of hopelessness/helplessness. Denies any homicidal ideations. She does have history of suicidal attempt in the past with overdose. Timing/Duration: today, worse Severity of Symptoms-Max: moderate Severity of Symptoms-Current: moderate Context related to: living circumstances Suicidal thoughts: attempt, ingestion Associated Symptoms: anxiety, confused, depressed, frustrated Previous symptoms: same symptoms as today Allergies/Adverse Reactions: tramadol Allergy (Severe, Verified 10/30/19 19:39) Hives cyclobenzaprine [From Flexeril] Allergy (Verified 10/30/19 19:39) latex Allergy (Verified 10/30/19 19:39) Home Medications: Phenytoin Sod Extended 100 mg* [Dilantin 100 MG] 100 mg PO TID 10/22/18 [History] Lansoprazole 30 mg PO DAILY 02/15/19 [History] Hx Tetanus, Diphtheria Vaccination/Date Given: Yes Hx Influenza Vaccination/Date Given: No Hx Pneumococcal Vaccination/Date Given: No - Past Medical History Pertinent Past Medical History: Yes Neurological History: Seizures ENT History: No Pertinent History Cardiac History: No Pertinent History Respiratory History: Asthma Endocrine Medical History: No Pertinent History Musculoskeletal History: No Pertinent History GI Medical History: GERD History: No Pertinent History Psycho-Social History: Anxiety, Depression Female Reproductive Disorders: No Pertinent History - Past Surgical History Past Surgical History: Yes Neuro Surgical History: No Pertinent History Cardiac: No Pertinent History Respiratory: No Pertinent History Gastrointestinal: Appendectomy, Cholecystectomy Genitourinary: No Pertinent History Musculoskeletal: No Pertinent History Female Surgical History: Tubal Ligation Other Surgical History: 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" - Social History Smoking Status: Current every day smoker How long have you smoked: 20 yrs Exposure to second hand smoke: Yes Drug Use: none Patient Lives Alone: No Significant Family History: other (Mother w CAD/Age of presentation unknown) - Female History Hx Now: (UNKN) - Review of Systems Constitutional: Fatigue Eyes: No Symptoms Ears, Nose, & Throat: No Symptoms Respiratory: No Symptoms Cardiac: No Symptoms Abdominal/Gastrointestinal: No Symptoms Genitourinary Symptoms: No Symptoms Musculoskeletal: No Symptoms Skin: No Symptoms Neurological: No Symptoms Psychological: Alcohol Abuse, Anxiety, Depression, Suicidal Ideations, Emotional Lability Endocrine: No Symptoms Hematologic/Lymphatic: No Symptoms Immunological/Allergic: No Symptoms - Nursing Vital Signs Nursing Vital Signs: Initial Vital Signs Temperature 98.3 F 10/30/19 19:08 Pulse Rate 111 H 10/30/19 19:08 Respiratory Rate 24 10/30/19 19:08 Blood Pressure 151/110 10/30/19 19:08 O2 Sat by Pulse Oximetry 97 10/30/19 19:08 - Physical Exam General Appearance: no apparent distress, alert, anxiety Eyes, Ears, Nose, Throat Exam: normal ENT inspection, TMs normal, pharynx normal Neck Exam: normal inspection, non-tender, supple, full range of motion Respiratory Exam: normal breath sounds, lungs clear Cardiovascular Exam: regular rate/rhythm, normal heart sounds Gastrointestinal/Abdominal Exam: soft, normal bowel sounds Extremities Exam: normal inspection, normal range of motion Neurological Exam: 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, 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 nml as tested, oriented x 3, depressed affect, motor strength Appearance: appropriate appearance, no memory impairment Behavior/Eye Contact/Speech: alert & cooperative, decreased rate of speech Thoughts/Hallucinations: no apparent hallucination Skin Exam: normal color SpO2 Interpretation: normal, O2 applied O2 Delivery: Nasal Cannula - Course Nursing assessment & vital signs reviewed: Yes EKG Interpreted by Me: RATE ([id number]), NORMAL AXIS, NORMAL INTERVALS, NORMAL QRS Ordered Tests: Active Orders 24 hr Category Date Time Status Accucheck STAT Care 10/30/19 19:25 Active EKG-ER Only STAT Care 10/30/19 19:25 Active IV Insertion STAT Care 10/30/19 19:25 Active NPO (ED) STAT Care 10/30/19 19:25 Active CHEST 1 VIEW (PORTABLE) Stat Exams 10/30/19 19:25 Taken ACETAMINOPHEN Stat Lab 10/30/19 19:40 Completed CBC W DIFF Stat Lab 10/30/19 19:40 Completed CK-Creatinine Phosphokinase Stat Lab 10/30/19 19:40 Completed CMP Stat Lab 10/30/19 19:40 Completed ETHYL ALCOHOL Stat Lab 10/30/19 19:40 Completed HCG QUALITATIVE,SERUM Stat Lab 10/30/19 19:40 Completed Lactic Acid Stat Lab 10/30/19 19:25 Completed PROTIME WITH INR Stat Lab 10/30/19 19:40 Completed SALICYLATE Stat Lab 10/30/19 19:40 Completed TROPONIN Q3H Lab 10/30/19 19:40 Completed TROPONIN Q3H Lab 10/30/19 22:30 Ordered UA W/RFX UR CULTURE Stat Lab 10/30/19 19:40 Completed Urine Triage Profile Stat Lab 10/30/19 19:40 Completed Medication Summary Generic Name Dose Route Start Last Admin Trade Name Freq PRN Reason Stop Dose Admin Potassium Chloride 20 meq in 100 mls @ 50 mls/hr 10/30/19 20:30 10/30/19 20:40 Potassium Chloride 20 Meq In Water 100ml IV 10/31/19 00:29 50 mls/hr Q2H LENKA Administration Sodium Chloride 1,000 mls @ 999 mls/hr 10/30/19 20:39 10/30/19 20:44 Sodium Chloride 0.9% 1000 Ml IV 10/30/19 21:39 999 mls/hr .Q1H1M STA Administration Discontinued Medications Generic Name Dose Route Start Last Admin Trade Name Freq PRN Reason Stop Dose Admin Charcoal Confirm 10/30/19 19:13 Liqui-Lexie 50 Gm Administered 10/30/19 19:14 Dose 50 g .ROUTE .STK-MED ONE Charcoal 50 g 10/30/19 19:47 10/30/19 19:51 Liqui-Lexie 50 Gm PO 10/30/19 19:48 50 g STAT ONE Administration Sodium Chloride 1,000 mls @ 999 mls/hr 10/30/19 19:25 10/30/19 19:36 Sodium Chloride 0.9% 1000 Ml IV 10/30/19 20:25 999 mls/hr .Q1H1M STA Administration Sodium Chloride Confirm 10/30/19 19:35 Sodium Chloride 0.9% 1000 Ml Administered 10/30/19 19:36 Dose 1,000 mls @ ud .ROUTE .STK-MED ONE Sodium Chloride Confirm 10/30/19 20:42 Sodium Chloride 0.9% 1000 Ml Administered 10/30/19 20:43 Dose 1,000 mls @ ud .ROUTE .STK-MED ONE Ondansetron HCl 4 mg 10/30/19 19:25 10/30/19 19:36 Zofran 4 Mg/2 Ml Vial IV 10/30/19 19:26 4 mg STAT ONE Administration Ondansetron HCl Confirm 10/30/19 19:35 Zofran 4 Mg/2 Ml Vial Administered 10/30/19 19:36 Dose 4 mg .ROUTE .STK-MED ONE Potassium Chloride 40 meq 10/30/19 20:18 10/30/19 20:39 Klor Con 10 Meq PO 10/30/19 20:19 40 meq STAT ONE Administration Potassium Chloride Confirm 10/30/19 20:36 Klor Con 10 Meq Administered 10/30/19 20:37 Dose 40 meq PO .STK-MED ONE Lab/Rad Data: Laboratory Result Diagrams 10/30/19 19:40 10/30/19 19:40 Laboratory Results 10/30/19 10/30/19 10/30/19 Range/Units 19:40 19:40 19:40 WBC (4.0-10.5) K/mm3 RBC (4.1-5.4) M/mm3 Hgb (12.0-16.0) gm/dl Hct (35-47) % MCV (78-100) fl MCH (26-32) pg MCHC (32-36) g/dl RDW (11.5-14.0) % Plt Count (150-450) K/mm3 MPV (7.5-11.0) fl Gran % (36.0-66.0) % Eos # (Auto) (0-0.5) Absolute Lymphs (auto) (1.0-4.6) Absolute Monos (auto) (0.0-1.3) Lymphocytes % (24.0-44.0) % Monocytes % (0.0-12.0) % Eosinophils % (0.00-5.0) % Basophils % (0.0-0.4) % Absolute Granulocytes (1.4-6.9) Basophils # (0-0.4) PT (9.95-12.35) SECONDS INR (0.8-3.0) Sodium (137-145) mmol/L Potassium (3.5-5.1) mmol/L Chloride (98-107) mmol/L Carbon Dioxide (22-30) mmol/L Anion Gap (5-15) MEQ/L BUN (7-17) mg/dL Creatinine (0.52-1.04) mg/dL Estimated GFR ML/MIN Glucose (74-106) mg/dL Lactic Acid (0.4-2.0) Calcium (8.4-10.2) mg/dL Total Bilirubin (0.2-1.3) mg/dL AST (14-36) U/L ALT (0-35) U/L Alkaline Phosphatase (38-126) U/L Creatine Kinase (30-135) U/L Troponin I (0.000-0.034) ng/mL Serum Total Protein (6.3-8.2) g/dL Albumin (3.5-5.0) g/dL Serum , Qual NEGATIVE (Negative) Urine Color STRAW (YELLOW) Urine Appearance CLEAR (CLEAR) Urine pH 7.0 (5-6) Ur Specific Brumley 1.002 (1.005-1.025) Urine Protein NEGATIVE (Negative) Urine Ketones NEGATIVE (NEGATIVE) Urine Blood MODERATE (0-5) Haroldo/ul Urine Nitrite NEGATIVE (NEGATIVE) Urine Bilirubin NEGATIVE (NEGATIVE) Urine Urobilinogen NEGATIVE (0-1) mg/dL Ur Leukocyte Esterase NEGATIVE (NEGATIVE) Urine WBC (Auto) NONE (0-5) /HPF Urine RBC (Auto) NONE (0-2) /HPF U Epithel Cells (Auto) NONE (FEW) /HPF Urine Bacteria (Auto) NONE (NEGATIVE) /HPF Urine Culture Reflexed NO (NO) Urine Glucose NEGATIVE (NEGATIVE) mg/dL Salicylates (2-20) mg/dL Urine Opiates Level NEGATIVE (NEGATIVE) Ur Methadone NEGATIVE (NEGATIVE) Acetaminophen (10-30) ug/ml Urine Barbiturates NEGATIVE (NEGATIVE) Ur Phencyclidine (PCP) NEGATIVE (NEGATIVE) Urine Amphetamine NEGATIVE (NEGATIVE) U Benzodiazepine Level POSITIVE (NEGATIVE) Urine Cocaine NEGATIVE (NEGATIVE) Urine Marijuana (THC) NEGATIVE (NEGATIVE) Ethyl Alcohol (0-10) mg/dL Slides for Path Review 10/30/19 10/30/19 10/30/19 Range/Units 19:40 19:40 19:40 WBC (4.0-10.5) K/mm3 RBC (4.1-5.4) M/mm3 Hgb (12.0-16.0) gm/dl Hct (35-47) % MCV (78-100) fl MCH (26-32) pg MCHC (32-36) g/dl RDW (11.5-14.0) % Plt Count (150-450) K/mm3 MPV (7.5-11.0) fl Gran % (36.0-66.0) % Eos # (Auto) (0-0.5) Absolute Lymphs (auto) (1.0-4.6) Absolute Monos (auto) (0.0-1.3) Lymphocytes % (24.0-44.0) % Monocytes % (0.0-12.0) % Eosinophils % (0.00-5.0) % Basophils % (0.0-0.4) % Absolute Granulocytes (1.4-6.9) Basophils # (0-0.4) PT 10.9 (9.95-12.35) SECONDS INR 0.96 (0.8-3.0) Sodium 138 (137-145) mmol/L Potassium 2.8 L* (3.5-5.1) mmol/L Chloride 107 (98-107) mmol/L Carbon Dioxide 19 L (22-30) mmol/L Anion Gap 15.2 H (5-15) MEQ/L BUN < 2 L (7-17) mg/dL Creatinine 0.40 L (0.52-1.04) mg/dL Estimated GFR > 60.0 ML/MIN Glucose 104 (74-106) mg/dL Lactic Acid (0.4-2.0) Calcium 8.9 (8.4-10.2) mg/dL Total Bilirubin 0.40 (0.2-1.3) mg/dL AST 59 H (14-36) U/L ALT 20 (0-35) U/L Alkaline Phosphatase 107 (38-126) U/L Creatine Kinase 77 (30-135) U/L Troponin I < 0.012 (0.000-0.034) ng/mL Serum Total Protein 7.4 (6.3-8.2) g/dL Albumin 4.3 (3.5-5.0) g/dL Serum , Qual (Negative) Urine Color (YELLOW) Urine Appearance (CLEAR) Urine pH (5-6) Ur Specific Brumley (1.005-1.025) Urine Protein (Negative) Urine Ketones (NEGATIVE) Urine Blood (0-5) Haroldo/ul Urine Nitrite (NEGATIVE) Urine Bilirubin (NEGATIVE) Urine Urobilinogen (0-1) mg/dL Ur Leukocyte Esterase (NEGATIVE) Urine WBC (Auto) (0-5) /HPF Urine RBC (Auto) (0-2) /HPF U Epithel Cells (Auto) (FEW) /HPF Urine Bacteria (Auto) (NEGATIVE) /HPF Urine Culture Reflexed (NO) Urine Glucose (NEGATIVE) mg/dL Salicylates 1.0 L (2-20) mg/dL Urine Opiates Level (NEGATIVE) Ur Methadone (NEGATIVE) Acetaminophen < 10 L (10-30) ug/ml Urine Barbiturates (NEGATIVE) Ur Phencyclidine (PCP) (NEGATIVE) Urine Amphetamine (NEGATIVE) U Benzodiazepine Level (NEGATIVE) Urine Cocaine (NEGATIVE) Urine Marijuana (THC) (NEGATIVE) Ethyl Alcohol 244 H (0-10) mg/dL Slides for Path Review 10/30/19 10/30/19 Range/Units 19:40 19:25 WBC 4.8 (4.0-10.5) K/mm3 RBC 4.04 L (4.1-5.4) M/mm3 Hgb 14.4 (12.0-16.0) gm/dl Hct 41.1 (35-47) % MCV 101.7 H (78-100) fl MCH 35.6 H (26-32) pg MCHC 35.0 (32-36) g/dl RDW 14.3 H (11.5-14.0) % Plt Count 93 L (150-450) K/mm3 MPV 10.0 (7.5-11.0) fl Gran % 53.9 (36.0-66.0) % Eos # (Auto) 0.10 (0-0.5) Absolute Lymphs (auto) 1.75 (1.0-4.6) Absolute Monos (auto) 0.34 (0.0-1.3) Lymphocytes % 36.2 (24.0-44.0) % Monocytes % 7.0 (0.0-12.0) % Eosinophils % 2.1 (0.00-5.0) % Basophils % 0.8 (0.0-0.4) % Absolute Granulocytes 2.60 (1.4-6.9) Basophils # 0.04 (0-0.4) PT (9.95-12.35) SECONDS INR (0.8-3.0) Sodium (137-145) mmol/L Potassium (3.5-5.1) mmol/L Chloride (98-107) mmol/L Carbon Dioxide (22-30) mmol/L Anion Gap (5-15) MEQ/L BUN (7-17) mg/dL Creatinine (0.52-1.04) mg/dL Estimated GFR ML/MIN Glucose (74-106) mg/dL Lactic Acid 4.0 H (0.4-2.0) Calcium (8.4-10.2) mg/dL Total Bilirubin (0.2-1.3) mg/dL AST (14-36) U/L ALT (0-35) U/L Alkaline Phosphatase (38-126) U/L Creatine Kinase (30-135) U/L Troponin I (0.000-0.034) ng/mL Serum Total Protein (6.3-8.2) g/dL Albumin (3.5-5.0) g/dL Serum , Qual (Negative) Urine Color (YELLOW) Urine Appearance (CLEAR) Urine pH (5-6) Ur Specific Brumley (1.005-1.025) Urine Protein (Negative) Urine Ketones (NEGATIVE) Urine Blood (0-5) Haroldo/ul Urine Nitrite (NEGATIVE) Urine Bilirubin (NEGATIVE) Urine Urobilinogen (0-1) mg/dL Ur Leukocyte Esterase (NEGATIVE) Urine WBC (Auto) (0-5) /HPF Urine RBC (Auto) (0-2) /HPF U Epithel Cells (Auto) (FEW) /HPF Urine Bacteria (Auto) (NEGATIVE) /HPF Urine Culture Reflexed (NO) Urine Glucose (NEGATIVE) mg/dL Salicylates (2-20) mg/dL Urine Opiates Level (NEGATIVE) Ur Methadone (NEGATIVE) Acetaminophen (10-30) ug/ml Urine Barbiturates (NEGATIVE) Ur Phencyclidine (PCP) (NEGATIVE) Urine Amphetamine (NEGATIVE) U Benzodiazepine Level (NEGATIVE) Urine Cocaine (NEGATIVE) Urine Marijuana (THC) (NEGATIVE) Ethyl Alcohol (0-10) mg/dL Slides for Path Review YES - Progress Progress: unchanged, re-examined Progress Note: 10/30/19 20:34 44 years old is evaluated for drug overdose and alcohol intoxication. Patient is arousable to verbal commands on presentation. She is awake alert and oriented, does admit suicidal intention for drug overdose. She is given activated charcoal. Discussed with poison control, recommended supportive care with fluids and monitoring QRS complexes and using benzos for overdose. Her blood alcohol is 244, EKG showed normal sinus rhythm with no acute ischemic changes. CK level is normal. She has mild hypokalemia and started on replacement. Poison control recommended 6 to 8 hours of observation before medically clearing her. Discussed with Dr. Curtis, recommended transfer to [facility], discussed with at [facility] ER and patient is accepted for transfer. Discussed with : Diya Counseled pt/family regarding: lab results, diagnosis, need for follow-up, rad results, smoking cessation - Departure Departure Disposition: Transfer Clinical Impression: Hypokalemia, Lactic acidosis, Thrombocytopenia, Suicidal ideations Drug overdose, intentional Qualifiers: Encounter type: initial encounter Qualified Code(s): T50.902A - Poisoning by unspecified drugs, medicaments and biological substances, intentional self-harm, initial encounter Alcohol intoxication Qualifiers: Complication of substance-induced condition: with unspecified complication Qualified Code(s): F10.929 - Alcohol use, unspecified with intoxication, unspecified Condition: Fair Critical Care Time: Yes Critical Care Time(excluding separately billable procedures): Critical 30-74 mins Referrals: RUMA BUCK PA [Primary Care Provider] -
[2019-10-30 19:40] LABS: Appearance CLEAR (CLEAR); Bilirubin NEGATIVE (NEGATIVE); Blood MODERATE Ery/ul (0-5); Glucose NEGATIVE (NEGATIVE); Ketones NEGATIVE (NEGATIVE); Leukocyte Esterase NEGATIVE (NEGATIVE); Nitrite NEGATIVE (NEGATIVE); Protein,Urine Dip NEGATIVE (Negative); Specific Gravity 1.002 (1.005-1.025); Urobilinogen NEGATIVE mg/dL (0-1)
[2019-10-30 19:41] LABS: BASOPHIL % 0.8 % (0.0-0.4); Basophil (Absolute #) 0.04 (0-0.4); Eosinophil % 2.1 % (0.00-5.0); Hematocrit 41.1 % (35-47); Hemoglobin 14.4 gm/dl (12.0-16.0); Lymphocyte (Absolute #) 1.75 (1.0-4.6); Lymphocytes % 36.2 % (24.0-44.0); Mean Cell Volume 101.7 fl (78-100); Mean Corpuscular Hemoglobin 35.6 pg (26-32); Monocyte (Absolute #) 0.34 (0.0-1.3); Neutrophil % 53.9 % (36.0-66.0); Platelet Count 93 K/mm3 (150-450); Red Blood Count 4.04 M/mm3 (4.1-5.4); Red Cell Distribution Width 14.3 % (11.5-14.0); White Blood Count 4.8 K/mm3 (4.0-10.5)
[2019-10-30] MEDS ORDERED: LIQUI-CHAR 50 GM PO ONE (19:47)
[2019-10-30 19:51] LABS: INR 0.96 (0.8-3.0); PROTIME 10.9 SECONDS (9.95-12.35)
[2019-10-30 19:54] LABS: Amphetamine,Urine NEGATIVE (NEGATIVE); Barbiturate,Urine NEGATIVE (NEGATIVE); Benzodiazepine,Urine POSITIVE (NEGATIVE); Cocaine,Urine NEGATIVE (NEGATIVE); Methadone,Urine NEGATIVE (NEGATIVE); Opiate,Urine NEGATIVE (NEGATIVE); PCP,Urine NEGATIVE (NEGATIVE); THC,Urine NEGATIVE (NEGATIVE)
[2019-10-30 19:56] LABS: ALBUMIN 4.3 g/dL (3.5-5.0); ALKALINE PHOSPHATASE 107 U/L (38-126); ANION GAP 15.2 MEQ/L (5-15); CHLORIDE 107 mmol/L (98-107); CK-Creatinine Phosphokinase 77 U/L (30-135); Calcium 8.9 mg/dL (8.4-10.2); Carbon Dioxide 19 mmol/L (22-30); ETHYL ALCOHOL 244 mg/dL (0-10); Glucose 104 mg/dL (74-106); SGOT/AST 59 U/L (14-36); SGPT/ALT 20 U/L (0-35); SODIUM 138 mmol/L (137-145); Total Protein 7.4 g/dL (6.3-8.2)
[2019-10-30 19:58] LABS: BLOOD UREA NITROGEN < 2 mg/dL (7-17)
[2019-10-30 19:59] LABS: ACETAMINOPHEN < 10 ug/ml (10-30); Potassium 2.8 mmol/L (3.5-5.1)
[2019-10-30 20:02] LABS: Slide Review 1 YES
[2019-10-30] MEDS ORDERED: Klor Con 10 MEQ PO ONE ×2 (20:18→20:36)
[2019-10-30] MEDS ORDERED: POTASSIUM CHLORIDE 20 mEq IN WATER 100ML 20 MEQ/100 ML BAG IV SCH (20:30)
[2019-10-30] MEDS ORDERED: POTASSIUM CHLORIDE 20 mEq IN WATER 100ML 100 ML IV ONE (20:37)
[2019-10-30 20:51] VITALS: PULSE 105; O2SAT 98
[2019-10-30 21:13] VITALS: BP 125/77
--- NOTE | 2019-10-31 10:41 | XRAY ---
Exam: AP upright portable chest film from 10/30/2019. Comparison: AP portable chest film from 10/02/2019. Indication: Overdose. Findings: The heart size and contour are normal. The patient is rotated slightly toward the left. The cleve and mediastinal structures appear intact. EKG leads are seen in place. Lungs are adequately inflated and appear clear. No vascular congestion, pneumothorax, or pleural effusion is seen. Mild biapical pleural thickening is evident. Subtle sclerotic densities are seen within the proximal left humeral diaphysis which may represent bone infarcts. No acute osseous process is seen. Impression: 1. No acute cardiopulmonary disease is seen, no change from 10/02/2019.
== END 2019-10-30 21:10 | disposition short-term general hospital (02) ==
LOC: ED 19:08
DX: E87.6 Hypokalemia (principal); E87.2 Acidosis; D69.6 Thrombocytopenia, unspecified; R45.851 Suicidal ideations; T50.902A Poisoning by unspecified drugs, medicaments and biological substances, intentional self-harm, initial encounter; F10.929 Alcohol use, unspecified with intoxication, unspecified
CPT/HCPCS: 51702; 80053; 80307; 81001; 81025; 82550; 82962; 83605; 84484; 85025; 85610; 93005; 96360; 96361; 96365; 96374; 99291; G0480; 36000; 36415; 71045; 99285; J2405; J3480; A9270-GY

== ENCOUNTER 2021-02-28 09:57 | Emergency (ER) | payer OTHER ==
--- NOTE | 2021-02-28 10:47 | ERPHSYRPT ---
- History of Present Illness Historian: patient Exam Limitations: no limitations Patient Subjective Stated Complaint: pt here for epigastric pain for since last night unreleived by home meds, she states she has been on a binge drinking beer, states pain goed into back Triage Nursing Assessment: pt alert, walked in holding chest, skin w/d/p. resp easy, face mask in place,no edema noted Physician History: 46 yo wf w inferior chest pain/epigastric pain since last PM. Pain is 8/10 on scale and radiates to her back. Nothing makes the pain better or worse. She has been nauseated but denies dyspnea/vomiting/diaphoresis. Pain is described as pressure, and nothing makes better or worse. Pt drinks 8 beers a day which has recently increased. She denies HTN/DM/hyperlipidemia but does smoke 1ppd. Cardiac h/o denied. Timing/Duration: yesterday Activities at Onset: rest Quality: pressure Location: substernal Chest Pain Radiation: back Severity of Pain-Max: severe Severity of Pain-Current: severe Modifying Factors: Improves With: nothing Associated Symptoms: nausea, abdominal pain, back pain, No vomiting, No palpitations, No heartburn, No shortness of breath, No cough, No hurts to breathe, No diaphoresis, No chills, No fever, No fatigue, No weakness, No swelling/lump in chest, No syncope, No rash, No headache, No dizziness, No edema Prior Chest Pain/Cardiac Workup: no prior cardiac workup Nitro Today/Relief: no nitro taken today Aspirin Treatment Today: no aspirin today Allergies/Adverse Reactions: tramadol Allergy (Severe, Verified 10/30/19 19:39) Hives coconut Allergy (Verified 02/28/21 10:02) cyclobenzaprine [From Flexeril] Allergy (Verified 10/30/19 19:39) latex Allergy (Verified 10/30/19 19:39) Home Medications: Lansoprazole 30 mg PO DAILY 02/15/19 [History] Hx Tetanus, Diphtheria Vaccination/Date Given: Yes Hx Influenza Vaccination/Date Given: No Hx Pneumococcal Vaccination/Date Given: No Immunizations Up to Date: Yes Travel Risk - International Travel Have you traveled outside of the country in past 3 weeks: No - Coronavirus Screening Are you exhibiting any of the following symptoms?: No - Vaccine Status Have you recieved a Covid-19 vaccination: No - Review of Systems Constitutional: No Symptoms Eyes: No Symptoms Ears, Nose, & Throat: No Symptoms Respiratory: No Symptoms Cardiac: No Symptoms Abdominal/Gastrointestinal: No Symptoms, Nausea Genitourinary Symptoms: No Symptoms Musculoskeletal: No Symptoms Skin: No Symptoms Neurological: No Symptoms Psychological: No Symptoms Endocrine: No Symptoms Hematologic/Lymphatic: No Symptoms Immunological/Allergic: No Symptoms - Past Medical History Pertinent Past Medical History: Yes Neurological History: Seizures ENT History: No Pertinent History Cardiac History: No Pertinent History Respiratory History: Asthma Endocrine Medical History: No Pertinent History Musculoskeletal History: No Pertinent History GI Medical History: GERD History: No Pertinent History Psycho-Social History: Anxiety, Depression Female Reproductive Disorders: No Pertinent History - Past Surgical History Past Surgical History: Yes Neuro Surgical History: No Pertinent History Cardiac: No Pertinent History Respiratory: No Pertinent History Gastrointestinal: Appendectomy, Cholecystectomy Genitourinary: No Pertinent History Musculoskeletal: No Pertinent History Female Surgical History: Tubal Ligation Other Surgical History: 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" - Social History Smoking Status: Current every day smoker How long have you smoked: 20 yrs Exposure to second hand smoke: Yes Drug Use: none Patient Lives Alone: No Significant Family History: no pertinent family hx, other (Mother w CAD/Age of presentation unknown) - Female History Hx Last Menstrual Period: 2 weeks ago Hx Now: No - Nursing Vital Signs Nursing Vital Signs: Initial Vital Signs Temperature 97.2 F 02/28/21 10:09 Pulse Rate 84 02/28/21 10:09 Respiratory Rate 18 02/28/21 10:09 Blood Pressure 145/112 02/28/21 10:09 O2 Sat by Pulse Oximetry 99 02/28/21 10:09 Pain Scale Pain Intensity 4 Hypertensive - Physical Exam General Appearance: no apparent distress Eye Exam: PERRL/EOMI, eyes nml inspection Ears, Nose, Throat Exam: normal ENT inspection, TMs normal, pharynx normal, moist mucous membranes Neck Exam: normal inspection, non-tender, supple, full range of motion, No meningismus, No mass, No Brudzinski, No Kernig's, No carotid bruit Respiratory Exam: normal breath sounds, lungs clear, airway intact, No chest tenderness, No respiratory distress Cardiovascular Exam: regular rate/rhythm, normal heart sounds, normal peripheral pulses, No murmur Gastrointestinal/Abdomen Exam: soft, tenderness (Epigastric ttp wo guarding or rebound) Back Exam: normal inspection, normal range of motion, No CVA tenderness Extremity Exam: normal inspection, normal range of motion Neurologic Exam: alert, oriented x 3, cooperative, 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 tested, normal mood/affect, nml cerebellar function, nml station & gait, sensation nml, No motor deficits, No sensory deficit Skin Exam: normal color, warm, dry Lymphatic Exam: No adenopathy SpO2 Interpretation: normal SpO2: 99 O2 Delivery: Room Air - Course EKG Interpreted by Me: RATE (NSR/Normal QT-QTc/No acute ST-T wave changes) - Radiology Exams Chest X-ray Interpretation: Discussed w/ radiologist (NAD) Ordered Tests: Active Orders 24 hr Category Date Time Status EKG-ER Only STAT Care 02/28/21 10:29 Completed IV Insertion STAT Care 02/28/21 10:29 Completed CHEST 1 VIEW (PORTABLE) Stat Exams 02/28/21 10:30 Completed AMYLASE Stat Lab 02/28/21 10:42 Completed CBC W DIFF Stat Lab 02/28/21 10:42 Completed CMP Stat Lab 02/28/21 10:42 Completed ETHYL ALCOHOL Stat Lab 02/28/21 10:42 Completed LIPASE Stat Lab 02/28/21 10:42 Completed MAGNESIUM Stat Lab 02/28/21 10:42 Completed NT PRO BNP Stat Lab 02/28/21 10:42 Completed PROTIME WITH INR Stat Lab 02/28/21 10:42 Completed PTT Stat Lab 02/28/21 10:42 Completed TROPONIN Q3H Lab 02/28/21 10:42 Completed TROPONIN Q3H Lab 02/28/21 12:20 Completed Medication Summary Discontinued Medications Generic Name Dose Route Start Last Admin Trade Name Freq PRN Reason Stop Dose Admin Fentanyl Citrate 100 mcg 02/28/21 11:48 02/28/21 11:53 Fentanyl Citrate 100 Mcg/2 Ml* Vial IV 02/28/21 11:49 100 mcg STAT ONE Administration Fentanyl Citrate Confirm 02/28/21 11:52 Fentanyl Citrate 100 Mcg/2 Ml* Vial Administered 02/28/21 11:53 Dose 100 mcg .ROUTE .STK-MED ONE Fentanyl Citrate 50 mcg 02/28/21 13:04 02/28/21 13:14 Fentanyl Citrate 100 Mcg/2 Ml* Vial IV 02/28/21 13:05 50 mcg STAT ONE Administration Fentanyl Citrate Confirm 02/28/21 13:12 Fentanyl Citrate 100 Mcg/2 Ml* Vial Administered 02/28/21 13:13 Dose 100 mcg .ROUTE .STK-MED ONE Ondansetron HCl 4 mg 02/28/21 10:50 02/28/21 11:10 Ondansetron Hcl 4 Mg/2 Ml Vial IV 02/28/21 10:51 4 mg STAT ONE Administration Ondansetron HCl Confirm 02/28/21 10:53 Ondansetron Hcl 4 Mg/2 Ml Vial Administered 02/28/21 10:54 Dose 4 mg .ROUTE .STK-MED ONE Pantoprazole Sodium 40 mg 02/28/21 10:50 02/28/21 11:10 Pantoprazole 40 Mg Vial IV 02/28/21 10:51 40 mg STAT ONE Administration Pantoprazole Sodium Confirm 02/28/21 10:53 Pantoprazole 40 Mg Vial Administered 02/28/21 10:54 Dose 40 mg IV .STK-MED ONE Lab/Rad Data: Laboratory Result Diagrams 02/28/21 10:42 02/28/21 10:42 Laboratory Results 02/28/21 02/28/21 02/28/21 Range/Units 12:20 10:42 10:42 WBC (4.0-10.5) K/mm3 RBC (4.1-5.4) M/mm3 Hgb (12.0-16.0) gm/dl Hct (35-47) % MCV (78-100) fl MCH (26-32) pg MCHC (32-36) g/dl RDW (11.5-14.0) % Plt Count (150-450) K/mm3 MPV (7.5-11.0) fl Gran % (36.0-66.0) % Eos # (Auto) (0-0.5) Absolute Lymphs (auto) (1.0-4.6) Absolute Monos (auto) (0.0-1.3) Lymphocytes % (24.0-44.0) % Monocytes % (0.0-12.0) % Eosinophils % (0.00-5.0) % Basophils % (0.0-0.4) % Absolute Granulocytes (1.4-6.9) Basophils # (0-0.4) PT 10.9 (9.4-12.5) SECONDS INR 0.92 (0.8-3.0) APTT 30.3 (25.1-36.5) SECONDS Sodium (137-145) mmol/L Potassium (3.5-5.1) mmol/L Chloride (98-107) mmol/L Carbon Dioxide (22-30) mmol/L Anion Gap (5-15) MEQ/L BUN (7-17) mg/dL Creatinine (0.52-1.04) mg/dL Estimated GFR ML/MIN Glucose (74-106) mg/dL Calcium (8.4-10.2) mg/dL Magnesium (1.6-2.3) mg/dL Total Bilirubin (0.2-1.3) mg/dL AST (14-36) U/L ALT (0-35) U/L Alkaline Phosphatase (38-126) U/L Troponin I < 0.012 < 0.012 (0.000-0.034) ng/mL NT-Pro-B Natriuret Pep (0-450) pg/mL Serum Total Protein (6.3-8.2) g/dL Albumin (3.5-5.0) g/dL Amylase (30-110) U/L Lipase (23-300) U/L Ethyl Alcohol (0-10) mg/dL 02/28/21 02/28/21 Range/Units 10:42 10:42 WBC 9.4 (4.0-10.5) K/mm3 RBC 5.23 (4.1-5.4) M/mm3 Hgb 17.0 H (12.0-16.0) gm/dl Hct 50.0 H (35-47) % MCV 95.6 (78-100) fl MCH 32.5 H (26-32) pg MCHC 34.0 (32-36) g/dl RDW 13.4 (11.5-14.0) % Plt Count 235 (150-450) K/mm3 MPV 9.5 (7.5-11.0) fl Gran % 65.1 (36.0-66.0) % Eos # (Auto) 0.25 (0-0.5) Absolute Lymphs (auto) 2.36 (1.0-4.6) Absolute Monos (auto) 0.56 (0.0-1.3) Lymphocytes % 25.2 (24.0-44.0) % Monocytes % 6.0 (0.0-12.0) % Eosinophils % 2.7 (0.00-5.0) % Basophils % 1.0 (0.0-0.4) % Absolute Granulocytes 6.11 (1.4-6.9) Basophils # 0.09 (0-0.4) PT (9.4-12.5) SECONDS INR (0.8-3.0) APTT (25.1-36.5) SECONDS Sodium 135 L (137-145) mmol/L Potassium 4.1 (3.5-5.1) mmol/L Chloride 102 (98-107) mmol/L Carbon Dioxide 22 (22-30) mmol/L Anion Gap 15.1 H (5-15) MEQ/L BUN 7 (7-17) mg/dL Creatinine 0.50 L (0.52-1.04) mg/dL Estimated GFR > 60.0 ML/MIN Glucose 94 (74-106) mg/dL Calcium 9.5 (8.4-10.2) mg/dL Magnesium 2.0 (1.6-2.3) mg/dL Total Bilirubin 0.40 (0.2-1.3) mg/dL AST 24 (14-36) U/L ALT 21 (0-35) U/L Alkaline Phosphatase 89 (38-126) U/L Troponin I (0.000-0.034) ng/mL NT-Pro-B Natriuret Pep 118 (0-450) pg/mL Serum Total Protein 7.6 (6.3-8.2) g/dL Albumin 4.5 (3.5-5.0) g/dL Amylase 53 (30-110) U/L Lipase 131 (23-300) U/L Ethyl Alcohol 48 H (0-10) mg/dL - Progress Progress: improved Progress Note: 02/28/21 13:06 Zofran 4mg IV/Protonix 40mg IV [id number] IV w mild reliet of pain Fentanyl 50umg IV before discharge Heart score 1 02/28/21 21:38 Wells Score 0 Counseled pt/family regarding: lab results, diagnosis, need for follow-up, rad results - Departure Departure Disposition: Home Clinical Impression: Chest pain, Alcohol abuse Condition: Stable Critical Care Time: No Referrals: KOBY GLOVER MD [Primary Care Provider] - Follow up/PCP as directed Instructions: Chest Pain (DC), Alcohol Abuse and Alcoholism (DC) Additional Instructions: Return to ER for increasing chest pain or shortness of breath Start Protonix once a day Stop drinking alcohol Follow up with your family MD in 1-2 days Prescriptions: PANTOPRAZOLE 40 mg Tablet [Protonix 40MG Tablet] 40 mg PO QAM #30 tab
[2021-02-28] MEDS ORDERED: Zofran 4 MG/2 ML VIAL IV ONE (10:50)
[2021-02-28] MEDS ORDERED: PROTONIX 40 MG IV IV ONE ×2 (10:50→10:53)
[2021-02-28] MEDS ORDERED: Zofran 4 MG/2 ML VIAL ONE (10:53)
--- NOTE | 2021-02-28 10:53 | XRAY ---
Indication: Chest pain. Comparison: October 30, 2019. Portable chest remains hyperinflated and clear. Heart and mediastinal structures within normal limits. Bony thorax intact again with incidental left humerus enchondromas. No new/acute abnormalities.
[2021-02-28 10:57] LABS: Absolute Neutrophil Ct (ANC) 6.11 (1.4-6.9); Basophil (Absolute #) 0.09 (0-0.4); Eosinophil % 2.7 % (0.00-5.0); Eosinophil (Absolute #) 0.25 (0-0.5); Lymphocyte (Absolute #) 2.36 (1.0-4.6); Lymphocytes % 25.2 % (24.0-44.0); Mean Cell Volume 95.6 fl (78-100); Mean Corpuscular Hemoglobin 32.5 pg (26-32); Mean Platelet Volume 9.5 fl (7.5-11.0); Monocyte (Absolute #) 0.56 (0.0-1.3); Neutrophil % 65.1 % (36.0-66.0); Platelet Count 235 K/mm3 (150-450); Red Blood Count 5.23 M/mm3 (4.1-5.4); Red Cell Distribution Width 13.4 % (11.5-14.0); White Blood Count 9.4 K/mm3 (4.0-10.5)
[2021-02-28 11:15] LABS: INR 0.92 (0.8-3.0); PROTIME 10.9 SECONDS (9.4-12.5); PTT 30.3 SECONDS (25.1-36.5)
[2021-02-28 11:18] LABS: ALBUMIN 4.5 g/dL (3.5-5.0); ALKALINE PHOSPHATASE 89 U/L (38-126); AMYLASE 53 U/L (30-110); ANION GAP 15.1 MEQ/L (5-15); BLOOD UREA NITROGEN 7 mg/dL (7-17); CHLORIDE 102 mmol/L (98-107); Calcium 9.5 mg/dL (8.4-10.2); Carbon Dioxide 22 mmol/L (22-30); EST GLOMERULAR FILTRATION RATE > 60.0 ML/MIN; ETHYL ALCOHOL 48 mg/dL (0-10); Glucose 94 mg/dL (74-106); LIPASE 131 U/L (23-300); NT PRO BNP 118 pg/mL (0-450); Potassium 4.1 mmol/L (3.5-5.1); SGOT/AST 24 U/L (14-36); SGPT/ALT 21 U/L (0-35); SODIUM 135 mmol/L (137-145); Total Protein 7.6 g/dL (6.3-8.2)
[2021-02-28] MEDS ORDERED: SUBLIMAZE 100 MCG/2 ML IV ONE ×2 (11:48→13:04)
[2021-02-28] MEDS ORDERED: SUBLIMAZE 100 MCG/2 ML ONE ×2 (11:52→13:12)
[2021-02-28 12:29] VITALS: BP 130/86
[2021-02-28 13:21] VITALS: PULSE 66; O2SAT 95
== END 2021-02-28 13:46 | disposition home or self-care (01) ==
LOC: ED 09:57
DX: R07.9 Chest pain, unspecified (principal); F10.10 Alcohol abuse, uncomplicated
CPT/HCPCS: 36000; 36415; 71045; 80053; 82150; 83690; 83735; 83880; 84484; 85025; 85610; 85730; 93005; 96374; 96375; 96376; 99284; G0480; 80307; J2405; J3010

== ENCOUNTER 2021-07-06 17:02 | Emergency (ER) | payer OTHER ==
[2021-07-06] MEDS ORDERED: Zofran 4 MG/2 ML VIAL IV ONE (17:40)
[2021-07-06] MEDS ORDERED: Sodium Chloride 0.9% 1000 ML 1,000 ML IV STA (17:40)
[2021-07-06] MEDS ORDERED: FOLATE 1 MG PO ONE (17:40)
[2021-07-06] MEDS ORDERED: VITAMIN B-1 100 MG PO ONE (17:40)
[2021-07-06] MEDS ORDERED: PROTONIX 40 MG IV IV ONE ×2 (17:42→18:12)
[2021-07-06] MEDS ORDERED: Zofran 4 MG/2 ML VIAL ONE (18:12)
[2021-07-06 18:13] LABS: Basophil (Absolute #) 0.06 (0-0.4); Eosinophil % 0.6 % (0.00-5.0); Eosinophil (Absolute #) 0.06 (0-0.5); Hematocrit 45.3 % (35-47); Hemoglobin 16.1 gm/dl (12.0-16.0); Lymphocyte (Absolute #) 1.58 (1.0-4.6); Mean Corpuscular Hemoglobin 33.8 pg (26-32); Mean Corpuscular Hgb Concent. 35.5 g/dl (32-36); Mean Platelet Volume 10.5 fl (7.5-11.0); Monocytes % 6.1 % (0.0-12.0); Neutrophil % 76.7 % (36.0-66.0); Platelet Count 135 K/mm3 (150-450); Red Blood Count 4.77 M/mm3 (4.1-5.4); Red Cell Distribution Width 12.4 % (11.5-14.0); White Blood Count 9.9 K/mm3 (4.0-10.5)
[2021-07-06] MEDS ORDERED: Sodium Chloride 0.9% 1000 ML 1,000 ML ONE (18:13)
[2021-07-06 18:22] LABS: INR 0.97 (0.8-3.0); PROTIME 11.4 SECONDS (9.4-12.5)
--- NOTE | 2021-07-06 18:24 | ERPHSYRPT ---
- History of Present Illness Source: patient, EMS Exam Limitations: no limitations Patient Subjective Stated Complaint: chest pain, NVD, shakiness, binge drinking Triage Nursing Assessment: pt to ED by EMS c/o CP x 2 weeks, NVD, shakiness, and binge drinking x 3 days. hx ETOH abuse. last drink 1300 today. rates 8/10 chest pain that radiates under L breast. worsens when lying flat. reports last time she stopped drinking and became sober she developed seizures about 1 month later. denies cardiac hx. Hx Tetanus, Diphtheria Vaccination/Date Given: Yes Hx Influenza Vaccination/Date Given: No Hx Pneumococcal Vaccination/Date Given: No Immunizations Up to Date: No <TC RASMUSSEN - Last Filed: 07/06/21 18:51> <GADIEL MADDEN - Last Filed: 07/06/21 22:27> - History of Present Illness Time Seen by Provider: 07/06/21 17:30 Physician History: The patient is a 46-year-old female with a past medical significant for chronic alcoholism, anxiety and depression as well as cigarette smoking presents with a chief complaint of binge drinking. Of note, the patient reportedly has been drinking alcohol reportedly for years and initially started out drinking vodka but then switched to beer and typically drinks anywhere on average 4-5 beers daily. She reportedly was working at [employer] until she was fired a week and a half ago which triggered her to started binge drinking beers. The patient cannot give an exact count have any beer she has been drinking over the last week but states that she would wake up at 3:00 in the morning and will drink all day, nap, and then wake up and continue drinking again until the evening. She reportedly has only had 3 beers to drink and her last intake reportedly was this morning around 9 AM. Her decided to have her brought to the emergency department out of concern that she may go into withdrawals, specifically having alcoholic withdrawal seizure. The patient denies any suicidal or homicidal at this time. She was receptive to sobriety and provided resources and potential inpatient admission to a detox/rehab center. She states that she feels "bad" meaning and a general malaise and reportedly has felt nauseous and had some vomiting in addition to diarrhea today. She endorsed having epigastric pain and burning chest pain as well. She denies any hematemesis or hematochezia. She states she is never been to detox or rehab in the past. She lives with her and reportedly her vehicle recently broke down so they have no means of transportation. She denies any illicit drug use. (TC RASMUSSEN) Allergies/Adverse Reactions: tramadol Allergy (Severe, Verified 07/06/21 17:16) Hives coconut Allergy (Verified 07/06/21 17:16) cyclobenzaprine [From Flexeril] Allergy (Verified 07/06/21 17:16) latex Allergy (Verified 07/06/21 17:16) Home Medications: Buspirone HCl 5 mg [Buspar 5 mg] 5 mg PO DAILY 07/06/21 [History] Famotidine 40 mg PO DAILY 07/06/21 [History] Pramipexole Di-HCl [Mirapex] 0.125 mg PO DAILY 07/06/21 [History] Propranolol HCl 20 mg PO DAILY 07/06/21 [History] Trazodone HCl 50 mg [Desyrel 50 mg] 50 mg PO DAILY 07/06/21 [History] Travel Risk - International Travel Have you traveled outside of the country in past 3 weeks: No - Coronavirus Screening Are you exhibiting any of the following symptoms?: Yes Symptoms: Vomiting/Diarrhea Close contact with a COVID-19 positive Pt in past 14-21 Days: No - Vaccine Status Have you recieved a Covid-19 vaccination: Yes 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: [employer] - Vaccination Dates Date of 2cond Vaccination (if applicable): unsure <TC RASMUSSEN - Last Filed: 07/06/21 18:51> - Review of Systems Constitutional: Malaise, No Fever, No Chills Eyes: No Symptoms Ears, Nose, & Throat: No Symptoms Respiratory: No Symptoms, No Cough, No Cyanosis, No Dyspnea Cardiac: Chest Pain Abdominal/Gastrointestinal: Nausea, Vomiting, Diarrhea, No Abdominal Pain Genitourinary Symptoms: No Symptoms Musculoskeletal: No Symptoms Skin: No Symptoms Neurological: No Symptoms, No Seizure, No Tremors Psychological: Alcohol Abuse, Anxiety, No Drug Abuse, No Suicidal Ideations, No Homicidal Ideations Endocrine: No Symptoms Hematologic/Lymphatic: No Symptoms Immunological/Allergic: No Symptoms All Other Systems: Reviewed and Negative <TC RASMUSSEN - Last Filed: 07/06/21 18:51> - Past Medical History Pertinent Past Medical History: Yes Neurological History: Seizures ENT History: No Pertinent History Cardiac History: No Pertinent History Respiratory History: Asthma Endocrine Medical History: No Pertinent History Musculoskeletal History: No Pertinent History GI Medical History: GERD History: No Pertinent History Psycho-Social History: Anxiety, Depression Female Reproductive Disorders: No Pertinent History Other Medical History: ETOH abuse - Past Surgical History Past Surgical History: Yes Neuro Surgical History: No Pertinent History Cardiac: No Pertinent History Respiratory: No Pertinent History Gastrointestinal: Appendectomy, Cholecystectomy Genitourinary: No Pertinent History Musculoskeletal: No Pertinent History Female Surgical History: Tubal Ligation Other Surgical History: 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" - Social History Smoking Status: Current every day smoker How long have you smoked: 20 yrs Exposure to second hand smoke: Yes Drug Use: none Patient Lives Alone: No Significant Family History: no pertinent family hx, other (Mother w CAD/Age of p resentation unknown) - Female History Hx Last Menstrual Period: last month Hx Now: No (tubal) <VALERYTC - Last Filed: 07/06/21 18:51> - Physical Exam General Appearance: no apparent distress, alert Eye Exam: PERRL/EOMI, No scleral icterus Ears, Nose, Throat Exam: pharynx normal, moist mucous membranes, No pharyngeal erythema, No tonsillar exudate Neck Exam: normal inspection Respiratory Exam: normal breath sounds, lungs clear, airway intact, No chest tenderness, No respiratory distress Cardiovascular Exam: regular rate/rhythm, normal heart sounds, normal peripheral pulses, capillary refill <2 sec, No murmur, No friction rub, No gallop Gastrointestinal/Abdomen Exam: soft, tenderness (Epigastric tenderness, RUQ tenderness) Pelvic Exam: not done Rectal Exam: deferred Back Exam: normal inspection Extremity Exam: normal inspection Neurologic Exam: alert, oriented x 3, cooperative, normal mood/affect Skin Exam: normal color, warm, dry, other, No rash, No petechiae SpO2: 100 <VALERYTC - Last Filed: 07/06/21 18:51> - Nursing Vital Signs Nursing Vital Signs: Initial Vital Signs Temperature 97.7 F 07/06/21 17:04 Pulse Rate 84 07/06/21 17:04 Respiratory Rate 18 07/06/21 17:04 Blood Pressure 151/98 07/06/21 17:04 O2 Sat by Pulse Oximetry 97 07/06/21 17:04 Pain Scale Pain Intensity 0 - Course Nursing assessment & vital signs reviewed: Yes EKG Interpreted by Me: RATE, Sinus Rhythm, NORMAL AXIS, NORMAL INTERVALS, NORMAL QRS (Sinus rhythm, Ventricular rate 79 bpm, AK interval 154 ms, QRS duration 77 ms, QT/QTc 375/430 ms), Other (No evidence of acute myocardial ischemia or injury pattern) <TC RASMUSSEN - Last Filed: 07/06/21 18:51> Ordered Tests: Active Orders 24 hr Category Date Time Status Crossbow Maker STAT Care 07/06/21 17:41 Active EKG-ER Only STAT Care 07/06/21 17:40 Active IV Insertion STAT Care 07/06/21 17:40 Active Pulse Oximetry (ED) STAT Care 07/06/21 17:40 Active CHEST 1 VIEW (PORTABLE) Stat Exams 07/06/21 21:22 Taken BMP Stat Lab 07/06/21 18:09 Completed CBC W DIFF Stat Lab 07/06/21 18:09 Completed COVID AG-BINAX NOW RAPID TEST Stat Lab 07/06/21 18:09 Completed ETHYL ALCOHOL Stat Lab 07/06/21 18:09 Completed Hepatic Function Panel Stat Lab 07/06/21 18:09 Completed LIPASE Stat Lab 07/06/21 18:09 Completed MAGNESIUM Stat Lab 07/06/21 18:09 Completed PROTIME WITH INR Stat Lab 07/06/21 18:09 Completed TROPONIN Stat Lab 07/06/21 18:09 Completed Urine Triage Profile Stat Lab 07/06/21 21:36 Completed Medication Summary Discontinued Medications Generic Name Dose Route Start Last Admin Trade Name Norma PRN Reason Stop Dose Admin Folic Acid 1 mg 07/06/21 17:40 07/06/21 18:17 Folic Acid 1 Mg Tablet PO 07/06/21 17:41 1 mg STAT ONE Administration Sodium Chloride 1,000 mls @ 999 mls/hr 07/06/21 17:40 07/06/21 19:40 Sodium Chloride 0.9% 1000 Ml IV 07/06/21 18:40 Infused .Q1H1M STA Infusion Sodium Chloride Confirm 07/06/21 18:13 Sodium Chloride 0.9% 1000 Ml Administered 07/06/21 18:14 Dose 1,000 mls @ ud .ROUTE .STK-MED ONE Lorazepam 1 mg 07/06/21 21:31 07/06/21 21:38 Lorazepam 2 Mg/1 Ml 2 Mg Vial IV 07/06/21 21:32 1 mg STAT ONE Administration Lorazepam Confirm 07/06/21 21:37 Lorazepam 2 Mg/1 Ml 2 Mg Vial Administered 07/06/21 21:38 Dose 2 mg .ROUTE .STK-MED ONE Ondansetron HCl 4 mg 07/06/21 17:40 07/06/21 18:17 Ondansetron Hcl 4 Mg/2 Ml Vial IV 07/06/21 17:41 4 mg STAT ONE Administration Ondansetron HCl Confirm 07/06/21 18:12 Ondansetron Hcl 4 Mg/2 Ml Vial Administered 07/06/21 18:13 Dose 4 mg .ROUTE .STK-MED ONE Pantoprazole Sodium 40 mg 07/06/21 17:42 07/06/21 18:17 Pantoprazole 40 Mg Vial IV 07/06/21 17:43 40 mg STAT ONE Administration Pantoprazole Sodium Confirm 07/06/21 18:12 Pantoprazole 40 Mg Vial Administered 07/06/21 18:13 Dose 40 mg IV .STK-MED ONE Thiamine HCl 100 mg 07/06/21 17:40 07/06/21 18:17 Thiamine Hcl 100 Mg Tablet PO 07/06/21 17:41 100 mg STAT ONE Administration Lab/Rad Data: Laboratory Result Diagrams 07/06/21 18:09 07/06/21 18:09 Laboratory Results 07/06/21 07/06/21 07/06/21 Range/Units 21:36 18:09 18:09 WBC (4.0-10.5) K/mm3 RBC (4.1-5.4) M/mm3 Hgb (12.0-16.0) gm/dl Hct (35-47) % MCV (78-100) fl MCH (26-32) pg MCHC (32-36) g/dl RDW (11.5-14.0) % Plt Count (150-450) K/mm3 MPV (7.5-11.0) fl Gran % (36.0-66.0) % Eos # (Auto) (0-0.5) Absolute Lymphs (auto) (1.0-4.6) Absolute Monos (auto) (0.0-1.3) Lymphocytes % (24.0-44.0) % Monocytes % (0.0-12.0) % Eosinophils % (0.00-5.0) % Basophils % (0.0-0.4) % Absolute Granulocytes (1.4-6.9) Basophils # (0-0.4) PT (9.4-12.5) SECONDS INR (0.8-3.0) Sodium (137-145) mmol/L Potassium (3.5-5.1) mmol/L Chloride (98-107) mmol/L Carbon Dioxide (22-30) mmol/L Anion Gap (5-15) MEQ/L BUN (7-17) mg/dL Creatinine (0.52-1.04) mg/dL Estimated GFR ML/MIN Glucose (74-106) mg/dL Calcium (8.4-10.2) mg/dL Magnesium (1.6-2.3) mg/dL Total Bilirubin (0.2-1.3) mg/dL Direct Bilirubin (0.0-0.4) mg/dL AST (14-36) U/L ALT (0-35) U/L Alkaline Phosphatase (38-126) U/L Troponin I < 0.012 (0.000-0.034) ng/mL Serum Total Protein (6.3-8.2) g/dL Albumin (3.5-5.0) g/dL Lipase (23-300) U/L Urine Opiates Level NEGATIVE (NEGATIVE) Ur Methadone NEGATIVE (NEGATIVE) Urine Barbiturates NEGATIVE (NEGATIVE) Ur Phencyclidine (PCP) NEGATIVE (NEGATIVE) Urine Amphetamine NEGATIVE (NEGATIVE) U Benzodiazepine Level NEGATIVE (NEGATIVE) Urine Cocaine NEGATIVE (NEGATIVE) Urine Marijuana (THC) NEGATIVE (NEGATIVE) Ethyl Alcohol (0-10) mg/dL SARS-CoV-2 Ag (Rapid) NEGATIVE (NEGATIVE) 07/06/21 07/06/21 07/06/21 Range/Units 18:09 18:09 18:09 WBC 9.9 (4.0-10.5) K/mm3 RBC 4.77 (4.1-5.4) M/mm3 Hgb 16.1 H (12.0-16.0) gm/dl Hct 45.3 (35-47) % MCV 95.0 (78-100) fl MCH 33.8 H (26-32) pg MCHC 35.5 (32-36) g/dl RDW 12.4 (11.5-14.0) % Plt Count 135 L (150-450) K/mm3 MPV 10.5 (7.5-11.0) fl Gran % 76.7 H (36.0-66.0) % Eos # (Auto) 0.06 (0-0.5) Absolute Lymphs (auto) 1.58 (1.0-4.6) Absolute Monos (auto) 0.60 (0.0-1.3) Lymphocytes % 16.0 L (24.0-44.0) % Monocytes % 6.1 (0.0-12.0) % Eosinophils % 0.6 (0.00-5.0) % Basophils % 0.6 (0.0-0.4) % Absolute Granulocytes 7.60 H (1.4-6.9) Basophils # 0.06 (0-0.4) PT 11.4 (9.4-12.5) SECONDS INR 0.97 (0.8-3.0) Sodium 131 L (137-145) mmol/L Potassium 4.1 (3.5-5.1) mmol/L Chloride 101 (98-107) mmol/L Carbon Dioxide 23 (22-30) mmol/L Anion Gap 11.0 (5-15) MEQ/L BUN 4 L (7-17) mg/dL Creatinine 0.39 L (0.52-1.04) mg/dL Estimated GFR > 60.0 ML/MIN Glucose 119 H (74-106) mg/dL Calcium 8.9 (8.4-10.2) mg/dL Magnesium 2.0 (1.6-2.3) mg/dL Total Bilirubin 0.80 (0.2-1.3) mg/dL Direct Bilirubin 0.2 (0.0-0.4) mg/dL AST 41 H (14-36) U/L ALT 29 (0-35) U/L Alkaline Phosphatase 103 (38-126) U/L Troponin I (0.000-0.034) ng/mL Serum Total Protein 7.1 (6.3-8.2) g/dL Albumin 4.0 (3.5-5.0) g/dL Lipase 158 (23-300) U/L Urine Opiates Level (NEGATIVE) Ur Methadone (NEGATIVE) Urine Barbiturates (NEGATIVE) Ur Phencyclidine (PCP) (NEGATIVE) Urine Amphetamine (NEGATIVE) U Benzodiazepine Level (NEGATIVE) Urine Cocaine (NEGATIVE) Urine Marijuana (THC) (NEGATIVE) Ethyl Alcohol < 10 (0-10) mg/dL SARS-CoV-2 Ag (Rapid) (NEGATIVE) - Progress Progress: unchanged Counseled pt/family regarding: drug and/or alcohol abuse, lab results, diagnosis <TC RASMUSSEN - Last Filed: 07/06/21 18:51> <GADIEL MADDEN - Last Filed: 07/06/21 22:27> - Progress Progress Note: 07/06/21 18:32 The patient's labs are consistent with an alcoholic hepatitis with an AST of 41 and ALT of 29 consistent with nearly 2:1 ratio. Her serum sodium is 131 likely reflective of her chronic alcoholism. She is also thrombocytopenic likely also sequelae of her chronic alcoholism and her hemoglobin is 16.1 which could reflect hemoconcentration and/or sequelae of her cigarette smoking and combination thereof. 07/06/21 18:39 The patient presents with a history of chronic alcoholism and recent binge drinking and wanting inpatient detox. She appears to be in no overt withdrawal at this time and her CIWA score is low and therefore she does not necessitate any benzodiazepines at this time. Her serum alcohol level is within normal limits. Are currently working on getting placement to [facility] at this time. 07/06/21 18:50 Patient care transitioned to Dr. Madden pending placement. (TC RASMUSSEN) 07/06/21 22:16 Medical decision making: This patient has a history of chronic alcoholism and had recent binge drinking and wanting inpatient detox. She has no overt withdrawal symptoms at this time. Her blood alcohol level is normal. [facility] has declined. Patient does not meet criteria. Patient is not suicidal or homicidal. We will discharge her to home. We will provide the patient with detox facility information for patient to contact on her own (GADIEL MADDEN) - Departure Critical Care Time: No <TC RASMUSSEN - Last Filed: 07/06/21 18:51> - Departure Departure Disposition: Home Critical Care Time: No <MADDENARELYGADIEL F. - Last Filed: 07/06/21 22:27> - Departure Clinical Impression: Chronic alcoholism, History of depression, History of anxiety, Hyponatremia, Thrombocytopenia Condition: Good Referrals: KOBY GLOVER MD [Primary Care Provider] - Follow up/PCP as directed Additional Instructions: Follow-up as an outpatient tomorrow and begin calling the inpatient detox facilities on the list you were provided.
[2021-07-06 18:27] LABS: ALKALINE PHOSPHATASE 103 U/L (38-126); BLOOD UREA NITROGEN 4 mg/dL (7-17); CHLORIDE 101 mmol/L (98-107); Calcium 8.9 mg/dL (8.4-10.2); Carbon Dioxide 23 mmol/L (22-30); Creatinine 1 0.39 mg/dL (0.52-1.04); Direct Bilirubin 0.2 mg/dL (0.0-0.4); EST GLOMERULAR FILTRATION RATE > 60.0 ML/MIN; ETHYL ALCOHOL < 10 mg/dL (0-10); Glucose 119 mg/dL (74-106); LIPASE 158 U/L (23-300); Potassium 4.1 mmol/L (3.5-5.1); SGOT/AST 41 U/L (14-36); SGPT/ALT 29 U/L (0-35); SODIUM 131 mmol/L (137-145); Total Protein 7.1 g/dL (6.3-8.2)
[2021-07-06 18:31] LABS: COVID AG -BINAX NOW RAPID TEST NEGATIVE (NEGATIVE)
[2021-07-06] MEDS ORDERED: Ativan 2 MG/1 ML VIAL IV ONE (21:31)
[2021-07-06] MEDS ORDERED: Ativan 2 MG/1 ML VIAL ONE (21:37)
[2021-07-06 22:03] LABS: Amphetamine,Urine NEGATIVE (NEGATIVE); Barbiturate,Urine NEGATIVE (NEGATIVE); Benzodiazepine,Urine NEGATIVE (NEGATIVE); Cocaine,Urine NEGATIVE (NEGATIVE); Methadone,Urine NEGATIVE (NEGATIVE); Opiate,Urine NEGATIVE (NEGATIVE); PCP,Urine NEGATIVE (NEGATIVE); THC,Urine NEGATIVE (NEGATIVE)
[2021-07-06 22:24] VITALS: PULSE 86; O2SAT 95
[2021-07-06 22:31] VITALS: BP 117/84
--- NOTE | 2021-07-07 08:57 | XRAY ---
Indication: Cough. Chest pain. Comparison: February 28, 2021. Portable chest again hyperinflated and clear. Heart not enlarged. Bony thorax intact again with incidental left humerus enchondromas. No new/acute findings.
== END 2021-07-06 22:44 | disposition home or self-care (01) ==
LOC: ED 17:02
DX: F10.20 Alcohol dependence, uncomplicated (principal); F41.9 Anxiety disorder, unspecified; E87.1 Hypo-osmolality and hyponatremia; D69.6 Thrombocytopenia, unspecified; R11.2 Nausea with vomiting, unspecified; R19.7 Diarrhea, unspecified; Z56.0 Unemployment, unspecified; Z59.89 Other problems related to housing and economic circumstances; K21.9 Gastro-esophageal reflux disease without esophagitis; Z72.0 Tobacco use; Z79.899 Other long term (current) drug therapy
CPT/HCPCS: 36415; 71045; 80048; 80076; 80307; 83690; 83735; 84484; 85025; 85610; 93005; 93041; 94760; 96374; 96375; 99000; 99285; G0480; J2060; J2405; A9270-GY

== ENCOUNTER 2023-10-08 08:54 | Emergency (ER) | payer OTHER ==
[2023-10-08 09:11] VITALS: TEMP 98.5
[2023-10-08] MEDS ORDERED: Decadron 4 MG INJ ONE (09:26)
[2023-10-08] MEDS ORDERED: TORAdol 30 mg Injection ONE (09:26)
[2023-10-08] MEDS: Decadron 4 MG INJ PO ONE (09:27)
[2023-10-08] MEDS: TORAdol 30 mg Injection IM ONE (09:29)
--- NOTE | 2023-10-08 09:29 | XRAY ---
Indication: Cough. Comparison: September 02, 2023 Portable chest again hyperinflated with new subtle left lower lobe interstitial alveolar opacities without consolidation/large effusion. Remaining heart and lungs unremarkable. Bony thorax intact again with incidental left humerus enchondromas.
[2023-10-08 09:34] VITALS: O2SAT 95
[2023-10-08] MEDS ORDERED: DUONEB 0.5-3 MG/3 ml Neb IH ONE (09:35)
[2023-10-08] MEDS: DUONEB 0.5-3 MG/3 ml Neb IH ONE (09:37)
--- NOTE | 2023-10-08 09:49 | ERPHSYRPT ---
- History of Present Illness Time Seen by Provider: 10/08/23 09:02 Source: patient Exam Limitations: no limitations Patient Subjective Stated Complaint: C/O cough X 1 week. Triage Nursing Assessment: Patient ambulated back to ER without difficulties. She is alert and oriented. Patient with a dry, forceful, non-productive cough. Lungs clear. No SOB. Nasal congestion noted. Skin tone normal. WITT WNL. Physician History: Patient is here with cough, cold, congestion. Has been going on 1 week. Patient recently got out of of alcohol rehab. Continues to smoke cigarettes. Has not had any aspiration pneumonias. Patient states that she has not drank in since the end of August. Over 2 weeks ago. No falls trauma, fever, chills. Patient is 95% on room air. Allergies/Adverse Reactions: tramadol Allergy (Severe, Verified 10/08/23 09:02) Hives coconut Allergy (Verified 10/08/23 09:02) cyclobenzaprine [From Flexeril] Allergy (Verified 10/08/23 09:02) latex Allergy (Verified 10/08/23 09:02) Home Medications: Phenytoin Sod Extended 100 mg* [Dilantin 100 MG] 100 mg PO BID 10/08/23 [History] Simvastatin 10 mg [Zocor 10MG] 10 mg PO DAILY 10/08/23 [History] Umeclidinium Brm/Vilanterol Tr [Anoro Ellipta 62.5-25 Mcg INH] 1 puff PO CLARIFY 10/08/23 [History] Hx Tetanus, Diphtheria Vaccination/Date Given: Yes Hx Influenza Vaccination/Date Given: No Hx Pneumococcal Vaccination/Date Given: No Immunizations Up to Date: Yes Travel Risk - International Travel Have you traveled outside of the country in past 3 weeks: No - Emerging Infectious Disease Are you exhibiting symptoms associated with any current EIDs: Yes Symptoms: Cough: New Onset, Headaches/Body Aches/, Joint Pain, Shortness of Breath - Past Medical History Pertinent Past Medical History: Yes Neurological History: Seizures ENT History: No Pertinent History Cardiac History: High Cholesterol Respiratory History: Asthma, COPD Endocrine Medical History: No Pertinent History Musculoskeletal History: No Pertinent History GI Medical History: GERD, Gallbladder Disease History: No Pertinent History Psycho-Social History: Anxiety, Bipolar, Depression Female Reproductive Disorders: No Pertinent History Other Medical History: ETOH abuse - Past Surgical History Past Surgical History: Yes Neuro Surgical History: No Pertinent History Cardiac: No Pertinent History Respiratory: No Pertinent History Gastrointestinal: Appendectomy, Cholecystectomy Genitourinary: No Pertinent History Musculoskeletal: No Pertinent History Female Surgical History: Tubal Ligation Other Surgical History: 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" Significant Family History: no pertinent family hx, other (Mother w CAD/Age of presentation unknown) - Female History Hx Now: No - Social History Smoking Status: Current every day smoker How long have you smoked: 30 yrs Exposure to second hand smoke: Yes Drug Use: none Patient Lives Alone: No - Social Determinants of Health Will the patient participate in the screening: Yes Do you worry about a steady place to live?: No Do you have any problems with any of the following?: No known problems In the past 12 months,have you had to go without utilities?: No Transportation Issues: No Has anyone in your support network made you feel unsafe?: No Have you or anyone in your house had to go without enough: No - Nursing Vital Signs Nursing Vital Signs: Initial Vital Signs Pulse Rate 96 H 10/08/23 09:00 Respiratory Rate 24 10/08/23 09:00 Blood Pressure 141/88 10/08/23 09:00 O2 Sat by Pulse Oximetry 96 10/08/23 09:00 Pain Scale Pain Intensity 10 - Physical Exam SpO2 Interpretation: normal SpO2: 95 Comments: 10/08/23 09:44 Review of Systems Constitutional: Negative for fever. HENT: Negative for congestion. Respiratory: Negative for shortness of breath. Cough, cold, congestion Cardiovascular: Negative for chest pain. Gastrointestinal: Negative for abdominal pain. Genitourinary: Negative for dysuria. Musculoskeletal: Negative for back pain. Skin: Negative for rash. Neurological: Negative for headaches. Psychiatric/Behavioral: Negative for behavioral problems. All other systems reviewed and are negative. Physical Exam Vitals signs and nursing note reviewed. Constitutional: Appearance: Patient is well-developed. HENT: Head: Normocephalic and atraumatic. Eyes: Conjunctiva/sclera: Conjunctivae normal. Neck: Musculoskeletal: Normal range of motion. Trachea: No tracheal deviation. Cardiovascular: Rate and Rhythm: Normal rate. Pulmonary: Effort: Pulmonary effort is normal. No respiratory distress. Patient has wheezing throughout. Some mild crackles at the bases. Abdominal: Palpations: Abdomen is soft. Musculoskeletal: General: No deformity. Skin: General: Skin is warm and dry. Neurological/ Psychiatric: Mental Status: Mental status, behavior, interaction with environment is appropriate for patient's age and condition - Course Nursing assessment & vital signs reviewed: Yes Ordered Tests: Active Orders 24 hr Category Date Time Status CHEST 1 VIEW (PORTABLE) Stat Exams 10/08/23 09:03 Completed Medication Summary Discontinued Medications Generic Name Dose Route Start Last Admin Trade Name Norma PRN Reason Stop Dose Admin Albuterol/Ipratropium 3 ml 10/08/23 09:22 10/08/23 09:37 Ipratropium/Albuterol Sulfate 3 Ml Ampul.Neb IH 10/08/23 09:23 3 ml STAT ONE Administration Albuterol/Ipratropium Confirm 10/08/23 09:35 Ipratropium/Albuterol Sulfate 3 Ml Ampul.Neb Administered 10/08/23 09:36 Dose 3 ml IH .STK-MED ONE Dexamethasone Sodium Phosphate 8 mg 10/08/23 09:22 10/08/23 09:27 Dexamethasone Sod Phosphate 4 Mg/Ml Ml PO 10/08/23 09:23 8 mg STAT ONE Administration Dexamethasone Sodium Phosphate Confirm 10/08/23 09:26 Dexamethasone Sod Phosphate 4 Mg/Ml Ml Administered 10/08/23 09:27 Dose 8 mg .ROUTE .STK-MED ONE Ketorolac Tromethamine 30 mg 10/08/23 09:23 10/08/23 09:29 Ketorolac Tromethamine 30 Mg/Ml Inj IM 10/08/23 09:24 30 mg STAT ONE Administration Ketorolac Tromethamine Confirm 10/08/23 09:26 Ketorolac Tromethamine 30 Mg/Ml Inj Administered 10/08/23 09:27 Dose 30 mg .ROUTE .STK-MED ONE Lab/Rad Data: Laboratory Results 10/08/23 Range/Units 09:30 Influenza Type A Ag NEGATIVE (NEGATIVE) Influenza Type B Ag NEGATIVE (NEGATIVE) RSV (PCR) NEGATIVE (NEGATIVE) SARS-CoV-2 (PCR) NEGATIVE (NEGATIVE) Group A Strep Antibody NOT DETECTED (NEGATIVE) - Progress Progress: improved Progress Note: 10/08/23 09:45 Differential diagnosis includes pneumonia, bronchitis, viral illness, strep throat, COVID, influenza, COPD. Plan for chest x-ray, viral swabs, strep swabs, breathing treatment, oral steroids, IM shot of Toradol. Chest x-ray did return demonstrating pneumonia. "Portable chest again hyperinflated with new subtle left lower lobe interstitial alveolar opacities without consolidation/large effusion. Remaining heart and lungs unremarkable. Bony thorax intact again with incidental left humerus enchondromas." 10/08/23 09:46 Patient feeling improved with medications here. Plan to treat with oral antibiotics as an outpatient. I do believe that she is stable for outpatient treatment. Should return here sooner for any new or changing symptoms. Counseled pt/family regarding: lab results, diagnosis, need for follow-up, rad results - Departure Departure Disposition: Home Clinical Impression: Left lower lobe pneumonia Condition: Stable Critical Care Time: No Referrals: KOBY GLOVER MD [Primary Care Provider] - Follow up/PCP as directed Instructions: Pneumonia, Adult (DC) Prescriptions: Cefpodoxime Proxetil 200 mg [Vantin 200 mg] 200 mg PO BID 10 Days #20 tablet Azithromycin 250 mg [Zithromax 250 MG TABLET] 250 mg PO ZPACK #6 tablet
[2023-10-08 10:00] LABS: Group A Strep NOT DETECTED (NEGATIVE)
[2023-10-08 10:11] LABS: INFLUENZA A NEGATIVE (NEGATIVE); INFLUENZA B NEGATIVE (NEGATIVE); RESPIRATORY SYNCTIAL VIRUS NEGATIVE (NEGATIVE); SARS-CoV-2 Xpert Express NEGATIVE (NEGATIVE)
[2023-10-08 10:27] VITALS: BP 105/87; PULSE 96; RESP 18
== END 2023-10-08 10:27 | disposition home or self-care (01) ==
LOC: ED 08:54
DX: J18.9 Pneumonia, unspecified organism (principal); R05.1 Acute cough; E78.5 Hyperlipidemia, unspecified; Z79.899 Other long term (current) drug therapy; Z72.0 Tobacco use
CPT/HCPCS: 0241U; 71045; 87651; 94640; 96372; 96375; 99283; J1100; J1885; A9270-GY

== ENCOUNTER 2024-07-25 09:37 | Emergency (ER) | payer OTHER ==
--- NOTE | 2024-07-25 09:45 | ERPHSYRPT ---
- History of Present Illness Time Seen by Provider: 07/25/24 09:45 Source: patient Exam Limitations: no limitations Physician History: This is a 49-year-old white female patient of nurse practitioner Marvel brought in by private vehicle transported by her who is in the waiting room area with a complaint of lower back pain of acute onset that occurred yesterday. Patient bent over to pick something up and she felt a pop and then pain. Patient states that she is allergic to tramadol and Flexeril as well as latex. She states that when she took Flexeril and tramadol she got a rash/hives that were generalized. Patient has had morphine and Dilaudid in the past without any problems or adverse effects. Patient did not fall. Patient has no urinary tract symptoms. Patient has a history of anxiety, depression, chronic alcoholism, gastroesophageal reflux disease, seizure disorder and hyperlipidemia. She denies chest pain and she denies shortness of breath. She denies abdominal pain. She states she has a history of "bulging disc". She has no bowel or urinary incontinence. Timing/Duration: yesterday Back Pain Location: lumbar spine Associated Symptoms: lower back pain (Primarily lumbar level bilateral paraspinous muscle pain and spasms), muscle spasms, No urinary incontinence, No loss of bowel control, No constipation, No problems urinating, No numbness in legs/feet, No tingling in legs/feet Previous symptoms: no recent treatment Allergies/Adverse Reactions: tramadol Allergy (Severe, Verified 07/25/24 09:45) Hives coconut Allergy (Verified 07/25/24 09:45) cyclobenzaprine [From Flexeril] Allergy (Verified 07/25/24 09:45) latex Allergy (Verified 07/25/24 09:45) Home Medications: Phenytoin Sod Extended 100 mg* [Dilantin 100 MG] 100 mg PO BID 10/08/23 [History] Simvastatin 10 mg [Zocor 10MG] 10 mg PO DAILY 10/08/23 [History] Umeclidinium Brm/Vilanterol Tr [Anoro Ellipta 62.5-25 Mcg INH] 1 puff PO CLARIFY 10/08/23 [History] Hx Tetanus, Diphtheria Vaccination/Date Given: Yes Hx Influenza Vaccination/Date Given: No Hx Pneumococcal Vaccination/Date Given: No Travel Risk - International Travel Have you traveled outside of the country in past 3 weeks: No - Emerging Infectious Disease Are you exhibiting symptoms associated with any current EIDs: Yes Symptoms: Cough: New Onset, Headaches/Body Aches/, Joint Pain, Shortness of Breath - Review of Systems Constitutional: No Symptoms Eyes: No Symptoms Ears, Nose, & Throat: No Symptoms Respiratory: No Symptoms Cardiac: No Symptoms Abdominal/Gastrointestinal: No Symptoms Genitourinary Symptoms: No Symptoms Musculoskeletal: Back Pain, No Fall Skin: No Symptoms Neurological: No Symptoms Psychological: No Symptoms Endocrine: No Symptoms Hematologic/Lymphatic: No Symptoms Immunological/Allergic: No Symptoms All Other Systems: Reviewed and Negative - Past Medical History Pertinent Past Medical History: Yes Neurological History: Seizures ENT History: No Pertinent History Cardiac History: High Cholesterol Respiratory History: Asthma, COPD Endocrine Medical History: No Pertinent History Musculoskeletal History: No Pertinent History GI Medical History: GERD, Gallbladder Disease History: No Pertinent History Psycho-Social History: Anxiety, Bipolar, Depression Female Reproductive Disorders: No Pertinent History Other Medical History: ETOH abuse - Past Surgical History Past Surgical History: Yes Neuro Surgical History: No Pertinent History Cardiac: No Pertinent History Respiratory: No Pertinent History Gastrointestinal: Appendectomy, Cholecystectomy Genitourinary: No Pertinent History Musculoskeletal: No Pertinent History Female Surgical History: Tubal Ligation Other Surgical History: 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" Significant Family History: no pertinent family hx, other (Mother w CAD/Age of presentation unknown) - Social History Smoking Status: Current every day smoker How long have you smoked: 30 yrs Exposure to second hand smoke: Yes Drug Use: none Patient Lives Alone: No - Social Determinants of Health Will the patient participate in the screening: Yes Do you worry about a steady place to live?: No In the past 12 months,have you had to go without utilities?: No Transportation Issues: No Has anyone in your support network made you feel unsafe?: No Have you or anyone in your house had to go w/o enough food: No - Nursing Vital Signs Nursing Vital Signs: Initial Vital Signs Temperature 98 F 07/25/24 09:45 Pulse Rate 110 H 07/25/24 09:45 Respiratory Rate 18 07/25/24 09:45 Blood Pressure 150/103 07/25/24 09:45 O2 Sat by Pulse Oximetry 98 07/25/24 09:45 Pain Scale Pain Intensity 10 - Physical Exam General Appearance: no apparent distress, alert, anxiety Eye Exam: PERRL/EOMI, eyes nml inspection Ears, Nose, Throat Exam: normal ENT inspection Neck Exam: normal inspection, non-tender, supple, full range of motion Respiratory Exam: airway intact, No chest tenderness, No respiratory distress Cardiovascular Exam: tachycardia Gastrointestinal Exam: soft, normal bowel sounds, No tenderness Pelvic Exam: not done Rectal Exam: not done Back Exam: normal inspection, decreased range of motion, muscle spasm (Bilateral lumbar level paraspinous muscle spasm and tenderness.), No CVA tenderness, No vertebral tenderness, No rash, No point tenderness Extremity Exam: normal inspection, normal range of motion, pelvis stable Neurologic Exam: alert, oriented x 3, 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, 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, nml cerebellar function, nml station & gait, sensation nml Skin Exam: normal color, warm, dry Lymphatic Exam: No adenopathy SpO2 Interpretation: normal O2 Delivery: Room Air - Course Nursing assessment & vital signs reviewed: Yes Ordered Tests: Active Orders 24 hr Category Date Time Status LUMBAR COMPLETE (MIN 4 VIEWS) Stat Exams 07/25/24 09:57 Taken Medication Summary Discontinued Medications Generic Name Dose Route Start Last Admin Trade Name Freq PRN Reason Stop Dose Admin Methylprednisolone Sodium 0 mg 07/25/24 10:00 07/25/24 10:10 Succinate 125 mg/ Sterile IM 07/25/24 10:01 25 mg Water 2 ml STAT ONE Administration Hydromorphone HCl 0.5 mg 07/25/24 09:59 07/25/24 10:13 Hydromorphone 1 Mg/1ml Inj IM 07/25/24 10:00 0.5 mg STAT ONE Administration Hydromorphone HCl Confirm 07/25/24 10:05 Hydromorphone 1 Mg/1ml Inj Administered 07/25/24 10:06 Dose 1 mg .ROUTE .STK-MED ONE Lorazepam 1 mg 07/25/24 10:00 07/25/24 10:10 Lorazepam 2 Mg/1 Ml 2 Mg Vial IM 07/25/24 10:01 1 mg STAT ONE Administration Lorazepam Confirm 07/25/24 10:05 Lorazepam 2 Mg/1 Ml 2 Mg Vial Administered 07/25/24 10:06 Dose 2 mg .ROUTE .STK-MED ONE Methylprednisolone Sodium Succinate Confirm 07/25/24 10:06 Methylprednis Sod Succ 125 Mg/2 Ml Vial Administered 07/25/24 10:07 Dose 125 mg .ROUTE .STK-MED ONE Ondansetron HCl 4 mg 07/25/24 09:59 07/25/24 10:09 Zofran 4 Mg/Udtablet Orally Disintegrating PO 07/25/24 10:00 4 mg STAT ONE Administration Ondansetron HCl Confirm 07/25/24 10:05 Zofran 4 Mg/Udtablet Orally Disintegrating Administered 07/25/24 10:06 Dose 4 mg .ROUTE .STK-MED ONE Sterile Water Confirm 07/25/24 10:04 Water For Injection,Sterile 10 Ml Vial Administered 07/25/24 10:05 Dose 10 ml IJ .STK-MED ONE - Progress Progress: improved, pain not gone completely Progress Note: 07/25/24 10:05 My medical decision making of the assignment of low complexity to this patient's medical issue today is based on review of the patient's past medical history, review the patient's medication list, reviewed patient drug allergy list, history present illness and physical findings on examination. The workup in this patient includes lumbar spine x-rays. We will also provide the patient with intramuscular Dilaudid, Ativan, and Solu-Medrol. We will also provide the patient with oral Zofran and ODT. Differential diagnosis includes but is not limited to acute fracture/subluxation of lumbar spine, paraspinous muscle spasms, acute on chronic back pain 07/25/24 10:22 I interpreted the patient's preliminary report of her lumbar spine series. She is aware this is only preliminary report. I see no acute fracture or subluxation. Counseled pt/family regarding: diagnosis, need for follow-up, rad results Medical Desision Making - Diagnostic Testing Diagnostic test were ordered, analyzed, and reviewed by me: Yes Radiological Interpretation: Interpreted by me, Teleradiologist Report - Risk of complications The pt has a mod risk of morbidity or mortality based on: Need for prescription drug management - Departure Departure Disposition: Home Clinical Impression: Acute exacerbation of chronic low back pain Condition: Stable Critical Care Time: No Referrals: MANUEL QUINONES NP [Primary Care Provider] - Follow up/PCP as directed Additional Instructions: Take your medications as prescribed. Call your prescribing provider today, 07/25/2024, to make arrangements for follow-up appointment for further evaluation and management. Discuss with your provider adding a muscle relaxant if indicated to your back pain control regimen. May add Tylenol to your pain control regimen. Prescriptions: Prednisone 10 mg [Deltasone 10 mg] 10 mg PO TID #12 tablet
[2024-07-25 09:52] VITALS: RESP 18; TEMP 98
[2024-07-25] MEDS ORDERED: Sterile H2O 10 ml IJ ONE (10:04)
[2024-07-25] MEDS ORDERED: ZOFRAN ODT 4 MG ONE (10:05)
[2024-07-25] MEDS ORDERED: Ativan 2 MG/1 ML VIAL ONE (10:05)
[2024-07-25] MEDS ORDERED: Hydromorphone 1 mg/ml Injection ONE (10:05)
[2024-07-25] MEDS ORDERED: solu-MEDROL ONE (10:06)
[2024-07-25] MEDS: ZOFRAN ODT 4 MG PO ONE (10:09)
[2024-07-25] MEDS: solu-MEDROL 125 MG, Sterile H2O 10 ml 2 ML IM ONE (10:10)
[2024-07-25] MEDS: Ativan 2 MG/1 ML VIAL IM ONE (10:10)
[2024-07-25] MEDS: Hydromorphone 1 mg/ml Injection IM ONE (10:13)
[2024-07-25 10:50] VITALS: BP 132/98; PULSE 68; O2SAT 96
--- NOTE | 2024-07-25 11:00 | XRAY ---
Indication: Low back pain. Comparison: October 22, 2020 5 view lumbar spine unchanged again demonstrating normal alignment with vertebral body heights/disc spaces maintained and incidental cholecystectomy clips. No new/acute bony, articular, or soft tissue abnormalities.
== END 2024-07-25 10:54 | disposition home or self-care (01) ==
LOC: ED 09:37
DX: G89.29 Other chronic pain (principal); M54.50 Low back pain, unspecified; Z79.52 Long term (current) use of systemic steroids; Z79.899 Other long term (current) drug therapy; Z72.0 Tobacco use
CPT/HCPCS: 72110; 96372; 99284; J1171; J2060; J2919; Q0162

== ENCOUNTER 2024-08-09 05:53 | Day surgery (SDC) | payer OTHER ==
[2024-08-09] MEDS: Lactated Ringers 1,000 ML IV SCH (06:15)
[2024-08-09 06:32] VITALS: RESP 18
[2024-08-09] MEDS ORDERED: Xylocaine-Mpf 2% 5 Ml Vial ONE (08:01)
[2024-08-09] MEDS ORDERED: Versed 2 MG/2 ML Injection ONE (08:01)
[2024-08-09] MEDS ORDERED: propofoL IV ONE ×2 (08:01→08:17)
[2024-08-09 09:22] VITALS: BP 139/90; PULSE 81; TEMP 97.2; O2SAT 100
--- NOTE | 2024-08-10 13:22 | OP ---
SURGERY DATE/TIME: 08/09/2024 [id number] PREOPERATIVE DIAGNOSES: 1) Chronic gastroesophageal reflux disease. 2) Screening colon. POSTOPERATIVE DIAGNOSES: 1) Mild gastritis. 2) Ascending colon polyp. 3) Diverticulosis. PROCEDURES: Esophagogastroduodenoscopy and colonoscopy. SURGEON: Jacob Curtis MD. ANESTHESIA: MAC, by Miguelangel Dahl CRNA. ESTIMATED BLOOD LOSS: Minimal. SPECIMENS: There are 2 cold forceps biopsies from the gastric antrum and 1 hot forceps polypectomy from the ascending colon. DESCRIPTION OF PROCEDURE AND FINDINGS: After informed written consent was obtained, the patient was taken to the endoscopy suite. She had a bite block inserted, and anesthesia was titrated to the desired level of consciousness. The endoscope was inserted into the posterior oropharynx. Under direct visualization, the esophagus was easily traversed. Upon entry into the stomach, there was normal rugae gastric mucosa. Upon entry into the gastric antrum area, there were mild gastritis-type changes. No focal ulcerations or bleeding. The duodenum had a normal mucosal appearance. Proximal area had some mild duodenitis but no discrete lesions. Two cold forceps biopsies were taken from the gastric antrum, sent for H pylori testing. The remainder of the examination was unremarkable. Upon withdrawal, again, the GE junction and esophageal mucosa all had normal appearance. Scope was removed, and the scopes were switched. Digital rectal exam showed normal sphincter tone and no internal lesions. The scope was inserted into the rectum, and sequentially the entire colonic mucosa was traversed. The level of the cecum was reached and verified under direct visualization of the ileocecal valve. Upon withdrawal, there was a small sessile polyp in the distal ascending colon, near the hepatic flexure, which was grasped with a forceps, cauterized and removed in its entirety, sent for pathology testing. The remainder of the examination showed scattered diverticula but no discrete lesions. Prep was noted to be fair. Prior to withdrawal, retroflexion showed no internal lesions. The scope was removed, and patient was transferred to the recovery room in good condition. She has been advised to follow up in 1 week for pathology report.
== END 2024-08-09 09:30 | disposition home or self-care (01) ==
LOC: SDC 05:53
PROVIDERS: ATTEND Family Medicine
DX: Z12.11 Encounter for screening for malignant neoplasm of colon (principal); K21.9 Gastro-esophageal reflux disease without esophagitis; K29.70 Gastritis, unspecified, without bleeding; K57.30 Diverticulosis of large intestine without perforation or abscess without bleeding; D12.2 Benign neoplasm of ascending colon
CPT/HCPCS: J2250; J2704